=== PATIENT | female | born 1965 | race Caucasian/White ===

== ENCOUNTER 2022-10-14 18:57 | Emergency (ER) | payer MEDICARE, MEDICAID, SELFPAY ==
[2022-10-14 19:13] VITALS: BP 175/89; PULSE 83; RESP 18; TEMP 36.7; O2SAT 99; BMI 30.3
--- NOTE | 2022-10-14 19:19 | ED.GENADULT ---
HPI - General Adult General Time Seen by Provider: 19:19 Date Seen: 10/14/22 Chief complaint: Fall/Minor Trauma Stated complaint: Fell 5d ago Pain Time Seen by Provider: 10/14/22 19:14 Source: patient Mode of arrival: ambulatory Limitations: no limitations History of Present Illness HPI narrative: 56-year-old female who comes in with headache and right rib pain after a fall 5 days ago. Slipped on the ice and landed on her back. Since then has had difficulty getting out of the house because of a nice driveway, was out about today and decided come the emergency room. Pain in there right lower back, no breathing difficulty, no hematuria, no abdominal pain. She says she the back of her head as well, no loss of consciousness but has had some intermittent nausea and continued headaches since her injury. No neck pain. No numbness or tingling of the arms or legs. She is chronically on Butrans patch, oxycodone, gabapentin, and tizanidine and has been taking these as prescribed. Denies any bowel or bladder incontinence. Related Data Home Medications Medication Instructions Recorded Confirmed atorvastatin 40 mg tablet 40 mg PO DAILY 10/14/22 10/14/22 buprenorphine 15 mcg/hour weekly 1 patch transdermal Q7D 10/14/22 10/14/22 transdermal patch (Butrans) fenofibrate nanocrystallized 145 145 mg PO DAILY 10/14/22 10/14/22 mg tablet gabapentin 600 mg tablet 600 mg PO TID 10/14/22 10/14/22 insulin aspart U-100 100 unit/mL 20 unit subcut TID 10/14/22 10/14/22 (3 mL) subcutaneous pen (Novolog FlexPen U-100 Insulin aspart) insulin detemir U-100 100 unit/mL 45 unit subcut BID 10/14/22 10/14/22 (3 mL) subcutaneous pen (Levemir FlexTouch U-100 Insulin) lisinopril 30 mg tablet 30 mg PO DAILY 10/14/22 10/14/22 metformin 1,000 mg tablet 1,000 mg PO BID 10/14/22 10/14/22 oxycodone 10 mg tablet 10 mg PO Q4-6H PRN 10/14/22 10/14/22 pantoprazole 40 mg tablet,delayed 40 mg PO DAILY 10/14/22 10/14/22 release rosuvastatin 40 mg tablet 40 mg PO HS 10/14/22 10/14/22 semaglutide 0.25 mg or 0.5 mg (2 0.5 mg subcut QWEEK 10/14/22 10/14/22 mg/1.5 mL) subcutaneous pen injector (Ozempic) tizanidine 2 mg tablet 2 mg PO Q8H PRN 10/14/22 10/14/22 venlafaxine 150 mg 150 mg PO DAILY 10/14/22 10/14/22 capsule,extended release 24 hr Allergies Allergy/AdvReac Type Severity Reaction Status Date / Time morphine Allergy Severe Arrythmia Verified 10/14/22 19:20 erythromycin base Allergy Intermediate Rash Verified 10/14/22 19:20 exenatide Allergy Mild Rash Verified 10/14/22 19:20 Review of Systems Status of ROS: Reports: 10 or more systems reviewed and unremarkable except as noted in History and below Exam Narrative: Exam Narrative: General: Well-developed and well-nourished, no acute distress. Laying on her right side initially because from laying to sitting fairly well with only occasional wincing Head: Posterior scalp tenderness Eyes: Pupils are equal reactive, extraocular motions intact, conjunctiva clear ENT: External nose and ears are normal, posterior pharynx without erythema or exudate Neck: No midline cervical tenderness, full spontaneous range of motion the neck, trachea midline, no adenopathy Heart: Regular rate and rhythm no murmurs or thrills Lungs: Clear to auscultation bilaterally without wheezes or crackles. Tenderness of the right posterior lateral lower ribs. Abdomen: Soft, nontender, nondistended with active bowel sounds Musculoskeletal: No tenderness, deformity, or edema Neurologic: Awake, alert, and oriented x3, no gross focal neurologic deficits, cranial nerves intact as tested Psych: Mood and affect are appropriate Skin: No rashes Const: Vital Signs, click to edit/add: Vital Signs - 24 hr 10/14/22 19:13 Temperature 98.0 F Pulse Rate [Right Pulse Oximeter] 83 Respiratory Rate 18 Blood Pressure [Ri ght Upper Arm] 175/89 H Pulse Oximetry 99 Oxygen Delivery Me thod Room Air Course Course Hospital Course: Patient seen examined, prior records reviewed. Patient had a fall 5 days ago on comes in today with head pain and nausea, head CT is ordered although no loss of conscious and risk of intracranial injury is low. Also right posterior lateral chest wall pain, good lung sounds on that side so significant hemothorax or pneumothorax is clinically unlikely, x-ray ordered to evaluate for rib fracture although did discuss with patient the evening she has a broken rib, given time since injury and less is severely displaced she will not need further treatment for this. Reevaluation(s) Reevaluation #1: CT scan of the head negative for acute intracranial pathology. Chest x-ray does not demonstrate any hemothorax, pneumothorax, or rib fracture. Patient is stable for discharge Time: 20:53 Vital Signs Vital signs: Initial Vital Signs Temperature 98.0 F 10/14/22 19:13 Temperature Source Temporal Artery Scan 10/14/22 19:13 Pulse Rate 83 10/14/22 19:13 Respiratory Rate 18 10/14/22 19:13 Blood Pressure 175/89 H 10/14/22 19:13 Blood Pressure Mean 117 10/14/22 19:13 Blood Pressure Position Sitting 10/14/22 19:13 Pulse Oximetry 99 10/14/22 19:13 Oxygen Delivery Method 10/14/22 19:13 Vital Signs Temperature 98.0 F 10/14/22 19:13 Pulse Rate 83 10/14/22 19:13 Respiratory Rate 18 10/14/22 19:13 Blood Pressure 175/89 H 10/14/22 19:13 Pulse Oximetry 99 10/14/22 19:13 Oxygen Delivery Method 10/14/22 19:13 Temperature 98.0 F 10/14/22 19:13 Pulse Rate 83 10/14/22 19:13 Respiratory Rate 18 10/14/22 19:13 Blood Pressure 175/89 H 10/14/22 19:13 Pulse Oximetry 99 10/14/22 19:13 Oxygen Delivery Method 10/14/22 19:13 Medical Decision Making Medical Records Medical records reviewed: Yes I reviewed the patient's medical records Lab Data Lab results reviewed: Yes I reviewed the patient's lab results Discharge Plan Discharge Prescriptions: No Action atorvastatin 40 mg tablet 40 mg PO DAILY Label Comments: TAKE 1 TABLET BY MOUTH DAILY buprenorphine [Butrans] 15 mcg/hour patch weekly 1 patch transdermal Q7D Label Comments: APPLY 1 PATCH BY TRANSDERMAL ROUTE EVERY 7 DAYS FOR CHRONIC PAIN fenofibrate nanocrystallized 145 mg tablet 145 mg PO DAILY Label Comments: TAKE 1 TABLET (145 MG TOTAL) BY MOUTH DAILY. gabapentin 600 mg tablet 600 mg PO TID Label Comments: TAKE 1-2 TABLET BY ORAL ROUTE 3 TIMES EVERY DAY insulin aspart U-100 [Novolog FlexPen U-100 Insulin] 100 unit/mL (3 mL) insulin pen 20 unit SUBCUT TID Label Comments: INJECT 20 UNITS UNDER THE SKIN 3 (THREE) TIMES A DAY WITH MEALS. VARIES DOSE PER SLIDING SCALE Levemir FlexTouch U-100 Insuln 100 unit/mL (3 mL) insulin pen 45 unit SUBCUT BID Label Comments: INJECT 45 UNITS UNDER THE SKIN 2 (TWO) TIMES A DAY. lisinopril 30 mg tablet 30 mg PO DAILY Label Comments: TAKE 1 TABLET (30 MG TOTAL) BY MOUTH DAILY. metformin 1,000 mg tablet 1,000 mg PO BID Label Comments: TAKE ONE TABLET BY MOUTH TWO TIMES A DAY WITH MORNING AND EVENING MEALS oxycodone 10 mg tablet 10 mg PO Q4-6H PRN Label Comments: TAKE 1 TABLET BY ORAL ROUTE EVERY 4 - 6 HOURS NEEDED FOR CHRONIC PAIN, MAX 4/DAY pantoprazole 40 mg tablet,delayed release (DR/EC) 40 mg PO DAILY Label Comments: TAKE 1 TABLET (40 MG TOTAL) BY MOUTH DAILY WITH BREAKFAST. rosuvastatin 40 mg tablet 40 mg PO HS Label Comments: TAKE ONE TABLET BY MOUTH EVERY DAY Ozempic 0.25 mg or 0.5 mg(2 mg/1.5 mL) pen injector 0.5 mg SUBCUT QWEEK Label Comments: INJECT 0.5 MG UNDER THE SKIN EVERY 7 (SEVEN) DAYS. tizanidine 2 mg tablet 2 mg PO Q8H PRN Label Comments: TAKE ONE TABLET BY MOUTH EVERY 8 HOURS NEEDED NOT TO EXCEED 3 DOSES IN 24 HOURS. IN ADDITION TO 4MG TABLETS venlafaxine 150 mg capsule,extended release 24hr 150 mg PO DAILY Label Comments: TAKE 1 CAPSULE (150 MG TOTAL) BY MOUTH DAILY. TAKE WITH FOOD.
--- NOTE | 2022-10-14 19:31 | CRLHL7_ITS ---
For Patients: As a result of the Century Cures Act, medical imaging exams and procedure reports are released immediately into your electronic medical record. You may view this report before your referring provider. If you have questions, please contact your health care provider. INDICATION: Fall TECHNIQUE: Noncontrast axial CT of the head. Coronal and sagittal reformats. Bone and soft tissue algorithms. COMPARISON: No relevant comparison studies available at this institution. FINDINGS: The ventricles and cortical sulci are stable in configuration. No midline shift or mass effect. No acute intracranial hemorrhage or extra-axial fluid collection. Smith-white matter differentiation is grossly maintained. White matter attenuation is unremarkable. Intracranial vessels are unremarkable for technique. Partially empty sella configuration, presumed anatomic variant. Bony calvarium appears grossly intact. Paranasal sinuses and mastoid air cells are clear. Orbits are unremarkable. IMPRESSION: No CT evidence of skull fracture or acute intracranial hemorrhage. Please note that all CT scans at this facility use dose modulation, iterative reconstruction, and/or weight-based dosing when appropriate to reduce radiation dose to as low as reasonably achievable. Dictated by Alana Boogie MD @ 10/14/2022 8:29:15 PM (Electronically Signed)
--- NOTE | 2022-10-14 19:31 | CRLHL7_ITS ---
For Patients: As a result of the Cures Act, medical imaging exams and procedure reports are released immediately into your electronic medical record. You may view this report before your referring provider. If you have questions, please contact your health care provider. INDICATION: Pain. TECHNIQUE: Chest and rib detail. IMPRESSION: Four images of the chest and right ribs. Marker over the right 9th rib. No signs of rib fracture. Lumbar interbody and posterior stabilization with intact hardware at L3 through L5. Heart size normal. Lungs are clear. No pneumothorax. Dictated by Eleazar Miller MD @ 10/14/2022 8:49:13 PM (Electronically Signed)
== END 2022-10-14 21:03 | disposition home or self-care (01) ==
PROVIDERS: Emergency Provider Family Medicine
DX: S20.211A Contusion of right front wall of thorax, initial encounter (principal); W00.9XXA Unspecified fall due to ice and snow, initial encounter
CPT/HCPCS: 70450; 71101; 99284

== ENCOUNTER 2024-04-07 16:25 | Emergency (ER) | payer MEDICARE, SELFPAY ==
[2024-04-07 16:29] VITALS: BP 187/124; PULSE 88; RESP 20; TEMP 36.9; O2SAT 99; BMI 32.3
--- NOTE | 2024-04-07 16:38 | ED_ITS ---
HPI - General Adult General Chief complaint: Fall/Minor Trauma Stated complaint: Fall, hit head--bleeding Time Seen by Provider: 04/07/24 16:26 History of Present Illness HPI narrative: unloading refrigerator and walking down backwards of ramp on truck. pt fell backwards, refrigerator landed on her and corner of lader of tracker hit head causing lac. R leg pain and scrape on L elbow. pt returned rental truck and then drove self here 58-year-old woman presenting to the emergency department after sustaining full and process hitting her head. Apparently was trying to unload a refrigerator with a esdras down a truck ramp. She says the refrigerator was relatively light weight. Somehow lost control of the refrigerator she fell and struck the left side of her head on the hardened steel aspect of a tractor. There was no loss of consciousness. She has not been vomiting. Is having right leg pain where it sounds like the refrigerator landed on her. Has been ambulatory. She actually returned a rental truck and drove herself here. Underlying history of chronic low back pain and is pending a repeat surgery in a few weeks. Does take chronic pain medication. She did recently take some and does not feel she needs any intervention for pain. A sister recently due to a head bleed following trauma I believe. Denies neck or new back pain. Related Data Home Medications ?Medication ?Instructions ?Recorded ?Confirmed atorvastatin 40 mg tablet 40 mg PO DAILY 10/14/22 10/14/22 buprenorphine 15 mcg/hour weekly 1 patch transdermal Q7D 10/14/22 10/14/22 transdermal patch (Butrans) fenofibrate nanocrystallized 145 145 mg PO DAILY 10/14/22 10/14/22 mg tablet gabapentin 600 mg tablet 600 mg PO TID 10/14/22 10/14/22 insulin aspart U-100 100 unit/mL 20 unit subcut TID 10/14/22 10/14/22 (3 mL) subcutaneous pen (Novolog FlexPen U-100 Insulin aspart) insulin detemir U-100 100 unit/mL 45 unit subcut BID 10/14/22 10/14/22 (3 mL) subcutaneous pen (Levemir FlexTouch U-100 Insulin) lisinopril 30 mg tablet 30 mg PO DAILY 10/14/22 10/14/22 metformin 1,000 mg tablet 1,000 mg PO BID 10/14/22 10/14/22 oxycodone 10 mg tablet 10 mg PO Q4-6H PRN 10/14/22 10/14/22 pantoprazole 40 mg tablet,delayed 40 mg PO DAILY 10/14/22 10/14/22 release rosuvastatin 40 mg tablet 40 mg PO HS 10/14/22 10/14/22 semaglutide 0.25 mg or 0.5 mg (2 0.5 mg subcut QWEEK 10/14/22 10/14/22 mg/1.5 mL) subcutaneous pen injector ([employer]) tizanidine 2 mg tablet 2 mg PO Q8H PRN 10/14/22 10/14/22 venlafaxine 150 mg 150 mg PO DAILY 10/14/22 10/14/22 capsule,extended release 24 hr Allergies Allergy/AdvReac Type Severity Reaction Status Date / Time morphine Allergy Severe Arrythmia Verified 10/14/22 19:20 erythromycin base Allergy Intermediate Rash Verified 10/14/22 19:20 exenatide Allergy Mild Rash Verified 10/14/22 19:20 Review of Systems Status of ROS: Reports: 6 or more systems reviewed and unremarkable except as noted in History and below Exam Narrative: Exam Narrative: Pleasant. With good energy. Has dried blood on upper scalp and forehead and left hand. Cranial nerves 2-12 intact. She is breathing easily. There is a similar laceration at the left upper parietal scalp. Has clotted. Not actively bleeding now. Length is knee inch and half total. I do not appreciate a defect in the parietal scalp to palpation. No fluid at external ear canals. No Mora sign. Neck is supple nontender. Back not particularly tender either and with well-healed extensive midline surgical scar low back. She does have some limitations to movement of her shoulders but apparently this is chronic. There is no clavicular area pain. Some mild pain to palpation of the left mid bicep/upper arm it appears to have good function. Knees are without apparent injury. There is a mid right thigh swelling consistent with impact. Probable hematoma. No break in skin here. Const: Vital Signs, click to edit/add: Vital Signs - 24 hr 04/07/24 16:29 04/07/24 18:15 Temperature 98.5 F Pulse Rate [Pulse Oximeter] 88 Respiratory Rate 20 Blood Pressure [Ri ght Upper Arm] 187/124 H 155/98 H Pulse Oximetry 99 Oxygen Delivery Me thod Room Air Documenting provider has reviewed patient's vital signs: yes Course Vital Signs Vital signs: Initial Vital Signs Temperature 98.5 F 04/07/24 16:29 Temperature Source Temporal Artery Scan 04/07/24 16:29 Pulse Rate 88 04/07/24 16:29 Respiratory Rate 20 04/07/24 16:29 Blood Pressure 187/124 H 04/07/24 16:29 Blood Pressure Mean 145 H 04/07/24 16:29 Blood Pressure Position Supine 04/07/24 16:29 Pulse Oximetry 99 04/07/24 16:29 Oxygen Delivery Method Room Air 04/07/24 16:29 Vital Signs Temperature 98.5 F 04/07/24 16:29 Pulse Rate 88 04/07/24 16:29 Respiratory Rate 20 04/07/24 16:29 Blood Pressure 187/124 H 04/07/24 16:29 Pulse Oximetry 99 04/07/24 16:29 Oxygen Delivery Method Room Air 04/07/24 16:29 Temperature 98.5 F 04/07/24 16:29 Pulse Rate 88 04/07/24 16:29 Respiratory Rate 20 04/07/24 16:29 Blood Pressure 155/98 H 04/07/24 18:15 Pulse Oximetry 99 04/07/24 16:29 Oxygen Delivery Method Room Air 04/07/24 16:29 Medical Decision Making MDM Narrative Medical decision making narrative: Sounds like potentially quite an impact. Would actually be more concerned about potential skull fracture than head bleed but will evaluate for both. Does not appear to need neck imaging by nexus criteria. Will image the right thigh though I think this primarily hematoma and not femoral fracture. She does not feel she needs anything more for pain at this time. Head CT reviewed by me is absent any bony abnormality of the calvarium and without acute abnormality within. There is subcutaneous air consistent with scalp injury as noted on exam. Swelling as well in the soft tissue. Right femur with osteoarthritic change but no acute bony abnormality by my read. Return to discuss type of repair for scalp. Mutually settle on santosh. Has been cleansed with Hibiclens and water. Further cleanse with Shur-Clens equivalent solution and light scrubbing. Wound is better visualized. Applied 4 santosh without difficulty with good wound approximation and control of bleeding. Tolerated well. Recheck blood pressure 155/98. Is aware of elevation. Feels extenuating circumstances are contributing. See patient discharge plan for further discussion Medical Records Medical records reviewed: Yes I reviewed the patient's medical records Discharge Plan Discharge Clinical Impression: Closed head injury, Laceration of scalp, Hematoma Patient Disposition: Home w/ Parent or Adult Condition: Improved Additional Instructions: Consider icing the areas that hurt 2-3 times daily over the next few days. Might apply an Kamari wrap your right thigh tonight. Bathe as usual tonight. [place] out in about a week. Okay to get wet but try to avoid soaking well santosh are in. Signs or symptoms of a concussion might be nausea or headache upon exertion which can also be an indication to back off that level of activity and reassess in a week.? Concussion can also be represented by smoldering nausea or smoldering headache, difficulty with concentration, mood lability, general somnolence, sense of persistent fog or dizziness/lightheadedness.? If these symptoms are becoming apparent and continuing beyond 7-10 days, be re-evaluated for further recommendations. Best wishes in your upcoming surgery Prescriptions: No Action atorvastatin 40 mg tablet 40 mg PO DAILY Patient Comments: TAKE 1 TABLET BY MOUTH DAILY buprenorphine [Butrans] 15 mcg/hour patch weekly 1 patch transdermal Q7D Patient Comments: APPLY 1 PATCH BY TRANSDERMAL ROUTE EVERY 7 DAYS FOR CHRONIC PAIN fenofibrate nanocrystallized 145 mg tablet 145 mg PO DAILY Patient Comments: TAKE 1 TABLET (145 MG TOTAL) BY MOUTH DAILY. gabapentin 600 mg tablet 600 mg PO TID Patient Comments: TAKE 1-2 TABLET BY ORAL ROUTE 3 TIMES EVERY DAY insulin aspart U-100 [Novolog FlexPen U-100 Insulin] 100 unit/mL (3 mL) insulin pen 20 unit SUBCUT TID Patient Comments: INJECT 20 UNITS UNDER THE SKIN 3 (THREE) TIMES A DAY WITH MEALS. VARIES DOSE PER SLIDING SCALE Levemir FlexTouch U100 Insulin 100 unit/mL (3 mL) insulin pen 45 unit SUBCUT BID Patient Comments: INJECT 45 UNITS UNDER THE SKIN 2 (TWO) TIMES A DAY. lisinopril 30 mg tablet 30 mg PO DAILY Patient Comments: TAKE 1 TABLET (30 MG TOTAL) BY MOUTH DAILY. metformin 1,000 mg tablet 1,000 mg PO BID Patient Comments: TAKE ONE TABLET BY MOUTH TWO TIMES A DAY WITH MORNING AND EVENING MEALS oxycodone 10 mg tablet 10 mg PO Q4-6H PRN Patient Comments: TAKE 1 TABLET BY ORAL ROUTE EVERY 4 - 6 HOURS NEEDED FOR CHRONIC PAIN, MAX 4/DAY pantoprazole 40 mg tablet,delayed release (DR/EC) 40 mg PO DAILY Patient Comments: TAKE 1 TABLET (40 MG TOTAL) BY MOUTH DAILY WITH BREAKFAST. rosuvastatin 40 mg tablet 40 mg PO HS Patient Comments: TAKE ONE TABLET BY MOUTH EVERY DAY Ozempic 0.25 mg or 0.5 mg(2 mg/1.5 mL) pen injector 0.5 mg SUBCUT QWEEK Patient Comments: INJECT 0.5 MG UNDER THE SKIN EVERY 7 (SEVEN) DAYS. tizanidine 2 mg tablet 2 mg PO Q8H PRN Patient Comments: TAKE ONE TABLET BY MOUTH EVERY 8 HOURS NEEDED NOT TO EXCEED 3 DOSES IN 24 HOURS. IN ADDITION TO 4MG TABLETS venlafaxine 150 mg capsule,extended release 24hr 150 mg PO DAILY Patient Comments: TAKE 1 CAPSULE (150 MG TOTAL) BY MOUTH DAILY. TAKE WITH FOOD. Follow Up/Referrals: Provider,Not a Local [Primary Care Provider] - Stand Alone Forms: [facility] Info Instructions
--- NOTE | 2024-04-07 16:49 | CRLHL7_ITS ---
For Patients: As a result of the Cures Act, medical imaging exams and procedure reports are released immediately into your electronic medical record. You may view this report before your referring provider. If you have questions, please contact your health care provider. Indication: Crush injury to mid thigh Technique: Right femur, two views Comparison: None. Findings and impression: No acute fracture or dislocation. Mild degenerative disease of the hip. Soft tissue swelling of the thigh. Dictated by Lay Estevez MD @ 04/07/2024 5:55:45 PM (Electronically Signed)
--- NOTE | 2024-04-07 16:49 | CRLHL7_ITS ---
For Patients: As a result of the Cures Act, medical imaging exams and procedure reports are released immediately into your electronic medical record. You may view this report before your referring provider. If you have questions, please contact your health care provider. INDICATION: FALL, HIT HEAD, INJURY. TECHNIQUE: Non-contrast CT of the head is submitted. Comparison is made to the CT head dated 10/14/2022. FINDINGS: The ventricles, sulci and gyri are of normal size, shape and contour. Midline structures are centrally located. No convincing evidence of intra- or extra-axial fluid collections. Mild left frontal scalp swelling with associated soft tissue gas, indicating laceration. No radiopaque foreign body. No underlying fracture. IMPRESSION: No radiographic evidence of acute intracranial abnormalities. Left frontal scalp swelling/laceration without underlying fracture. Please note that all CT scans at this facility use dose modulation, iterative reconstruction, and/or weight-based dosing when appropriate to reduce radiation dose to as low as reasonably achievable. Dictated by Leonard Peñaloza MD @ 04/07/2024 5:49:57 PM (Electronically Signed)
[2024-04-07 18:15] VITALS: BP 155/98
== END 2024-04-07 18:20 | disposition home or self-care (01) ==
PROVIDERS: Emergency Provider Family Medicine
DX: S01.01XA Laceration without foreign body of scalp, initial encounter (principal); W20.8XXA Other cause of strike by thrown, projected or falling object, initial encounter
CPT/HCPCS: 12001; 70450; 73552; 99283; 99284

== ENCOUNTER 2024-06-16 21:55 | Emergency (ER) | payer MEDICARE, SELFPAY ==
[2024-06-16 22:06] VITALS: BP 163/91; PULSE 113; RESP 16; TEMP 37.1; O2SAT 99; BMI 27.4
--- NOTE | 2024-06-16 22:36 | ED_ITS ---
HPI - General Adult General Date Seen: 06/16/24 Chief complaint: Animal Bite Stated complaint: dog bite Time Seen by Provider: 06/16/24 22:35 History of Present Illness HPI narrative: 58-year-old female presenting to the ER today for evaluation of a dog bite. Her own dog bit her on her left calf this evening about 8:15 p.m.. The dog is not vaccinated against rabies but has not been displaying any other unusual behavior. She has 3 dogs at home. Two of them are large female dogs, peer in knees. She also has a smaller male dog was a Wiener dog. Her 2 female dogs are currently in heat. They have been acting aggressively toward each other for the past couple of days. Tonight her 2 dogs were in a fight between themselves. She was trying to break up the fight when 1 of the 2 dogs bit her in the left calf. The patient believes that her dog accidentally bit her because it was trying to bite the other dog instead. The dog immediately let go after biting her and seemed to be Haven remorseful manner after biting her. She suffered a pinching bite affecting the muscle of her calf with bites on the anterolateral calf and also in the posterolateral calf. She suffered puncture wounds to the front and back of her calf. No other deep tearing lacerations. Only 1 bite. The patient is up-to-date with her tetanus. She does have diabetes and controls it with medications and insulin. No chemo or or other immunosuppression.. Related Data Home Medications ?Medication ?Instructions ?Recorded ?Confirmed atorvastatin 40 mg tablet 40 mg PO DAILY 10/14/22 10/14/22 buprenorphine 15 mcg/hour weekly 1 patch transdermal Q7D 10/14/22 10/14/22 transdermal patch (Butrans) fenofibrate nanocrystallized 145 145 mg PO DAILY 10/14/22 10/14/22 mg tablet gabapentin 600 mg tablet 600 mg PO TID 10/14/22 10/14/22 insulin aspart U-100 100 unit/mL 20 unit subcut TID 10/14/22 10/14/22 (3 mL) subcutaneous pen (Novolog FlexPen U-100 Insulin aspart) insulin detemir U-100 100 unit/mL 45 unit subcut BID 10/14/22 10/14/22 (3 mL) subcutaneous pen (Levemir FlexTouch U-100 Insulin) lisinopril 30 mg tablet 30 mg PO DAILY 10/14/22 10/14/22 metformin 1,000 mg tablet 1,000 mg PO BID 10/14/22 10/14/22 oxycodone 10 mg tablet 10 mg PO Q4-6H PRN 10/14/22 10/14/22 pantoprazole 40 mg tablet,delayed 40 mg PO DAILY 10/14/22 10/14/22 release rosuvastatin 40 mg tablet 40 mg PO HS 10/14/22 10/14/22 semaglutide 0.25 mg or 0.5 mg (2 0.5 mg subcut QWEEK 10/14/22 10/14/22 mg/1.5 mL) subcutaneous pen injector (Ozempic) tizanidine 2 mg tablet 2 mg PO Q8H PRN 10/14/22 10/14/22 venlafaxine 150 mg 150 mg PO DAILY 10/14/22 10/14/22 capsule,extended release 24 hr Allergies Allergy/AdvReac Type Severity Reaction Status Date / Time morphine Allergy Severe Arrythmia Verified 10/14/22 19:20 erythromycin base Allergy Intermediate Rash Verified 10/14/22 19:20 exenatide Allergy Mild Rash Verified 10/14/22 19:20 [facility] Social History Smoking Status: Former smoker How often do you have a drink containing alcohol: never How often do you have six or more drinks on one occasion: Never AUDIT-C Alcohol total score: 0 Non-prescribed substance use: denies use service: No Exam Narrative: Exam Narrative: Constitutional: Appears well-developed and well-nourished. Active. Non-toxic appearing. HENT: Head: Atraumatic. No signs of injury. Nose: No nasal discharge. Mouth/Throat: Mucous membranes are moist. Pharynx is normal. Tonsils symmetric. Uvula midline. Airway patent. Eyes: Conjunctivae normal and EOM are normal. Pupils are equal, round, and reactive to light. Right eye exhibits no discharge. Left eye exhibits no discharge. No icterus. Neck: Normal range of motion. Neck supple. No adenopathy. No stridor. Cardiovascular: Normal rate and regular rhythm. No murmur heard. No murmurs, rubs, or gallops. Brisk capillary refill Pulmonary/Chest: Effort normal. No stridor. No respiratory distress. No wheezes.No rhonchi. No rales. No retractions. Abdominal: Soft. Bowel sounds are normal. No distension. No mass. There is no tenderness. There is no rebound and no guarding. Musculoskeletal: She does have a dog bite affecting her left calf. There are 5 puncture wounds on anterolateral mid walls and a anterolateral calf. The largest of these is probably 4 x 5 mm in size and does appear to be a puncture wound through the dermis and down into the muscle. The others are fairly superficial only affecting the dermis. On the posterolateral calf there are also 3 associated tooth eason. One of these also appears to be deeper and through the skin into the muscle. Normal range of motion. No edema. No tenderness. No deformity. Normal weight-bearing. Normal ankle plantar and dorsiflexion. Intact distal sensory function. Normal DP pulses. Normal brisk distal cap refill. Neurological: Alert. Normal strength. No cranial nerve deficit or sensory deficit. Coordination normal. GCS eye subscore is 4. GCS verbal subscore is 5. GCS motor subscore is 6. Skin: Skin is warm. No rash noted. Const: Vital Signs, click to edit/add: Vital Signs - 24 hr 06/16/24 22:06 06/16/24 23:21 Temperature 98.7 F 98.7 F Pulse Rate [Pulse Oximeter] 113 H 95 Respiratory Rate 16 16 Blood Pressure [Le ft Upper Arm] 163/91 H 154/81 H Pulse Oximetry 99 99 Oxygen Delivery Me thod Room Air Room Air Course Vital Signs Vital signs: Initial Vital Signs Temperature 98.7 F 06/16/24 22:06 Temperature Source Temporal Artery Scan 06/16/24 22:06 Pulse Rate 113 H 06/16/24 22:06 Respiratory Rate 16 06/16/24 22:06 Blood Pressure 163/91 H 06/16/24 22:06 Blood Pressure Mean 115 H 06/16/24 22:06 Blood Pressure Position Sitting 06/16/24 22:06 Pulse Oximetry 99 06/16/24 22:06 Oxygen Delivery Method Room Air 06/16/24 22:06 Vital Signs Temperature 98.7 F 06/16/24 22:06 Pulse Rate 113 H 06/16/24 22:06 Respiratory Rate 16 06/16/24 22:06 Blood Pressure 163/91 H 06/16/24 22:06 Pulse Oximetry 99 06/16/24 22:06 Oxygen Delivery Method Room Air 06/16/24 22:06 Temperature 98.7 F 06/16/24 23:21 Pulse Rate 95 06/16/24 23:21 Respiratory Rate 16 06/16/24 23:21 Blood Pressure 154/81 H 06/16/24 23:21 Pulse Oximetry 99 06/16/24 23:21 Oxygen Delivery Method Room Air 06/16/24 23:21 Medical Decision Making MDM Narrative Medical decision making narrative: Findings and exam are consistent with an dog bite affecting her left calf. This bite occurred from her own dog. The animal is not up-to-date on its rabies vaccine but has not really been allowed to go outside the house lately and the patient has no concerned that the dog is rapid. She will be able to observe the animal for the next 10 days and will bring it to the vet for rabies testing if it develops any symptoms of illness. The patient herself is up-to-date on her tetanus. 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 She thinks is probably been about 10 years since her rabies shots. In terms of the wound, most of the teeth eason are very superficial but she does have a fairly deep puncture wound anteriorly and a 2nd deep puncture wound posteriorly. Since he has or dog bite puncture wounds will let them heal by secondary intention. Will start the patient on prophylactic Augmentin. For Inst[facility] prescription for Augmentin b.i.d. for 7 days provided. There is no evidence at this time to suggest any associated fracture or foreign body. There is no evidence to suggest tendon or arterial injury and patient is neurologically in tact. Indications to seek urgent reevaluation and signs of infection (including but not limited to increasing pain, redness, swelling, fevers, and drainage) were reviewed. Tetanus is up-to-date. An understanding of the discharge instructions and need for follow up were verbally confirmed. Discharge Plan Discharge Clinical Impression: Dog bite Patient Disposition: Home, Self-Care Condition: Stable Instructions: Animal Bite (ED) Additional Instructions: As we discussed, we are not going to suture your dog bite wounds on your calf tonight because they are deep puncture wounds from the dog's teeth. The best way for them to heal is to leave them open and let them heal by scabbing. However you need to watch carefully for signs of infection. We are going to start you on preventative antibiotics. Take your 1st dose tonight and take it twice a day for the next week. Even on the antibiotics it still might get infected. Watch for redness, swelling, pus draining from the wound, fever, or red streaks moving up or down your leg. If you have any concerns for infection, please see your doctor or come back to the ER right away to be rechecked. Please monitor your dog carefully for the next 10 days. It she develops any symptoms of illness, bring her to the vet to consider rabies testing. If you have any other concerns or any problems, please come back to the ER or see your doctor right away to be rechecked. Prescriptions: No Action atorvastatin 40 mg tablet 40 mg PO DAILY Patient Comments: TAKE 1 TABLET BY MOUTH DAILY buprenorphine [Butrans] 15 mcg/hour patch weekly 1 patch transdermal Q7D Patient Comments: APPLY 1 PATCH BY TRANSDERMAL ROUTE EVERY 7 DAYS FOR CHRONIC PAIN fenofibrate nanocrystallized 145 mg tablet 145 mg PO DAILY Patient Comments: TAKE 1 TABLET (145 MG TOTAL) BY MOUTH DAILY. gabapentin 600 mg tablet 600 mg PO TID Patient Comments: TAKE 1-2 TABLET BY ORAL ROUTE 3 TIMES EVERY DAY insulin aspart U-100 [Novolog FlexPen U-100 Insulin] 100 unit/mL (3 mL) in sulin pen 20 unit SUBCUT TID Patient Comments: INJECT 20 UNITS UNDER THE SKIN 3 (THREE) TIMES A DAY WITH MEALS. VARIES DOSE PER SLIDING SCALE Levemir FlexTouch U100 Insulin 100 unit/mL (3 mL) insulin pen 45 unit SUBCUT BID Patient Comments: INJECT 45 UNITS UNDER THE SKIN 2 (TWO) TIMES A DAY. lisinopril 30 mg tablet 30 mg PO DAILY Patient Comments: TAKE 1 TABLET (30 MG TOTAL) BY MOUTH DAILY. metformin 1,000 mg tablet 1,000 mg PO BID Patient Comments: TAKE ONE TABLET BY MOUTH TWO TIMES A DAY WITH MORNING AND EVENING MEALS oxycodone 10 mg tablet 10 mg PO Q4-6H PRN Patient Comments: TAKE 1 TABLET BY ORAL ROUTE EVERY 4 - 6 HOURS NEEDED FOR CHRONIC PAIN, MAX 4/DAY pantoprazole 40 mg tablet,delayed release (DR/EC) 40 mg PO DAILY Patient Comments: TAKE 1 TABLET (40 MG TOTAL) BY MOUTH DAILY WITH BREAKFAST. rosuvastatin 40 mg tablet 40 mg PO HS Patient Comments: TAKE ONE TABLET BY MOUTH EVERY DAY Ozempic 0.25 mg or 0.5 mg(2 mg/1.5 mL) pen injector 0.5 mg SUBCUT QWEEK Patient Comments: INJECT 0.5 MG UNDER THE SKIN EVERY 7 (SEVEN) DAYS. tizanidine 2 mg tablet 2 mg PO Q8H PRN Patient Comments: TAKE ONE TABLET BY MOUTH EVERY 8 HOURS NEEDED NOT TO EXCEED 3 DOSES IN 24 HOURS. IN ADDITION TO 4MG TABLETS venlafaxine 150 mg capsule,extended release 24hr 150 mg PO DAILY Patient Comments: TAKE 1 CAPSULE (150 MG TOTAL) BY MOUTH DAILY. TAKE WITH FOOD. Follow Up/Referrals: Provider,Not a Local [Primary Care Provider] - Stand Alone [facility]: [facility] Info Inst[facility]
--- OUTSIDE RECORDS SUMMARY | 2024-06-16 23:15 | XMS_ITS | Continuity of Care Document ---
Author Organization [facility] Address [address] [place] [address] Care Team Providers Care [facility] End Department Supervisor Name Role Phone Shailesh Mcdonald CRNA Unavailable Unavailable Procedures Procedure Date Percutaneous Image guided destruction pr ocedures B ANESTH PERC IMG TX SP PROC ANESTH PERC IMG TX SP PROC ANESTH PERC IMG TX SP PROC ANESTH PERC IMG TX SP PROC Advance Directives Directive Yes / No Effective Date File Name No Information Encounters Encounter Description Practice Location Reason(s) For Visit Diagnoses Date Provider Providers Copied on Encounter [facility], [address] [place], [place], [id number], [facility] No Information Harry Cash. [address] [place], [place], [id number], . tel:[phone] Referring Provider: Leticia Bowen, [address] [facility], [address] . tel:[phone] [facility], [address], [place], [id number], [facility] No Information Michael Castano. [address], [place], [place], [id number], . tel:[phone] Referring Provider: Leticia Bowen, [address] [place], [address] . tel:[phone] [facility], [address] [place], [id number], [facility] No Information Joi Marcial. [address], [place], [place], [id number], . tel:[phone] Referring Provider: Leticia Bowen, [address] [place], [address] . tel:[phone] [facility], [address] [place], [place], [id number], [facility] No Information Michael Eyad. [address], [facility], [place], [place], [id number], . tel:[phone] Referring Provider: Leticia Bowen, [address] [place], [address] . tel:[phone] [facility], [address], [id number], [facility] No Information Michael Castano. [address], [facility], [place], [place], [id number], . tel:[phone] Referring Provider: Leticia Bowen, [address] [place], [address] . tel:[phone] Family History Family Member Type Diagnosis Age At Onset No Information Payers Payer name Insurance type Covered constitution party ID Ferdinand melendrez(s) Medicare MB [id number] Social History Type Description Quantity Date Captured Comments Sex Female Smoking Status No Information Chief Complaint And Reason For Visit No Information Reason For Referral Reason For Referral No Information History Of Present Illness Encounter Date Complaint History Of Prese nt Illness No Information Functional Status Date Functional Assessmen t No Information Instructions Date Instruction Additional Infor mation No Information Assessments Type Assessment Date No Information Patient Care Teams Name Effective Dates (start - stop) Status Members No Information
--- OUTSIDE RECORDS SUMMARY | 2024-06-16 23:15 | XMS_ITS | Clinical Summary ---
Author Organization [facility] Address [place], [place] [address] Care Team Providers Care Associate Product Integrity Engineer Name Role Phone Gosia aDy Antonia SHOEMAKER Unavailable Unavaila Randi Morales MD Unavailable Unav ailable Pcp, No Primary Care Provider Unavailabl e Allergies Active Allergy Reactions Criticality Noted Date Comments Exenatide Microspheres Other - Describe In Comment Field 02/03/2018 Swelling at injection sites Erythromycin Rash 12/07/2008 Morphine Arrhythmia 12/07/2008 Medications Medication Sig Dispensed Refills Start Date End Date Status FISH OIL 500 MG CAPIndications:Diabetes mellitus type II 2 by mouth twice daily 0 9 Active ASPIRIN 81 MG TAB, DELAYED RELEASEIndications:Diabe kristen mellitus type II take 1 tablet (81 mg) by oral route once daily 0 9 Active phototherapy light box Use as instructed. Medically necessary for SAD 1 unit 0 3 Active medication order composer Large CPAP mask, #1, Diagnosis OBSTRUCTIVE SLEEP APNEA. 1 Each 0 3 Active cholecalciferol (VITAMIN D3) 1,000 unit tablet Take 5 tablets by mouth 2 times daily. 180 tablet 3 6 Active pen needle, diabetic 31 gauge x 01/08Indications:Type 2 diabetes mellitus with hyperglycemia, with long-term current use of insulin (HC) For administering insulin at home. 100 Each 1 7 Active blood-glucose meterIndications:Uncontr olled type 2 diabetes mellitus with complication, with long-term current use of insulin Test fasting and postprandial 4x's a day. Reason: uncontrolled DM, newly started insulin 1 Device 7 Active lancetsIndications:Uncon trolled type 2 diabetes mellitus with complication, with long-term current use of insulin Test 4 times daily 400 Each 2 7 Active WalkerIndications:S/P lumbar spinal fusion Rolling Walker for home use. 1 Device 7 Active gabapentin (NEURONTIN) 300 mg capsuleIndications:S/P lumbar spinal fusion,Lumbar disc herniation,Lumbar facet arthropathy,Leg pain, bilateral Take 2 capsules by mouth 3 times daily. 270 capsule 1 8 Active pantoprazole (PROTONIX) 40 mg delayed-release tabletIndications:Gastro esophageal reflux disease without esophagitis TAKE 1 TABLET BY MOUTH ONCE A DAY 90 tablet 2 8 Active lisinopril (PRINIVIL; ZESTRIL) 20 mg tabletIndications:HTN (hypertension) TAKE ONE TABLET BY MOUTH ONCE DAILY 90 tablet 2 8 Active tiZANidine (ZANAFLEX) 4 mg tabletIndications:Other chronic pain TAKE 1 TABLET BY MOUTH EVERY 8 HOURS IF NEEDED FOR MUSCLE SPASM 90 tablet 1 8 Active blood-glucose meterIndications:Type 2 diabetes mellitus without complication, with long-term current use of insulin (HC) Dispense meter, test strips, lancets covered by pt ins. E11.65 NIDDM type II, uncontrolled - Test 4 times/day. Reason: High A1C on insulin 1 Device 8 Active flash glucose sensor (FREESTYLE ENA SENSOR) kitIndications:Poorly controlled diabetes mellitus (HC) As directed. 3 Each 11 8 Active flash glucose scanning reader (FREESTYLE ENA READER) miscIndications:Poorly controlled diabetes mellitus (HC) As directed. Freestyle Ena CGM or may substitute with GCM covered by insurance. 1 reader 1 Device 1 8 Active glipiZIDE (GLUCOTROL) 10 mg tabletIndications:Type 2 diabetes mellitus with stage 1 chronic kidney disease, without long-term current use of insulin (HC),Poorly controlled diabetes mellitus (HC) Take 1 tablet by mouth 2 times daily before meals. To lower blood sugar 60 tablet 4 8 Active insulin degludec (TRESIBA FLEXTOUCH U-100) 100 unit/mL (3 mL) inpn subcutaneous penIndications:Type 2 diabetes mellitus with stage 1 chronic kidney disease, without long-term current use of insulin (HC) Inject 10 Units subcutaneous. 5 pen 3 8 Active tiZANidine (ZANAFLEX) 2 mg tablet TAKE ONE TABLET BY MOUTH EVERY 8 HOURS NEEDED, IN ADDITION TO 4MG DOSE NOT TO EXCEED 3 DOSES IN 24 HOURS 0 8 Active metFORMIN (GLUCOPHAGE) 1,000 mg tabletIndications:Type 2 diabetes mellitus with hyperglycemia, without long-term current use of insulin (HC) TAKE ONE TABLET BY MOUTH EVERY MORNING WITH BREAKFAST, 1/2 TAB WITH LUNCH, AND 1 TABLET WITH DINNER 75 tablet 8 Active oxyCODONE (ROXICODONE) 5 mg immediate release tablet Take 5 mg by mouth 2 times daily 0 8 Active blood sugar diagnostic (ACCU-CHEK TATE) stripIndications:Uncontr olled type 2 diabetes mellitus with complication, with long-term current use of insulin To match monitor. Test fasting and postprandial 4x's a day. Reason: uncontrolled DM, newly started insulin 1 box 3 8 Active blood sugar diagnostic (FREESTYLE TEST) stripIndications:Type 2 diabetes mellitus with stage 1 chronic kidney disease, without long-term current use of insulin (HC) Top match Freestyle Ena monitor. E11.65 IDDM type II, uncontrolled - Test 4 times/day. Reason: High A1C 200 Each 2 8 Active atorvastatin (LIPITOR) 40 mg tabletIndications:Pure hypercholesterolemia Take 1 tablet by mouth once daily. 90 tablet 1 8 Active Diaper,Brief, Adult,DisposableIndicati ons:Mixed stress and urge urinary incontinence For home use. 1 box 8 Active venlafaxine (EFFEXOR XR) 150 mg Extended-Release capsuleIndications:Depre ssion, recurrent (HC) Combine with 75mg capsule to = 225mg daily 90 capsule 8 Active venlafaxine (EFFEXOR XR) 75 mg cp24 Extended-Release capsuleIndications:Depre ssion, recurrent (HC) Combine with 150mg capsule to = 225mg daily 90 capsule 8 Active diazePAM (VALIUM) 5 mg tabletIndications:Mid back pain Take 1 Tablet (5 mg) by mouth 2 times daily. 10 Tablet 1 Active Active Problems Problem Noted Date Diagnosed Date History of abnormal cervical Pap smear 8 Overview (12/12/2017): [id number] cryotherapy. ASCCP recommends: History of CIN2 - CIN3: Cotesting every 3 years for 20 years. Plan: pap/hpv due 10/2020 Controlled substance agreement signed 05/20/2017 Overview (10/17/2017): Broken agreement due to taking dogs toradol and present on drug screen 07/2017. No further narcotics from Dr Goetz as of 09/2017 Diverticulosis 03/25/2017 BMI 37.0-37.9, adult 03/25/2017 Lumbar stenosis 03/25/2017 Lumbar facet arthropathy at L3-4 08/25/2014 S/P lumbar spinal fusion L4-Sacrum 07/15/2014 Lumbar disc injury at L3-4 07/15/2014 Myalgia 02/18/2014 Overview (02/18/2014): Previously saw a rheumatology in 2012 whom did not think inflammatory component. January 2014: We'll do trial off pravastatin. If no change, consider SSRI. Vitamin D deficiency 10/20/2012 [place] (nonalcoholic steatohepatitis) 09/15/2012 Seasonal affective disorder 09/04/2012 Major depression, recurrent; currently mild 03/2013 Pure hypercholesterolemia 04/30/2012 Diabetes mellitus type II 2008 Overview (10/13/2013): a system change updated this record. This will not affect patient care or billing. This comment can be deleted. Acute postoperative pain Chronic, continuous use of opioids Postoperative back pain Chronic pain LLQ abdominal pain Resolved Problems Problem Noted Date Diagnosed Date Resolved Date Depression 09/02/2012 Overview (04/02/2012): Started after daughter Immunizations Name Administration Dates Next Due Influenza, IIV3 (Age >=3 years) 05/18/2009 Influenza, IIV4 08/13/2018, 7,06/14/2016,2014 Pneumococcal Poly,23-Valent (Pneumovax) 08/13/2018 Tdap 08/10/2015 Family History Medical History Relation Name Comments Heart Disease Father stents Other Father back sx degener ative Genetic Maternal Grandmother amy ruvalcaba tooth Other Mother back sx degenra tive Other Other 1 Mom, Da (both p arents had surgery) bro, Pat GF + spine prob Other Other 2 Damián pierce (Mat GM & her twin sister) Diabetes Paternal Aunt Arthritis Sister 2 Cancer-breast No Family History Relation Name Status Comments Brother Alive Daughter trisomy 18 Father Alive Maternal Grandfather Maternal Grandmother Mother Alive Other 1 Other 2 Paternal Aunt Paternal Grandfather Paternal Grandmother Sister 1 Alive x2 Sister 2 Alive Social History Tobacco Use Types Packs/Day Years Used Date Smoking Tobacco: Former Cigarettes Q uit: 10/25/2011 Smokeless Tobacco: Never Tobacco Cessation:Counseling Given: Yes Alcohol Use Standard Drinks/Week Comments Yes 0 (1 standard drink = 0.6 oz pur e alcohol) once a year Sex and Gender Information Value Date Recorded Sex Assigned at Not on file Gender Identity Not on file Sexual Orientation Not on file Obstetrics History Para Term AB IAB SAB Ectopic Multiple Livin g Live Births 1 1 1 0 0 0 0 0 0 0 Date Outcome GA Total Labor Labor/2nd/3rd Weight Sex Type Anes PTL Sparkle A1 A5 Name Clin Term Last Filed Vital Signs Vital Sign Reading Time Taken Comments Blood Pressure 114/61 07/17/2023 6:00 PM PILOT Pulse 77 07/17/2023 6:00 PM PILOT Temperature 36.7 ??C (98 ??F) 07/17/2023 5:02 PM PILOT Respiratory Rate 22 07/17/2023 5:02 PM PILOT Oxygen Saturation 95% 07/17/2023 6:00 PM PILOT Inhaled Oxygen Concentration - - Weight 90.2 kg (198 lb 12.8 oz) 07/17/2023 5:02 PM PILOT Height 167.6 cm (5' 6) 07/17/2023 5:02 PM PILOT Body Mass Index 32.09 07/17/2023 5:02 PM PILOT Plan of Treatment Health Maintenance Due Date Last Done Comments HIV for age 15-65 12/10/1979 Mammogram for age 45-75 02/10/2014 02/11/20 13, 07/24/2011, 06/26/2010 Zoster (shingles) series for age 50+ (1 of 2) 2014 Fecal testing non-DNA (FIT,FOBT,iFOBT) for age 45-75 05/02/2016 05/02/2015 Depression screening for age 12+ 01/22/2018 01/22/2017, 02/22/2016 BMI (ht and wt on same day) for age 18+ 07/12/2019 07/12/2018, 02/03/2018, 10/05/2017, Additional history exists Pap test for age 21-65 10/15/2020 8, 10/15/2017, 03/21/2011 Lipids for age 45-75 11/07/2022 11/07/2017, 01/22/2017, 09/20/2016, Additional history exists COVID-19 vaccine series (2023- season) 2024 03/14/2021 Influenza for age 50-64 04/26/2024 08/13/20 18, 05/20/2017, 06/14/2016, Additional history exists Tetanus booster 08/10/2025 08/10/2015, 05/11/2009 Hepatitis C screening for age 18-79 Completed 05/12/2013 Tdap Completed 08/10/2015 Pneumococcal series for age 6-64 Aged Out 08/13/2018 No longer eligible based on patient's age to complete this topic Medical Devices Implanted Type Area Primer And Powder Canning Leader Device Identifier Shelf Expiration Date Model / Serial / Lot [id number] 1-4mm 30cc Medtronic Chips Canclls Freeze Dried Implanted:Qty: 1 on 03/26/2017 by José Miguel Souza MD at [facility] Explanted:at [facility] (Quantity not on file) N/A: Spine Medtronic Spine/Ortho 11/29/2021 [id number] / [id number] / Screw Lmbr Post 5x50mm Matrix Degen Hi Titnm - [id number] Implanted:Qty: 1 on 03/26/2017 by José Miguel Souza MD at [facility] N/A: Spine Best Bid [id number] # / / Screw Lmbr Post 7x50mm Matrix Degen Hi Titnm - [id number] Implanted:Qty: 3 on 03/26/2017 by José Miguel Souza MD at [facility] N/A: Spine Depuy [place] 632.750 # / / Lee Lmbr 45mmx5.5 Matrix Degen Cvd - [id number] Implanted:Qty: 1 on 03/26/2017 by José Miguel Souza MD at [facility] N/A: Spine Depuy [place] .636.045 # / / Lee Lmbr 70mmx5.5 Matrix Degen Cvd - [id number] Implanted:Qty: 1 on 03/26/2017 by José Miguel Souza MD at [facility] N/A: Spine Depuy [place] 636.070 # / / Set Screw Lmbr Matrix Degen W/O Saddle - [id number] Implanted:Qty: 4 on 03/26/2017 by José Miguel Souza MD at [facility] N/A: Spine J And J Depuy Spine .632.099 # / / Spacer Lmbr [id number] Opalrevolve Tlif - [id number] Implanted:Qty: 1 on 03/26/2017 by José Miguel Souza MD at [facility] N/A: Spine Depuy [place] [id number] # / / Procedures Procedure Name Priority Date/Time Associated Diagnosis Comments LDL CHOLESTEROL,DIRE CT Add On 11/07/2017 3:50 PM CDT Type 2 diabetes mellitus with hyperglycemia, with long-term current use of insulin (HC) Pure hypercholesterolemia SLIP MAKER THIN PREP PAP SCREEN IMAGED Routine 10/15/2017 8:21 AM PILOT Cervical cancer screening OCCULT BLOOD IFOBT STOOL Routine 05/02/2015 3:16 PM CDT Screening for colorectal cancer ANTI HCV Routine 05/12/2013 9:58 AM CDT Myalgia XR MAMMO BILAT SCREEN FFDM (IA) Routine 02/10/2013 9:59 AM CDT Other screening mammogram from Last 3 Months or Most Recently Relevant to Health Maintenance Results * LDL CHOLESTEROL,DIRECT (11/07/2017 3:50 PM CDT) Pathologist [facility] LDL CHOLESTEROL,DI RECT 89 mg/dL 11/08/2017 2:01 PM CDT [facility] PROVIDER ORDERED STATUS RANDOM 11/08/2017 2:01 PM CDT [facility] Blood BLOOD SPECIMEN / Unknown Venipuncture / Unknown 11/07/2017 3:50 PM CDT 11/07/2017 3:50 PM CDT Narrative [facility] - 11/08/2017 2:01 PM CDT ?RISK CATEGORY LDL GOAL ?(mg/dL) ? Vascular disease and/or diabetes (<100) Multiple (2+) risk factors ? (<130) 0-1 risk factor ?(<160) Lizabeth Goetz DO CHEMISTRY [facility] [address] [place] [address], [facility] [address] [place] [address], * SLIP MAKER THIN PREP PAP SCREEN IMAGED (10/15/2017 8:21 AM PILOT) [facility] Case Report Gynecologic Cytology Report ? Case: [id number] ? Authorizing Provider: ??Lizabeth Goetz DO ?Collected: ? 10/15/2017 0821 ? Ordering Location: ? [facility] ?? Received: ?10/15/2017 0827 ? Clinic ? First Screen: ?Alana Davis ? Specimen: ?SLIP MAKER ThinPrep Vial Screening, Cervical ? 10/21/2017 12:02 [facility] INTERPRETATION/ RESULT NEGATIVE FOR INTRAEPITHELIAL LESION OR MALIGNANCY (NIL) (none) 10/21/2017 12:02 PM [facility] [employer] [facility] ENTRAL LABORATORY NISM(S) Shift in lo suggestive of bacterial vaginosis 10/21/2017 12:02 PM [facility] SPECIMEN ADEQUACY Satisfactory for evaluation No endocervical component seen 10/21/2017 12:02 PM [facility] ENTRAL LABORATORY HPV REQUEST HPV if ASCUS 10/21/2017 12:02 PM [facility] Date of LMP Unsure 10/21/2017 12:02 PM [facility] [employer] [facility] ENTRAL LABORATORY Last Pap Date 03/21/11 10/21/2017 12:02 PM [facility] EN[facility]AL LABORATORY Last Pap Result NIL 8 12:02 PM [facility] Abnormal Pap or [place] Bx in last 5 years No 10/21/2017 12:[address] [facility] Menstrual Status Postmenopausal 10/21/2017 12:[address] [facility] [place] Bx Done Today No 10/21/2017 12:[address] [facility] Additional Information None given 10/21/2017 12:[address] [facility] Automated Review Successful 10/21/2017 12:[address] [facility] Comment:Specimen processed s uccessfully by automated irrigator gravity flow device, ThinPrep Imaging System, [employer] Note The pap test is a screening technique, not a diagnostic procedure. ??It is used primarily to screen for squamous cancers and precursor lesions. ??Published studies have shown that it is subject to both false negative and false positive results. ??The pap test should not be used as the sole means to diagnose or exclude pre-malignant and malignant lesions. Interpreted at [facility] ([facility], [facility], [facility], [facility], [facility], [facility]) 10/21/2017 12:02 PM [facility] Other (Cervical) Non-Blood / Unknown 10/15/2017 8:21 AM PILOT 10/15/2017 8:27 AM PILOT Lizabeth Goetz DO PATHOLOGY/CYTOLOGY [facility] [address] [place] [address], [place] * OCCULT BLOOD IFOBT STOOL (05/02/2015 3:16 PM CDT) STOOL BLOOD ,IFOBT Negative Negative, Invalid 05/10/2015 4:19 PM CDT [facility] Stool specimen (specimen) STOOL SPECIMEN / Unknown Non-Blood / Unknown 05/02/2015 3:16 PM CDT 05/10/2015 3:16 PM CDT Lizabeth Goetz DO LABORATORY [facility] [address] [place] [address], [place] [phone] * ANTI HCV (05/12/2013 9:58 AM CDT) ANTI HCV Non-reacti ve [facility] Blood specimen (specimen) BLOOD SPECIMEN / Unknown 05/12/2013 9:58 AM CDT 05/12/2013 9:51 AM CDT Randi Sanches MD SEND OUTS [facility] LABORATORY INTERNAL ZIP [id number] [place] [address] * XR MAMMO BILAT SCREEN FFDM (02/10/2013 9:59 AM CDT) Anatomical Region Laterality Modality BREASTS, Breast Left, Breast Right Bilateral Mammography Impressions 02/10/2013 12:30 PM CDT ??There is no radiographic evidence for malignancy. ??Recommend annual mammograms. A lay language report of this examination will be provided to the patient. MAMMOGRAM ASSESSMENT: ??ACR 2 Benign Narrative 02/10/2013 12:30 PM CDT XR MAMMO BILAT SCREEN FFDM [G0202.0] CLINICAL HISTORY: ??This is an asymptomatic 47 y.o. patient. INDICATION FOR EXAM: Mammogram Screening. TECHNIQUE: CC & MLO views were obtained. ??This digital study was evaluated with the assistance of Computer-Aided Detection. ?? COMPARISON FILMS: Yes 07/24/11 [facility] FINDINGS: ??Mammographically, the breast tissue is heterogeneously dense, which could obscure detection of small masses (approximately 51% - 75% glandular). ??No suspicious masses or microcalcifications. ??Benign appearing calcifications within both breasts and Benign appearing asymmetry within both breasts. Procedure Note Mauro Comer DO - 02/10/2013 XR MAMMO BILAT SCREEN FFDM [G0202.0] CLINICAL HISTORY: This is an asymptomatic 47 y.o. patient. INDICATION FOR EXAM: Mammogram Screening. TECHNIQUE: CC & MLO views were obtained. This digital study was evaluatedwith the assistance of Computer-Aided Detection. COMPARISON FILMS: Yes 07/24/11 [facility] FINDINGS: Mammographically, the breast tissue is heterogeneously dense,which could obscure detection of small masses (approximately 51% - 75%glandular). No suspicious masses or microcalcifications. Benignappearing calcifications within both breasts and Benign appearingasymmetry within both breasts. IMPRESSION: There is no radiographic evidence for malignancy. Recommendannual mammograms. A lay language report of this examination will be provided to the patient. MAMMOGRAM ASSESSMENT: ACR 2 Benign Sarika Aguero MD MAMMO from Last 3 Months or Most Recently Relevant to Health Maintenance Advance Directives * Full Code (Latest Code Status on File) Date Activated Date Inactivated Comments 03/26/2017 6:32 PM 03/30/2017 7:51 PM * Full Code Date Activated Date Inactivated Comments 03/26/2017 6:08 AM 03/26/2017 6:02 PM Care Teams Associate Product Integrity Engineer Relationship Specialty Start Date End Date Pcp, No . PCP - General 09/28/18 Gosia Day CNS Clinical Nurse Specialist 07/30/12 Randi Sanches MD Rheumatology Rheumatology 02/10/13
--- OUTSIDE RECORDS SUMMARY | 2024-06-16 23:15 | XMS_ITS | Continuity of Care Document ---
Author Organization [facility] Address [address] [place] [address] Phone Care Team Providers Care Centrifugal Chiller Technician Name Role Phone Rachelle Wilcox MD Unavailable Unavailable Allergies, Adverse Reactions, Alerts Substance Reaction Status Criticality morphine Rash Active No Information erythromycin base Rash Active No Informa tion Medications Medication Instructions Dosage Effective Dates (start - stop) Status Comments VITAMIN D3 (unknown strength) Not Available - Active OXYCODONE HCL (unknown strength) Not Available - Active CYCLOBENZAPRINE HCL (unknown strength) Not Available - Active DICLOFENAC SODIUM ER (unknown strength) Not Available - Active PRAVASTATIN SODIUM (unknown strength) Not Available - Active GLIPIZIDE (unknown strength) Not Available - Active ASPIRIN (unknown strength) Not Available - Active FISH OIL (unknown strength) Not Available - Active METFORMIN HCL (unknown strength) Not Available - Active NEURONTIN (unknown strength) Not Available - Active Procedures Procedure Date Office/Outpatient Visit,[facility] 2014 X-Ray Exam Of Lower Spine, Bending Advance Directives Directive Yes / No Effective Date File Name No Information Encounters Encounter Description Practice Location Reason(s) For Visit Diagnoses Date Provider Providers Copied on Encounter [facility], [address], [place], [id number] , [place] tel: [phone] No Information 5 Jeri Moralez [facility], [address] [place] [address] [address], [place], [id number] , [place]. tel: [phone] Office/Outpa tient Visit,[facility], [address], [place], [place], [id number] , [place] tel: [phone] [facility] OVERWEIGHTHypertensio n, UnspecifiedLumbagoDis placement of lumbar intervertebral disc without myelopathyDegeneratio n of lumbar or lumbosacral intervertebral disc 3201 5 Jeri Moralez [facility], [address], [facility] [place], [id number] , [place]. tel: [phone] Family History Family Member Type Diagnosis Age At Onset Problem (finding) Payers Payer name Insurance type Covered republican ID Authorbarba titami(s) [facility] [id number] [facility] [id number] Social History Type Description Quantity Date Captured Comments Sex Female Smoking Status No Information Chief Complaint And Reason For Visit No Information Reason For Referral Reason For Referral No Information Plan Of Treatment Date Type Action Status Future Order: Radiology Order F/ E Lumbar (F/ELumb), Ordered on: Ordered History Of Present Illness Encounter Date Complaint History Of Prese nt Illness No Information Functional Status Date Functional Assessmen t No Information Instructions Date Instruction Additional Infor mayank Exercise education Related to Un specified Essential Hypertension Weight Management Related to Ove rweight Assessments Type Assessment Date No Information Patient Care Teams Name Effective Dates (start - stop) Status Members No Information
--- OUTSIDE RECORDS SUMMARY | 2024-06-16 23:15 | XMS_ITS | Continuity of Care Document ---
Author Organization [facility] Address [address] [place] [address] Care Team Providers Care Oil Field Operator Name Role Phone [facility] Unavailable Unav ailable Procedures Procedure Date RF Cerv/Thor Single Level BILATERAL RF Cerv/Thor 2nd Level RIGHT RF Cerv/Thor 3rd Level LEFT RF Cerv/Thor Single Level LEFT 24 RF Cerv/Thor Single Level RIGHT 024 RF Cerv/Thor 2nd Level LEFT RF Cerv/Thor 2nd Level RIGHT RF Cerv/Thor 3rd Level LEFT RF Cerv/Thor Single Level BILATERAL RF Cerv/Thor 2nd Level RIGHT RF Cerv/Thor 2nd Level LEFT RF Cerv/Thor 3rd Level LEFT FLUOROGUIDE FOR SPINE INJECT Facet Jt Inj Cervical/Thoracic RIGHT Apr Facet Jt Inj Cervical/Thoracic LEFT Facet Jt Inj Cerv/Thor 2nd Level RIGHT S Facet Jt Inj Cerv/Thor 2nd Level LEFT Se p Facet Jt Inj Cerv/Thor 3rd Level LEFT Se Facet Jt Inj Cerv/Thor 3rd Level RIGHT S Pt doc no events on discharg Pt w/o preop order iv ab pro Facet Jt Inj Cervical/Thoracic LEFT Facet Jt Inj Cerv/Thor 2nd Level LEFT Se Facet Jt Inj Cerv/Thor 3rd Level LEFT Se Pt doc no events on discharg Pt w/o preop order iv ab pro Facet Jt Inj Cervical/Thoracic RIGHT Mar Facet Jt Inj Cerv/Thor 2nd Level RIGHT A Facet Jt Inj Cerv/Thor 3rd Level RIGHT A Pt doc no events on discharg Pt w/o preop order iv ab pro Advance Directives Directive Yes / No Effective Date File Name No Information Encounters Encounter Description Practice Location Reason(s) For Visit Diagnoses Date Provider Providers Copied on Encounter [facility], [address] [place] [address], [id number], [facility] No Information [facility]. [address] [place] [address], [id number], [place]. tel:[phone] Referring Provider: Leticia Bowen, [address] [place] [address], [id number]. tel:[phone] [place] [address], [address] [place] [address], [id number], [facility] No Information [facility]. [address] [place] [address], [id number], [place]. tel:[phone] Referring Provider: Leticia Bowen, [address] [place] [address], [id number]. tel:[phone] [place] [address], [address] [place] [address], [id number], [facility] No Information [facility]. [address] [place] [address], [id number], [place]. tel:[phone] Referring Provider: Leticia Bowen, [address] [place] [address], [id number]. tel:[phone] [place] [address], [address] [place] [address], [id number], [facility] No Information [facility]. [address] [place], [place], [id number], . tel:[phone] Referring Provider: Leticia Bowen, [address] [place], [place], [address]. tel:[phone] [facility], [address] [place], [place], [id number], [place] [facility] [place] No Information [facility]. [address] [place], [place], [id number], [place]. tel:[phone] Referring Provider: Leticia Bowen, [address] [place], [address]. tel:[phone] Family History Family Member Type Diagnosis Age At Onset No Information Payers Payer name Insurance type Covered constitution party ID Ferdinand melendrez(s) Medicare MB [id number] Social History Type Description Quantity Date Captured [...]
--- OUTSIDE RECORDS SUMMARY | 2024-06-16 23:15 | XMS_ITS | Continuity of Care Document ---
Author Organization [facility] Address [address] [place] [address] Phone Care Team Providers Care Md Urologist Name Role Phone Oliva TREVINO, MARICRUZ, Jh WATTS Unavailable Corinne vailable Allergies, Adverse Reactions, Alerts Substance Reaction Status Criticality morphine heart reaction 28 years ago Active No Information WARNIN allergy(ies) could not be collected because the type is not supported. Please contact the source practice for further details. Medications Medication Instructions Dosage Effective Dates (start - stop) Status Comments Aspir-81 81 mg tablet,delayed release take 1 tablet by oral route every day - Active atorvastatin 80 mg tablet take 1 tablet by oral route every evening 80 MG - Active Basaglar KwikPen 100 unit/mL (3 mL) subcutaneous inject by subcutaneous route as per insulin protocol 0.00 - Active cyclobenzaprine 10 mg tablet take 1 tablet by oral route 3 times every day 10 MG - Active gabapentin 300 mg capsule take 1 capsule by oral route 3 times every day 300 MG - Active lisinopril 20 mg tablet take 1 tablet by oral route every day 20 MG - Active metformin 1,000 mg tablet take 1 tablet by oral route 2 times every day with morning and evening meals 1000 MG - Active oxycodone ER 10 mg tablet,crush resistant,extended release 12 hr take 1 tablet by oral route every 12 hours 10 MG - Active pantoprazole 40 mg tablet,delayed release take 1 tablet by oral route every day 40 MG - Active venlafaxine ER 150 mg tablet,extended release 24 hr take 1 tablet by oral route every day in the morning at the same time each day with food 150 MG - Active Vitamin D3 1,000 unit capsule - Active oxycodone 5 mg tablet take 1 tablet by oral route every 8 hours as needed 5 MG - Active tizanidine 4 mg tablet take 1 tablet by oral route every 8 hours as needed not to exceed 3 doses in 24 hours - No Longer Active Procedures Procedure Date New Pt Eval 45 Min Advance Directives Directive Yes / No Effective Date File Name No Information Encounters Encounter Description Practice Location Reason(s) For Visit Diagnoses Date Provider Providers Copied on Encounter [facility], [address], [place], [place], [id number], [place] tel:[phone] [facility] No Information 8 Oliva Peñaloza. [address], [address], [place], [place], [id number], [place]. tel:[phone] Referring Provider: Lizabeth MCMILLAN, [address] [place], [address]. tel:[phone] New Pt Eval 45 Min [facility], [address], [place], [place], [id number], [place] tel:[phone] [facility] back pain (chief complaint) ObesityLong term (current) use of opiate analgesicOther specified dorsopathies, lumbar regionIntervertebr al disc disorders w radiculopathy, lumbar regionPostlaminect melba syndrome 7 Rashi Bassett. [address], [place], [place], [id number], [place]. tel:[phone] Referring Provider: Lizabeth MCMILLAN, [address] [place], [address]. tel:[phone] Family History Family Member Type Diagnosis Age At Onset Brother Problem (finding) drug dependency Father Problem (finding) Cancer Father Problem (finding) neuropathy Mother Problem (finding) Cancer Sister Problem (finding) drug dependency Father Problem (finding) coronary arterioscleros is Payers Payer name Insurance type Covered alliance party ID Authoriza tion(s) No Information Social History Type Description Quantity Date Captured Comments Sex Female Smoking Status No Information Chief Complaint And Reason For Visit No Information Reason For Referral Reason For Referral No Information History Of Present Illness Encounter Date Complaint History Of Kolby broussard Illness back pain Onset: sudden wi thout injury. Severity level is moderate-severe. The problem is fluctuating. It occurs persistently. Location of pain is lower back. Pain is radiated to the back, left calf, left foot, right foot, left thigh and right thigh.The patient describes the pain as an ache, burning, deep, numbness, sharp and shooting. Symptoms are aggravated by ascending stairs, bending, changing positions, coughing, daily activities, descending stairs, extension, flexion, jumping, lifting, lying/rest, pushing and rolling over in bed. Symptoms are relieved by ice, lying down and pain meds/drugs. Functional Status Date Functional Assessmen t No Information Instructions Date Instruction Additional Infor mation No Information Assessments Type Assessment Date No Information Patient Care Teams Name Effective Dates (start - stop) Status Members No Information
--- OUTSIDE RECORDS SUMMARY | 2024-06-16 23:17 | XMS_ITS | Encounter Summary ---
Author Organization [facility] Address [address] [place] [address] Care Team Providers Care Banbury Mixer Operator Name Role Phone Nidia Knutson APRN, C.N.P., D.N.P. Primary Car e Provider Reason for Referral * Outpatient (Routine) - Authorized Specialty Diagnoses / Procedures Referred By Contching t Referred To Contact Nidia Knutson APRN, C.N.P., D.N.P. [address] [place] [address] Phone: tel: fax: [facility] Region Referral ID Status Reason Start Date Expiration Date V isits Requested Visits Authorized [id number] Authorized 04/28/2024 10/28/2025 1 1 Scheduling Instructions Nurse AWV Do not schedule prior to due date to ensure insurance coverage Visit: Medicare Annual Wellness Never done. Encounter Details Date Type Department Care Team (Late st Contact Info) Description 04/28/2024 Orders Only [facility] PCP [facility] MNT Nidia Knutson APRN, C.N.P., D.N.P. [address] [id number] Social History Tobacco Use Types Packs/Day Years Used Date Smoking Tobacco: Former Cigarettes Q uit: 02/28/1987 Smokeless Tobacco: Never Alcohol Use Standard Drinks/Week Comments Not Currently 0 (1 standard drink = 0.6 oz pur e alcohol) Humiliation, Afraid, Rape, and Kick questionnair e Answer Date Recorded Within the last year, have y ou been afraid of your partner or ex-partner? No 03/24/2021 Within the last year, have y ou been humiliated or emotionally abused in other ways by your partner or ex-partner? No Within the last year, have y ou been kicked, hit, slapped, or otherwise physically hurt by your partner or ex-partner? No 03/24/2021 Within the last year, have y ou been raped or forced to have any kind of sexual activity by your partner or ex-partner? No 03/24/2021 Social Connection and Isolat ion Panel [NHANES] Answer Date Recorded In a typical week, how many times do you talk on the phone with family, friends, or neighbors? More than three times a week 03/24/2021 How often do you get togethe r with friends or relatives? Once a week 03/24/2021 How often do you attend chur or druze services? Never 03/24/2021 Do you belong to any clubs o r organizations such as denominational groups, unions, fraternal or athletic groups, or school groups? Yes 03/24/2021 How often do you attend meet ings of the clubs or organizations you belong to? 1 to 4 times per year 03/24/2021 Are you , , di vorced, , never , or living with a partner? 03/24/2021 AUDIT-C Answer Date Recorded Q1: How often do you have a drink containing alc ohol? Monthly or less 03/24/2021 Q2: How many drinks containi ng alcohol do you have on a typical day when you are drinking? 1 or 2 03/24/2021 Q3: How often do you have si x or more drinks on one occasion? Never 03/24/2021 Overall Financial Resource Strain (CARDIA) Answe r Date Recorded How hard is it for you to pa y for the very basics like food, housing, medical care, and heating? Somewhat hard 07/26/2023 PHQ-2 Answer Date Recorded PHQ-2 Score 4 12/13/2023 [facility] Occupat ional [facility] - Occupational Stress Questionnaire Answer Date Recorded Do you feel stress - tense, restless, nervous, or anxious, or unable to sleep at night because your mind is troubled all the time - these days? Only a little 03/24/2021 Exercise Vital Sign Answer Date Recorde d On average, how many days pe r week do you engage in moderate to strenuous exercise (like a brisk walk)? 1 day 07/26/2023 On average, how many minutes do you engage in exercise at this level? 20 min 07/26/2023 Hunger Vital Sign Answer Date Recorded Within the past 12 months, y ou worried that your food would run out before you got the money to buy more. Sometimes true Within the past 12 months, t he food you bought just didn't last and you didn't have money to get more. Sometimes true 08/2022 PRAPARE - Transportation Answer Date Re corded In the past 12 months, has l ack of transportation kept you from medical appointments or from getting medications? Yes 08/2022 In the past 12 months, has l ack of transportation kept you from meetings, work, or from getting things needed for daily living? Yes 07/26/2023 Depression Answer Date Recor ded PHQ-9 Total Score (max 27) 16 12/12 Nutrition Answer Date Recorded On average, how many serving s of fruits and vegetables do you eat per day (serving size is equal to 1 cup or approximately the size of a tennis ball)? 0-2 07/26/2023 Dental Answer Date Recorded Dental: Regular Dentist No 08/23/20 22 Employment Answer Date Recorded Employment status Permanently disabled Housing Stability Answer Date Recorded What is your living situation today? I have a [facility] to live 07/26/2023 Education Answer Date Recorded What is the highest level of school you have completed or the highest degree you have received? Associate degree: occupational, technical, or vocational program 06/15/2019 Comments No Sex and Gender Information Value Date Recorded Sex Assigned at Female 09/28/2021 12:51 PM [employer]ITAL [employer] SERVICE ENGINEER Legal Sex Female 5:00 AM DIGITAL X [employer]AY SERVICE ENGINEER Gender Identity Female 09/28/2021 12:51 PM DIGITAL X [employer]AY SERVICE ENGINEER Sexual Orientation Straight 09/28/2021 12 :51 PM DIGITAL X RAY SERVICE ENGINEER documented as of this encounter Plan of Treatment Scheduled Referrals Name Type Priority Associated Diagnoses Orde r Schedule Primary Care nurse visit (clinic) - [facility] Region; Medicare Annual Wellness Outpatient Referral Routine Expected: 05/26/2024, Expires: 10/25/2024 documented as of this encounter Visit Diagnoses Not on filedocumented in this encounter Additional Health Concerns Assessment Noted Time PHQ-9 Depression Total Score: 16 024 11:49 AM CDT documented as of this encounter Care Teams Banbury Mixer Operator Relationship Specialty Start Date End Date Nidia Knutson APRN, C.N.P., D.N.P. [address] [place] [address] PCP - General 08/08/23 documented as of this encounter
--- OUTSIDE RECORDS SUMMARY | 2024-06-16 23:17 | XMS_ITS | Clinical Summary ---
Author Organization [facility] Address [address] [place] [address] Care Team Providers Care Weaver Hand Name Role Phone EamonNidia Berto LINDSEY, C.N.P., D.N.P. Primary Car e Provider Source Comments Patient records contain information from all sites at [facility]. For routine questions regarding patient records, call [phone] during business hours, M-F 8:00 AM - 5:00 PM Central Time. Record requests for emergency care only can be directed to [phone] at any time.[facility] Allergies Active Allergy Reactions Criticality Noted Date Comments Erythromycin Rash High 12/07/2008 Other reaction(s): RASH Exenatide Microspheres Other (see comments) 06/2018 Swelling at injection sites Morphine Other (see comments) High 12/07/2008 Other reaction(s): ARRYTHMIA Medications * This document contains information received from the source organization and may not represent a complete record from that organization. aspirin [address] tablet Take by mouth. 009 Active blood sugar diagnostic strips Top match [employer] Premiumstyle Ena monitor. E11.65 IDDM type II, uncontrolled - Test 4 times/day. Reason: High A1C 018 Active gabapentin (NEURONTIN) 600 mg tablet Take 1,200 mg by mouth 3 (three) times a day. 1 019 Active omega-3 fatty acids 500 mg capsule Take by mouth. 009 Active walker misc Rolling Walker for home use. 08/05/2 017 Active tiZANidine (ZANAFLEX) 2 mg tablet TAKE ONE TABLET BY MOUTH EVERY 8 HOURS NEEDED NOT TO EXCEED 3 DOSES IN 24 HOURS. IN ADDITION TO 4MG TABLETS 1 Active UNABLE TO FIND Large CPAP mask, #1, Diagnosis OBSTRUCTIVE SLEEP APNEA. Active diaper,brief,adult ,disposable misc For urinary and fecal incontinence. 96 each 11 Active alcohol swabs pads, medicated Use as needed for diabetes control 1500 each 3 Active blood glucose ctl high,nml,low solution Glucose control solution provides an easy way to ensure accurate blood glucose testing. 1 each Active blood sugar diagnostic strips 4 test daily. 360 test 3 2024 Active blood-glucose meter misc Test as directed for diabetes control. 1 each Active Butrans 15 mcg/hour APPLY 1 PATCH BY TRANSDERMAL ROUTE EVERY 7 DAYS Active oxyCODONE (ROXICODONE) 10 mg IR tablet TAKE 1 TABLET BY MOUTH EVERY 4-6 HOURS NEEDED FOR CHRONIC PAIN MAX- OF 4 TABLET EVERY DAY Active venlafaxine XR (EFFEXOR-XR) 150 mg 24 hr capsule Take 1 capsule (150 mg total) by mouth daily. Take with food. 90 capsule 3 Active venlafaxine XR (EFFEXOR-XR) 75 mg 24 hr capsule Take 1 capsule (75 mg total) by mouth daily. Take with food. take in addition to current 150 mg tab 90 capsule 3 Active blood-glucose meter miscIndications:Di abetes Mellitus Type 2 Hyperglycemia (HCC),Intermediate Use Of Insulin Active (HCC) Use to test blood sugar 4 daily due to insulin use. Dx: type 2 diabetes. A1c on 07/30/23 11.2 -. Need lifetime 1 each Active blood sugar diagnostic strips (Blood Glucose Test Strips)Indications :Diabetes Mellitus Type 2 Hyperglycemia (HCC),Intermediate Use Of Insulin Active (HCC) 4 test daily. patient uses insulin 4 times a day. most recent a1c 11.2 on 07/30/23 100 strip 11 Active lisinopriL (PRINIVIL,ZESTRIL) 30 mg tabletIndications: Hypertension Essential Primary TAKE 1 TABLET (30 MG TOTAL) BY MOUTH DAILY. 90 tablet 3 023 Active fenofibrate nanocrystallized (TRICOR) 145 mg tablet Take 1 tablet (145 mg total) by mouth daily. 90 tablet 3 023 Active pantoprazole (PROTONIX) 40 mg EC tablet Take 1 tablet (40 mg total) by mouth daily with breakfast. 90 tablet 3 023 Active semaglutide (OZEMPIC) 1 mg/dose (4 mg/3 mL) injectionIndicatio ns:Diabetes Mellitus Type 2 Hyperglycemia (HCC) Inject 1 mg under the skin every 7 (seven) days. 9 mL 3 023 Active rosuvastatin (CRESTOR) 40 mg tablet take one tablet by mouth every day 90 tablet 3 024 Active NovoLOG Flexpen U-100 Insulin 100 unit/mL (3 mL) injectionIndicatio ns:Diabetes Mellitus Type 2 Hyperglycemia (HCC) Inject 20 Units under the skin 3 (three) times a day with meals. Varies dose per sliding scale 54 mL 3 024 Active Levemir FlexPen 100 unit/mL (3 mL) injectionIndicatio ns:Diabetes Mellitus Type 2 Hyperglycemia (HCC) INJECT 45 UNITS UNDER THE SKIN TWO TIMES A DAY 90 mL 3 024 Active diazePAM (VALIUM) 5 mg tablet Take 1 tablet by mouth 2 (two) times a day. 021 Active lamoTRIgine (LaMICtaL) 25 mg tablet TAKE 2 TABLETS BY MOUTH EVERY DAY. MUST SCHEDULE FUTURE APPOINTMENT FOR FURTHER REFILL CONSIDERATION Active naproxen (NAPROSYN) 250 mg tablet Take by mouth every 12 (twelve) hours. Active tiZANidine (Zanaflex) 4 mg tablet TAKE 1 TABLET BY MOUTH THREE TIMES A DAY. 90 tablet 5 024 Active metFORMIN (Glucophage) 1,000 mg tablet TAKE 1 TABLET (1,000 MG TOTAL) BY MOUTH 2 (TWO) TIMES A DAY WITH MEALS. 180 tablet 3 024 Active amLODIPine (Norvasc) 10 mg tabletIndications: Hypertension Essential Primary Take 1 tablet (10 mg total) by mouth daily. 90 tablet 3 024 Active amLODIPine (NORVASC) 10 mg tabletIndications: Hypertension Essential Primary Take 1 tablet (10 mg total) by mouth daily. 30 tablet 5 024 2023 Discontinued Active Problems Problem Noted Date Diagnosed Date Gastroesophageal Reflux Disease 03/24/2021 Obesity Body Mass Index 30-39.9 Adult 03/24/2021 Obstructive Sleep Apnea Adult 03/16/2021 Overview (03/16/2021): Uses CPAP Hyperlipidemia 06/15/2019 Hypertension Essential Primary 06/15/2019 Chronic Pain Syndrome 05/04/2019 Diabetes Mellitus Type 2 Hyperglycemia 9 Pain Low Back Chronic 05/04/2019 Depression Major Recurrent S evere Without Psychotic Features 05/04/2019 Encounters Date Type Department Care Team Description 06/02/2024 Refill Department of Internal Medicine in [place], [place] [address] [place] [phone] Nidia Knutson APRN, C.N.P., D.N.P. Med Refill 05/27/2024 Clinical Communication Department of Internal Medicine in [place], [place] [address] [place] [phone] Nidia Knutson APRN, C.N.P., D.N.P. PandaDoc Form ([facility] - hold aspirin request) 04/28/2024 Orders Only [facility] Nidia Knutson APRN, C.N.P., D.N.P. 04/14/2024 Refill Department of Internal Medicine in [place], [place] [address] [place] [phone] Ninfa Jimenez APRN, C.N.P., D.N.P., M.S.N. Med Refill from Last 3 Months Immunizations Name Administration Dates Next Due Influenza, Unspecified 05/18/2009 PPSV23 08/13/2018 Td (Adult), adsorbed 12/12/2020 Tdap 08/10/2015 influenza vaccine quad (FLUZONE/FLUARIX) (6 months and older)(PF) 06/15/2019,08/13/2018,05/20/2017,2015,08/10/2015 Family History Medical History Relation Name Comments Transient ischemic attack Father Devin Swift Depression Mother Jessica Swift Lymphoma Mother Jessica Swift Relation Name Status Comments Father Devin Swift Mother Jessica Swift Social History Tobacco Use Types Packs/Day Years Used Date Smoking Tobacco: Former Cigarettes Q uit: 02/28/1987 Smokeless Tobacco: Never Tobacco Cessation:Counseling Given: Not Answered Alcohol Use Standard Drinks/Week Comments Not Currently [...] 03/24/2021 How often do you attend chur ch or mosque services? Never 03/24/2021 Do you belong to any clubs o r organizations such as episcopal groups, unions, fraternal or athletic groups, or [...] Answer Date Recorded PHQ-2 Score 4 12/13/2023 [facility]at [facility] - Occupational Stress Questionnaire Answer Date Recorded [...] your living situation today? I have a [facility] place to live 07/26/2023 Education Answer Date Recorded What is the highest level of school you have completed or the highest degree you have received? Associate degree: occupational, technical, or vocational program 06/15/2019 Comments No Sex and Gender Information Value Date Recorded Sex Assigned at Female 09/28/2021 12:51 PM MANUAL PLATE FILLER Legal Sex Female 5:00 AM MANUAL PLATE FILLER Gender Identity Female 09/28/2021 12:51 PM MANUAL PLATE FILLER Sexual Orientation Straight 09/28/2021 12 :51 PM MANUAL PLATE FILLER Last Filed Vital Signs Vital Sign Reading Time Taken Comments Blood Pressure 121/74 12/13/2023 3:38 PM CDT Pulse 67 12/13/2023 3:38 PM CDT Temperature 36.1 ??C (97 ??F) 2023 1:55 PM CDT Respiratory Rate 20 07/26/2023 11:3 0 AM MANUAL PLATE FILLER Oxygen Saturation 98% 09/27/2022 9:08 AM MANUAL PLATE FILLER Inhaled Oxygen Concentration - - Weight 90.6 kg (199 lb 11.8 oz) 2023 1:55 PM CDT Height 167 cm (5' 5.75) 2023 1:55 PM CDT Body Mass Index 32.49 2023 1:55 PM CDT Plan of Treatment Health Maintenance Due Date Last Done Comments CT Colonography 1964 Cologuard 1965 Dilated Eye Exam 1964 Visit: Medicare Annual Wellness 1965 Hepatitis B Vaccines (1 of 3 - 19+ 3-dose series) 12/10/1983 Zoster Vaccines (1 of 2) 2014 Colonoscopy 08/31/2015 08/31/2010 Colorectal Cancer Surveillance 08/31/2015 Pneumococcal vaccine (0-64 y ears) (2 of 2 - PCV) 08/13/2019 08/13/2018 Controlled Substance Agreement 02/15/2020 Controlled Substance Monitoring 02/15/2020 PEG assessment for Opioid therapy 02/15/2020 Opioid Risk Tool (ORT) 05/15/2022 05/15/2021 Cervical Cancer Screening 09/26/2022 Diabetic Office Visit with F oot Exam 01/16/2023 01/16/2022 Mammogram 01/16/2023 01/16/2022, 01/24, 07/24/2011 Urine Albumin 09/27/2023 09/27/2022, 05/04/2019 Hemoglobin A1C 03/09/2024 2023, 12/2022, 09/27/2022, Additional history exists Depression Monitoring (PHQ-9) 04/13/2024 12/13/2023 COVID-19 Vaccine (2 - 2 5 season) 2024 03/14/2021 Influenza Vaccine (#1) 2024 9, 08/13/2018, 05/20/2017, Additional history exists Creatinine Level (Kidney Fun ction Test) 12/08/2024 2023, 07/17/2023, 09/27/2022, Additional history exists Potassium Level 12/08/2024 2023, 06/27, 09/27/2022, Additional history exists Sodium Level 12/08/2024 2023, 06/27, 09/27/2022, Additional history exists Visit: Chronic Disease, age 18+ 12/08/2024 , 2023 Controlled Substance Monitor ing (PHQ-9) 12/12/2024 12/13/2023 Generalized Anxiety (AHSAN-7) 12/12/2024 12/13/2023 Office Visit for Blood Press ure Check / Re-check 12/12/2024 12/13/2023 Opioid Use Disorder (OUD) Screening 12/12/2024 12/13/2023 Lipid (Cholesterol) Screening 09/27/2027, 01/16/2022, 02/16/2020, Additional history exists DTaP,Tdap,and Td Vaccines (3 - Td or Tdap) 12/12/2030 12/12/2020, 08/10/2015 Hepatitis C Screening Completed 01/16/2022 Medical Devices Implanted Type Area Seam Press Operator Device Identifier Shelf Expiration Date Model / Serial / Lot Hardware E.G. Pins/Screws/Ro ds Hardware e.g. pins/screws/r ods Back Procedures Procedure Name Priority Date/Time Associated Diagnosis Comments HEMOGLOBIN A1C, B Routine 2023 2:3 5 PM CDT Diabetes Mellitus Type 2 Hyperglycemia (HCC) BASIC METABOLIC PANEL, S/P Routine 2023 2:35 PM CDT Diabetes Mellitus Type 2 Hyperglycemia (HCC) Hypertension Essential Primary LIPID PANEL, S Routine 09/27/2022 10:26 AM MANUAL PLATE FILLER Hyperlipidemia ALBUMIN, RANDOM, U Routine 09/27/2022 10:14 AM MANUAL PLATE FILLER Diabetes Mellitus Type 2 Hyperglycemia (HCC) HCV AB SCRN W/REFLEX TO HCV PCR, S Routine 01/16/2022 9:36 AM CDT Screening Examination For Viral Disease BI BREAST SCREENING BILATERAL WITH TOMOSYNTHESIS RAD - Routine (most inpatients and all outpatients) 01/16/2022 8:07 AM CDT Screening Mammogram Breast Cancer from Last 3 Months or Most Recently Relevant to Health Maintenance Results * (ABNORMAL) Hemoglobin A1c (2023 2:35 PM CDT) Hemoglobin A1c, B 8.5(H) 4.2 - 5.6 % 2023 3:44 PM CDT OW Comment: Hemoglobin A1c values greater than or equal to 6.5 percent are diagnostic for diabetes mellitus. ??Diagnosis should be confirmed by repeat testing. ??In diabetic patients, HbA1c goals should be discussed with healthcare provider. Blood (Blood, Venous) 2023 2:35 PM CDT 2023 3:08 PM CDT us Nidia Knutson APRN, C.N.P., D.N.P. LAB BLOOD AD D-ON Final Result [facility] [address] [place] [address], [place] OWAT in [place] [address] [place] [address] * (ABNORMAL) Basic Metabolic Panel (2023 2:35 PM CDT) Potassium, P 4.6 3.6 - 5.2 mmol/L 2023 3:36 PM CDT OWAT Sodium, P 137 135 - 145 mmol/L 2023 3:36 PM CDT OWAT Chloride, P 103 98 - 107 mmol/L 2023 3:36 PM CDT OWAT Bicarbonate, P 26 22 - 29 mmol/L 2023 3:36 PM CDT OWAT Anion Gap, P 8 7 - 15 2023 3:36 PM CDT OWAT BUN (Blood Urea Nitrogen), P 15 6 - 21 mg/dL 2023 3:36 PM CDT OWAT Creatinine 0.83 0.59 - 1.04 mg/dL 2023 3:36 PM CDT OWAT Estimated GFR (eGFR) 82 >=60 mL/min/BSA 2023 3:36 PM CDT OWAT Comment: Estimated GFR calculated using the 2020 CKD_EPI creatinine equation. Calcium, Total, P 9.6 8.6 - 10.0 mg/dL 2023 3:36 PM CDT OWAT Glucose, P 276(H) 70 - 140 mg/dL 2023 3:36 PM CDT OWAT Blood (Blood, Venous) 2023 2:35 PM CDT 2023 3:08 PM CDT us Nidia Knutson APRN, C.N.P., D.N.P. LAB BLOOD AD D-ON Final Result [facility] [address] [place] [address], [place] OW[facility] in [place] [address] [place] [address] * (ABNORMAL) Lipid Panel (09/27/2022 10:26 AM MANUAL PLATE FILLER) Triglycerides 518(H) mg/dL 09/27/2022 10:56 AM MANUAL PLATE FILLER OWAT Comment: ----REFERENCE VALUE---- Normal: <150 mg/dL Borderline High: 150-199 mg/dL High: 200-499 mg/dL Very High: > or =500 mg/dL Cholesterol, Total 285(H) mg/dL 2022 10:56 AM MANUAL PLATE FILLER OWAT Comment: ----REFERENCE VALUE---- Desirable: < 200 mg/dL Borderline High: 200 - 239 mg/dL High: > or = 240 mg/dL Cholesterol, LDL, Calculated 145(H) mg/dL 09/27/2022 10:56 AM MANUAL PLATE FILLER OWAT Comment: ----REFERENCE VALUE---- Desirable: <100 mg/dL Above Desirable: 100-129 mg/dL Borderline High: 130-159 mg/dL High: 160-189 mg/dL Very High: >=190 mg/dL ----ADDITIONAL INFORMATION---- LDL cholesterol calculated using the Clark/NIH equation. Cholesterol, HDL 42(L) >=50 mg/dL 09/27/19 10:56 AM MANUAL PLATE FILLER OWAT Cholesterol, Non-HDL, Calculated 243(H) mg/dL 09/27/2022 10:56 AM MANUAL PLATE FILLER OWAT Comment: ----REFERENCE VALUE---- Desirable: <130 mg/dL Above Desirable: 130-159 mg/dL Borderline High: 160-189 mg/dL High: 190-219 mg/dL Very High: > or =220 mg/dL Fasting (8 HR or more) No 09/27/2022 10:32 AM MANUAL PLATE FILLER OWAT Blood (Blood, Peripheral Draw) 09/27/2022 10:26 AM MANUAL PLATE FILLER 09/27/2022 10:32 AM MANUAL PLATE FILLER us Ninfa Jimenez APRN, C.N.P., D.N.P., M.S.N. LAB B LOOD ADD-ON Final Result [facility] [address] [place] [address], [facility] OW[facility] in [place] [address] [place] [address] * (ABNORMAL) Albumin, Random, Urine (09/27/2022 10:14 AM MANUAL PLATE FILLER) Microalbumin <12.0 mg/L 09/27/2022 11:10 AM MANUAL PLATE FILLER OWAT Comment:If clinically indica jonathon, contact the lab for additional testing. Creatinine 43 mg/dL 09/27/2022 11:10 AM MANUAL PLATE FILLER OWAT Albumin/Creatinine Ratio <28(H) <25 mg/g 09/27/2022 11:10 AM MANUAL PLATE FILLER OWAT Comment: This ratio may not correspond with the reference range because one or both of the values used to calculate the ratio was above or below the quantification limits. Urine (Urine, Midstream) 09/27/2022 10:14 AM MANUAL PLATE FILLER 09/27/2022 10:38 AM MANUAL PLATE FILLER Ninfa Jimenez APRN, Joseph.N.P., D.N.P., M.S.N. LAB U RINE ORDERABLES Final Result [facility] [address] [place] [address], [facility] in [place] [address] [place] [address] * HCV Ab Scrn w/Reflex to HCV PCR, Serum (01/16/2022 9:36 AM CDT) HCV Ab Screen, S Negative Negative 01/17/2022 8:59 AM CDT [facility] Comment:[id number]-[id number] rat io is <1.00. Blood (Blood, Venous) 01/16/2022 9:36 AM CDT 01/17/2022 6:47 AM CDT Ninfa Jimenez APRN, C.N.P., D.N.P., M.S.N. LAB MICROBIOLOGY - BLOOD ORDERABLES Final Result [facility] [address] [place] [address] [facility] Dept. of Laboratory Medicine and Pathology [address] [place] [address] * BI Breast Screening Bilateral with Tomosynthesis (01/16/2022 8:07 AM CDT) Anatomical Region Laterality Modality Breast, Breast Imaging RST L OS, Breast Imaging ARZ LOS, Breast Imaging FLA LOS Bilateral Mammography 01/16/2022 10:3 7 AM CDT Impressions 01/16/2022 10:40 AM CDT Negative. RECOMMENDATION: ??Annual Screening Mammogram ASSESSMENT: ??BI-RADS: 1: Negative. Narrative 01/16/2022 10:40 AM CDT EXAM: ??BI BREAST SCREENING BILATERAL WITH TOMOSYNTHESIS Current study was evaluated with a Computer Aided Detection (CAD) system. INDICATION: ??Screening mammogram. COMPARISON: ??Prior exam(s) were available and reviewed for comparison. DENSITY: ??c. The breast(s) are heterogeneously dense, which may obscure small masses. FINDINGS: ??No mammographic findings of malignancy. Procedure Note Sonny Echeverria M.D. - 01/16/2022 EXAM: BI BREAST SCREENING BILATERAL WITH TOMOSYNTHESIS Current study was evaluated with a Computer Aided Detection (CAD) system. INDICATION: Screening mammogram. COMPARISON: Prior exam(s) were available and reviewed for comparison. DENSITY: c. The breast(s) are heterogeneously dense, which may obscuresmall masses. FINDINGS: No mammographic findings of malignancy. IMPRESSION: Negative. RECOMMENDATION: Annual Screening Mammogram ASSESSMENT: BI-RADS: 1: Negative. Ninfa Jimenez APRN, C.N.P., D.N.P., M.S.N. IMG B I PROCEDURES Final Result from Last 3 Months or Most Recently Relevant to Health Maintenance Insurance MEDICARE Care Teams Weaver Hand Relationship Specialty Start Date End Date Nidia Knutson APRN, C.N.P., D.N.P. [address] [place] [phone] PCP - General 08/08/23
--- OUTSIDE RECORDS SUMMARY | 2024-06-16 23:17 | XMS_ITS | Encounter Summary ---
Author Organization [facility] Address [address] [place] [address] Care Team Providers Care Big Data Hadoop Developer Name Role Phone Nidia Knutson Berto LINDSEY, C.N.P., D.N.P. Primary Car e Provider Reason for Visit * Reason Comments Med Refill Encounter Details Date Type Department Care Team (Late st Contact Info) Description 04/14/2024 Refill Department of Internal Medicine in [place], [place] [address] [phone] Ninfa Jimenez APRN, C.N.P., D.N.P., M.S.N. [address] [phone] Med Refill Social History Tobacco Use Types Packs/Day Years [...] 03/24/2021 How often do you attend [employer] or methodist services? Never 03/24/2021 Do you belong to any clubs o r organizations such as uatsdin groups, unions, fraternal or athletic groups, or [...] Answer Date Recorded PHQ-2 Score 4 12/13/2023 [facility] of Occupat ional Health - Occupational Stress [...] Answer Date Recorded Employment status Permanently disabled 3 Housing Stability Answer Date Recorded What is your living situation today? I have a [facility] place to live 07/26/2023 Education Answer Date Recorded What is the highest level of school you have completed or the highest degree you have received? Associate degree: occupational, technical, or vocational program 06/15/2019 Comments No Sex and Gender Information Value Date Recorded Sex Assigned at Female 09/28/2021 12:51 PM AESTHETICS INSTRUCTOR Legal Sex Female 5:00 AM AESTHETICS INSTRUCTOR Gender Identity Female 09/28/2021 12:51 PM AESTHETICS INSTRUCTOR Sexual Orientation Straight 09/28/2021 12 :51 PM AESTHETICS INSTRUCTOR documented as of this encounter Plan of Treatment Not on file documented as of this encounter Visit Diagnoses Not on filedocumented in this encounter Additional Health Concerns Assessment Noted Time PHQ-9 Depression Total Score: 16 024 11:49 AM CDT documented as of this encounter Care Teams Big Data Hadoop Developer Relationship Specialty Start Date End Date Nidia Knutson APRN, C.N.P., D.N.P. [address], [place] [phone] PCP - General 08/08/23 documented as of this encounter
--- OUTSIDE RECORDS SUMMARY | 2024-06-16 23:17 | XMS_ITS | Continuity of Care Document ---
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 Role Phone Chante Tang CNP Unavailable Unavail able Allergies, Adverse Reactions, Alerts Substance Reaction Status Criticality morphine Active No Information erythromycin base rash, itching Active No Inform ation Medications Medication Instructions Dosage Effective Dates (start - stop) Status Comments oxycodone 10 mg tablet take 1 tablet by oral route every 4 - 6 hours prn chronic pain, max 4/day, 28 day script - Active may fill today, to start 06/18, 28 day script Butrans 15 mcg/hour transdermal patch apply 1 patch by transdermal route every 7 days for chronic pain, 28 day script - Active please use brand name, generic does not adhere for full week, may fill today, to start 06/18 tizanidine 2 mg tablet TAKE ONE TABLET BY MOUTH EVERY 8 HOURS NEEDED NOT TO EXCEED 3 DOSES IN 24 HOURS. IN ADDITION TO 4MG TABLETS - Active tizanidine 4 mg tablet TAKE 1 TABLET BY MOUTH THREE TIMES A DAY. - Active gabapentin 600 mg tablet TAKE 1-2 TABLET BY ORAL ROUTE 3 TIMES EVERY DAY - Active fluticasone propionate 50 mcg/actuation nasal spray,suspension ADMINISTER 2 SPRAYS INTO EACH NOSTRIL DAILY. - Active Levemir FlexTouch U-100 Insulin 100 unit/mL (3 mL) subcutaneous pen INJECT 45 UNITS UNDER THE SKIN 2 (TWO) TIMES A DAY. - Active venlafaxine ER 150 mg capsule,extended release 24 hr TAKE 1 CAPSULE (150 MG TOTAL) BY MOUTH DAILY. TAKE WITH FOOD. - Active IV Prep Wipes medicated Use as needed for diabetes control - Active naproxen 250 mg tablet take 1 tablet by oral route 2 times every day with food 250 MG - Active lamotrigine 25 mg tablet take 2 tablet by oral route 2 times every day 50 MG - Active fenofibrate 150 mg capsule take 1 capsule by oral route every day with food 150 MG - Active Ozempic 0.25 mg or 0.5 mg (2 mg/1.5 mL) subcutaneous pen injector inject (0.25MG) by subcutaneous route every week for 4 weeks , then inject 0.5 mg subcutaneously once weekly for 2 weeks - Active NOVOLOG FLEXPEN (unknown strength) inject by subcutaneous route per prescriber's instructions. Insulin dosing requires individualization. Not Available - Active LEVEMIR (unknown strength) inject by subcutaneous route per prescriber's instructions. Insulin dosing requires individualization. Not Available - Active aspirin 81 mg chewable tablet chew 1 tablet by oral route every day as needed - Active glipizide 10 mg tablet take 1 tablet by oral route every day before a meal 10 MG - Active FISH OIL BUCCAL take 1 tab everyday - Acti ve atorvastatin 80 mg tablet take 1 tablet by oral route every day 80 MG - Active Vitamin D3 1,000 unit capsule take 5 by oral route 2 times every day 5 - Active metformin 1,000 mg tablet take 1 tablet by mouth every morning, 0.5 tab with lunch, and 1 tab with dinner - Active pantoprazole 40 mg tablet,delayed release take 1 tablet by oral route every day 40 MG - Active lisinopril 20 mg tablet take 1 tablet by oral route every day 20 MG - Active Butrans 15 mcg/hour transdermal patch apply 1 patch by transdermal route every 7 days for chronic pain, 28 day script - No Longer Active please use brand name, generic does not adhere for full week, may fill today, to start 05/21/24 oxycodone 10 mg tablet take 1 tablet by oral route every 4 - 6 hours prn chronic pain, max 4/day, 28 day script - No Longer Active may fill today, to start 05/21/24, 28 day script Procedures Procedure Date OFFICE VISIT, EST TELEMEDICINE PT EVAL MOD COMPLEX 30 MIN Psych Dx Eval OFFICE/OUTPATIENT VISIT, EST Drug Urine Toxology With Chromatography Drug test def 8-14 classes OFFICE VISIT, EST TELEMEDICINE OFFICE VISIT, EST TELEMEDICINE OFFICE/OUTPATIENT VISIT, EST Drug Urine Toxology With Chromatography Drug test def 8-14 classes OFFICE VISIT, EST TELEMEDICINE OFFICE VISIT, EST TELEMEDICINE RF Cerv/Thor Single Level BILATERAL RF Cerv/Thor 2nd Level RIGHT RF Cerv/Thor 3rd Level RIGHT RF Cerv/Thor 3rd Level RIGHT RF Cerv/Thor 3rd Level LEFT OFFICE/OUTPATIENT VISIT, EST Drug Urine Toxology With Chromatography Drug test def 8-14 classes OFFICE VISIT, EST TELEMEDICINE OFFICE VISIT, EST TELEMEDICINE OFFICE/OUTPATIENT VISIT, EST Drug Urine Toxology With Chromatography Drug test def 8-14 classes OFFICE VISIT, EST TELEMEDICINE OFFICE VISIT, EST TELEMEDICINE OFFICE/OUTPATIENT VISIT, EST Drug Urine Toxology With Chromatography Drug test def 8-14 classes OFFICE VISIT, EST TELEMEDICINE OFFICE VISIT, EST TELEMEDICINE Drug Urine Toxology With Chromatography Drug test def 8-14 classes OFFICE/OUTPATIENT VISIT, EST OFFICE VISIT, EST TELEMEDICINE Foll-up eval q3mo opiod tx OFFICE VISIT, EST TELEMEDICINE OFFICE/OUTPATIENT VISIT, EST Drug Urine Toxology With Chromatography Drug test def 8-14 classes Drug Urine Toxology With Chromatography Drug test def 8-14 classes Foll-up eval q3mo opiod tx OFFICE VISIT, EST TELEMEDICINE Foll-up eval q3mo opiod tx OFFICE VISIT, EST TELEMEDICINE Foll-up eval q3mo opiod tx ROUTINE BLOOD DRAW PT-FOCUSED HLTH RISK ASSMT OFFICE/OUTPATIENT VISIT, EST Drug Urine Toxology With Chromatography Drug test def 8-14 classes Foll-up eval q3mo opiod tx OFFICE VISIT, EST TELEMEDICINE Foll-up eval q3mo opiod tx OFFICE VISIT, EST TELEMEDICINE Foll-up eval q3mo opiod tx OFFICE VISIT, EST TELEMEDICINE Foll-up eval q3mo opiod tx OFFICE/OUTPATIENT VISIT, EST Foll-up eval q3mo opiod tx OFFICE VISIT, EST TELEMEDICINE Drug Urine Toxology With Chromatography Drug test def 8-14 classes Foll-up eval q3mo opiod tx OFFICE VISIT, EST TELEMEDICINE Foll-up eval q3mo opiod tx OFFICE/OUTPATIENT VISIT, EST Telehealth Foll-up eval q3mo opiod tx OFFICE VISIT, EST TELEMEDICINE Foll-up eval q3mo opiod tx OFFICE VISIT, EST TELEMEDICINE Foll-up eval q3mo opiod tx OFFICE VISIT, EST TELEMEDICINE Foll-up eval q3mo opiod tx OFFICE VISIT, EST TELEMEDICINE ROUTINE BLOOD DRAW Drug test def 8-14 classes Drug Urine Toxology With Chromatography Foll-up eval q3mo opiod tx PT-FOCUSED HLTH RISK ASSMT OFFICE/OUTPATIENT VISIT, EST Foll-up eval q3mo opiod tx OFFICE VISIT, EST TELEMEDICINE RF Cerv/Thor Single Level BILATERAL RF Cerv/Thor 2nd Level RIGHT RF Cerv/Thor 2nd Level LEFT RF Cerv/Thor 3rd Level LEFT RF Cerv/Thor 3rd Level RIGHT FLUOROGUIDE FOR SPINE INJECTION Foll-up eval q3mo opiod tx OFFICE VISIT, EST TELEMEDICINE Facet Jt Inj Or MBB Cervical/Thoracic BI LATERAL Facet Jt Inj Or MBB Cerv/Thor 2nd Level BILATERAL Facet Jt Inj Or MBB Cerv/Thor 3rd Level BILATERAL Foll-up eval q3mo opiod tx OFFICE VISIT, EST TELEMEDICINE Facet Jt Inj Or MBB Cervical/Thoracic LE FT Facet Jt Inj Or MBB Cerv/Thor 2nd Level LEFT Facet Jt Inj Or MBB Cerv/Thor 3rd Level LEFT Facet Jt Inj Or MBB Cervical/Thoracic RI GHT Facet Jt Inj Or MBB Cerv/Thor 2nd Level RIGHT Facet Jt Inj Or MBB Cerv/Thor 3rd Level RIGHT Foll-up eval q3mo opiod tx OFFICE/OUTPATIENT VISIT, EST Foll-up eval q3mo opiod tx OFFICE/OUTPATIENT VISIT, NEW Foll-up eval q3mo opiod tx OFFICE/OUTPATIENT VISIT, EST Foll-up eval q3mo opiod tx OFFICE VISIT, EST TELEMEDICINE Foll-up eval q3mo opiod tx OFFICE/OUTPATIENT VISIT, EST Foll-up eval q3mo opiod tx OFFICE VISIT, EST TELEMEDICINE Foll-up eval q3mo opiod tx OFFICE VISIT, EST TELEMEDICINE Foll-up eval q3mo opiod tx OFFICE VISIT, EST TELEMEDICINE Foll-up eval q3mo opiod tx OFFICE VISIT, EST TELEMEDICINE Foll-up eval q3mo opiod tx OFFICE VISIT, EST TELEMEDICINE Foll-up eval q3mo opiod tx OFFICE/OUTPATIENT VISIT, EST ROUTINE BLOOD DRAW Foll-up eval q3mo opiod tx OFFICE VISIT, EST TELEMEDICINE Foll-up eval q3mo opiod tx OFFICE VISIT, EST TELEMEDICINE Foll-up eval q3mo opiod tx OFFICE VISIT, EST TELEMEDICINE Foll-up eval q3mo opiod tx OFFICE VISIT, EST TELEMEDICINE OFFICE VISIT, EST TELEMEDICINE Foll-up eval q3mo opiod tx Foll-up eval q3mo opiod tx OFFICE VISIT, EST TELEMEDICINE Foll-up eval q3mo opiod tx OFFICE VISIT, EST TELEMEDICINE Foll-up eval q3mo opiod tx OFFICE/OUTPATIENT VISIT, EST Foll-up eval q3mo opiod tx OFFICE/OUTPATIENT VISIT, EST Foll-up eval q3mo opiod tx OFFICE/OUTPATIENT VISIT, EST Foll-up eval q3mo opiod tx OFFICE/OUTPATIENT VISIT, EST Drug test def 22+ classes Drug Urine Toxology With Chromatography OFFICE/OUTPATIENT VISIT, EST OFFICE/OUTPATIENT VISIT, EST [facility] OFFICE/OUTPATIENT VISIT, EST OFFICE/OUTPATIENT VISIT, EST OFFICE/OUTPATIENT VISIT, EST Drug test def 22+ classes Drug Urine Toxology With Chromatography OFFICE/OUTPATIENT VISIT, EST OFFICE/OUTPATIENT VISIT, EST OFFICE/OUTPATIENT VISIT, EST Drug test def 22+ classes Drug Urine Toxology With Chromatography OFFICE/OUTPATIENT VISIT, EST OFFICE/OUTPATIENT VISIT, EST OFFICE/OUTPATIENT VISIT, EST OFFICE/OUTPATIENT VISIT, EST [facility] [employer] OFFICE/OUTPATIENT VISIT, EST OFFICE/OUTPATIENT VISIT, EST OFFICE/OUTPATIENT VISIT, EST OFFICE/OUTPATIENT VISIT, EST Drug test def 22+ classes Drug Urine Toxology With Chromatography OFFICE CONSULTATION Advance Directives Directive Yes / No Effective Date File Name No Information Encounters Encounter Description Practice Location Reason(s) For Visit Diagnoses Date Provider Providers Copied on Encounter OFFICE VISIT, EST TELEMEDICINE [facility], [address], [place], [id number] , [place] tel:[phone] [facility] [place] Widespread pain (chief complaint) Chronic pain syndromePostl aminectomy syndrome, not elsewhere classifiedOth er spondylosis, thoracic regionOther spondylosis, lumbar regionPain in left kneeDepressio nOther muscle spasmLong term (current) use of opiate analgesicBody mass index [BMI] 32.0-32.9, adult May 4 Harjeet Sharif. [address] [place] [address], [id number], [place]. tel:[phone] QRC: Cheyenne Chowdhury [facility] [address], [place], [address]. tel:[phone] [facility], [address] [place] [address], [id number] , [place] tel:[phone] [facility] [place] lumbago (chief complaint) Postlaminecto my syndrome, not elsewhere classifiedRad iculopathy, lumbar region 4 Oscar Estrada. [address] [place] [address], [id number], [place]. tel:[phone] Psych Dx Eval [facility], [address] [place] [address], [id number] , [place] tel:[phone] Telehealth Pain disorder with related psychological factorsMajor depressive disorder, recurrent, moderate 4 Goldie Joaquin. [address] [place] [address], [id number], [place]. tel:[phone] OFFICE/OUTPAT IENT VISIT, EST [facility], [address] [place] [address], [id number] , [place] tel:[phone] [facility] [place] Back Pain (chief complaint) Chronic pain syndromePostl aminectomy syndrome, not elsewhere classifiedOth er spondylosis, thoracic regionOther spondylosis, lumbar regionPain in left kneeDepressio nOther muscle spasmLong term (current) use of opiate analgesicEnco unter for therapeutic drug level monitoringBod y mass index [BMI] 32.0-32.9, adult Sep-2 4 Harjeet Sharif. [address] [place] [address], [id number], [place]. tel:[phone] QRC: Cheyenne Chowdhury [facility] [address], [place], [address]. tel:[phone] ng Provider: Alexis Pulliam, [address] [place] [address], [id number]. tel:[phone] OFFICE VISIT, [facility] TELEMEDICINE [facility], [address] [place] [address], [id number] , [place] tel:[phone] [facility] Back Pain (chief complaint) Chronic pain syndromePostl aminectomy syndrome, not elsewhere classifiedOth er spondylosis, thoracic regionOther spondylosis, lumbar regionPain in left kneeDepressio nOther muscle spasmLong term (current) use of opiate analgesic Mar- 4 Van Overbeke Chante. [address] [place], [place], [id number], [place]. tel:[phone] QRC: Cheyenne Chowdhury [employer] [address], [place], [address]. tel:[phone] OFFICE VISIT, [facility], [address] [place] [address], [id number] , [place] tel:[phone] [facility] Back Pain (chief complaint) Chronic pain syndromePostl aminectomy syndrome, not elsewhere classifiedOth er spondylosis, thoracic regionOther spondylosis, lumbar regionDepress ionPain in left kneeLong term (current) use of opiate analgesicOthe r muscle spasm Feb- 4 Van Overbeke Chante. [address] [place], [place], [id number], [place]. tel:[phone] QRC: Cheyenne Chowdhury [employer] [address], [place], [address]. tel:[phone] ng Provider: Alexis Pulliam, [address] [place] [address], [id number]. tel:[phone] OFFICE/OUTPAT IENT VISIT, [facility], [address] [place] [address], [id number] , [place] tel:[phone] [facility] Back Pain (chief complaint) Chronic pain syndromePostl aminectomy syndrome, not elsewhere classifiedOth er spondylosis, thoracic regionOther spondylosis, lumbar regionDepress ionPain in left kneeLong term (current) use of opiate analgesicEnco unter for therapeutic drug level monitoring Feb-0 4 Harjeet Sharif. [address] [place] [address], [id number], [place]. tel:[phone] QRC: Cheyenne Chowdhury on [employer], [employer] [address], [place], [address]. tel:[phone] ng Provider: Alexis Pulliam, [address] [place] [address], [id number]. tel:[phone] OFFICE VISIT, EST TELEMEDICINE [facility], [address] [place] [address], [id number] , [place] tel:[phone] [facility] Back Pain (chief complaint) Chronic pain syndromePostl aminectomy syndrome, not elsewhere classifiedOth er spondylosis, thoracic regionOther spondylosis, lumbar regionPain in left kneeDepressio nLong term (current) use of opiate analgesic Martin-0 4 Harjeet Sahrif. [address] [place], [place], [id number], [place]. tel:[phone] QRC: Cheyenne Chowdhury on [employer], [employer] [address] [facility], [place], [address]. tel:[phone] OFFICE VISIT, EST TELEMEDICINE [facility], [address] [place] [address], [id number] , [place] tel:[phone] [facility] Back Pain (chief complaint) DepressionChr onic pain syndromePain in left kneeOther spondylosis, thoracic regionOther spondylosis, lumbar regionPostlam inectomy syndrome, not elsewhere classifiedLon g term (current) use of opiate analgesic December-0 4 Harjeet Haskinsbemoo Sharif. [address] [place] [address], [id number], [place]. tel:[phone] QRC: Cheyenne Chowdhury on [employer], [employer] [address], [place], [address]. tel:[phone] ng Provider: Alexis Pulliam, [address] [place] [address], [id number]. tel:[phone] [facility], [address] [place] [address], [id number] , [place] tel:[phone] [facility] Other spondylosis, thoracic region Nov- 4 Jessi Kelly. [address] [place] [address], [id number], [place]. tel:[phone] Referring Provider: Alexis Pulliam, [address] [place] [address], [id number]. tel:[phone] [facility], [address] [place] [address], [id number] , [place] tel:[phone] [facility] No Information 4 Jamil Pacheco. [address], [place], [place], [id number], [place]. tel:[phone] OFFICE/OUTPAT IENT VISIT, EST [facility], [address] [place] [address], [id number] , [place] tel:[phone] [facility] [place] Back pain (chief complaint) DepressionChr onic pain syndromeOther spondylosis, thoracic regionOther spondylosis, lumbar regionPostlam inectomy syndrome, not elsewhere classifiedLon g term (current) use of opiate analgesicPain in left kneeEncounter for therapeutic drug level monitoring 4 Harjeet Sharif. [address] [place] [address], [id number], [place]. tel:[phone] QRC: Cheyenne Chowdhury [facility], [facility] [address] [facility] [address], [place], [address]. tel:[phone] Provider: Alexis Pulliam, [address] [place] [address], [id number]. tel:[phone] OFFICE VISIT, EST TELEMEDICINE [facility], [address] [place] [address], [id number] , [place] tel:[phone] [facility] Back Pain (chief complaint) Chronic pain syndromeDepre ssionOther spondylosis, thoracic regionOther spondylosis, lumbar regionPostlam inectomy syndrome, not elsewhere classifiedLon g term (current) use of opiate analgesic 4 Harjeet Sharif. [address] [place] [address], [id number], [place]. tel:[phone] QRC: Cheyenne Chowdhury [facility] [employer], [facility] [address], [place], [address]. tel:[phone] Provider: Alexis Pulliam, [address] [place] [address], [id number]. tel:[phone] OFFICE VISIT, EST TELEMEDICINE [facility], [address] [place] [address], [id number] , [place] [phone] [facility] Back Pain (chief complaint) Chronic pain syndromeOther spondylosis, thoracic regionOther spondylosis, lumbar regionPostlam inectomy syndrome, not elsewhere classifiedDep ressionLong term (current) use of opiate analgesic 4 Harjeet Sharif. [address] [place] [address], [id number], [place]. tel:[phone] QRC: Cheyenne Chowdhury [facility] [employer], [employer] [address], [place], [address]. tel:[phone] OFFICE/OUTPAT IENT VISIT, EST [facility], [address] [place] [address], [id number] , [place] [phone] [facility] [place] Back Pain (chief complaint) DepressionChr onic pain syndromeOther spondylosis, thoracic regionOther spondylosis, lumbar regionPostlam inectomy syndrome, not elsewhere classifiedLon g term (current) use of opiate analgesicEnco unter for therapeutic drug level monitoring 4 Harjeet Sharif. [address] [place] [address], [id number], [place]. tel:[phone] QRC: Cheyenne Chowdhury [employer], [facility] [address], [place], [address]. tel:[phone] ng Provider: Alexis Pulliam, [address] [place] [address], [id number]. tel:[phone] OFFICE VISIT, [facility], [address] [place] [address], [id number] , [place] tel:[phone] [facility] Back Pain (chief complaint) Chronic pain syndromeOther spondylosis, thoracic regionOther spondylosis, lumbar regionPostlam inectomy syndrome, not elsewhere classifiedDep ressionLong term (current) use of opiate analgesic Dec-0 3 Van Overbeke Chante. [address] [place] [address], [id number], [place]. tel:[phone] QRC: Cheyenne Chowdhury [facility] [employer], [facility] [address] [place] [address], [address]. tel:[phone] ng Provider: Alexis Pulliam, [address] [place] [address], [id number]. tel:[phone] OFFICE VISIT, [facility], [address] [place] [address], [id number] , [place] tel:[phone] [facility] Back Pain (chief complaint) Chronic pain syndromeOther spondylosis, thoracic regionOther spondylosis, lumbar regionPostlam inectomy syndrome, not elsewhere classifiedDep ressionLong term (current) use of opiate analgesic Nov-0 3 Harjeet Overbeke Cahnte. [address] [place], [place], [id number], [place]. tel:[phone] QRC: Cheyenne Chowdhury [facility] [employer], [facility] [address], [place], [address]. tel:[phone] ng Provider: Alexis Pulliam, [address] [place] [address], [id number]. tel:[phone] OFFICE/OUTPAT IENT VISIT, [facility], [address] [place] [address], [id number] , [place] tel:[phone] [facility] Back Pain (chief complaint) Chronic pain syndromeOther spondylosis, thoracic regionOther spondylosis, lumbar regionPostlam inectomy syndrome, not elsewhere classifiedDep ressionLong term (current) use of opiate analgesicEnco unter for therapeutic drug level monitoring 3 Harjeet Sharif. [address] [place] [address], [id number], [place]. tel:[phone] QRC: Cheyenne Chowdhury [employer] [address], [place], [address]. tel:[phone] Provider: Alexis Pulliam, [address] [place] [address], [id number]. tel:[phone] [place] [address] [facility], [address] [place] [address], [id number] , [place] tel:[phone] [facility] No Information 3 Harjeet Sharif. [address] [place] [address], [id number], [place]. tel:[phone] Referring Provider: Alexis Pulliam, [address] [place] [address], [id number]. tel:[phone] OFFICE VISIT, EST TELEMEDICINE [facility], [address] [place] [address], [id number] , [place] tel:[phone] [facility] Back pain (chief complaint) DepressionChr onic pain syndromeOther spondylosis, thoracic regionOther spondylosis, lumbar regionPostlam inectomy syndrome, not elsewhere classifiedLon g term (current) use of opiate analgesic 3 Ines Duke. [address] [place] [address], [id number], [place]. tel:[phone] QRC: Cheyenne Chowdhury [employer] [address], [place], [address]. tel:[phone] ng Provider: Alexis Pulliam, [address] [place] [address], [id number]. tel:[phone] OFFICE VISIT, EST TELEMEDICINE [facility], [address] [place] [address], [id number] , [place] tel:[phone] [facility] Back Pain (chief complaint) Chronic pain syndromeOther spondylosis, thoracic regionOther spondylosis, lumbar regionPostlam inectomy syndrome, not elsewhere classifiedDep ressionLong term (current) use of opiate analgesic 3 Harjeet Sharif. [address] [place] [address], [id number], [place]. tel:[phone] C: Cheyenne Chowdhury [facility] [employer], [facility] [address] [place] [address] [address], [place], [address]. tel:[phone] Provider: Alexis Pulliam, [address] [place] [address], [id number]. tel:[phone] [facility], [address] [place] [address], [id number] , [place] tel:[phone] [facility] [place] No Information 3 Bebo Bassett. [address] [place] [address], [id number], [place]. tel:[phone] Referring Provider: Alexis Pulliam, [address] [place] [address], [id number]. tel:[phone] OFFICE/OUTPAT IENT VISIT, EST [facility], [address] [place] [address], [id number] , [place] tel:[phone] [id number] [facility] Back pain (chief complaint) Other spondylosis, thoracic regionOther spondylosis, lumbar regionPostlam inectomy syndrome, not elsewhere classifiedLon g term (current) use of opiate analgesicEnco unter for therapeutic drug level monitoringDep ressionChroni c pain syndrome 3 Bebo Bassett. [address] [place] [address], [id number], [place]. tel:[phone] [facility]: Cheyenne Chowdhury [employer] [employer], [employer] [address], [place], [address]. tel:[phone] ng Provider: Alexis Pulliam, [address] [place] [address], [id number]. tel:[phone] OFFICE VISIT, [facility] TELEMEDICINE [facility], [address] [place] [address], [id number] , [place] tel:[phone] [facility] Kerri back pain (chief complaint) Other spondylosis, thoracic regionOther spondylosis, lumbar regionPostlam inectomy syndrome, not elsewhere classifiedLon g term (current) use of opiate analgesic 3 Van Overbeke Chante. [address] [place] [address], [id number], [place]. tel:[phone] [facility]: Cheyenne Chowdhury Rehabilitaesther [facility] [employer], [facility] [address] [facility], [place], [address]. tel:[phone] kiran Provider: Alexis Pulliam, [address] [place] [address], [id number]. tel:[phone] OFFICE VISIT, [facility], [address] [place] [address], [id number] , [place] tel:[phone] [facility] Kerri Back pain (chief complaint) Other spondylosis, thoracic regionOther spondylosis, lumbar regionPostlam inectomy syndrome, not elsewhere classifiedLon g term (current) use of opiate analgesic 3 Van Overbeke Chante. [address] [place] [address], [id number], [place]. tel:[phone] [facility]: Cheyenne Chowdhury Rehabilvanita [employer], [employer] [address] [place] [address], [id number]. tel:[phone] OFFICE/OUTPAT IENT VISIT, [facility], [address] [place] [address], [id number] , [place] [phone] [facility] [place] back pain (chief complaint) Other spondylosis, thoracic regionOther spondylosis, lumbar regionPostlam inectomy syndrome, not elsewhere classifiedLon g term (current) use of opiate analgesicEnco unter for therapeutic drug level monitoring 3 Harjeet Sharif. [address] [place] [address], [id number], [place]. tel:[phone] [facility]: Cheyenne Chowdhury [employer], [employer] [address], [place], [address]. tel:[phone] [facility], [address] [place] [address], [id number] , [place] tel:[phone] [facility] No Information 3 Harjeet Sharif. [address] [place] [address], [id number], [place]. tel:[phone] Referring Provider: Alexis Pulliam, [address] [place] [address], [id number]. tel:[phone] OFFICE VISIT, EST TELEMEDICINE [facility], [address] [place] [address], [id number] , [place] tel:[phone] [facility] Back Pain (chief complaint) Other spondylosis, thoracic regionOther spondylosis, lumbar regionPostlam inectomy syndrome, not elsewhere classifiedLon g term (current) use of opiate analgesic Sep- 3 Harjeet Sharif. [address] [place] [address], [id number], [place]. tel:[phone] [facility]: Cheyenne Chowdhury [employer]ita [employer] [address], [place], [address]. tel:[phone] OFFICE VISIT, EST TELEMEDICINE [facility], [address] [place] [address], [id number] , [place] tel:[phone] [facility] Back Pain (chief complaint) Other spondylosis, thoracic regionOther spondylosis, lumbar regionSpinal stenosis, cervical regionPostlam inectomy syndrome, not elsewhere classifiedLon g term (current) use of opiate analgesic 3 Harjeet Sharif. [address] [place] [address], [id number], [place]. tel:[phone] [facility]: Cheyenne Chowdhury [employer] [address], [place], [address]. tel:[phone] OFFICE/OUTPAT IENT VISIT, [facility], [address] [place] [address], [id number] , tel:[phone] [facility] Back Pain (chief complaint) Other spondylosis, thoracic regionOther spondylosis, lumbar regionSpinal stenosis, cervical regionPostlam inectomy syndrome, not elsewhere classifiedLon g term (current) use of opiate analgesicEnco unter for therapeutic drug level monitoringEnc ounter for screening for other disorder 2 Paul Quinonez. [address] [place] [address], [id number], [place]. tel:[phone] [facility]: Cheyenne Chowdhury [employer] [address] [place] [address], [address]. tel:[phone] ng Provider: Alexis Pulliam, [address] [place] [address], [id number]. tel:[phone] OFFICE VISIT, [facility], [address] [place] [address], [id number] , tel:[phone] [facility] Back pain (chief complaint) Other spondylosis, thoracic regionOther spondylosis, lumbar regionSpinal stenosis, cervical regionPostlam inectomy syndrome, not elsewhere classifiedLon g term (current) use of opiate analgesic 2 Harjeet Sharif. [address] [place] [address], [id number], [place]. tel:[phone] [facility]: Cheyenne Chowdhury [employer], [employer] [address], [place], [address]. tel:[phone] ng Provider: Alexis Pulliam, [address] [place] [address], [id number]. tel:[phone] OFFICE VISIT, [facility] TELEMEDICINE [facility], [address] [place] [address], [id number] , tel:[phone] [facility] Back pain (chief complaint) Postlaminecto my syndrome, not elsewhere classifiedOth er spondylosis, lumbar regionSpinal stenosis, cervical regionLong term (current) use of opiate analgesicOthe r spondylosis, thoracic region May- 2 Harjeet Dave Chante. [address] [place] [address], [id number], [place]. tel:[phone] [facility]: Cheyenne Chowdhury [employer]ita[employer] [address], [place], [place], [facility]. tel:[phone] OFFICE VISIT, [facility], [address] [place] [address], [id number] , tel:[phone] [facility] Back pain (chief complaint) Other spondylosis, lumbar regionSpinal stenosis, cervical regionPostlam inectomy syndrome, not elsewhere classifiedLon g term (current) use of opiate analgesic Apr- 2 Harjeet Sharif. [address] [place] [address], [id number], . tel:[phone] [facility]: Cheyenne Chowdhury [employer] [address], [place], [place], [facility]. tel:[phone] ng Provider: Alexis Pulliam, [address] [place] [address], [id number]. tel:[phone] OFFICE/OUTPAT IENT VISIT, [facility], [address] [place] [address], [id number] , tel:[phone] [facility] Back pain (chief complaint) Spinal stenosis, cervical regionPostlam inectomy syndrome, not elsewhere classifiedLon g term (current) use of opiate analgesicOthe r spondylosis, lumbar region Mar- 2 Van Overbeke Chante. [address] [place] [address], [id number], [place]. tel:[phone] [facility]: Cheyenne Chowdhury [employer] [employer], [employer] [address], [place], [address]. tel:[phone] ng Provider: Alexis Pulliam, [address] [place] [address], [id number]. tel:[phone] [facility], [address] [place] [address], [id number] , [place] tel:[phone] [facility] [place] No Information 2 Jared Espinoza. [address] [place] [address], [id number], [place]. tel:[phone] OFFICE VISIT, EST TELEMEDICINE [facility], [address] [place] [address], [id number] , [place] tel:[phone] [facility] [place] back pain (chief complaint) Spinal stenosis, cervical regionRadicul opathy, lumbar regionPostlam inectomy syndrome, not elsewhere classifiedLon g term (current) use of opiate analgesic 2 Harjeet Sharif. [address] [place] [address], [id number], [place]. tel:[phone] QRC: Cheyenne Chowdhury Rehabilencompass healthesther [employer], [employer] [address], [place], [address]. tel:[phone] [facility], [address] [place] [address], [id number] , [place] tel:[phone] [facility] [place] No Information 2 Harjeet Sharif. [address] [place] [address], [id number], [place]. tel:[phone] Referring Provider: Alexis Pulliam, [address] [place] [address], [id number]. tel:[phone] OFFICE VISIT, EST TELEMEDICINE [facility], [address] [place] [address], [id number] , [place] tel:[phone] [facility] [place] back pain (chief complaint) Spondylosis without myelopathy or radiculopathy , lumbar regionDrug induced constipationS nicolasa stenosis, cervical regionRadicul opathy, lumbar regionPostlam inectomy syndrome, not elsewhere classifiedLon g term (current) use of opiate analgesic 2 Harjeet Sharif. [address] [place] [address], [id number], [place]. tel:[phone] [facility]: Cheyenne Chowdhury [employer]ati [employer] [address], [place], [address]. tel:[phone] OFFICE/OUTPAT IENT VISIT, [facility] Telehealth [facility], [address] [place] [address], [id number] , [place] [phone] [facility] ([facility]) Drug induced constipationS nicolasa stenosis, cervical regionRadicul opathy, lumbar regionPostlam inectomy syndrome, not elsewhere classifiedLon g term (current) use of opiate analgesicSpon dylosis without myelopathy or radiculopathy , lumbar region 2 Rom Bryan. [address] [place] [address], [id number], [place]. tel:[phone] QRC: Cheyenne Chowdhury [employer]FF[employer] T[employer]ATS HOLDINGSitaesther [employer] [address], [place], [address]. tel:[phone] Provider: Alexis Pulliam, [address] [place] [address], [id number]. tel:[phone] OFFICE VISIT, EST TELEMEDICINE [facility], [address] [place] [address], [id number] , [place] [phone] [facility] [place] Back Pain (chief complaint) Drug induced constipationO ther spondylosis with myelopathy, thoracic regionOther spondylosis with myelopathy, lumbar regionOther spondylosis, thoracolumbar regionSpinal stenosis, cervical regionRadicul opathy, lumbar regionPostlam inectomy syndrome, not elsewhere classifiedLon g term (current) use of opiate analgesic 2 Harjeet Sharif. [address] [place] [address], [id number], [place]. tel:[phone] QRC: Cheyenne Chowdhury [employer]ita[employer] [address], [place], [address]. tel:[phone] ng Provider: Alexis Pulliam, [address] [place] [address], [id number]. tel:[phone] OFFICE VISIT, EST TELEMEDICINE [facility], [address] [place] [address], [id number] , [place] tel:[phone] [facility] [place] Back Pain (chief complaint) Postlaminecto my syndrome, not elsewhere classifiedDru g induced constipationO ther spondylosis with myelopathy, thoracic regionOther spondylosis with myelopathy, lumbar regionOther spondylosis, thoracolumbar regionSpinal stenosis, cervical regionRadicul opathy, lumbar regionLow back pain, unspecifiedPa in in thoracic spineLong term (current) use of opiate analgesic 2 Win Destinee. [address] [place] [address], [id number], [place]. tel:[phone] QRC: Cheyenne Chowdhury [employer]ita[employer] [address], [place], [address]. tel:[phone] OFFICE VISIT, EST TELEMEDICINE [facility], [address] [place] [address], [id number] , [place] tel:[phone] [facility] [place] Back Pain (chief complaint) Other spondylosis, thoracolumbar regionSpinal stenosis, cervical regionOther spondylosis with myelopathy, lumbar regionPostlam inectomy syndrome, not elsewhere classifiedRad iculopathy, lumbar regionLow back pain, unspecifiedLo ng term (current) use of opiate analgesicPain in thoracic spineDrug induced constipationO ther spondylosis with myelopathy, thoracic region Feb- 2 Harjeet Sharif. [address] [place], [place], [id number], [place]. tel:[phone] [facility]RC: Cheyenne Chowdhury [employer] [address], [place], [address]. tel:[phone] ng Provider: Alexis Pulliam, [address] [place] [address], [id number]. tel:[phone] OFFICE VISIT, EST TELEMEDICINE [facility], [address] [place] [address], [id number] , [place] tel:[phone] [facility] [place] Back Pain (chief complaint) Other spondylosis, thoracolumbar regionSpinal stenosis, cervical regionOther spondylosis with myelopathy, thoracic regionOther spondylosis with myelopathy, lumbar regionPostlam inectomy syndrome, not elsewhere classifiedRad iculopathy, lumbar regionLow back pain, unspecifiedLo ng term (current) use of opiate analgesicPain in thoracic spineDrug induced constipation 1 Harjeet Sharif. [address] [place] [address], [id number], [place]. tel:[phone] [facility]: Cheyenne Chowdhury [facility] [employer], [employer] [address], [place], [address]. tel:[phone] [facility], [address] [place] [address], [id number] , [place] tel:[phone] [facility] longterm (current) use of opiate analgesicEnco unter for therapeutic drug level monitoring 1 Harjeet Sharif. [address] [place] [address], [id number], [place]. tel:[phone] Referring Provider: Alexis Pulliam, [address] [place] [address], [id number]. tel:[phone] OFFICE/OUTPAT IENT VISIT, EST [facility], [address] [place] [address], [id number] , [place] tel:[phone] [facility] Back Pain (chief complaint) Other spondylosis, thoracolumbar regionSpinal stenosis, cervical regionOther spondylosis with myelopathy, thoracic regionOther spondylosis with myelopathy, lumbar regionPostlam inectomy syndrome, not elsewhere classifiedRad iculopathy, lumbar regionLow back pain, unspecifiedLo ng term (current) use of opiate analgesicPain in thoracic spineDrug induced constipationE ncounter for therapeutic drug level monitoringEnc ounter for screening for other disorder 1 Harjeet Sharif. [address] [place] [address], [id number], [place]. tel:[phone] [facility]: Cheyenne Chowdhury [employer], [employer] [address], [place], [address]. tel:[phone] ng Provider: Alexis Pulliam, [address] [place] [address], [id number]. tel:[phone] OFFICE VISIT, EST TELEMEDICINE [facility], [address] [place] [address], [id number] , tel:[phone] [facility] Back Pain (chief complaint) Spinal stenosis, cervical regionOther spondylosis with myelopathy, thoracic regionOther spondylosis with myelopathy, lumbar regionPostlam inectomy syndrome, not elsewhere classifiedRad iculopathy, lumbar regionLow back pain, unspecifiedLo ng term (current) use of opiate analgesicPain in thoracic spineOther spondylosis, thoracolumbar region 1 Harjeet Sharif. [address] [place] [address], [id number], [place]. tel:[phone] [facility]: Cheyenne Chowdhury [facility] [employer], [employer] [address], [place], [address]. tel:[phone] ng Provider: Alexis Pulliam, [address] [place] [address], [address]. tel:[phone] [facility], [address] [place] [address], [id number] , [place] tel:[phone] [facility] [place] Other spondylosis, thoracolumbar region 1 Jessi Kelly. [address] [place] [address], [id number], [place]. tel:[phone] Referring Provider: Alexis Pulliam, [address] [place] [address], [id number]. tel:[phone] OFFICE VISIT, EST TELEMEDICINE [facility], [address] [place] [address], [id number] , [place] tel:[phone] [facility] Back Pain (chief complaint) Other spondylosis, thoracolumbar region Sep-2 1 Harjeet Sharif. [address] [place] [address], [id number], [place]. tel:[phone] C: Bree Leon, [facility] on [employer], [facility] [address], [place], [address]. tel:[phone] [facility], [address] [place] [address], [id number] , [place] tel:[phone] [facility] Other spondylosis, thoracolumbar regionOther cervical disc displacement, cervicothorac ic region Sep-2 1 Harjeet Sharif. [address] [place] [address], [id number], [place]. tel:[phone] [facility], [address] [place] [address], [id number] , [place] tel:[phone] [facility] Other spondylosis, thoracolumbar region Sep-2 1 Jessi Kelly. [address] [place] [address], [id number], [place]. tel:[phone] Referring Provider: Alexis Pulliam, [address] [place] [address], [id number]. tel:[phone] OFFICE VISIT, EST TELEMEDICINE [facility], [address] [place] [address], [id number] , [place] tel:[phone] [facility] [place] Back Pain (chief complaint) Spinal stenosis, cervical regionOther spondylosis with myelopathy, thoracic regionOther spondylosis with myelopathy, lumbar regionPostlam inectomy syndrome, not elsewhere classifiedRad iculopathy, lumbar regionLow back painLong term (current) use of opiate analgesicPain in thoracic spineOther spondylosis, thoracolumbar region Sep-0 1 Harjeet Sharif. [address] [place] [address], [id number], [place]. tel:[phone] [facility]: Cheyenne Chowdhruy [facility] on [facility], [address], [place], [address]. tel:[phone] ng Provider: Alexis Pulliam, [address] [place] [address], [id number]. tel:[phone] [facility], [address] [place] [address], [id number] , [place] tel:[phone] [facility] [place] Other spondylosis with myelopathy, thoracic region Apr- 1 Bowen Leticia. [address] [place] [address], [id number], [place]. tel:[phone] Referring Provider: Alexis Pulliam, [address] [place] [address], [id number]. tel:[phone] [facility], [address] [place] [address], [id number] , [place] tel:[phone] [facility] [place] Other spondylosis, thoracolumbar region Mar- 1 Jared Espinoza. [address] [place] [address], [id number], [place]. tel:[phone] [facility], [address] [place] [address], [id number] , [place] [phone] [facility] Other spondylosis, thoracolumbar region Mar- 1 Bowen Leticia. [address] [place] [address], [id number], [place]. tel:[phone] Referring Provider: Alexis Pulliam, [address] [place] [address], [id number]. tel:[phone] [facility], [address] [place] [address], [id number] , [place] tel:[phone] [facility] Other spondylosis, thoracolumbar region Mar- 1 Harjeet Sharif. [address] [place] [address], [id number], [place]. tel:[phone] OFFICE/OUTPAT IENT VISIT, [facility], [address] [place] [address], [id number] , [place] tel:[phone] [facility] Back Pain (chief complaint) Spinal stenosis, cervical regionOther spondylosis with myelopathy, thoracic regionOther spondylosis with myelopathy, lumbar regionPostlam inectomy syndrome, not elsewhere classifiedRad iculopathy, lumbar regionLow back painLong term (current) use of opiate analgesicPain in thoracic spineOther spondylosis, thoracolumbar region Mar- 1 Harjeet Sharif. [address] [place] [address], [id number], [place]. tel:[phone] [facility]: Cheyenne Chowdhury [employer] [address], [place], [address]. tel:[phone] Provider: Alexis Pulliam, [address] [place] [address], [id number]. tel:[phone] [facility], [address] [place] [address], [id number] , [place] tel:[phone] [facility] Back Pain (chief complaint) Other spondylosis with myelopathy, lumbar regionSpinal stenosis, cervical regionOther spondylosis with myelopathy, thoracic regionPostlam inectomy syndrome, not elsewhere classifiedRad iculopathy, lumbar regionLow back painLong term (current) use of opiate analgesicPain in thoracic spine Feb- 1 Harjeet Sharif. [address] [place] [address], [id number], [place]. tel:[phone] [facility]: Cheyenne Chowdhury [employer] [address], [place], [address]. tel:[phone] OFFICE/OUTPAT IENT VISIT, [facility], [address] [place] [address], [id number] , [place] tel:[phone] [facility] Back Pain (chief complaint) Other spondylosis with myelopathy, thoracic regionSpinal stenosis, cervical regionOther spondylosis with myelopathy, lumbar region 1 Ben Cash. [facility], [address], [place], [address], [place]. tel:[phone] [facility]: Cheyenne Chowdhury [employer], [employer] [address], [place], [address]. tel:[phone] ng Provider: Alexis Pulliam, [address] [place] [address], [id number]. tel:[phone] OFFICE/OUTPAT IENT VISIT, [facility], [address] [place] [address], [id number] , [place] tel:[phone] [facility] [place] Back Pain (chief complaint) termite technician (current) use of opiate analgesicPost laminectomy syndrome, not elsewhere classifiedRad iculopathy, lumbar regionLow back painPain in thoracic spine 1 Harjeet Sharif. [address] [place] [address], [id number], [place]. tel:[phone] [facility]: Cheyenne Chowdhury [employer], [employer] [address], [place] [place], [address]. tel:[phone] kiran Provider: Alexis Pulliam, [address] [place] [address], [address]. tel:[phone] OFFICE VISIT, EST TELEMEDICINE [facility], [address] [place] [address], [id number] , [place] tel:[phone] [facility] Back Pain (chief complaint) termite technician (current) use of opiate analgesicPost laminectomy syndrome, not elsewhere classifiedRad iculopathy, lumbar regionLow back painItchEncou nter for therapeutic drug level monitoringPun cture wound w/ FB of left foot, sequela 1 Harjeet Sharif. [address] [place] [address], [id number], [place]. tel:[phone] QRC: Bree Leon, [facility], [facility] [employer] [address], [place], [address]. tel:[phone] ng Provider: Alexis Pulliam, [address] [place] [address], [address]. tel:[phone] OFFICE/OUTPAT IENT VISIT, [facility], [address] [place] [address], [id number] , [place] [phone] [facility] Back Pain (chief complaint) termite technician (current) use of opiate analgesicPost laminectomy syndrome, not elsewhere classifiedRad iculopathy, lumbar regionLow back painItchEncou nter for therapeutic drug level monitoringPun cture wound w/ FB of left foot, sequela Apr-3 0 1 Billsfarzad Liveis. [facility], [address], [place], [address], [place]. tel:[phone] Referring Provider: Alexis Pulliam, [address] [place] [address], [id number]. tel:[phone] OFFICE VISIT, EST TELEMEDICINE [facility], [address] [place] [address], [id number] , [place] [phone] [facility] Back Pain (chief complaint) longterm (current) use of opiate analgesicPost laminectomy syndrome, not elsewhere classifiedRad iculopathy, lumbar regionLow back pain Oct-2 1 Harjeet Sharif. [address] [place] [address], [id number], [place]. tel:[phone] QRC: Bree Leon [facility], [facility], [facility] [address], [place], [address]. tel:[phone] ng Provider: Alexis Pulliam, [address] [place] [address], [address]. tel:[phone] OFFICE VISIT, EST TELEMEDICINE [facility], [address] [place] [address], [id number] , [place] [phone] [facility] [place] Back Pain (chief complaint) termite technician (current) use of opiate analgesicPost laminectomy syndrome, not elsewhere classifiedRad iculopathy, lumbar regionLow back pain 1 Harjeet Sharif. [address] [place] [address], [id number], [place]. tel:[phone] QRC: Bree Leon MS [facility], [facility] [employer], [employer] [address], [place], [address]. tel:[phone] OFFICE VISIT, EST TELEMEDICINE [facility], [address] [place] [address], [id number] , [place] [phone] [facility] [place] Back Pain (chief complaint) longterm (current) use of opiate analgesicPost laminectomy syndrome, not elsewhere classifiedRad iculopathy, lumbar regionLow back pain 1 Harjeet Sharif. [address] [place] [address], [id number], [place]. tel:[phone] QRC: Bree Leon MS [facility], [facility] [employer], [employer] [address], [place], [address]. tel:[phone] kiran Provider: Alexis Pulliam, [address] [place] [address], [address]. tel:[phone] OFFICE VISIT, EST TELEMEDICINE [facility], [address] [place] [address], [id number] , [place] [phone] [facility] [place] Back Pain (chief complaint) longterm (current) use of opiate analgesicPost laminectomy syndrome, not elsewhere classifiedRad iculopathy, lumbar regionLow back pain 1 Harjeet Sharif. [address] [place] [address], [id number], [place]. tel:[phone] QRC: Bree Leon MS [facility], [facility], [employer] [address], [place], [address]. tel:[phone] ng Provider: Alexis Pulliam, [address] [place] [address], [id number]. tel:[phone] OFFICE VISIT, [facility] TELEMEDICINE [facility], [address] [place] [address], [id number] , tel:[phone] [facility] Back Pain (chief complaint) longterm (current) use of opiate analgesicPost laminectomy syndrome, not elsewhere classifiedRad iculopathy, lumbar regionLow back pain 0 Harjeet Sharif. [address] [place] [address], [id number], [place]. tel:[phone] Referring Provider: Alexis Pulliam, [address] [place] [address], [id number]. tel:[phone] OFFICE/OUTPAT IENT VISIT, [facility], [address] [place] [address], [id number] , [place] tel:[phone] [facility] Ker[facility] Back Pain (chief complaint) longterm (current) use of opiate analgesicPost laminectomy syndrome, not elsewhere classifiedRad iculopathy, lumbar regionLow back painEncounter for therapeutic drug level monitoring 0 Harjeet Sharif. [address] [place] [address], [id number], [place]. tel:[phone] QRC: Bree Leon [place] [facility], [facility], [address], [place], [address]. tel:[phone] Provider: Alexis Pulliam, [address] [place] [address], [address]. tel:[phone] OFFICE VISIT, EST TELEMEDICINE [facility], [address] [place] [address], [id number] , [place] tel:[phone] [facility] [place] Back Pain (chief complaint) termite technician (current) use of opiate analgesicPost laminectomy syndrome, not elsewhere classifiedRad iculopathy, lumbar regionLow back pain May-0 0 Harjeet Overbeke Chante. [address] [place] [address], [id number], . tel:[phone] Referring Provider: Alexis Pulliam, [address] [place] [address], [address]. tel:[phone] OFFICE VISIT, [facility] TELEMEDICINE [facility], [address] [place] [address], [id number] , [place] tel:[phone] [facility] Back Pain (chief complaint) termite technician (current) use of opiate analgesicPost laminectomy syndrome, not elsewhere classifiedRad iculopathy, lumbar regionLow back pain Sep-0 - 0 Van Overbeke Chante. [address] [place] [address], [id number], [place]. tel:[phone] Referring Provider: Alexis Pulliam, [address] [place] [address], [id number]. 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 [address] [place] [address], [id number], [place]. tel:[phone] QRC: [facility]ree Leon [facility], [facility] on [facility], [address], [place], [address]. tel:[phone] Provider: Alexis Pulliam, [address] [place] [address], [address]. tel:[phone] OFFICE VISIT, [facility], [address] [place] [address], [id number] , [place] tel:[phone] [facility] (chief complaint) longterm (current) use of opiate analgesicPost laminectomy syndrome, not elsewhere classifiedRad iculopathy, lumbar regionLow back pain Feb- 0 Van Overbeke Chante. [address] [place] [address], [id number], [place]. tel:[phone] QRC: Bree Leon MS [facility], [employer] [facility], [employer] [address], [place], [address]. tel:[phone] ng Provider: Alexis Pulliam, [address] [place] [address], [id number]. tel:[phone] OFFICE VISIT, [facility], [address] [place] [address], [id number] , [place] tel:[phone] [facility] Back Pain (chief complaint) longterm (current) use of opiate analgesicPost laminectomy syndrome, not elsewhere classifiedRad iculopathy, lumbar regionLow back pain 0 Van Overbeke Chante. [address] [place] [address], [id number], [place]. tel:[phone] QRC: Bree Leon MS [facility], [employer] [facility], [facility] [address], [place], [address]. tel:[phone] Provider: Alexis Pulliam, [address] [place] [address], [address]. tel:[phone] OFFICE VISIT, [facility], [address] [place] [address], [id number] , [place] tel:[phone] [facility] Back Pain (chief complaint) longterm (current) use of opiate analgesicPost laminectomy syndrome, not elsewhere classifiedRad iculopathy, lumbar region 0 Van Overbeke Chante. [address] [place] [address], [id number], [place]. tel:[phone] QRC: Bree Leon MS [facility], [facility] [employer], [facility] [address], [place], [address]. tel:[phone] ng Provider: Alexis Pulliam, [address] [place] [address], [id number]. tel:[phone] OFFICE VISIT, [facility], [address] [place] [address], [id number] , [place] tel:[phone] [facility] Back Pain (chief complaint) termite technician (current) use of opiate analgesicPost laminectomy syndrome, not elsewhere classifiedRad iculopathy, lumbar region Apr-0 8-202 0 Harjeet Sharif. [address] [place] [address], [id number], [place]. tel:[phone] QRC: Bree Leon MS [facility], [facility] [employer], [facility] [address], [place], [address]. tel:[phone] kiran Provider: Alexis Pulliam, [address] [place] [address], [address]. tel:[phone] OFFICE/OUTPAT IENT VISIT, [facility], [address] [place] [address], [id number] , [place] tel:[phone] [facility] Back Pain (chief complaint) longterm (current) use of opiate analgesicPost laminectomy syndrome, not elsewhere classifiedRad iculopathy, lumbar region 0 Harjeet Sharif. [address] [place] [address], [id number], [place]. tel:[phone] QRC: Bree Leon MS [facility], [employer], [facility] [address], [place], [address]. tel:[phone] kiran Provider: Alexis Pulliam, [address] [place] [address], [id number]. tel:[phone] OFFICE/OUTPAT IENT VISIT, [facility], [address] [place] [address], [id number] , [place] tel:[phone] [facility] [place] Back Pain (chief complaint) Radiculopathy , lumbar regionPostlam inectomy syndrome, not elsewhere classifiedLon g term (current) use of opiate analgesic 2-202 0 Billsfarzad Walters. [facility], [address] [facility] [address] [facility] [address], [place], [address], [place]. tel:[phone] QRC: Bree Leon MS [facility], [employer] [facility], [employer] [address], [place], [address]. tel:[phone] ng Provider: Alexis Pulliam, [address] [place] [address], [address]. tel:[phone] OFFICE/OUTPAT IENT VISIT, [facility], [address] [place] [address], [id number] , [place] tel:[phone] [facility] [place] Back Pain (chief complaint) Postlaminecto my syndrome, not elsewhere classifiedRad iculopathy, lumbar regionLow back painLong term (current) use of opiate analgesic Harjeet Overbemoo Sharif. [address] [place] [address], [id number], [place]. tel:[phone] QRC: Bree Leon MS [facility], [employer] [facility], [facility] [address], [place], [address]. tel:[phone] ng Provider: Alexis Pulliam, [address] [place] [address], [address]. tel:[phone] OFFICE/OUTPAT IENT VISIT, [facility], [address] [place] [address], [id number] , [place] tel:[phone] [facility] Back Pain (chief complaint) longterm (current) use of opiate analgesicEnco unter for therapeutic drug level monitoringLow back painRadiculop athy, lumbar regionPostlam inectomy syndrome, not elsewhere classified 9 Harjeet Haskinsbemoo Sharif. [address] [place] [address], [id number], [place]. tel:[phone] QRC: Bree Leon MS [facility], [employer] [facility], [facility] [address], [place], [address]. tel:[phone] ng Provider: Alexis Pulliam, [address] [place] [address], [address]. tel:[phone] OFFICE/OUTPAT IENT VISIT, [facility], [address] [place] [address], [id number] , [place] [phone] [facility] Back Pain (chief complaint) termite technician (current) use of opiate analgesicLow back painRadiculop athy, lumbar regionPostlam inectomy syndrome, not elsewhere classified May- 2201 9 Van Overbeke Chante. [address] [place] [address], [id number], [place]. tel:[phone] QRC: Bree VALDEZ, [employer] [address], [place], [address]. tel:[phone] ng Provider: Alexis Pulliam, [address] [place] [address], [address]. tel:[phone] OFFICE/OUTPAT IENT VISIT, [facility], [address] [place] [address], [id number] , [place] [phone] [facility] Back Pain (chief complaint) Postlaminecto my syndrome, not elsewhere classifiedRad iculopathy, lumbar regionLow back painLong term (current) use of opiate analgesic Mar- 9 Van Overbeke Chante. [address] [place] [address], [id number], [place]. tel:[phone] QRC: Bree Leon MS [facility], [employer] [address], [place], [address]. tel:[phone] ng Provider: Alexis Pulliam, [address] [place] [address], [id number]. tel:[phone] OFFICE/OUTPAT IENT VISIT, [facility], [address] [place] [address], [id number] , [place] [phone] [facility] Back Pain (chief complaint) Postlaminecto my syndrome, not elsewhere classifiedRad iculopathy, lumbar regionLow back painLong term (current) use of opiate analgesic Van Overbeke Chante. [address] [place] [address], [id number], [place]. tel:[phone] QRC: Bree ArroyoLeon MS Q[facility], [facility], [address], [place], [address]. tel:[phone] ng Provider: Alexis Pulliam, [address] [place] [address], [address]. tel:[phone] OFFICE/OUTPAT IENT VISIT, [facility], [address] [place] [address], [id number] , [place] [phone] [facility] [place] Back Pain (chief complaint) Postlaminecto my syndrome, not elsewhere classifiedRad iculopathy, lumbar regionLow back painLong term (current) use of opiate analgesic Harjeet Overbeke Chante. [address] [place] [address], [id number], [place]. tel:[phone] Referring Provider: Alexis Pulliam, [address] [place] [address], [id number]. tel:[phone] OFFICE/OUTPAT IENT VISIT, [facility], [address] [place] [address], [id number] , [place] tel:[phone] [facility] Back Pain (chief complaint) Postlaminecto my syndrome, not elsewhere classifiedRad iculopathy, lumbar regionLow back painLong term (current) use of opiate analgesicEnco unter for therapeutic drug level monitoring Harjeet Overbeke Chante. [address] [place] [address], [id number], [place]. tel:[phone] Referring Provider: Alexis Pulliam, [address] [place] [address], [address]. tel:[phone] OFFICE/OUTPAT IENT VISIT, [facility], [address] [place] [address], [id number] , [place] tel:[phone] [facility] [place] Back Pain (chief complaint) Postlaminecto my syndrome, not elsewhere classifiedRad iculopathy, lumbar regionLow back painLong term (current) use of opiate analgesic 9 Harjeet Sharif. [address] [place] [address], [id number], [place]. tel:[phone] Referring Provider: Alexis Pulliam, [address] [place] [address], [address]. tel:[phone] OFFICE/OUTPAT IENT VISIT, [facility], [address] [place] [address], [id number] , [place] [phone] [facility] [place] Back Pain (chief complaint) Postlaminecto my syndrome, not elsewhere classifiedRad iculopathy, lumbar regionLow back painLong term (current) use of opiate analgesic 8 Negar Walters. [facility], [address] [place] [address], [place], [address], [place]. tel:[phone] Referring Provider: Alexis Pulliam, [address] [place] [address], [address]. tel:[phone] OFFICE/OUTPAT IENT VISIT, [facility], [address] [place] [address], [id number] , [place] tel:[phone] [facility] [place] Back Pain (chief complaint) Postlaminecto my syndrome, not elsewhere classifiedLon g term (current) use of opiate analgesicLow back painRadiculop athy, lumbar region 8 Harjeet Sharif. [address] [place] [address], [id number], [place]. tel:[phone] Referring Provider: Alexis Pulliam, [address] [place] [address], [address]. tel:[phone] OFFICE/OUTPAT IENT VISIT, [facility], [address] [place] [address], [id number] , [place] tel:[phone] [facility] [place] Back Pain (chief complaint) Postlaminecto my syndrome, not elsewhere classifiedPar esthesia of skinPain in right handPain in left handLong term (current) use of opiate analgesic Oct- 0 8 Harjeet Sharif. [address] [place] [address], [id number], [place]. tel:[phone] Referring Provider: Alexis Pulliam, [address] [place] [address], [address]. tel:[phone] OFFICE/OUTPAT IENT VISIT, [facility], [address] [place] [address], [id number] , [place] [phone] [facility] Back Pain (chief complaint) Postlaminecto my syndrome, not elsewhere classifiedPar esthesia of skinPain in right handPain in left hand Sep- 0 8 Harjeet Sharif. [address] [place] [address], [id number], [place]. tel:[phone] Referring Provider: Alexis Pulliam, [address] [place] [address], [address]. tel:[phone] OFFICE/OUTPAT IENT VISIT, [facility], [address] [place] [address], [id number] , [place] tel:[phone] [facility] [place] Back Pain (chief complaint) Postlaminecto my syndrome, not elsewhere classifiedPar esthesia of skinPain in right handPain in left hand 8 Harjeet Sharif. [address] [place] [address], [id number], [place]. tel:[phone] Referring Provider: Alexis Pulliam, [address] [place] [address], [address]. tel:[phone] OFFICE/OUTPAT IENT VISIT, [facility], [address] [place] [address], [id number] , [place] tel:[phone] [facility] [place] Back Pain (chief complaint) Postlaminecto my syndrome, not elsewhere classifiedLon g term (current) use of opiate analgesicPare sthesia of skinPain in right handPain in left hand 8 Harjeet Overbemoo Chante. [address] [place] [address], [id number], [place]. tel:[phone] Referring Provider: Alexis Pulliam, [address] [place] [address], [address]. tel:[phone] OFFICE/OUTPAT IENT VISIT, EST [facility], [address] [place] [address], [id number] , [place] [phone] [facility] [place] Postlaminecto my syndrome, not elsewhere classified 8 Harjeet Sharif. [address] [place] [address], [id number], [place]. tel:[phone] Referring Provider: Alexis Pulliam, [address] [place] [address], [address]. tel:[phone] OFFICE/OUTPAT IENT VISIT, EST [facility], [address] [place] [address], [id number] , [place] tel:[phone] [facility] [place] Back Pain (chief complaint) Postlaminecto my syndrome, not elsewhere classified 8 Harjeet Sharif. [address] [place] [address], [id number], [place]. tel:[phone] Referring Provider: Alexis Pulliam, [address] [place] [address], [address]. tel:[phone] OFFICE/OUTPAT IENT VISIT, EST [facility], [address] [place] [address], [id number] , [place] tel:[phone] [facility] Back Pain (chief complaint) Postlaminecto my syndrome, not elsewhere classifiedLon g term (current) use of opiate analgesic Nov-0 8 Harjeet Overbeke Chante. [address] [place] [address], [id number], [place]. tel:[phone] Referring Provider: Alexis Pulliam, [address] [place] [address], [address]. tel:[phone] OFFICE/OUTPAT IENT VISIT, EST [facility], [address] [place] [address], [id number] , tel:[phone] [facility] Back Pain (chief complaint) Postlaminecto my syndrome, not elsewhere classified Oct- Harjeet Sharif. [address] [place] [address], [id number], [place]. tel:[phone] Referring Provider: Alexis Pulliam, [address] [place] [address], [address]. tel:[phone] OFFICE CONSULTATION [facility], [address] [place] [address], [id number] , tel:[phone] [facility] [place] Back Pain (chief complaint) Postlaminecto my syndrome, not elsewhere classifiedLon g term (current) use of opiate analgesic Harjeet Sharif. [address] [place] [address], [id number], [place]. tel:[phone] Referring Provider: Alexis Pulliam, [address] [place] [address], [address]. tel:[phone] [facility], [address] [place] [address], [id number] , tel:[phone] [facility] [place] No Information Jared Espinoza. [address] [place] [address], [id number], [place]. tel:[phone] Family History Family Member Type Diagnosis Age At Onset Father Problem (finding) back surgery Mother Problem (finding) back surgery Payers Payer name Insurance type Covered republican ID Ferdinand melendrez(s) Medicare MB [id number] Social History Type Description Quantity Date Captured Comments Alcohol Use Details Unknown Caffeine Use Details Unknown Tobacco Use Status No Information Smoking Status No Information Sex Female Chief Complaint And Reason For Visit From encounter dated 06/15/2024 13:54'. Widespread pain (chief complaint). Description: Severity level is 9. Location of the pain is lower back, mid back, legs, arms and and hands. The problem is worsening. Reason For Referral Reason For Referral No Information Plan Of Treatment Date Type Action Status Goal FORGE OPERATOR Paperwork. Due on due Goal Update Social Hi story. Due on due Goal PHQ-9. Due on du e Goal FIT-DNA. Due on due Goal Medication Recon ciliation. Due on due Goal Hepatitis C scre ening. Due on due Goal UDT. Due on due Goal Tobacco Use. Due on due Goal Weight. Due on d ue Goal FIT. Due on due Goal Height. Due on d ue Goal HPV. Due on due Goal OARS. Due on due Goal Review Allergy List. Due on due Goal Order Annual PT. Due on due Goal GRAPE CUTTER Scanned. Due on due Goal Zoster vaccine ( 1st). Due on due Goal ALT (SGPT). Due on due Goal Creatinine. Due on due Goal AST (SGOT). Due on due Goal Lipid panel. Due on due Goal Unhealthy drug u se screening. Due on due Goal CT-Colonography. Due on due Goal Creatinine. Due on due Goal Hepatitis C scre ening. Due on due Goal Tobacco Use. Due on due Goal CT-Colonography. Due on due Goal Review Allergy List. Due on due Goal GRAPE CUTTER Scanned. Due on due Goal UDT. Due on due Goal HPV. Due on due Goal Order Annual PT. Due on due Goal Medication Recon ciliation. Due on due Goal FIT. Due on due Goal ALT (SGPT). Due on due Goal OARS. Due on due Goal Weight. Due on d ue Goal Lipid panel. Due on due Goal Unhealthy drug u se screening. Due on due Goal FIT-DNA. Due on due Goal AST (SGOT). Due on due Goal Zoster vaccine ( 1st). Due on due Goal PHQ-9. Due on du e Goal Update Social Hi story. Due on due Goal FORGE OPERATOR Paperwork. Due on due Goal Height. Due on d ue Goal UDT. Due on due Goal Order Annual PT. Due on due Goal FORGE OPERATOR Paperwork. Due on due Goal OARS. Due on due Goal GRAPE CUTTER Scanned. Due on due Goal AST (SGOT). Due on due Goal Creatinine. Due on due Goal ALT (SGPT). Due on due Goal Update Social Hi story. Due on due Goal Tobacco Use. Due on due Goal Medication Recon ciliation. Due on due Goal Zoster vaccine ( 1st). Due on due Goal Height. Due on d ue Goal FIT. Due on due Goal Review Allergy List. Due on due Goal Weight. Due on d ue Goal PHQ-9. Due on du e Goal Unhealthy drug u se screening. Due on due Goal FIT-DNA. Due on due Goal HPV. Due on due Goal CT-Colonography. Due on due Goal Lipid panel. Due on due Goal Hepatitis C scre ening. Due on due Goal Review Allergy List. Due on due Goal FIT-DNA. Due on due Goal GRAPE CUTTER Scanned. Due on due Goal OARS. Due on due Goal Order Annual PT. Due on due Goal ALT (SGPT). Due on due Goal FORGE OPERATOR Paperwork. Due on due Goal AST (SGOT). Due on due Goal Creatinine. Due on due Goal UDT. Due on due Goal HPV. Due on due Goal FIT. Due on due Goal Zoster vaccine ( 1st). Due on due Goal Weight. Due on d ue Goal Medication Recon ciliation. Due on due Goal Unhealthy drug u se screening. Due on due Goal Update Social Hi story. Due on due Goal Height. Due on d ue Goal PHQ-9. Due on du e Goal Hepatitis C scre ening. Due on due Goal Lipid panel. Due on due Goal CT-Colonography. Due on due Goal Tobacco Use. Due on due Goal Lifestyle education regardin g diet completed Goal Medication Recon ciliation. Due on due Goal FIT. Due on due Goal CT-Colonography. Due on due Goal Unhealthy drug u se screening. Due on due Goal AST (SGOT). Due on due Goal OARS. Due on due Goal Height. Due on d ue Goal Weight. Due on d ue Goal Review Allergy List. Due on due Goal GRAPE CUTTER Scanned. Due on due Goal Hepatitis C scre ening. Due on due Goal PHQ-9. Due on du e Goal FORGE OPERATOR Paperwork. Due on due Goal Creatinine. Due on due Goal Update Social Hi story. Due on due Goal ALT (SGPT). Due on due Goal FIT-DNA. Due on due Goal UDT. Due on due Goal Order Annual PT. Due on due Goal Tobacco Use. Due on due Goal Lipid panel. Due on due Goal Zoster vaccine ( 1st). Due on due Goal HPV. Due on due Goal AST (SGOT). Due on due Goal Creatinine. Due on due Goal Hepatitis C scre ening. Due on due Goal UDT. Due on due Goal PHQ-9. Due on du e Goal Lipid panel. Due on due Goal Weight. Due on d ue Goal Unhealthy drug u se screening. Due on due Goal CT-Colonography. Due on due Goal FIT-DNA. Due on due Goal OARS. Due on due Goal FORGE OPERATOR Paperwork. Due on due Goal Update Social Hi story. Due on due Goal Review Allergy List. Due on due Goal HPV. Due on due Goal Height. Due on d ue Goal Order Annual PT. Due on due Goal FIT. Due on due Goal Tobacco Use. Due on due Goal ALT (SGPT). Due on due Goal GRAPE CUTTER Scanned. Due on due Goal Zoster vaccine ( 1st). Due on due Goal Medication Recon ciliation. Due on due Goal FORGE OPERATOR Paperwork. Due on due Goal FIT. Due on due Goal Unhealthy drug u se screening. Due on due Goal ALT (SGPT). Due on due Goal Medication Recon ciliation. Due on due Goal Order Annual PT. Due on due Goal FIT-DNA. Due on due Goal GRAPE CUTTER Scanned. Due on due Goal Creatinine. Due on due Goal Update Social Hi story. Due on due Goal Review Allergy List. Due on due Goal AST (SGOT). Due on due Goal CT-Colonography. Due on due Goal Tobacco Use. Due on due Goal Lipid panel. Due on due Goal Height. Due on d ue Goal Zoster vaccine ( 1st). Due on due Goal HPV. Due on due Goal UDT. Due on due Goal PHQ-9. Due on du e Goal OARS. Due on due Goal Hepatitis C scre ening. Due on due Goal Weight. Due on d ue Goal Unhealthy drug u se screening. Due on due Goal FIT. Due on due Goal FIT-DNA. Due on due Goal HPV. Due on due Goal Tobacco Use. Due on due Goal OARS. Due on due Goal Lipid panel. Due on due Goal Hepatitis C scre ening. Due on due Goal PHQ-9. Due on du e Goal Medication Recon ciliation. Due on due Goal Review Allergy List. Due on due Goal ALT (SGPT). Due on due Goal CT-Colonography. Due on due Goal Creatinine. Due on due Goal FORGE OPERATOR Paperwork. Due on due Goal UDT. Due on due Goal GRAPE CUTTER Scanned. Due on due Goal AST (SGOT). Due on due Goal Order Annual PT. Due on due Goal Weight. Due on d ue Goal Update Social Hi story. Due on due Goal Zoster vaccine ( 1st). Due on due Goal Height. Due on d ue Goal OARS. Due on due Goal Update Social Hi story. Due on due Goal FORGE OPERATOR Paperwork. Due on due Goal Medication Recon ciliation. Due on due Goal FIT. Due on due Goal AST (SGOT). Due on due Goal UDT. Due on due Goal PHQ-9. Due on du e Goal HPV. Due on due Goal Hepatitis C scre ening. Due on due Goal Weight. Due on d ue Goal CT-Colonography. Due on due Goal Height. Due on d ue Goal Review Allergy List. Due on due Goal Order Annual PT. Due on due Goal Lipid panel. Due on due Goal GRAPE CUTTER Scanned. Due on due Goal ALT (SGPT). Due on due Goal Zoster vaccine ( ). Due on due Goal Creatinine. Due on due Goal Unhealthy drug u se screening. Due on due Goal FIT-DNA. Due on due Goal Tobacco Use. Due on due Goal Height. Due on d ue Goal Update Social Hi story. Due on due Goal Unhealthy drug u se screening. Due on due Goal Lipid panel. Due on due Goal HPV. Due on due Goal PHQ-9. Due on du e Goal Zoster vaccine ( 1st). Due on due Goal Tobacco Use. Due on due Goal Medication Recon ciliation. Due on due Goal CT-Colonography. Due on due Goal Review Allergy List. Due on due Goal OARS. Due on due Goal Hepatitis C scre ening. Due on due Goal Order Annual PT. Due on due Goal FIT-DNA. Due on due Goal UDT. Due on due Goal Weight. Due on d ue Goal FIT. Due on due Goal GRAPE CUTTER Scanned. Due on due Goal FORGE OPERATOR Paperwork. Due on due Goal Creatinine. Due on due Goal AST (SGOT). Due on due Goal ALT (SGPT). Due on due Goal UDT. Due on due Goal OARS. Due on due Goal GRAPE CUTTER Scanned. Due on due Goal Creatinine. Due on due Goal ALT (SGPT). Due on due Goal AST (SGOT). Due on due Goal Unhealthy drug u se screening. Due on due Goal Review Allergy List. Due on due Goal Weight. Due on d ue Goal FIT. Due on due Goal CT-Colonography. Due on due Goal HPV. Due on due Goal Order Annual PT. Due on due Goal Hepatitis C scre ening. Due on due Goal Update Social Hi story. Due on due Goal Zoster vaccine ( 1st). Due on due Goal PHQ-9. Due on du e Goal Height. Due on d ue Goal Tobacco Use. Due on due Goal Medication Recon ciliation. Due on due Goal FIT-DNA. Due on due Goal FORGE OPERATOR Paperwork. Due on due Goal Lipid panel. Due on due Goal Review Allergy List. Due on due Goal Zoster vaccine ( 1st). Due on due Goal AST (SGOT). Due on due Goal Tobacco Use. Due on due Goal OARS. Due on due Goal Update Social Hi story. Due on due Goal FIT-DNA. Due on due Goal ALT (SGPT). Due on due Goal Height. Due on d ue Goal FORGE OPERATOR Paperwork. Due on due Goal Order Annual PT. Due on due Goal PHQ-9. Due on du e Goal FIT. Due on due Goal Hepatitis C scre ening. Due on due Goal Creatinine. Due on due Goal UDT. Due on due Goal GRAPE CUTTER Scanned. Due on due Goal HPV. Due on due Goal Weight. Due on d ue Goal Lipid panel. Due on due Goal Unhealthy drug u se screening. Due on due Goal CT-Colonography. Due on due Goal Medication Recon ciliation. Due on due Goal Creatinine. Due on due Goal Unhealthy drug u se screening. Due on due Goal HPV. Due on due Goal Medication Recon ciliation. Due on due Goal CT-Colonography. Due on due Goal GRAPE CUTTER Scanned. Due on due Goal AST (SGOT). Due on due Goal Zoster vaccine ( 1st). Due on due Goal Order Annual PT. Due on due Goal OARS. Due on due Goal PHQ-9. Due on du e Goal Hepatitis C scre ening. Due on due Goal Height. Due on d ue Goal Update Social Hi story. Due on due Goal FORGE OPERATOR Paperwork. Due on due Goal FIT. Due on due Goal UDT. Due on due Goal FIT-DNA. Due on due Goal Review Allergy List. Due on due Goal Tobacco Use. Due on due Goal Lipid panel. Due on due Goal ALT (SGPT). Due on due Goal Weight. Due on d ue Goal CT-Colonography. Due on due Goal HPV. Due on due Goal GRAPE CUTTER Scanned. Due on due Goal Lipid panel. Due on due Goal FIT. Due on due Goal ALT (SGPT). Due on due Goal Creatinine. Due on due Goal Height. Due on d ue Goal UDT. Due on due Goal AST (SGOT). Due on due Goal PHQ-9. Due on du e Goal Order Annual PT. Due on due Goal OARS. Due on due Goal FORGE OPERATOR Paperwork. Due on due Goal Tobacco Use. Due on due Goal Unhealthy drug u se screening. Due on due Goal Hepatitis C scre ening. Due on due Goal Review Allergy List. Due on due Goal Update Social Hi story. Due on due Goal Medication Recon ciliation. Due on due Goal Zoster vaccine ( 1st). Due on due Goal FIT-DNA. Due on due Goal Weight. Due on d ue Goal UDT. Due on due Goal Zoster vaccine ( 1st). Due on due Goal Lipid panel. Due on due Goal GRAPE CUTTER Scanned. Due on due Goal Weight. Due on d ue Goal PHQ-9. Due on du e Goal Update Social Hi story. Due on due Goal OARS. Due on due Goal Medication Recon ciliation. Due on due Goal AST (SGOT). Due on due Goal CT-Colonography. Due on due Goal Hepatitis C scre ening. Due on due Goal FORGE OPERATOR Paperwork. Due on due Goal Tobacco Use. Due on due Goal FIT. Due on due Goal Review Allergy List. Due on due Goal FIT-DNA. Due on due Goal Unhealthy drug u se screening. Due on due Goal HPV. Due on due Goal ALT (SGPT). Due on due Goal Creatinine. Due on due Goal Height. Due on d ue Goal Order Annual PT. Due on due Goal Creatinine. Due on due Goal Unhealthy drug u se screening. Due on due Goal PHQ-9. Due on du e Goal FIT. Due on due Goal Update Social Hi story. Due on due Goal UDT. Due on due Goal Lipid panel. Due on due Goal Weight. Due on d ue Goal ALT (SGPT). Due on due Goal Review Allergy List. Due on due Goal Zoster vaccine ( 1st). Due on due Goal Order Annual PT. Due on due Goal FORGE OPERATOR Paperwork. Due on due Goal OARS. Due on due Goal GRAPE CUTTER Scanned. Due on due Goal AST (SGOT). Due on due Goal Tobacco Use. Due on due Goal FIT-DNA. Due on due Goal HPV. Due on due Goal Height. Due on d ue Goal CT-Colonography. Due on due Goal Medication Recon ciliation. Due on due Goal Hepatitis C scre ening. Due on due Goal HPV. Due on due Goal Unhealthy drug u se screening. Due on due Goal Hepatitis C scre ening. Due on due Goal Height. Due on d ue Goal Review Allergy List. Due on due Goal PHQ-9. Due on du e Goal Tobacco Use. Due on due Goal Medication Recon ciliation. Due on due Goal FIT-DNA. Due on due Goal Weight. Due on d ue Goal CT-Colonography. Due on due Goal Lipid panel. Due on due Goal Update Social Hi story. Due on due Goal Zoster vaccine ( ). Due on due Goal Creatinine. Due on due Goal UDT. Due on due Goal GRAPE CUTTER Scanned. Due on due Goal Order Annual PT. Due on due Goal FORGE OPERATOR Paperwork. Due on due Goal AST (SGOT). Due on due Goal FIT. Due on due Goal OARS. Due on due Goal ALT (SGPT). Due on due Goal PHQ-9. Due on du e Goal Tobacco Use. Due on due Goal ALT (SGPT). Due on due Goal FORGE OPERATOR Paperwork. Due on due Goal UDT. Due on due Goal AST (SGOT). Due on due Goal Creatinine. Due on due Goal Review Allergy List. Due on due Goal OARS. Due on due Goal Zoster vaccine ( 1st). Due on due Goal Update Social Hi story. Due on due Goal FIT. Due on due Goal Lipid panel. Due on due Goal Unhealthy drug u se screening. Due on due Goal Order Annual PT. Due on due Goal Weight. Due on d ue Goal GRAPE CUTTER Scanned. Due on due Goal FIT-DNA. Due on due Goal Medication Recon ciliation. Due on due Goal CT-Colonography. Due on due Goal HPV. Due on due Goal Height. Due on d ue Goal Hepatitis C scre ening. Due on due Goal Creatinine. Due on due Goal GRAPE CUTTER Scanned. Due on due Goal ALT (SGPT). Due on due Goal FORGE OPERATOR Paperwork. Due on due Goal Update Social Hi story. Due on due Goal Lipid panel. Due on due Goal OARS. Due on due Goal Review Allergy List. Due on due Goal AST (SGOT). Due on due Goal UDT. Due on due Goal PHQ-9. Due on du e Goal Order Annual PT. Due on due Goal Tobacco Use. Due on due Goal Unhealthy drug u se screening. Due on due Goal Weight. Due on d ue Goal Hepatitis C scre ening. Due on due Goal Medication Recon ciliation. Due on due Goal FIT-DNA. Due on due Goal Height. Due on d ue Goal HPV. Due on due Goal Zoster vaccine ( 1st). Due on due Goal FIT. Due on due Goal CT-Colonography. Due on due Goal ALT (SGPT). Due on due Goal GRAPE CUTTER Scanned. Due on due Goal Hepatitis C scre ening. Due on due Goal PHQ-9. Due on du e Goal Creatinine. Due on due Goal Lipid panel. Due on due Goal Review Allergy List. Due on due Goal AST (SGOT). Due on due Goal UDT. Due on due Goal OARS. Due on due Goal Weight. Due on d ue Goal Zoster vaccine ( ). Due on due Goal Order Annual PT. Due on due Goal HPV. Due on due Goal CT-Colonography. Due on due Goal FORGE OPERATOR Paperwork. Due on due Goal FIT. Due on due Goal Height. Due on d ue Goal Tobacco Use. Due on due Goal Update Social Hi story. Due on due Goal Unhealthy drug u se screening. Due on due Goal FIT-DNA. Due on due Goal Medication Recon ciliation. Due on due Goal Review Allergy List. Due on due Goal Lipid panel. Due on due Goal Unhealthy drug u se screening. Due on due Goal Zoster vaccine ( 1st). Due on due Goal PHQ-9. Due on du e Goal Update Social Hi story. Due on due Goal Medication Recon ciliation. Due on due Goal AST (SGOT). Due on due Goal Order Annual PT. Due on due Goal OARS. Due on due Goal Creatinine. Due on due Goal GRAPE CUTTER Scanned. Due on 023 due Goal UDT. Due on due Goal ALT (SGPT). Due on due Goal FORGE OPERATOR Paperwork. Due on due Goal FIT. Due on due Goal Hepatitis C scre ening. Due on due Goal FIT-DNA. Due on due Goal Height. Due on d ue Goal Weight. Due on d ue Goal Tobacco Use. Due on 023 due Goal HPV. Due on due Goal CT-Colonography. Due on due Goal Order Annual PT. Due on due Goal ALT (SGPT). Due on due Goal AST (SGOT). Due on due Goal Medication Recon ciliation. Due on due Goal UDT. Due on due Goal GRAPE CUTTER Scanned. Due on 023 due Goal Creatinine. Due on due Goal FORGE OPERATOR Paperwork. Due on due Goal OARS. Due on due Goal Zoster vaccine ( 1st). Due on due Goal Weight. Due on d ue Goal Hepatitis C scre ening. Due on due Goal Update Social Hi story. Due on due Goal Review Allergy List. Due on due Goal Height. Due on d ue Goal Unhealthy drug u se screening. Due on due Goal CT-Colonography. Due on due Goal FIT. Due on due Goal Lipid panel. Due on 023 due Goal Tobacco Use. Due on 023 due Goal HPV. Due on due Goal FIT-DNA. Due on due Goal PHQ-9. Due on du e Goal Review Allergy List. Due on due Goal Height. Due on d ue Goal Unhealthy drug u se screening. Due on due Goal Order Annual PT. Due on due Goal Creatinine. Due on due Goal Hepatitis C scre ening. Due on due Goal AST (SGOT). Due on due Goal Update Social Hi story. Due on due Goal FIT. Due on due Goal UDT. Due on due Goal Weight. Due on d ue Goal Zoster vaccine ( 1st). Due on due Goal Medication Recon ciliation. Due on due Goal FORGE OPERATOR Paperwork. Due on due Goal GRAPE CUTTER Scanned. Due on due Goal OARS. Due on due Goal FIT-DNA. Due on due Goal PHQ-9. Due on du e Goal Lipid panel. Due on due Goal Tobacco Use. Due on due Goal HPV. Due on due Goal CT-Colonography. Due on due Goal ALT (SGPT). Due on due Goal Tobacco Use. Due on due Goal FORGE OPERATOR Paperwork. Due on due Goal ALT (SGPT). Due on due Goal HPV. Due on due Goal Medication Recon ciliation. Due on due Goal AST (SGOT). Due on due Goal Unhealthy drug u se screening. Due on due Goal Lipid panel. Due on due Goal Order Annual PT. Due on due Goal UDT. Due on due Goal OARS. Due on due Goal GRAPE CUTTER Scanned. Due on due Goal Creatinine. Due on due Goal FIT. Due on due Goal CT-Colonography. Due on due Goal PHQ-9. Due on du e Goal Hepatitis C scre ening. Due on due Goal Weight. Due on d ue Goal Height. Due on d ue Goal FIT-DNA. Due on due Goal Review Allergy List. Due on due Goal Zoster vaccine ( ). Due on due Goal Update Social Hi story. Due on due Goal Medication Recon ciliation. Due on due Goal Creatinine. Due on due Goal FORGE OPERATOR Paperwork. Due on due Goal OARS. Due on due Goal Update Social Hi story. Due on due Goal Hepatitis C scre ening. Due on due Goal Zoster vaccine ( ). Due on due Goal AST (SGOT). Due on due Goal GRAPE CUTTER Scanned. Due on due Goal HPV. Due on due Goal Order Annual PT. Due on due Goal UDT. Due on due Goal ALT (SGPT). Due on due Goal PHQ-9. Due on du e Goal Weight. Due on d ue Goal Tobacco Use. Due on due Goal Unhealthy drug u se screening. Due on due Goal CT-Colonography. Due on due Goal FIT-DNA. Due on due Goal Height. Due on d ue Goal FIT. Due on due Goal Review Allergy List. Due on due Goal Lipid panel. Due on due Goal OARS. Due on due Goal Order Annual PT. Due on due Goal Tobacco Use. Due on due Goal FORGE OPERATOR Paperwork. Due on due Goal GRAPE CUTTER Scanned. Due on due Goal AST (SGOT). Due on due Goal UDT. Due on due Goal Creatinine. Due on due Goal ALT (SGPT). Due on due Goal HPV. Due on due Goal Update Social Hi story. Due on due Goal FIT-DNA. Due on due Goal Medication Recon ciliation. Due on due Goal Zoster vaccine ( 1st). Due on due Goal Review Allergy List. Due on due Goal CT-Colonography. Due on due Goal FIT. Due on due Goal Unhealthy drug u se screening. Due on due Goal Height. Due on d ue Goal PHQ-9. Due on du e Goal Weight. Due on d ue Goal Hepatitis C scre ening. Due on due Goal Lipid panel. Due on due Goal AST (SGOT). Due on due Goal FORGE OPERATOR Paperwork. Due on due Goal HPV. Due on due Goal Weight. Due on d ue Goal Creatinine. Due on due Goal GRAPE CUTTER Scanned. Due on due Goal Tobacco Use. Due on due Goal ALT (SGPT). Due on due Goal FIT-DNA. Due on due Goal Zoster vaccine ( 1st). Due on due Goal Order Annual PT. Due on due Goal CT-Colonography. Due on due Goal Review Allergy List. Due on due Goal Unhealthy drug u se screening. Due on due Goal Medication Recon ciliation. Due on due Goal PHQ-9. Due on du e Goal UDT. Due on due Goal FIT. Due on due Goal Height. Due on d ue Goal Lipid panel. Due on due Goal Update Social Hi story. Due on due Goal OARS. Due on due Goal Hepatitis C scre ening. Due on due Goal FORGE OPERATOR Paperwork. Due on due Goal UDT. Due on due Goal AST (SGOT). Due on due Goal OARS. Due on due Goal Order Annual PT. Due on due Goal Creatinine. Due on due Goal GRAPE CUTTER Scanned. Due on due Goal ALT (SGPT). Due on due Goal FIT. Due on due Goal Lipid panel. Due on due Goal Hepatitis C scre ening. Due on due Goal Update Social Hi story. Due on due Goal CT-Colonography. Due on due Goal FIT-DNA. Due on due Goal Unhealthy drug u se screening. Due on due Goal Review Allergy List. Due on due Goal Tobacco Use. Due on due Goal HPV. Due on due Goal Weight. Due on d ue Goal Height. Due on d ue Goal Zoster vaccine ( ). Due on due Goal Medication Recon ciliation. Due on due Goal PHQ-9. Due on du e Goal ALT (SGPT). Due on due Goal FIT. Due on due Goal Unhealthy drug u se screening. Due on due Goal Weight. Due on d ue Goal Hepatitis C scre ening. Due on due Goal Zoster vaccine ( ). Due on due Goal CT-Colonography. Due on due Goal Tobacco Use. Due on due Goal Update Social Hi story. Due on due Goal PHQ-9. Due on du e Goal Review Allergy List. Due on due Goal Lipid panel. Due on due Goal Height. Due on d ue Goal HPV. Due on due Goal AST (SGOT). Due on due Goal FORGE OPERATOR Paperwork. Due on due Goal FIT-DNA. Due on due Goal OARS. Due on due Goal GRAPE CUTTER Scanned. Due on due Goal UDT. Due on due Goal Creatinine. Due on due Goal Order Annual PT. Due on due Goal Medication Recon ciliation. Due on due Goal AST (SGOT). Due on due Goal FORGE OPERATOR Paperwork. Due on due Goal ALT (SGPT). Due on due Goal Creatinine. Due on due Goal UDT. Due on due Goal Update Social Hi story. Due on due Goal Hepatitis C scre ening. Due on due Goal FIT-DNA. Due on due Goal Review Allergy List. Due on due Goal Medication Recon ciliation. Due on due Goal Height. Due on d ue Goal Unhealthy drug u se screening. Due on due Goal OARS. Due on due Goal CT-Colonography. Due on due Goal Order Annual PT. Due on due Goal HPV. Due on due Goal FIT. Due on due Goal Tobacco Use. Due on due Goal PHQ-9. Due on du e Goal Zoster vaccine ( 1st). Due on due Goal Lipid panel. Due on due Goal GRAPE CUTTER Scanned. Due on due Goal Weight. Due on d ue Goal FIT-DNA. Due on due Goal Tobacco Use. Due on due Goal GRAPE CUTTER Scanned. Due on due Goal Weight. Due on d ue Goal Zoster vaccine ( 1st). Due on due Goal Review Allergy List. Due on due Goal Creatinine. Due on due Goal ALT (SGPT). Due on due Goal CT-Colonography. Due on due Goal Unhealthy drug u se screening. Due on due Goal Hepatitis C scre ening. Due on due Goal Update Social Hi story. Due on due Goal OARS. Due on due Goal HPV. Due on due Goal Lipid panel. Due on due Goal FORGE OPERATOR Paperwork. Due on due Goal Medication Recon ciliation. Due on due Goal UDT. Due on due Goal PHQ-9. Due on du e Goal FIT. Due on due Goal AST (SGOT). Due on due Goal Order Annual PT. Due on due Goal Height. Due on d ue Goal FIT-DNA. Due on due Goal CT-Colonography. Due on due Goal FIT. Due on due Goal Zoster vaccine ( 1st). Due on due Goal Lipid panel. Due on due Goal HPV. Due on due Goal Update Social Hi story. Due on due Goal UDT. Due on due Goal GRAPE CUTTER Scanned. Due on due Goal ALT (SGPT). Due on due Goal Unhealthy drug u se screening. Due on due Goal Tobacco Use. Due on due Goal Medication Recon ciliation. Due on due Goal Height. Due on d ue Goal Review Allergy List. Due on due Goal PHQ-9. Due on du e Goal Weight. Due on d ue Goal Order Annual PT. Due on due Goal AST (SGOT). Due on due Goal FORGE OPERATOR Paperwork. Due on due Goal Creatinine. Due on due Goal OARS. Due on due Goal Hepatitis C scre ening. Due on due Goal Review Allergy List. Due on due Goal Weight. Due on d ue Goal FIT-DNA. Due on due Goal Lipid panel. Due on due Goal AST (SGOT). Due on due Goal Creatinine. Due on due Goal FIT. Due on due Goal ALT (SGPT). Due on due Goal Hepatitis C scre ening. Due on due Goal Update Social Hi story. Due on due Goal Order Annual PT. Due on due Goal Unhealthy drug u se screening. Due on due Goal Height. Due on d ue Goal Tobacco Use. Due on due Goal PHQ-9. Due on du e Goal FORGE OPERATOR Paperwork. Due on due Goal HPV. Due on due Goal Medication Recon ciliation. Due on due Goal CT-Colonography. Due on due Goal GRAPE CUTTER Scanned. Due on due Goal OARS. Due on due Goal UDT. Due on due Goal Zoster vaccine ( 1st). Due on due Goal Height. Due on d ue Goal Lipid panel. Due on due Goal FIT-DNA. Due on due Goal PHQ-9. Due on du e Goal Review Allergy List. Due on due Goal FIT. Due on due Goal Medication Recon ciliation. Due on due Goal HPV. Due on due Goal Update Social Hi story. Due on due Goal Hepatitis C scre ening. Due on due Goal Zoster vaccine ( ). Due on due Goal Unhealthy drug u se screening. Due on due Goal Weight. Due on d ue Goal CT-Colonography. Due on due Goal Tobacco Use. Due on due Goal Order Annual PT. Due on due Goal GRAPE CUTTER Scanned. Due on due Goal AST (SGOT). Due on due Goal OARS. Due on due Goal FORGE OPERATOR Paperwork. Due on due Goal UDT. Due on due Goal Creatinine. Due on due Goal ALT (SGPT). Due on due Goal FORGE OPERATOR Paperwork. Due on due Goal OARS. Due on due Goal AST (SGOT). Due on due Goal GRAPE CUTTER Scanned. Due on due Goal Creatinine. Due on due Goal Order Annual PT. Due on due Goal ALT (SGPT). Due on due Goal UDT. Due on due Goal Zoster vaccine ( 1st). Due on due Goal Review Allergy List. Due on due Goal Height. Due on d ue Goal Hepatitis C scre ening. Due on due Goal CT-Colonography. Due on due Goal Medication Recon ciliation. Due on due Goal Update Social Hi story. Due on due Goal Weight. Due on d ue Goal Unhealthy drug u se screening. Due on due Goal PHQ-9. Due on du e Goal HPV. Due on due Goal Lipid panel. Due on due Goal FIT. Due on due Goal FIT-DNA. Due on due Goal Tobacco Use. Due on due Goal Update Social Hi story. Due on due Goal Height. Due on d ue Goal Weight. Due on d ue Goal Review Allergy List. Due on due Goal OARS. Due on due Goal Creatinine. Due on due Goal Order Annual PT. Due on due Goal HPV. Due on due Goal CT-Colonography. Due on due Goal Zoster vaccine ( 1st). Due on due Goal ALT (SGPT). Due on due Goal AST (SGOT). Due on due Goal Hepatitis C scre ening. Due on due Goal FORGE OPERATOR Paperwork. Due on due Goal Tobacco Use. Due on due Goal FIT. Due on due Goal GRAPE CUTTER Scanned. Due on due Goal UDT. Due on due Goal FIT-DNA. Due on due Goal Lipid panel. Due on due Goal PHQ-9. Due on du e Goal Medication Recon ciliation. Due on due Goal Unhealthy drug u se screening. Due on due Goal ALT (SGPT). Due on due Goal GRAPE CUTTER Scanned. Due on due Goal FORGE OPERATOR Paperwork. Due on due Goal AST (SGOT). Due on due Goal Creatinine. Due on due Goal Order Annual PT. Due on due Goal UDT. Due on due Goal OARS. Due on due Goal Review Allergy List. Due on due Goal Tobacco Use. Due on due Goal Medication Recon ciliation. Due on due Goal Update Social Hi story. Due on due Goal PHQ-9. Due on du e Goal Height. Due on d ue Goal Weight. Due on d ue Goal Weight. Due on d ue Goal OARS. Due on due Goal FORGE OPERATOR Paperwork. Due on due Goal Review Allergy List. Due on due Goal GRAPE CUTTER Scanned. Due on due Goal ALT (SGPT). Due on due Goal UDT. Due on due Goal Creatinine. Due on due Goal Update Social Hi story. Due on due Goal AST (SGOT). Due on due Goal Height. Due on d ue Goal Medication Recon ciliation. Due on due Goal PHQ-9. Due on du e Goal Order Annual PT. Due on due Goal Tobacco Use. Due on due Goal Creatinine. Due on due Goal FORGE OPERATOR Paperwork. Due on due Goal Order Annual PT. Due on due Goal Tobacco Use. Due on due Goal Medication Recon ciliation. Due on due Goal AST (SGOT). Due on due Goal Weight. Due on d ue Goal PHQ-9. Due on du e Goal OARS. Due on due Goal UDT. Due on due Goal ALT (SGPT). Due on due Goal Review Allergy List. Due on due Goal Height. Due on d ue Goal GRAPE CUTTER Scanned. Due on due Goal Update Social Hi story. Due on due Goal Review Allergy List. Due on due Goal FORGE OPERATOR Paperwork. Due on due Goal Creatinine. Due on due Goal Tobacco Use. Due on due Goal AST (SGOT). Due on due Goal Height. Due on d ue Goal GRAPE CUTTER Scanned. Due on due Goal UDT. Due on due Goal OARS. Due on due Goal Update Social Hi story. Due on due Goal Order Annual PT. Due on due Goal Weight. Due on d ue Goal ALT (SGPT). Due on due Goal PHQ-9. Due on du e Goal Medication Recon ciliation. Due on due Goal GRAPE CUTTER Scanned. Due on due Goal FORGE OPERATOR Paperwork. Due on due Goal ALT (SGPT). Due on due Goal Creatinine. Due on due Goal Review Allergy List. Due on due Goal UDT. Due on due Goal Tobacco Use. Due on due Goal Medication Recon ciliation. Due on due Goal OARS. Due on due Goal Order Annual PT. Due on due Goal AST (SGOT). Due on due Goal Update Social Hi story. Due on due Goal Height. Due on d ue Goal Weight. Due on d ue Goal PHQ-9. Due on du e Goal ALT (SGPT). Due on due Goal GRAPE CUTTER Scanned. Due on due Goal Update Social Hi story. Due on due Goal Review Allergy List. Due on due Goal AST (SGOT). Due on due Goal Order Annual PT. Due on due Goal PHQ-9. Due on du e Goal OARS. Due on due Goal Creatinine. Due on due Goal UDT. Due on due Goal FORGE OPERATOR Paperwork. Due on due Goal Tobacco Use. Due on due Goal Medication Recon ciliation. Due on due Goal Weight. Due on d ue Goal Height. Due on d ue Goal Tobacco Use. Due on due Goal Order Annual PT. Due on due Goal ALT (SGPT). Due on due Goal UDT. Due on due Goal Update Social Hi story. Due on due Goal Review Allergy List. Due on due Goal OARS. Due on due Goal GRAPE CUTTER Scanned. Due on due Goal PHQ-9. Due on du e Goal AST (SGOT). Due on due Goal FORGE OPERATOR Paperwork. Due on due Goal Medication Recon ciliation. Due on due Goal Creatinine. Due on due Goal Height. Due on d ue Goal Weight. Due on d ue Goal ALT (SGPT). Due on due Goal FORGE OPERATOR Paperwork. Due on due Goal Order Annual PT. Due on due Goal AST (SGOT). Due on due Goal Creatinine. Due on due Goal Height. Due on d ue Goal OARS. Due on due Goal Weight. Due on d ue Goal GRAPE CUTTER Scanned. Due on due Goal UDT. Due on due Goal Tobacco Use. Due on due Goal PHQ-9. Due on du e Goal Review Allergy List. Due on due Goal Update Social Hi story. Due on due Goal Medication Recon ciliation. Due on due Goal UDT. Due on due Goal FORGE OPERATOR Paperwork. Due on due Goal Weight. Due on d ue Goal Update Social Hi story. Due on due Goal PHQ-9. Due on du e Goal Order Annual PT. Due on due Goal Tobacco Use. Due on due Goal Creatinine. Due on due Goal GRAPE CUTTER Scanned. Due on due Goal Review Allergy List. Due on due Goal Height. Due on d ue Goal OARS. Due on due Goal AST (SGOT). Due on due Goal Medication Recon ciliation. Due on due Goal ALT (SGPT). Due on due Goal Review Allergy List. Due on due Goal AST (SGOT). Due on due Goal Medication Recon ciliation. Due on due Goal Creatinine. Due on due Goal Tobacco Use. Due on due Goal OARS. Due on due Goal Order Annual PT. Due on due Goal PHQ-9. Due on du e Goal Height. Due on d ue Goal FORGE OPERATOR Paperwork. Due on due Goal UDT. Due on due Goal Update Social Hi story. Due on due Goal GRAPE CUTTER Scanned. Due on due Goal Weight. Due on d ue Goal ALT (SGPT). Due on due Goal OARS. Due on due Goal FORGE OPERATOR Paperwork. Due on due Goal AST (SGOT). Due on due Goal Update Social Hi story. Due on due Goal GRAPE CUTTER Scanned. Due on due Goal Tobacco Use. Due on due Goal Creatinine. Due on due Goal UDT. Due on due Goal ALT (SGPT). Due on due Goal Height. Due on d ue Goal Review Allergy List. Due on due Goal PHQ-9. Due on du e Goal Medication Recon ciliation. Due on due Goal Order Annual PT. Due on due Goal Weight. Due on d ue Goal Review Allergy List. Due on due Goal Medication Recon ciliation. Due on due Goal Tobacco Use. Due on due Goal Update Social Hi story. Due on due Goal Creatinine. Due on due Goal OARS. Due on due Goal UDT. Due on due Goal Order Annual PT. Due on due Goal GRAPE CUTTER Scanned. Due on due Goal ALT (SGPT). Due on due Goal AST (SGOT). Due on due Goal FORGE OPERATOR Paperwork. Due on due Goal Weight. Due on d ue Goal Height. Due on d ue Goal PHQ-9. Due on du e Goal OARS. Due on due Goal Height. Due on d ue Goal AST (SGOT). Due on due Goal FORGE OPERATOR Paperwork. Due on due Goal Review Allergy List. Due on due Goal ALT (SGPT). Due on due Goal Tobacco Use. Due on due Goal Medication Recon ciliation. Due on due Goal UDT. Due on due Goal GRAPE CUTTER Scanned. Due on due Goal Weight. Due on d ue Goal Order Annual PT. Due on due Goal Creatinine. Due on due Goal PHQ-9. Due on du e Goal Update Social Hi story. Due on due Goal Order Annual PT. Due on due Goal GRAPE CUTTER Scanned. Due on due Goal ALT (SGPT). Due on due Goal Update Social Hi story. Due on due Goal Height. Due on d ue Goal OARS. Due on due Goal AST (SGOT). Due on due Goal PHQ-9. Due on du e Goal Tobacco Use. Due on due Goal Medication Recon ciliation. Due on due Goal Creatinine. Due on due Goal Review Allergy List. Due on due Goal FORGE OPERATOR Paperwork. Due on due Goal Weight. Due on d ue Goal UDT. Due on due Goal ALT (SGPT). Due on due Goal Creatinine. Due on due Goal AST (SGOT). Due on due Goal GRAPE CUTTER Scanned. Due on due Goal OARS. Due on due Goal FORGE OPERATOR Paperwork. Due on due Goal UDT. Due on due Goal Update Social Hi story. Due on due Goal Weight. Due on d ue Goal Tobacco Use. Due on due Goal PHQ-9. Due on du e Goal Order Annual PT. Due on due Goal Review Allergy List. Due on due Goal Medication Recon ciliation. Due on due Goal Height. Due on d ue Goal Creatinine. Due on due Goal Height. Due on d ue Goal FORGE OPERATOR Paperwork. Due on due Goal OARS. Due on due Goal Weight. Due on d ue Goal AST (SGOT). Due on due Goal GRAPE CUTTER Scanned. Due on due Goal Review Allergy List. Due on due Goal Update Social Hi story. Due on due Goal Medication Recon ciliation. Due on due Goal PHQ-9. Due on du e Goal Tobacco Use. Due on due Goal ALT (SGPT). Due on due Goal UDT. Due on due Goal Order Annual PT. Due on due Goal AST (SGOT). Due on due Goal UDT. Due on due Goal Creatinine. Due on due Goal GRAPE CUTTER Scanned. Due on due Goal ALT (SGPT). Due on due Goal FORGE OPERATOR Paperwork. Due on due Goal OARS. Due on due Goal Weight. Due on d ue Goal Tobacco Use. Due on due Goal Medication Recon ciliation. Due on due Goal Update Social Hi story. Due on due Goal PHQ-9. Due on du e Goal Height. Due on d ue Goal Review Allergy List. Due on due Goal Order Annual PT. Due on due Goal Weight. Due on d ue Goal UDT. Due on due Goal Review Allergy List. Due on due Goal Creatinine. Due on due Goal GRAPE CUTTER Scanned. Due on due Goal PHQ-9. Due on du e Goal Tobacco Use. Due on due Goal ALT (SGPT). Due on due Goal AST (SGOT). Due on due Goal OARS. Due on due Goal Height. Due on d ue Goal Update Social Apse story. Due on due Goal FORGE OPERATOR Paperwork. Due on due Goal Medication Recon ciliation. Due on due Goal Order Annual PT. Due on due Goal AST (SGOT). Due on due Goal Medication Recon ciliation. Due on due Goal Update Social Apse story. Due on due Goal Tobacco Use. Due on due Goal UDT. Due on due Goal Weight. Due on d ue Goal ALT (SGPT). Due on due Goal OARS. Due on due Goal Creatinine. Due on due Goal Height. Due on d ue Goal GRAPE CUTTER Scanned. Due on 021 due Goal PHQ-9. Due on du e Goal Review Allergy List. Due on due Goal FORGE OPERATOR Paperwork. Due on due Goal Order Annual PT. Due on due Referral Ordered: Bjorn [facility] : Internal Medicine (related to Postlaminectomy syndrome, not elsewhere classified) ordered Referral Ordered: Bjorn [facility] : Internal Medicine (related to Postlaminectomy syndrome, not elsewhere classified) ordered Referral Ordered: Bjorn [facility] : Internal Medicine (related to Radiculopathy, lumbar region) ordered Referral Ordered: Bjorn Zhao [facility] : Internal Medicine (related to Postlaminectomy syndrome, not elsewhere classified) ordered Referral Referred To: Bjorn Zhao [address], [id number] [id number] Ordered: Referrals: [facility] : Internal Medicine. Bjorn Zhao ordered Referral Ordered: [facility] -Orthopedic Surgery (related to Radiculopathy, lumbar region) ordered Referral Referred To: Ann [facility] [address] [place] [address]
[address] [place], [address] [phone] Ordered: Referrals: Orthopedic Surgery. Z [facility]. Location: [facility] ordered Referral Ordered: MRI LUMBAR SPINE W/O DYE ordered Referral Ordered: MRI THORACIC SPINE W/O DYE ordered Appointment Cindy Pelayo BOOKED Future Order: Lab Order ALT (SGP T) ([id number]), Collected on: , Sent on: Sent Future Order: Lab Order AST (SGO T) ([id number]), Collected on: , Sent on: Sent Future Order: Lab Order Creatini ne, Serum ([id number]), Collected on: , Sent on: Sent Future Order: Lab Order URINE DR JOHN CONFIRMATION ([id number]), Sent on: Sent Future Order: Lab Order COMPLIAN CE DRUG ANALYSIS, URINE, WITH MED REPORT ([id number]), Ordered on: Ordered Future Order: Lab Order Drug Eileen t Def 22+ Classes ([id number]), Ordered on: Ordered Future Order: Lab Order COMPLIAN CE DRUG ANALYSIS, URINE, WITH MED REPORT ([id number]), Ordered on: Ordered Future Order: Lab Order Drug Eileen t Def 22+ Classes ([id number]), Ordered on: Ordered Future Order: Lab Order COMPLIAN CE DRUG ANALYSIS, URINE, WITH MED REPORT ([id number]), Ordered on: Ordered Future Order: Lab Order COMPLIAN CE DRUG ANALYSIS, URINE, WITH MED REPORT ([id number]), Ordered on: Ordered History Of Present Illness Encounter Date Complaint History Of Prese nt Illness Comments: Cindy presents via [facility] for a follow up and medication refill regarding chronic back pain most bothersome in mid back, low back, and legs. Her pain has continued to be worse since EFRAÍN.- Reports that she has remained active.- She has done PT evaluations, as well as the Psych evaluation.- She still has to schedule L3 - 4 surgery. Would like to finish both surgeries before hardeep.She presents on track with medications. Current medication regimen provides 15% pain relief and allows for increased functionality. Denies any SEs with current regimen. No other concerns today. Widespread pain Severity level i s 9. Location of the pain is lower back, mid back, legs, arms and and hands. The problem is worsening. lumbago Patient is a 58 year old female presenting with complaints of chronic low back pain that has been on going for many years. She notes in 1991 she underwent a 3-level fusion surgery. She was able to return back to normal life but had increased pain when she was sweeping at home. She experienced severe insane pain. Her pain has not improved over the years. She notes a revision surgery that did not help with her pain. She has met with a surgeon who is suggesting additional surgery. Her symptoms include severe, localized pain in her low back along with radicular symptoms into her legs, bilaterally. Patient notes associated weakness. Her symptoms are constant and severe at this time. She notes significant disability and isn't able to leave her home due to pain. Symptoms are somewhat relieved with medication, lying on her right side, sitting in a seat of a car. She has tried multiple different interventions, including physical therapy but has not experienced relief of her pain. She notes that her current level of discomfort limits everything she is able to do each day and is currently limiting her overall quality of life. She would like to decrease her overall discomfort to allow her to perform her daily, functional activities with less limitation and an improved quality of life. Back Pain Severity level i s 10. Duration: chronic. The problem is worsening. It occurs intermittently. Location of pain is upper back, lower back, right arm, BL buttocks and BL thighs. The client describes the pain as an ache, burning, sharp and tingling. Symptoms are aggravated by ascending stairs, bending, descending stairs, lifting, sitting, standing, twisting, walking, prolonged positioning, housework, movement, rising from sitting and standing on one leg. Symptoms are relieved by ice, lying down, pain meds/drugs and bending backward. Comments: Cindy presents in clinic for a follow up and medication refill regarding chronic back pain most bothersome in mid back, low back, and legs. Her pain has continued to be worse since EFRAÍN.Reports she met with Dr. Peñaloza from [facility] this month. It was recommended that she complete a surgery. She is waiting for insurance to approve this before she can schedule the surgery. The operation would take place around L3-4.Mentions she has been experiencing a new pain in her right knee. States this might have been from her accident with the fridge. Planning on consulting with someone about this pain.She presents on track with Butrans patches and with a surplus of Oxycodone today. Current medication regimen provides 10% pain relief and allows for increased functionality. Denies any SEs with current regimen. No other concerns today. Back Pain Severity level i s 10. Duration: chronic. The problem is worsening. Location of pain is middle back, lower back and legs. Comments: Cindy presents via [employer] for a virtual follow up and medication refill regarding chronic back pain most bothersome in mid back, low back, and legs. Her pain has remained worse since EFRAÍN.Reports she had a recent injury which has significantly aggravated her pain. Notes in recent increase in her existing pain had started late yesterday which prohibited her from sleeping. Pain is located in the right side of her low back. Endorses pain radiation down BL legs with swelling. She is scheduled with [facility] on 04/29/24.Current medication regimen provides 80% pain relief and allows for increased functionality. Denies any SEs with current regimen. No other concerns today. Comments: Cindy presents via [employer] for a virtual follow up and medication refill regarding chronic back pain most bothersome in mid back, low back, and legs. Her pain continues to be worse since EFRAÍN.She is currently dealing with the recent passing of her sister.Mentions her recent weight loss and her current posture allows for pain free ROM with turning her head. Expresses an interest in a referral to [facility] today.She presents short on her prescribed medications today. States that taking an extra tab of Oxycodone has been helpful in getting her out of the house and walking. Current medication regimen provides 20% pain relief and allows for increased functionality. Denies any SEs with current regimen. No other concerns today. Back Pain Severity level i s 9. Duration: chronic. The problem is worsening. Location of pain is middle back, lower back and legs. Comments: Cindy presents in clinic for a follow up and medication refill regarding chronic back pain most bothersome in mid back, low back, and legs. Her pain has been worse since EFRAÍN.Reports she has been doing more yardwork this month which she belives is contributing to her significant increase in pain recently. Requests a referral to a surgeon at this time.She presents on track with her prescribed medications today. Current medication regimen provides 15% pain relief and allows for increased functionality. Denies any SEs with current regimen. No other concerns today. Back Pain Severity level i s 9. Duration: chronic. The problem is worsening. It occurs persistently. Location of pain is upper back, middle back, lower back, legs, neck, left shoulder and BL elbows. The client describes the pain as burning, numbness, sharp and tingling. Symptoms are aggravated by ascending stairs, bending, descending stairs, lifting, sitting, standing, twisting, walking, prolonged positioning, housework, movement, rising from sitting and standing on one leg. Symptoms are relieved by ice, pain meds/drugs and bending backward. Back Pain Severity level i s 9. Duration: chronic. The problem is worsening. Location of pain is middle back, lower back and legs. Comments: Cindy presents via [employer] for a virtual follow up and medication refill regarding chronic back pain most bothersome in mid back, low back, and legs. Her pain continues to be stable since EFRAÍN.S/p BL thoracic RFA on 12/17/23 with around 70% pain relief so far. States she has started to see some improvement in her pain in the higher levels of her back. Notes a pain under her shoulder recently but it has not been constant.Mentions increased pain in her low back d/t recent yard work she has been doing.She presents with a surplus of her prescribed medication today. Current medication regimen continues to provide 10% pain relief and allows for increased functionality. Denies any SEs with current regimen. No other concerns today. Comments: Cindy presents virtually for a follow up and medication refill regarding chronic back pain most bothersome in mid back, low back, and legs. Her pain has been worse since EFRAÍN. Pain averages a 9/10. S/p BL T6-T9 RFA on 12/17/[address] Bowen without any benefit so far. Notes it is taking longer for the relief to set in than it has in the past but she is trying to remain positive and do something active ~3x/day. She continues to see her counselor for mental health.Current medication regimen continues to provide 10% pain relief and allows for increased functionality. OIC has been controlled with the addition of her mood stabilizer medication. Denies any other SEs with current regimen. No other concerns today. Back Pain Severity level i s 9/10. Duration: chronic. The problem is worsening. It occurs persistently. Location of pain is middle back, lower back and left knee. Back pain Severity level i s 7. Duration: chronic. The problem is worsening. It occurs persistently. Location of pain is upper back, middle back, lower back and legs. Symptoms are aggravated by ascending stairs, bending, descending stairs, flexion, lifting, sitting, standing, twisting, walking, rising from sitting, standing on one leg and prolonged positioning. Symptoms are relieved by bending forward and lying on left side. Comments: Cindy presents in clinic for a follow up and medication refill regarding chronic back pain most bothersome in mid back, low back, and legs. Her pain has been worse since EFRAÍN. Pain averages a 7/10. Reports shooting pain from her left low back down her LLE when she leans a certain way. She has also been experiencing increased left knee pain. Hx of left cruciate tear and repair without hardware.Her blood sugar remains elevated but believes it may be affected by her stress. States that if she fasts and uses her medications, her blood sugar is in a normal range. Continues to follow with PCP to manage this. She is interested in repeating her thoracic RFA once her blood sugar is controlled, as her last one provided at least 75% relief for over 9 months. 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 She continues to see her counselor for mental health.Current medication regimen continues to provide 10% pain relief and allows for increased functionality. OIC has been controlled with the addition of her mood stabilizer medication. Denies any other SEs with current regimen. No other concerns today. Back Pain Severity level i s 9. Duration: chronic. The problem is worsening. Location of pain is middle back, lower back and legs. Comments: Cindy presents for a virtual follow up and medication refill regarding chronic back pain most bothersome in mid back, low back, and legs. Her pain has been worse since EFRAÍN. Pain averages a 9/10.States she has been talking a mood stabilizer and her sleep schedule has been abnormal. She has been completing talk therapy. She feels that this along with her medications has been helpful in managing her depression. She is hoping to be able to pursue injections and procedures soon. Of note: Her brother last Saturday (10/30/23). Current medication regimen continues to provide 15% pain relief and allows for increased functionality. States she was having about 1 bowel movement a week. Since starting on her mood stabilizer, she had had more bowel movements and decreased constipation. Denies any other SEs with current regimen. No other concerns today. Back Pain Severity level i s 9. Duration: chronic. The problem is worsening. Location of pain is middle back, lower back and legs. Comments: Cindy presents via [employer] for a virtual follow up and medication refill regarding chronic back pain most bothersome in mid back, low back, and legs. Her pain has remained worse since EFRAÍN.Reports she is having a rough day with her pain today. Notes that she took her medication about an hour ago but doesn't seem to be finding any benefit. Could attribute this increase in pain to recent stressors in her life.Mentions that the pain she had been experiencing in the right chest and shoulder area has diminished and hasn't been having problems with it this month.She presents with a surplus of her prescribed medication today. Current medication regimen continues to provide 20% pain relief and allows for increased functionality. Denies any SEs with current regimen. No other concerns today. Back Pain Duration: chroni c. The problem is worsening. It occurs persistently. The client describes the pain as an ache, burning, sharp and tingling. Symptoms are aggravated by ascending stairs, bending, descending stairs, lifting, sitting, standing, twisting, walking, movement, prolonged positions, rising from sitting, standing on one leg and housework. Symptoms are relieved by rest and bending backwards. Comments: Cindy presents for an in office follow up and medication refill regarding chronic back pain. C/o of pain in mid back, low back, and legs. Her pain continues to be worse since EFRAÍN.States she has troubles with her running water and heat at home. She is unsure when she'll get her heat working again. She is still having issues with her car having no breaks. 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 She has an appointment with a therapist in 2 weeks. She denies any thoughts about hurting herself. She presents with a surplus of her prescribed medications today. Current medication regimen continues to provide 20% pain relief. Denies any SEs with current regimen. No other concerns today. Back Pain Severity level i s 9. The problem is worsening. It occurs persistently. Location of pain is middle back, lower back and legs. Comments: Cindy presents via [employer] for a virtual follow up and medication refill regarding chronic back pain. C/o of pain in mid back, low back, and legs. Her pain continues to be worse since EFRAÍN.Mentions the day before Thanksgiving she went to the ER d/t loss of hearing in one ear, balance issus and pain on one side of her body. She had thought it was an ear infection but the doctors believe it is just chest wall/intercostal pain. States she has to see an ENT as she still doesn't not have hearing in that ear.She presents with a surplus of her prescribed medications today. Current medication regimen continues to provide 20% pain relief. Denies any SEs with current regimen. No other concerns today. Comments: Cindy presents via [employer] for a virtual follow up and medication refill regarding chronic back pain. Virtual visit was switched to a phone visit d/t technical difficulties. Her pain has remained worse since EFRAÍN.Reports her back pain has been worse recently. States it was aggravated with bending while doing yard work. Also attributes flare up to colder weather. Notes numbness on the side of her foot. Also mentions an increased pain in the groin area, starting from the inside of the left thigh.She presents with a surplus of her prescribed medications today. Current medication regimen continues to provide 15% pain relief. Denies any SEs with current regimen. No other concerns today. Back Pain Severity level i s 9. Duration: chronic. The problem is worsening. It occurs persistently. Location of pain is middle back, lower back and legs. Comments: Cindy presents in clinic for a follow up and medication refill for ongoing back pain. Her pain continues to be worse since EFRAÍN.Mentions she has severe depression at the moment. Has been utilizing an online support group with benefit.She presents with a surplus of her prescribed medication today. Current medication regimen provides 15% pain relief. Denies any SEs with current regimen. No other concerns today. Back Pain Severity level i s 10. Duration: chronic. The problem is worsening. It occurs persistently. Location of pain is upper back, middle back, lower back, legs, left hand and BL buttocks. The client describes the pain as an ache, burning, sharp and tingling. Symptoms are aggravated by ascending stairs, bending, descending stairs, lifting, sitting, standing, twisting, walking, prolonged positioning, housework, movement, rising from sitting and standing on one leg. Symptoms are relieved by lying down and pain meds/drugs. Back pain Severity level i s 8. Duration: chronic. The problem is worsening. Comments: Cindy presents in clinic for a follow up and medication refill for ongoing back pain. Her pain has been worse since EFRAÍN. She reports she cut on the bottom of her foot from stepping on a gardening hoe. The cut has healed, although she states she has gotten an XR of her foot and there may be something inside of the foot. She has a f/u with a specialist to get it removed.She is planning to f/u with psych at [facility] due to her ongoing depression. She has a financial hold that she is working on getting resolved first.Unable to complete procedural interventions due to her A1c/BG level. She has a f/u with her PCP and will get updated labs.She presents with a small surplus of her prescribed medication today. Reports current medication regimen provides 20% pain relief. Denies any side effects with current medication. Medications continue to provide pain relief and allows the patient to do everyday tasks. No other concerns today. Comments: Cindy presents in clinic for a follow up and medication refill for ongoing back pain. Her pain has been worse since EFRAÍN. She reports she cut on the bottom of her foot from stepping on a gardening hoe has been healing appropriately. She notes she was able to walk on her foot today with the help of a shoe that took the pressure off the bottom of her foot.She presents with a small surplus of her prescribed medication today. Reports current medication regimen provides 20% pain relief. Denies any side effects with current medication. Medications continue to provide pain relief and allows the patient to do everyday tasks. She reports that an increase in her activity level coupled with her medication regimen has helped her back pain. No other concerns today. Back Pain Severity level i s 9. Duration: chronic. The problem is worsening. It occurs persistently. Location of pain is middle back, lower back and legs. Comments: Cindy is present here today for follow up and medication refill for ongoing back pain. States pain has been worse since last OV. Tailbone pain grows severe with sitting. Pt notes she only gets relief with lying down. Patient reports she sliced the bottom of her foot when she stepped on a gardening hoe about 1.5 weeks ago, but has not gotten it looked at or taken care of it. She agrees to f/u with PCP or got to urgent care.Patient reports her depression is getting worse, but is unable to use better help for therapy because insurance did not cover it. States that her father recently which has caused fighting within her family. Denies ideations of hurting herself. States she has no support system but has pets to help her. Notes one of them had Parvo last month.Reports current medication regimen provides moderate pain relief. Denies any side effects with current medication. Medications continue to provide pain relief and allows the patient to do everyday tasks. No other concerns today. Back pain Severity level i s 10. Duration: chronic. The problem is worsening. It occurs persistently. The client describes the pain as an ache, burning, sharp and tingling. Symptoms are aggravated by ascending stairs, bending, descending stairs, lifting, running, sitting, standing, twisting, walking, Housework, movement and prolonged positioning. Symptoms are relieved by lying down and pain meds/drugs. Comments: Cindy presents for a virtual follow up and medication refill. Pt c/o low back, middle back, neck, and BL leg pain. Pain has moderately improved since last visit. Some increased low back pain continues to persist from her 10/09/22 fall. Tailbone pain grows severe with sitting, described as burning. Pt notes she used to be able to sit for 1-2 hours. She expresses interest in lumbar injections, but will f/u with PCP to check blood glucose levels.Continues to struggle with depression but believes it is improving.Reports current medication regimen provides 10% pain relief and allows for increased functionality, including caring for her puppies. Pt presents with a surplus of medication. Denies side effects from medications. No other concerns today. back pain Severity level i s 9. Duration: chronic. The problem is worsening. Comments: Cindy presents for a virtual follow up and medication refill. Pt c/o low back, middle back, neck, and BL leg pain. Pain has been worse since last visit. Some increased pain continues to persist from her 10/09/22 fall. Tailbone pain grows severe with sitting, described as burning. Pt notes she used to be able to sit for 1-2 hours. She recently attended her father's . Reports she is working on getting out more and walking. Continues to struggle with depression but believes it is improving.Reports current medication regimen provides 10% pain relief. Reports the generic butrans patch is not sticking to her skin well. Denies side effects from medications. No other concerns today. Back pain Severity level i s 9. Duration: chronic. The problem is worsening. Location of pain is middle back, lower back, arms, legs and neck. back pain Severity level i s 9. Duration: chronic. The problem is worsening. It occurs persistently. The client describes the pain as an ache, burning, sharp and tingling. Symptoms are aggravated by ascending stairs, bending, descending stairs, lifting, running, sitting, standing, twisting, walking, housework and movement. Symptoms are relieved by ice and lying down. Comments: Cindy presents for a virtual follow up and medications refill. Pt c/o low back, middle back, neck, and BL leg pain. Pain has been worse since last visit. Previously tested positive for COVID which caused increase of pain. Continues to recover from Covid, including feeling disoriented, shakiness, headaches. Reports her father passed recently. Reports falling on ice on 10/09/22 whilst working, resulting in bruising and back pain. Reports she has been mostly lying down since, to reduce her pain. Reports lower left sided pain, into the left buttocks, and radiating down LLE is greatest. Reports mid back pain persists. Bilateral T12-L1, L1-L2 RF diagnostic work-up ordered on 04/10/2022. Bilateral T7-T8, T8-T9, T9-T10 RF confirmatory work-up ordered on 06/14/2022. Previously stated PCP did not approve her pre op due to her A1c levels. Reports today A1c has been down from 11 to 8. She will f/u with PCP to discuss proceeding BARBARA and RFA. Reports current medication regimen provides 10% pain relief. Patient was able to pickle maker last oxycodone rx and will get the butrans patches today. Denies side effects from medications. No other concerns today. Back Pain Severity level i s 9. Duration: chronic. The problem is worsening. It occurs persistently. Location of pain is middle back, lower back and legs. Comments: Cindy presents for a virtual follow up and medications refill. Pt c/o low back, middle back, neck, and BL leg pain. Pain has been worse since last visit. Recently tested positive for COVID which has caused an increase of pain. Continues to have a fever and full body aching. Of note, patient fell on 10/09 on the ice. Notes an increase of rib and low back pain. States she went to the ER and updates Imaging which showed nothing significant except a few contusions. Continues to have pain in her low back, stating that it feels like a knife. Considering f/u with her PCP.Bilateral T12-L1, L1-L2 RF diagnostic work-up ordered on 04/10/2022. Bilateral T7-T8, T8-T9, T9-T10 RF confirmatory work-up ordered on 06/14/2022. States PCP did not approve due her pre op due to her A1c levels. Reports current medication regimen provides 10% pain relief. Denies side effects from medications. No other concerns today. Comments: Cindy presents for a virtual follow up and medications refill. Pt c/o low back, middle back, neck, and BL leg pain. Pain has been worse since last visit. Most bothersome above her bra line down to her ribs with radiation around to her right side. Notes she has been utilizing gabapentin more, but can only find any pain relief with lying down.Bilateral T12-L1, L1-L2 RF diagnostic work-up ordered on 04/10/2022. Bilateral T7-T8, T8-T9, T9-T10 RF confirmatory work-up ordered on 06/14/2022. States she now has transportation available now, but still needs to schedule her preop. Reports current medication regimen provides 10% pain relief. Denies side effects from medications. No other concerns today. Back Pain Severity level i s 9. Duration: chronic. The problem is worsening. Back Pain Severity level i s 9. Duration: chronic. The problem is worsening. It occurs persistently. Location of pain is middle back, lower back and neck. The client describes the pain as an ache, burning, sharp and tingling. Symptoms are aggravated by ascending stairs, bending, descending stairs, lifting, running, sitting, standing, twisting, walking, housework, movement and prolonged positioning. Symptoms are relieved by lying down and pain meds/drugs. Comments: Cindy presents for a follow up and medication refill. Patient c/o chronic neck, mid-back, and low back pain. Pain has been worse since last visit. Bilateral T12-L1, L1-L2 RF diagnostic work-up ordered on 04/10/2022. Bilateral T7-T8, T8-T9, T9-T10 RF confirmatory work-up ordered on 06/14/2022. She plans to schedule once she has transportation available. She plans to schedule a f/u for a surgical consultation. Medication provides 15% relief and allows for increased functionality per patient intake. Denies side effects from current medication regimen. No other concerns today. Comments: Cindy presents for a virtual follow up and medications refill. Pt c/o low back, middle back, neck, and BL leg pain. Pain has been worse since last visit.Reports current medication regimen provides 15% pain relief. Denies side effects from medications. No other concerns today. Back pain Severity level i s 9. Duration: chronic. The problem is worsening. Location of pain is upper back, middle back, lower back, arms, legs and neck. Comments: Cindy presents for a virtual follow up and medications refill. Pt c/o low back, middle back, neck, and BL leg pain. Pain has been worse since last and aggravated by the weather changes. She still wants to do diagnostic lumbar RFW but would need to find transportation.Reports current medication regimen provides 15% pain relief. Denies side effects from medications. No other concerns today. Back pain Severity level i s 9. Duration: chronic. The problem is worsening. Location of pain is upper back, middle back, lower back, arms, legs and neck. Back pain Severity level i s 9. Duration: chronic. The problem is worsening. Location of pain is middle back, lower back and neck. Comments: Cindy presents for a virtual follow up and medications refill. Pt c/o low back, middle back, neck, and BL leg pain. Pain has been worse since last visit and radiations down to BL elbows. Says she is trying to hold off on scheduling RFW for another month to see if pain continues to worsen.Reports current medication regimen provides 10% pain relief. Denies side effects from medications. No other concerns today. Comments: Cindy presents for a follow up and medications refill. Pt c/o low back, middle back, neck, and BL leg pain. Pain has been worse since last visit. Two localized spots of pain in low back. Thoracic RFA had provided 90% relief in the area. Intermittent intense pain returning in back. Inquired about what can be done for low back.Reports current medication regimen provides 15% pain relief. Denies side effects from medications. No other concerns today. Back pain Severity level i s 7. Duration: chronic. The problem is worsening. It occurs persistently. Location of pain is upper back, middle back, lower back, legs and arms. The client describes the pain as an ache, burning, sharp and tingling. Symptoms are aggravated by ascending stairs, bending, descending stairs, lifting, running, sitting, standing, twisting, walking, prolonged positioning, housework and movement. Symptoms are relieved by ice, lying down and tiger balm. back pain Severity level i s 9. Duration: chronic. The problem is worsening. It occurs persistently. Location of pain is middle back, lower back, legs and neck. The client describes the pain as an ache, burning, numbness, sharp and tingling. Symptoms are aggravated by ascending stairs, bending, descending stairs, lifting, running, sitting, standing, twisting, walking, housework, prolonged positioning and movement. Symptoms are relieved by ice, lying down and pain meds/drugs. Comments: Cindy presents for a virtual follow up and medications refill. Pt c/o low back, middle back, neck, and BL leg pain. Pain has been worse since last visit. Reports pain from pulling muscle around ribs, improving. She also notes being mentally exhausted d/t personal stressors lately.Reports current medication regimen provides 10% pain relief. Denies side effects from medications. No other concerns today. Comments: Cinyd presents for a virtual follow up and medications refill. C/o ongoing pain in her low back, as well as widespread pain of multiple joints. Pain has been worse since last visit. Of note, recent blood work was abnormal. Will f/u with PCP.Prescribed medication offers 15% pain relief. Notes OIC and has tried diet changes and OTC medications without relief. Denies other side effects from current medications. No further questions or concerns. back pain Severity level i s 8. Duration: chronic. The problem is worsening. It occurs persistently. Location of pain is middle back, lower back, arms, legs, left knee, left foot and hands. The client describes the pain as an ache, burning, numbness, sharp and tingling. Symptoms are aggravated by ascending stairs, bending, descending stairs, lifting, running, sitting, standing, twisting, walking, prolonged positioning, housework and movement. Symptoms are relieved by ice and pain meds/drugs. Back Pain Severity level i s 9. Duration: chronic. The problem is stable. It occurs persistently. Location of pain is lower back. The client describes the pain as an ache, burning, sharp and tingling. Symptoms are aggravated by bending, lifting, running, sitting, standing, twisting and walking. Symptoms are relieved by lying down, massage and rest. Comments: Cindy presents for a virtual follow up and medications refill. C/o ongoing pain in her low back, as well as widespread pain of multiple joints. Noting more neck pain with associated numbness of her arm and hand. Has a referral for [facility] for an EMG, but has not yet scheduled. Also plans to pursue SCS for her low back.Of note, is still struggling with sinusitis and diverticulitis. Reports recent blood work was abnormal. Will be having CT abdomen.Prescribed medication offers 80% pain relief. Was having some constipation with the increase in Butrans. Started taking more probiotics, which she thinks flared her diverticulitis. Wearing her last Butrans patch and has #3 oxycodone left, which is a surplus. No further questions or concerns. Back Pain Severity level i s 9. Duration: chronic. The problem is worsening. It occurs persistently. Location of pain is middle back, lower back and neck. The client describes the pain as an ache, burning, numbness, sharp and tingling. Symptoms are aggravated by ascending stairs, bending, descending stairs, lifting, standing, twisting, walking and housework. Symptoms are relieved by lying down and pain meds/drugs. Comments: Cindy presents for a virtual follow up and medications refill regarding back pain. She is currently recovering from a sprained ankle. Back pain has remained unchanged and stable overall. She has not been able to consult with neurology or the neck specialist yet. Prescribed medication offers 15% pain relief. Denies SE. No further questions or concerns. Back Pain Severity level i s 9. Duration: chronic. The problem is worsening. It occurs persistently. The patient describes the pain as an ache, burning, numbness, sharp and tingling. Symptoms are aggravated by ascending stairs, descending stairs, lifting, running, sitting, standing, twisting, walking, housework, movement and prolonged positioning. Symptoms are relieved by ice and lying down. Back Pain (comments) Cindy garcia ents for a virtual follow up and medications refill regarding back pain. Prescribed medication offers 15% pain relief. Denies SE.Reports ongoing s/p COVID-19 syx including cough and achiness. Back pain has remained unchanged and stable overall. Neck pain is most bothersome. Planning to follow with ortho in the near future regarding this. Typical flares depending on activity level. Participates in HEP as able. No further questions or concerns. Back Pain Severity level i s 9. Duration: chronic. The problem is worsening. It occurs persistently. Location of pain is middle back, lower back, legs and neck.The patient describes the pain as an ache, burning, numbness, sharp and tingling. Symptoms are aggravated by bending, lifting, running, sitting, standing, twisting, walking, housework, movement, stairs and prolonged positioning. Symptoms are relieved by lying down and pain meds/drugs. Back Pain (comments) Cindy garcia ents for a follow up and medications refill. Pain has been stable this month. Continues to feel relief after her T6-T9 RFA procedure.Reports current medication regimen provides 15% pain relief and allows for increased functionality. Denies side effects from current medication regimen.Dx w/ COVID a few weeks ago, felt better, then developed sinusitis and is on abx. Also has tooth abccess. No other concerns today. Back Pain Severity level i s 8. Duration: chronic. The problem is worsening. It occurs persistently. The patient describes the pain as an ache, burning, numbness, sharp and tingling. Symptoms are aggravated by ascending stairs, bending, daily activities, descending stairs, lifting, lying/rest, running, sitting, standing, twisting, walking, movement and prolonged positioning. Symptoms are relieved by lying down. Back Pain (comments) Cindy smith for a follow up and medications refill. Pain has been stable this month. Continues to feel relief after her T6-T9 RFA procedure. The numbness and tingling down her arm has been intermittent Pushing on the fingertips has become more painful. She will be following up with her neurologist for the abnormal sensations in her bilateral hands.Reports current medication regimen provides 15% pain relief and allows for increased functionality. Pt feels constipated and has been taking stool softener and probiotics. Denies side effects from current medication regimen.No other concerns today. Back Pain Severity level i s 9. Duration: chronic. The problem is worsening. It occurs persistently. Location of pain is middle back, lower back, L leg and R thigh.The patient describes the pain as an ache, burning, numbness, sharp and tingling. Symptoms are aggravated by ascending stairs, bending, descending stairs, lifting, running, sitting, standing, twisting, walking, housework, movement and prolonged positioning. Symptoms are relieved by lying down and pain meds/drugs. Back Pain (comments) Cindy pres smith for a follow up and medications refill. Reports soreness in her R lower back. Reports 75% relief after her T6-T9 RFA procedure. Pt continues to have UTI issues and thinks that it may be diverticulitis. She also reports numbness and tingling down her arm. Reports current medication regimen provides 10% pain relief and allows for increased functionality. Pt feels constipated and has been taking stool softener and probiotics. Denies side effects from current medication regimen.No other concerns today. Back Pain (comments) Cindy smith for a virtual follow up and medications refill. Completed thoracic RFA on 05/29/21. Procedure went well though her back has been feeling extremely sore. She plans to follow up with PCP as she feels things have been off. Pain may be flared from potential UTI as she notes that previous steroid use has caused a UTI.Reports current medication regimen provides 15+% pain relief and allows for increased functionality. Denies side effects from current medication regimen.No other concerns today. Back Pain Severity level i s 9. Duration: chronic. The problem is worsening. It occurs persistently. Location of pain is middle back, lower back and legs.The patient describes the pain as an ache, burning, numbness, sharp and tingling. Symptoms are aggravated by ascending stairs, bending, descending stairs, lifting, running, sitting, standing, twisting, walking, prolonged positioning, housework and movement. Symptoms are relieved by ice and lying down. Back Pain Severity level i s 9. Duration: chronic. The problem is worsening. It occurs persistently. Location of pain is middle back, lower back and legs.The patient describes the pain as an ache, burning, numbness, sharp and tingling. Symptoms are aggravated by ascending stairs, bending, descending stairs, lifting, running, sitting, standing, twisting, walking and prolonged positioning. Symptoms are relieved by ice and lying down. Back Pain (comments) Cindy smith for a virtual follow up and pre-RFA education. Mid back pain continues to be worse this month. BL thoracic RFA is scheduled for 05/29. Patient has completed pre-op physical with PCP.No other concerns today. Back Pain Severity level i s 9. Duration: chronic. The problem is worsening. It occurs persistently. Location of pain is middle back, lower back and legs.The patient describes the pain as an ache, burning, numbness, sharp and tingling. Symptoms are aggravated by ascending stairs, bending, descending stairs, lifting, running, sitting, standing, twisting, housework, movement and prolonged positioning. Symptoms are relieved by lying down and pain meds/drugs. Back Pain (comments) Cindy smith for a virtual follow up and medications refill. Completed R thoracic diagnostic RFW on 04/12 and L side on 05/02 which provided 85% pain relief for right side and upon returning home and further thought she received 80% pain relief on the left side. Would like to complete confirmatory RFW for both sides at the same time.Reports current medication regimen provides 15+% pain relief and allows for increased functionality. Denies side effects from current medication regimen. Increased of Oxycodone to 10mg has been helpful, doesn't want to increase any further.No other concerns today. Back Pain Severity level i s 10. Duration: chronic. The problem is worsening. It occurs persistently. Location of pain is middle back, lower back and legs.The patient describes the pain as an ache, burning, sharp and tingling. Symptoms are aggravated by ascending stairs, bending, descending stairs, lifting, running, sitting, standing, twisting, walking, housework, movement and prolonged positioning. Symptoms are relieved by ice and lying down. Back Pain (comments) Cindy is h ere for follow up and medications refill. She is continuing to experience increased thoracic pain. States that pain will wrap around to her rib area, making it hard to breath at times. Met with Dr. Contreras on 03/02 who then recommended a thoracic MBB w/ steroid. She was unable to receive procedure because her A1C levels were elevated. She was under the idea that the procedure didn't include steroids therefore is confused why she hasn't been able to schedule.Continuing to experience increased BL hand pain. Inquires whether issue is related to cervical spine. Followed up with [facility] and will be completing EMG on 04/22.Reports current medication regimen provides 10+% pain relief and allows for increased functionality. Denies side effects from current medication regimen.No other concerns today. Back Pain Severity level i s 10. Duration: chronic. The problem is worsening. It occurs persistently. Location of pain is middle back, lower back and legs.The patient describes the pain as an ache, burning, numbness, sharp and tingling. Symptoms are aggravated by ascending stairs, bending, descending stairs, lifting, lying/rest, running, sitting, standing, twisting, walking, prolonged positioning, housework and movement. Symptoms are relieved by heat, ice, lying down, pain meds/drugs and rest. Back Pain (comments) Cnidy's mi d and low back pain has been worse. She is s/p multi-level fusion in 1991 followed by a revision surgery by Dr. Aden Souza in 2016 with no relief. After this revision surgery she had increased pain radiating to groin. Pain is aggravated by prolonged standing and walking, improves when laying down. Reports new onset mid back pain that radiates around chest wall to ribs, greater on right side. Pain is constant and sharp, no specific aggravating factors. Met with Dr. Contreras 2 weeks ago who recommended thoracic facet MBB w/ steroid. Scheduled for 03/23. Back Pain Severity level i s 10. Duration: chronic. The problem is worsening. It occurs persistently. Location of pain is middle back and lower back. Pain is radiated to the buttocks.The patient describes the pain as an ache, burning and sharp. Symptoms are aggravated by standing, walking and movement. Symptoms are relieved by lying down and rest. Back Pain (comments) Cindy pres ents for surgical consult regarding chronic low back pain that has been worsening since 2014. She is s/p multi-level fusion in 1991 followed by a revision surgery by Dr. Aden Souza in 2016 with no relief. After this revision surgery she had increased pain radiating to groin. Pain is aggravated by prolonged standing and walking, improves when laying down. Reports new onset mid back pain that radiates around chest wall to ribs, greater on right side. Pain is constant and sharp, no specific aggravating factors.Additionally c/o worsening pain in bilateral arms. Denies neck pain. Back Pain (comments) Patient is here for follow up and medications refill. Reports current medication regimen provides 5% pain relief and allows for increased functionality. Denies side effects from current medication regimen. Patient's pain is persistent and chronic.States that she is experiencing increased pain within thoracic region wrapping around to stomach area. Attended ER on 02/06, received valium and told she has a new bulging disc. Pain has not been relieved by anything, interested in receiving a surgical evaluation.Notes that she woke up with increased right calf pain this morning, plans to attend urgent care after today's visit.Experiencing more pain within right hand that radiates up into elbow.No other concerns today. Back Pain Severity level i s 9. Duration: chronic. The problem is worsening. It occurs persistently. Location of pain is middle back and lower back.The patient describes the pain as an ache, burning, sharp and tingling. Symptoms are aggravated by ascending stairs, bending, descending stairs, lifting, running, sitting, standing, twisting, walking, housework, movement and prolonged positioning. Symptoms are relieved by lying down. Back Pain Severity level i s 9. Duration: chronic. The problem is worsening. It occurs persistently. Location of pain is middle back and lower back.There is no radiation of pain. The patient describes the pain as an ache, burning, numbness, sharp and tingling. Symptoms are aggravated by ascending stairs, bending, descending stairs, lifting, running, sitting, standing, twisting, walking, movement, housework and prolonged positioning. Symptoms are relieved by lying down and pain meds/drugs. Back Pain (comments) Ms. Pelayo is a pleasant 55 y/o female who presents to clinic for follow-up and medication refill regarding chronic low back and ROSANNE leg pain. Reports current medication regimen provides 10% pain relief and allows increased functionality. Denies side effects from current medication regimen. No other concerns today.The acute widespread itching has been more manageable recnelty. She recently started on long and short acting insulin in order to be approved for the surgery.No other concerns today. Back Pain (comments) Ms. Pelayo is a pleasant 55 y/o female who presents to clinic for follow-up and medication refill regarding chronic low back and ROSANNE leg pain. She is Chante BOUCHER's patient. She has had 2 spinal surgeries and wants to consult with another surgeon to discuss further surgery. She is here today to discuss acute widespread itching that began 2 days ago. She called this morning because her Butrans patch fell off 2 days ago and denies withdrawal symptoms. She has been managed on Butrans for around a year. She itches her feet, arms, and hands throughout the visit. She is taking #2 Benadryl tablets every 4 hours. 10 days ago, she was hospitalized for 3 nights after stepping on a nail (left foot) and was monitored for infection. There, she was managed on IV antibiotics. She was prescribed levofloxacin and doxycycline which she stopped taking 2 days ago. She went to the clinic for a f/u and they wanted to extend the antibiotic. She recently started on long and short acting insulin and inquires if this could cause the itching. Reports current medication regimen provides 10% pain relief and allows increased functionality. Denies side effects from current medication regimen. No other concerns today.Of note, she mentioned that she missed scheduling her f/u with Chante because her mother just and she was in the hospital. Back Pain Severity level i s 9. Duration: chronic. The problem is worsening. It occurs persistently. Location of pain is lower back, gluteal area and thighs. Pain is radiated to the left calf.The patient describes the pain as an ache, burning, sharp and tingling. Symptoms are aggravated by ascending stairs, bending, descending stairs, lifting, running, sitting, standing, twisting, walking, prolonged positioning, movement and housework. Symptoms are relieved by ice and lying down. Back Pain (comments) Patient is here for follow up and medications refill. Reports current medication regimen provides 10% pain relief and allows for increased functionality. Denies side effects from current medication regimen. Patient's pain is persistent and chronic.Lower back and BL leg pain continues to be more bothersome upon today's visit. Will be following up with new specialist soon to discuss overall worsening joint pain. Medications continue to provide some pain relief for about an hour at a time, okay with increasing medications temporarily.No other concerns today. Back Pain Severity level i s 9. Duration: chronic. The problem is worsening. It occurs persistently. Location of pain is lower back and legs.The patient describes the pain as an ache, burning, numbness, sharp and tingling. Symptoms are aggravated by ascending stairs, bending, daily activities, descending stairs, lifting, running, sitting, standing, twisting, walking and prolonged positioning. Symptoms are relieved by ice and lying down. Back Pain (comments) Patient is here for follow up and medications refill. Reports current medication regimen provides 15% pain relief and allows for increased functionality. Denies side effects from current medication regimen. Patient's pain is persistent and chronic. Satisfied with current regimen and does not request any changes to medication today.Mid to low back pain radiating into BL thighs continues to be more bothersome this month. Had to get boil removed from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 Symptoms are aggravated by ascending stairs, bending, descending stairs, lifting, running, sitting, standing, twisting, walking, housework, movement and prolonged positioning. Symptoms are relieved by ice and lying down. Back Pain (comments) Cindy is h ere for a followup and medication refill. She presents with #8 Oxycodone and #7 Oxycontin- surplus. Medications provide 10% relief from pain. States she does not understand why her OV have not been going under WC, has been working with a bench scientist to figure the issue out. She is having issues with her balance lately, fell recently and hit her head. Wondering if her balance issues could be r/t the Prednisone rx'ed at last OV. Her low back pain is radiating into the groin now. Medications are not as helpful lately d/t increased pain. She has not been able to schedule MRI d/t finances. Back Pain Severity level i s 9. Duration: chronic. The problem is worsening. It occurs persistently. Location of pain is lower back. Pain is radiated to the BLE.The patient describes the pain as an ache, burning, sharp and tingling. Symptoms are aggravated by ascending stairs, bending, descending stairs, lifting, running, sitting, standing, twisting, walking, housework, movement and prolonged positioning. Symptoms are relieved by ice, lying down, physical therapy and rest. Back Pain Severity level i s 9. Duration: chronic. The problem is worsening. It occurs persistently. Location of pain is lower back. Pain is radiated to the BLE.The patient describes the pain as an ache, burning, sharp and tingling. Symptoms are aggravated by ascending stairs, bending, descending stairs, lifting, running, sitting, standing, twisting, walking, housework, movement and prolonged positioning. Symptoms are relieved by lying down. Back Pain (comments) Cindy is h ere for a followup and medication refill. She presents with #14 Oxycodone and #8 Oxycontin- surplus. Medications provide 10% relief from pain. She takes her medications all at once and has noticed increased drowsiness, unsure what is the cause of the drowsiness. She has been taking Tizanidine more often to help with pain. C/o increased low back pain d/t weather changes. She has been having bowel incontience issues for the past two months and is becoming more frequent. Denies new numbness or weakness in her legs. Believes her issues may be r/t having to do chores and housework by herself. Also has been having increased stress d/t financial reasons, is having difficulty making ends meet. She has not been able to see Dr. Souza recently d/t financial constraint. Back Pain (comments) Cindy is h ere for a followup and medication refill. She presents with #4 Oxycontin-on track and #10 Oxycodone-small surplus. She broke her toe last Saturday and is currently using crutches which aggravates her back. The doctor gave her Hydroxyzine for her broken toe. She is having muscle spasms in her knees and back. Adding in the Oxycodone was helpful. She needs to see a vp analytics. She takes 2mg- at night with the 3 gabapentin. All of her medications cause her brain to be cloudy. Of note, her parents are moving into assisted living so she will soon have more time to focus on herself. Back Pain Severity level i s 8. Duration: chronic. The problem is worsening. It occurs persistently. Location of pain is lower back and legs.The patient describes the pain as an ache, burning, sharp and tingling. Symptoms are aggravated by ascending stairs, bending, descending stairs, lifting, running, sitting, standing, twisting, walking, prolonged positioning, housework and movement. Symptoms are relieved by lying down and PT. Back Pain Severity level i s 8. Duration: chronic. Location of pain is lower back, BL foot and R hand. Pain is radiated to the left thigh and right thigh.The patient describes the pain as an ache, burning, sharp and tingling. Symptoms are aggravated by ascending stairs, bending, descending stairs, lifting, running, sitting, standing, twisting, walking, housework, movement and prolonged positioning. Symptoms are relieved by lying down and physical therapy. Back Pain (comments) Cindy is h ere for a followup and medication refill. She presents with #10 Oxycontin- on track. Medications provide 20% relief from pain. States she has had a cold for 3 weeks and met with PCP who rx'ed some medication. Reports increase of Tizanidine at last OV caused SE of severe drowsiness and is unable to take 6mg/day. Tizanidine 4mg continues to be helpful. Currently taking Gabapentin 2 caps AM, 2 caps afternoon, 2 caps PM, and sometimes 2 caps in the middle of the night. Requesting addition of small amount of Oxycodone for the afternoon to help with yardwork. States her has left the house and she has more chores to take care of now. 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 Also has been caring for her parents. Hoping her stress levels will decrease in the next couple of months. Her goal is to have the SCS implanted and go on a trip to [place] to vaccinate animals. Back Pain (comments) Cindy is h ere for follow up and medications refill. Presents with #7 Oxycontin - on track. Reports current medication regimen provides 10% pain relief. Denies side effects from current medication regimen. Prescribed medications continue to be helpful for pain relief. Blood sugar level has been too high and was unable to complete SCS trial, which has been stressful and increasing pain. Going forward with SCS once blood sugar is in control. She has switched to a continuous monitoring system for insulin levels, has been having difficulty with it staying on. 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 Knee has been painful after meniscus tear two years ago, so she is getting an MRI for her knee. Also has been having wrist/arm pain recently. Has been working on getting work comp approved for her case. Major stressors with WC and recent request for divorce. Asked for increase in Tizanidine. Back Pain Severity level i s 8. Duration: chronic. The problem is worsening. It occurs persistently. Location of pain is lower back, gluteal area, left flank, right flank, arms and legs.The patient describes the pain as an ache, burning, sharp, stabbing and tingling. Symptoms are aggravated by ascending stairs, bending, descending stairs, lifting, lying/rest, sitting, standing, twisting, walking, housework, movement, prolonged positioning and standing. Symptoms are relieved by lying down, medicaitons and tiger balm. Back Pain Severity level i s 7. Duration: chronic. The patient describes the pain as an ache, burning, sharp and tingling. Symptoms are aggravated by ascending stairs, bending, descending stairs, running, standing, twisting and walking. Symptoms are relieved by lying down. Back Pain (comments) Cindy is h ere for f/u. Has 19# OxyContin. Pain medications have relieved some pain. She had an infected tooth and got that resolved. Head aches have subsidded since the tooth was removed. Last visit she had an MRI; results havent been released to the clinic yet. Back Pain Severity level i s 9. Duration: chronic. The problem is worsening. It occurs persistently. Location of pain is middle back and lower back. Pain is radiated to the left foot, right foot, left thigh and right thigh.The patient describes the pain as an ache, burning, sharp and tingling. Symptoms are aggravated by ascending stairs, bending, descending stairs, lifting, running, sitting, standing, twisting, walking, movement, housework and prolonged positioning. Symptoms are relieved by lying down, pain meds/drugs and physical therapy. Back Pain (comments) Cindy is h ere for a followup and medication refill. She presents with #19 Oxycontin- surplus. Medications brings pain down from 10 to 9 out of 10. Oxycontin provides about 3-4 hours of relief, relieving less than 50% relief. Weather changes causes increased pain. C/o new headache pains, unsure if r/t to Gabapentin increase or addition of Oxycontin. Has been having difficulty with urinary incontinence. She will be starting PT to help with urinary incontinence. Hoping when she has SCS implanted, she will be able to wean off opioids. Psych eval scheduled for next Saturday. Completed MRI at [facility]. Back Pain Severity level i s 8. Duration: chronic. The problem is fluctuating. It occurs persistently. Location of pain is lower back and gluteal area. Pain is radiated to the left foot, left thigh and right thigh.The patient describes the pain as an ache, burning and sharp. Symptoms are aggravated by bending, daily activities, lifting, standing, twisting, walking and stairs. Symptoms are relieved by ice, lying down, pain meds/drugs, pool and traction. Back Pain (comments) Cindy is h ere for follow up. She was not able to fill Voltaren gel due to insurance. Not currently prescribed any narcotics here but would like [facility] to take over her medications. Following surgery she was taking oxycodone and OxyContin but has been off of the pain medications for 3 weeks. States that gabapentin provides relief but causes some drowsiness. She is interested in the wave rider SCS and would like to go forward with that; has not scheduled psychology evaluation yet. Back Pain (comments) Cindy is h ere for initial consult for back and knee pain. She reports the pain began three years ago when she was cleaning and felt a shooting pain across lower back and down her leg. Reports the pain brought her to her knees and has been severe since. Had a lumbar surgery in 1988, which provided good pain relief and states that for the most part she was pain-free until 3 years ago. Continues meeting with an orthopedist (Dr. Souza) after a surgery to extend fusion last year; he is not currently recommending anything additional. She is looking to start counseling to help deal with the pain. States that she went to [facility] for several visits but is not comfortable continuing care there; completed injection which provided minimal relief. Reports that she took some of her dog's tramadol for pain control, which showed up in a UDT with PCP, who no longer feels comfortable prescribing. Prednisone provided good pain relief. Continues doing pool therapy. Back Pain Onset: 3 years a go. Severity level is 10. Duration: chronic. Location of pain is lower back. Pain is radiated to the left foot, right foot, left thigh, right thigh and BL knees.The patient describes the pain as an ache, numbness and stabbing. Symptoms are aggravated by bending, lifting, running, sitting, standing, twisting, walking, movement and housework. Symptoms are relieved by lying down, pain meds/drugs, rest, pool and traction. Functional Status Date Functional Assessmen t No Information Instructions Date Instruction Additional Infor mayank Lifestyle education regarding di et Related to Body mass index [BMI] 32.0-32.9, adult Assessments Type Assessment Date assessment Chronic pain syndrome impression Cindy is a 58 year old female that presents for follow up regarding chronic back and mid back pain assessment Postlaminectomy syndrome, not el sewhere classified impression H/o lumbar surgery. Low back and leg pain has been worse. Recommend SCS trial. assessment Other spondylosis, thoracic dionisio on impression Chronic mid back home n, worse since EFRAÍN. Forwarded History:S/p BL T6-T9 RFA on 12/17/23 with 70% pain reliefT7-T8, T8-T9, T9-T10 RFA completed 05/29/21, reported 75% pain relief.02/20/21 Thoracic MRI report reviewed. Multilevel thoracic spondylosis without significant neurologic compression assessment Other spondylosis, lumbar region impression Chronic low back home n, worse since EFRAÍN. Recommend updating MRI. Patinent aware of SCS trial and RFW, but would like surgical opinion first. Forwarded History: PSH decompression and fusion.- Previously ordered diagnostic T12, L1, L2 RFW with MAC sedation on 04/10/2022. Patient PCP did not approve her H&P due to elevated A1C levels.Lumbar MRI from 03/30/24 reviewed and shows:1. Stable MR of the lumbar spine with no evidence for postoperative complication or recurrent stenosis at L3-S1.2. 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 No significant canal or foraminal stenosis assessment Pain in left knee impression Worsening left knee pain. Hx of left cruciate tear and repair without hardware assessment Depression impression Patient reports janes re depression as a major barrier to procedures and f/u with other providers. Currently following with a counselor.Forwarded History: Patient reports her depression is getting worse, but is unable to go to better help because insurance did not cover it. Denies suicidal ideations or ideations of hurting herself. States she has no support system but has pets to help her assessment Other muscle spasm assessment longterm (current) use of opiat e analgesic impression The medication relie ves at least 10% of the pain and increases the patient's daily activity level. She presents on track with Butrans patches and with a surplus of Oxycodone today.MME is 60 mg/day + Butrans. Patient has been managing medications with no signs of abuse or oversedation, and is appropriate to continue with opioid use. UDT completed 05/19/24 previously reviewed and appropriate. assessment Body mass index [BMI] 32.0-32.9, adult Mental Status Date Cognitive Assessment Orientation - [place] ed to time, place, person, situation.Normal Orientation Patient Care Teams Name Effective Dates (start - stop) Status Members No Information
--- OUTSIDE RECORDS SUMMARY | 2024-06-16 23:17 | XMS_ITS | Continuity of Care Document ---
Author Organization [facility] Address [address] [place] [address] Phone Care Team Providers Care Leak Gang Supervisor Name Role Phone Alma Rosa Cochran MD Unavailable Unavailable Allergies, Adverse Reactions, Alerts Substance Reaction Status Criticality morphine Active No Information erythromycin base Active No Informa tion Medications Medication Instructions Dosage Effective Dates (start - stop) Status Comments lisinopril 20 mg tablet take 1 tablet by oral route 2 times every day 20 MG - Active Fish Oil 1,000 mg (120 mg-180 mg) capsule - Active atorvastatin 80 mg tablet take 1 tablet by oral route every day 80 MG - Active Vitamin D3 25 mcg (1,000 unit) capsule take 1 tablet by oral route every day 1 tablet - Active metformin 1,000 mg tablet take 1 tablet by oral route 2 times every day with morning and evening meals 1000 MG - Active pantoprazole 40 mg tablet,delayed release take 1 tablet by oral route every day 40 MG - Active venlafaxine ER 150 mg capsule,extended release 24 hr take 2 capsule by oral route every day 300 MG - Active aspirin 81 mg chewable tablet chew 1 tablet by oral route every day 81 MG - Active Novolog Flexpen U-100 Insulin aspart 100 unit/mL (3 mL) subcutaneous inject by subcutaneous route per prescriber's instructions. Insulin dosing requires individualization. 0.00 - Active Levemir U-100 Insulin 100 unit/mL subcutaneous solution inject by subcutaneous route per prescriber's instructions. Insulin dosing requires individualization. 0.00 - Active hydroxyzine HCl 50 mg tablet take 1 tablet by oral route 4 times every day 50 MG - Active tizanidine 2 mg capsule take 1 capsule by oral route every 6 - 8 hours as needed not to exceed 3 doses in 24 hours 2 MG - Active gabapentin 300 mg capsule take 1 - 2 Capsule by Oral route once 1-2 Capsule - Active Butrans 15 mcg/hour transdermal patch apply 1 patch by transdermal route every 7 days 15 MCG/H - Active oxycodone 5 mg tablet take 1 tablet by oral route every 4 - 6 hours as needed 5 MG - Active glipizide 10 mg tablet take 1 tablet by oral route every day before a meal 10 MG - No Longer Active Procedures Procedure Date Office/Outpatient Visit, New Advance Directives Directive Yes / No Effective Date File Name No Information Encounters Encounter Description Practice Location Reason(s) For Visit Diagnoses Date Provider Providers Copied on Encounter Office/Outpa tient Visit, New [facility], [address], [place], [address], [place] tel:[phone] [facility], Joint Pain (chief complaint) Numbness and tingling of the handsPruritus Polyarthralgi a [address], [address], [place], [address], [place]. tel:[phone] Referring Provider: Alma Rosa Cochran, [address], [place], [address]. tel:[phone] [facility], [address], [place], [address], [place] tel:[phone] [facility], No Information [address], [address], [place], [address], [place]. tel:[phone] Family History Family Member Type Diagnosis Age At Onset No Information Immunizations Vaccine Date Status Comments COVID-19 Pfizer administered Source: Othe r Provider Payers Payer name Insurance type Covered green party ID Authoriza tion(s) Medicare [id number] Medical Assistance [id number] Social History Type Description Quantity Date Captured Comments Alcohol Use Details Unknown Caffeine Use Details Unknown Tobacco Use Status Current non-smoker Smoking Status Never smoker Non-Smoking Tobacco Use Details : No Details Available : No Details Available Sex Female Vital Signs Date / Time: Height Weight BMI Pulse Rate Blood Pressure Temperature Respiratory Rate Body Surface Area Head Circumference Head Circ. Percentile Wt./[place]. Percentile BMI percentile Pulse Ox Inhaled Ox 3:01 PM 65.59 in 93.440 kg (206.00 lbs) 33.6 7 kg/m eter (2) 130/77 mm[Hg] 98.40 F Chief Complaint And Reason For Visit From encounter dated '03/17/2021 15:00'. Joint Pain (chief complaint) Reason For Referral Reason For Referral No Information History Of Present Illness Encounter Date Complaint History Of Prese nt Illness Joint Pain Functional Status Date Functional Assessmen t No Information Instructions Date Instruction Additional Infor mation No Information Assessments Type Assessment Date assessment Numbness and tingling of the hughes ds assessment Pruritus assessment Polyarthralgia Patient Care Teams Name Effective Dates (start - stop) Status Members No Information
--- OUTSIDE RECORDS SUMMARY | 2024-06-16 23:17 | XMS_ITS | Encounter Summary ---
Author Organization [facility] Address [address] [place] [address] Care Team Providers Care Studio Receptionist Name Role Phone Nidia Knutson APRN, C.N.P., D.N.P. Primary Car e Provider Reason for Visit * Reason Comments Med Refill Encounter Details Date Type Department Care Team (Late st Contact Info) Description 03/12/2024 Refill Department of Internal Medicine in [place], [place] [address] [phone] Nidia Knutson APRN, C.N.P., D.N.P. [address] [phone] Med Refill Social History Tobacco [...] How often do you attend chur or yazdanism services? Never 03/24/2021 Do you belong to any clubs o r organizations such as taoism groups, unions, fraternal or athletic groups, or [...] Answer Date Recorded PHQ-2 Score 4 12/13/2023 [facility] of Occupat ional Health - Occupational Stress [...] your living situation today? I have a [facility] place to live 07/26/2023 Education Answer Date Recorded What is the highest level of school you have completed or the highest degree you have received? Associate degree: occupational, technical, or vocational program 06/15/2019 Comments No Sex and Gender Information Value Date Recorded Sex Assigned at Female 09/28/2021 12:51 PM FIRE REGULATOR Legal Sex Female 5:00 AM FIRE REGULATOR Gender Identity Female 09/28/2021 12:51 PM FIRE REGULATOR Sexual Orientation Straight 09/28/2021 12 :51 PM FIRE REGULATOR documented as of this encounter Plan of Treatment Not on file documented as of this encounter Visit Diagnoses Not on filedocumented in this encounter Additional Health Concerns Assessment Noted Time PHQ-9 Depression Total Score: 16 024 11:49 AM CDT documented as of this encounter Care Teams Studio Receptionist Relationship Specialty Start Date End Date Nidia Knutson APRN, C.N.P., D.N.P. [address] [place] [phone] PCP - General 08/08/23 documented as of this encounter
--- OUTSIDE RECORDS SUMMARY | 2024-06-16 23:17 | XMS_ITS | Encounter Summary ---
Author Organization [facility] Address [address] [place] [address] Care Team Providers Care Radio Television Announcer Name Role Phone Nidia Knutson APRN, C.N.P., D.N.P. Primary Car e Provider Reason for Visit * Reason Onset Date Comments PandaDoc Form 05/27/2024 [facility] - hold aspirin request Encounter Details Date Type Department Care Team (Latest Contact Info) Description 05/27/2024 Clinical Communication Department of Internal Medicine in [place], [place] [address] [place] [phone] Nidia Knutson APRN, C.N.P., D.N.P. [address] [place] [phone] PandaDoc Form ([facility] - hold aspirin request) Social History Tobacco Use Types Packs/Day Years [...] How often do you attend chur or gnosticist services? Never 03/24/2021 Do you belong to any clubs o r organizations such as shinto groups, unions, fraternal or athletic groups, or [...] Answer Date Recorded PHQ-2 Score 4 12/13/2023 [facility] of Occupat ional Health - Occupational Stress [...] your living situation today? I have a [employer] place to live 07/26/2023 Education Answer Date Recorded What is the highest level of school you have completed or the highest degree you have received? Associate degree: occupational, technical, or vocational program 06/15/2019 Comments No Sex and Gender Information Value Date Recorded Sex Assigned at Female 09/28/2021 12:51 PM LOAN REVIEW ANALYST Legal Sex Female 5:00 AM LOAN REVIEW ANALYST Gender Identity Female 09/28/2021 12:51 PM LOAN REVIEW ANALYST Sexual Orientation Straight 09/28/2021 12 :51 PM LOAN REVIEW ANALYST documented as of this encounter Miscellaneous Notes * Telephone Encounter - Sofia Burnette - 05/28/2024 7:56 AM CDT Received back completed form. Form faxed back to the listed facility. Scanned into [facility] * Telephone Encounter - Sofia Burnette - 05/27/2024 1:13 PM CDT Form was routed to Berto Knutson APRN CNP for electronic review/signature. FLAMER SEALER: [facility] PHONE NUMBER: [phone] INFO REQUESTED: hold aspirin request INSTRUCTIONS: Fax information to [phone] documented in this encounter Plan of Treatment Not on file documented as of this encounter Visit Diagnoses Not on filedocumented in this encounter Additional Health Concerns Assessment Noted Time PHQ-9 Depression Total Score: 16 024 11:49 AM CDT documented as of this encounter Care Teams Radio Television Announcer Relationship Specialty Start Date End Date Nidia Knutson APRN, C.N.P., D.N.P. [address] [place] [phone] PCP - General 08/08/23 documented as of this encounter
--- OUTSIDE RECORDS SUMMARY | 2024-06-16 23:17 | XMS_ITS ---
Author Organization [facility] Address [address] [place] [address] Care Team Providers Care Extractions Technician Name Role Phone Unavailable Unavailable Unavailable Surgery Details Not on file Complications Check Surgery Details section. Procedure Estimated Blood Loss Check Surgery Details section. Procedure Findings Check Surgery Details section. Procedure Specimens Taken Check Surgery Details section.
--- OUTSIDE RECORDS SUMMARY | 2024-06-16 23:17 | XMS_ITS | Referral Summary ---
Author Organization [facility] Address [address] [place] [address] Care Team Providers Care Rn Medical Inpatient Services Name Role Phone Nidia Knutson APRN, C.N.P., D.N.P. Primary Car e Provider Source Comments Patient records contain information from all sites at [facility]. For routine questions regarding patient records, call [phone] during business hours, M-F 8:00 AM - 5:00 PM Central Time. Record requests for emergency care only can be directed to [phone] at any time.[facility] Encounters Date Type Department Care Team Description 06/02/2024 Refill Department of Internal Medicine in [place], [place] [address] [phone] Nidia Knutson APRN, C.N.P., D.N.P. Med Refill 05/27/2024 Clinical Communication Department of Internal Medicine in [place], [place] [address] [phone] Nidia Knutson APRN, C.N.P., D.N.P. PandaDoc Form ([facility] - hold aspirin request) 04/28/2024 Orders Only [facility] PCP [facility] Nidia Knutson APRN, C.N.P., D.N.P. 04/14/2024 Refill Department of Internal Medicine in [place], [place] [address] [phone] Ninfa Jimenez APRN, C.N.P., D.N.P., M.S.N. Med Refill from Last 3 Months Allergies Active Allergy Reactions Criticality Noted Date Comments Erythromycin Rash High 12/07/2008 Other reaction(s): RASH Exenatide Microspheres Other (see comments) 06/2018 Swelling at injection sites Morphine Other (see comments) High 12/07/2008 Other reaction(s): ARRYTHMIA Medications * This document contains information received from the source organization and may not represent a complete record from that organization. aspirin [address] tablet Take by mouth. Active blood sugar diagnostic strips Top match [facility] [employer] Ena monitor. E11.65 IDDM type II, uncontrolled - Test 4 times/day. Reason: High A1C Active gabapentin (NEURONTIN) 600 mg tablet Take 1,200 mg by mouth 3 (three) times a day. 1 Active omega-3 fatty acids 500 mg capsule Take by mouth. Active walker misc Rolling Walker for home use. Active tiZANidine (ZANAFLEX) 2 mg tablet TAKE [...] PAIN MAX- OF 4 TABLET EVERY DAY 021 Active venlafaxine XR (EFFEXOR-XR) 150 mg 24 hr capsule Take 1 capsule (150 mg total) by mouth daily. Take with food. 90 capsule 3 023 Active venlafaxine XR (EFFEXOR-XR) 75 mg 24 hr capsule Take 1 capsule (75 mg total) by mouth daily. Take with food. 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 Dx: type 2 diabetes. A1c on 07/30/23 11.2 -. 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 patient uses insulin 4 times a day. most recent a1c 11.2 on 07/30/23 100 strip 11 023 Active lisinopriL (PRINIVIL,ZESTRIL) 30 mg tabletIndications: Hypertension [...] Recurrent S evere Without Psychotic Features 05/04/2019 Immunizations Name Administration Dates Next Due Influenza, Unspecified 05/18/2009 PPSV23 08/13/2018 Td (Adult), adsorbed 12/12/2020 Tdap 08/10/2015 influenza vaccine quad (FLUZONE/FLUARIX) (6 months and older)(PF) 06/15/2019,08/13/2018,05/20/2017,2015,08/10/2015 Social History Tobacco Use Types Packs/Day Years [...] How often do you attend chur or muslim services? Never 03/24/2021 Do you belong to any clubs o r organizations such as latter day groups, unions, fraternal or athletic groups, or [...] Answer Date Recorded PHQ-2 Score 4 12/13/2023 [facility] of Occupat ional Health - [...] your living situation today? I have a [facility] place to live 07/26/2023 Education Answer Date Recorded What is the highest level of school you have completed or the highest degree you have received? Associate degree: occupational, technical, or vocational program 06/15/2019 Comments No Sex and Gender Information Value Date Recorded Sex Assigned at Female 09/28/2021 12:51 PM UPHOLSTERER LIMOUSINE AND HEARSE Legal Sex Female 5:00 AM UPHOLSTERER LIMOUSINE AND HEARSE Gender Identity Female 09/28/2021 12:51 PM UPHOLSTERER LIMOUSINE AND HEARSE Sexual Orientation Straight 09/28/2021 12 :51 PM UPHOLSTERER LIMOUSINE AND HEARSE Last Filed Vital Signs Vital Sign Reading Time Taken Comments Blood Pressure 121/74 12/13/2023 3:38 PM CDT Pulse 67 12/13/2023 3:38 PM CDT Temperature 36.1 ??C (97 ??F) 2023 1:55 PM CDT Respiratory Rate 20 07/26/2023 11:3 0 AM UPHOLSTERER LIMOUSINE AND HEARSE Oxygen Saturation 98% 09/27/2022 9:08 AM UPHOLSTERER LIMOUSINE AND HEARSE Inhaled Oxygen Concentration - - Weight 90.6 kg (199 lb 11.8 oz) 2023 1:55 PM CDT Height 167 cm (5' 5.75) 2023 1:55 PM CDT Body Mass Index 32.49 2023 1:55 PM CDT Plan of Treatment Not on file Medical Devices Implanted Type Area Manager Battery Device Identifier Shelf Expiration Date Model / [...] LIPID PANEL, S Routine 09/27/2022 10:26 AM UPHOLSTERER LIMOUSINE AND HEARSE Hyperlipidemia ALBUMIN, RANDOM, U Routine 09/27/2022 10:14 AM UPHOLSTERER LIMOUSINE AND HEARSE Diabetes Mellitus Type 2 Hyperglycemia (HCC) HCV [...] - 5.6 % 2023 3:44 PM CDT OWAT Comment: Hemoglobin A1c values greater than or equal to 6.5 percent are diagnostic for diabetes mellitus. ??Diagnosis should be confirmed by repeat testing. ??In diabetic patients, HbA1c goals should be discussed with healthcare provider. Blood (Blood, Venous) 2023 2:35 PM CDT 2023 3:08 PM CDT us Nidia Knutson APRN, C.N.P., D.N.P. LAB BLOOD AD D-ON Final Result [facility] [address] [place] [id number], [facility] OWAT [facility] [place] [address] [place] [phone] * (ABNORMAL) Basic Metabolic Panel (2023 2:35 [...] D.N.P. LAB BLOOD AD D-ON Final Result [facility] [address] [place] [address], [facility] OWAT [facility] [place] [address] [place] [address] * (ABNORMAL) Lipid Panel (09/27/2022 10:26 AM UPHOLSTERER LIMOUSINE AND HEARSE) Triglycerides 518(H) mg/dL 09/27/2022 10:56 AM UPHOLSTERER LIMOUSINE AND HEARSE OWAT Comment: ----REFERENCE VALUE---- Normal: <150 mg/dL Borderline High: 150-199 mg/dL High: 200-499 mg/dL Very High: > or =500 mg/dL Cholesterol, Total 285(H) mg/dL 2022 10:56 AM UPHOLSTERER LIMOUSINE AND HEARSE [facility] Comment: ----REFERENCE VALUE---- Desirable: < 200 mg/dL Borderline High: 200 - 239 mg/dL High: > or = 240 mg/dL Cholesterol, LDL, Calculated 145(H) mg/dL 09/27/2022 10:56 AM UPHOLSTERER LIMOUSINE AND HEARSE [facility] Comment: ----REFERENCE VALUE---- Desirable: <100 mg/dL Above Desirable: 100-129 mg/dL Borderline High: 130-159 mg/dL High: 160-189 mg/dL Very High: >=190 mg/dL ----ADDITIONAL INFORMATION---- LDL cholesterol calculated using the Clark/NIH equation. Cholesterol, HDL 42(L) >=50 mg/dL 09/27/19 10:56 AM UPHOLSTERER LIMOUSINE AND HEARSE OWAT Cholesterol, Non-HDL, Calculated 243(H) mg/dL 09/27/2022 10:56 AM UPHOLSTERER LIMOUSINE AND HEARSE [facility] Comment: ----REFERENCE VALUE---- Desirable: <130 mg/dL Above Desirable: 130-159 mg/dL Borderline High: 160-189 mg/dL High: 190-219 mg/dL Very High: > or =220 mg/dL Fasting (8 HR or more) No 09/27/2022 10:32 AM UPHOLSTERER LIMOUSINE AND HEARSE OWAT Blood (Blood, Peripheral Draw) 09/27/2022 10:26 AM UPHOLSTERER LIMOUSINE AND HEARSE 09/27/2022 10:32 AM UPHOLSTERER LIMOUSINE AND HEARSE us Ninfa Jimenez APRN, C.N.P., D.N.P., M.S.N. LAB B LOOD ADD-ON Final Result [facility] [address] [place] [id number], [facility] OWAT [facility] [place] [address] [place] [phone] * (ABNORMAL) Albumin, Random, Urine (09/27/2022 10:14 AM UPHOLSTERER LIMOUSINE AND HEARSE) Microalbumin <12.0 mg/L 09/27/2022 11:10 AM UPHOLSTERER LIMOUSINE AND HEARSE [facility] Comment:If clinically indica jonathon, contact the lab for additional testing. Creatinine 43 mg/dL 09/27/2022 11:10 AM UPHOLSTERER LIMOUSINE AND HEARSE OW[facility] Albumin/Creatinine Ratio <28(H) <25 mg/g 09/27/2022 11:10 AM UPHOLSTERER LIMOUSINE AND HEARSE [facility] Comment: This ratio may not correspond with the reference range because one or both of the values used to calculate the ratio was above or below the quantification limits. Urine (Urine, Midstream) 09/27/2022 10:14 AM UPHOLSTERER LIMOUSINE AND HEARSE 09/27/2022 10:38 AM UPHOLSTERER LIMOUSINE AND HEARSE Ninfa Jimenez APRN, Joseph.N.P., Annabelle.N.P., M.S.N. LAB U RINE ORDERABLES Final Result [facility] [address] [place] [address], [place] [facility] [place] [address] [place] [address] * HCV Ab Scrn w/Reflex to HCV PCR, Serum (01/16/2022 9:36 AM CDT) HCV Ab Screen, S Negative Negative 01/17/2022 8:59 AM CDT [facility] Comment:Klywrr-rw-kmyhob rat io is <1.00. Blood (Blood, Venous) 01/16/2022 9:36 AM CDT 01/17/2022 6:47 AM CDT Ninfa Jimenez APRN, Joseph.N.P., Annabelle.N.P., M.S.N. LAB MICROBIOLOGY - BLOOD ORDERABLES Final Result Performing Organization Address City/[facility]/ZIP Co de Phone Number [facility] [address] [place] [address] [facility] Dept. of Laboratory Medicine and Pathology [address] [place] [address] * BI Breast Screening Bilateral with Tomosynthesis [...] ASSESSMENT: BI-RADS: 1: Negative. Ninfa Jimenez APRN, Joseph.N.P., D.N.P., M.S.N. IMG B I PROCEDURES Final Result from Last 3 Months or Most Recently Relevant to Health Maintenance Insurance MEDICARE Care Teams Rn Medical Inpatient Services Relationship Specialty Start Date End Date Nidia Knutson APRN, C.N.P., D.N.P. [address] [phone] PCP - General 08/08/23
--- OUTSIDE RECORDS SUMMARY | 2024-06-16 23:17 | XMS_ITS | Encounter Summary ---
Author Organization [facility] Address [address] [place] [address] Care Team Providers Care Industrial Automation Engineer Name Role Phone Nidia Knutson APRN, C.N.P., D.N.P. Primary Car e Provider Reason for Visit * Reason Comments Med Refill Encounter Details Date Type Department Care Team (Late st Contact Info) Description 06/02/2024 Refill Department of Internal Medicine in [place], [place] [address] [phone] Nidia Knutson APRN, C.N.P., D.N.P. [address] [phone] Med Refill Social History Tobacco [...] How often do you attend chur or mandaen services? Never 03/24/2021 Do you belong to any clubs o r organizations such as confucianist groups, unions, fraternal or athletic groups, or [...] Answer Date Recorded PHQ-2 Score 4 12/13/2023 [facility] of Occupat ional Health - Occupational Stress [...] living situation today? I have a [facility] place to live 07/26/2023 Education Answer Date Recorded What is the highest level of school you have completed or the highest degree you have received? Associate degree: occupational, technical, or vocational program 06/15/2019 Comments No Sex and Gender Information Value Date Recorded Sex Assigned at Female 09/28/2021 12:51 PM CENTER DIRECTOR LEAD TEACHER Legal Sex Female 5:00 AM CENTER DIRECTOR LEAD TEACHER Gender Identity Female 09/28/2021 12:51 PM CENTER DIRECTOR LEAD TEACHER Sexual Orientation Straight 09/28/2021 12 :51 PM CENTER DIRECTOR LEAD TEACHER documented as of this encounter Plan of Treatment Not on file documented as of this encounter Visit Diagnoses Diagnosis Hypertension Essential Primary documented in this encounter Additional Health Concerns Assessment Noted Time PHQ-9 Depression Total Score: 16 024 11:49 AM CDT documented as of this encounter Care Teams Industrial Automation Engineer Relationship Specialty Start Date End Date Nidia Knutson APRN, C.N.P., D.N.P. [address] [place] [phone] PCP - General 08/08/23 documented as of this encounter
--- OUTSIDE RECORDS SUMMARY | 2024-06-16 23:18 | XMS_ITS | Continuity of Care Document ---
Author Organization [facility] Address [address] [facility] [place] [address] Care Team Providers Care Casino Games Dealer Name Role Phone Shailesh Mcdonald CRNA Unavailable [...] Diagnoses Date Provider Providers Copied on Encounter [facility], [address] [place], [place], [id number], [facility] No Information Harry Cash. [address] [place], [place], [id number], . tel:[phone] Referring Provider: Leticia Bowen, [address] [facility] [place], [address] . tel:[phone] [facility], [address] [place], [place], [id number], [facility] [place] No Information Michael Castano. [address] [facility], [place], [place], [id number], . tel:[phone] Referring Provider: Leticia Bowen, [address] [facility] [place] [place], [address] . tel:[phone] [facility], [address] [place] [place], [id number], [facility] [place] No Information Joi Marcial. [address], [place], [place], [id number], . tel:[phone] Referring Provider: Leticia Bowen, [address] [facility] [place], [address] . tel:[phone] [facility], [address] [place], [place], [id number], [facility] [place] No Information Michael Eyad. [address], [facility] [place], [place], [place], [id number], . tel:[phone] Referring Provider: Leticia Bowen, [address] [facility] [place], [address] . tel:[phone] [facility], [address] [place], [id number], [facility] [place] No Information Michael Castano. [address], [facility], [place], [place], [id number], . tel:[phone] Referring Provider: Leticia Bowen, [address] [facility] [place], [address] . tel:[phone] Family History Family Member Type Diagnosis Age At Onset No Information Payers Payer name Insurance type Covered constitution party ID Ferdinand melendrez(s) Medicare MB [id number] Social History Type Description Quantity Date Captured [...]
--- OUTSIDE RECORDS SUMMARY | 2024-06-16 23:18 | XMS_ITS | Continuity of Care Document ---
Author Organization [facility] Address [address] [place] [address] Phone Care Team Providers Care Building Manager Name Role Phone Rachelle Wilcox MD Unavailable Unavailable Allergies, Adverse Reactions, Alerts Substance Reaction Status Criticality morphine Rash Active No Information erythromycin base Rash Active No Informa tion Medications Medication Instructions Dosage Effective Dates (start - stop) Status Comments NEURONTIN (unknown strength) Not Available - Active METFORMIN HCL (unknown strength) Not Available - Active FISH OIL (unknown strength) Not Available - Active ASPIRIN (unknown strength) Not Available - Active GLIPIZIDE (unknown strength) Not Available - Active PRAVASTATIN SODIUM (unknown strength) Not Available - Active DICLOFENAC SODIUM ER (unknown strength) Not Available - Active CYCLOBENZAPRINE HCL (unknown strength) Not Available - Active OXYCODONE HCL (unknown strength) Not Available - Active VITAMIN D3 (unknown strength) Not Available - Active Procedures Procedure Date Office/Outpatient Visit,[facility] 2014 X-Ray Exam Of Lower Spine, Bending Advance Directives Directive Yes / No Effective Date File Name No Information Encounters Encounter Description Practice Location Reason(s) For Visit Diagnoses Date Provider Providers Copied on Encounter [facility], [address], [place], [id number] , [place] tel: [phone] No Information 5 Jeri Moralez [facility], [address] [place] [address] [address], [place], [id number] , [place]. tel: [phone] Office/Outpa tient Visit,[facility], [address], [place], [id number] , [place] tel: [phone] [facility] n, UnspecifiedLumbagoDis placement of lumbar intervertebral disc without myelopathyDegeneratio n of lumbar or lumbosacral intervertebral disc 3201 5 Jeri Moralez [facility], [address], [facility] [place], [id number] , [place]. tel: [phone] Family History Family Member Type Diagnosis Age At Onset Problem (finding) Payers Payer name Insurance type Covered constitution party ID Authorbarba titami(s) [facility] [id number] [facility] [id number] Social History Type Description Quantity Date Captured [...]
--- OUTSIDE RECORDS SUMMARY | 2024-06-16 23:18 | XMS_ITS | Continuity of Care Document ---
Author Organization [facility] Address [address] [place] [address] Phone Care Team Providers Care Instrument Repair Specialist Name Role Phone Oliva TREVINO, MARICRUZ, Jh [...] Providers Copied on Encounter [facility], [address], [place], [place], [address], [place] tel:[phone] [facility] No Information 8 Oliva Peñaloza. [address], [address], [place], [place], [address], [place]. tel:[phone] Referring Provider: Lizabeth MCMILLAN, [address] [place], [address]. tel:[phone] New Pt Eval 45 Min Mohamud [facility], [address], [place], [place], [address], [place] tel:[phone] [facility] back pain (chief complaint) Postlaminectomy syndromeInterverte bral disc disorders w radiculopathy, lumbar regionOther specified dorsopathies, lumbar regionLong term (current) use of opiate analgesicObesity 7 Rashi Bassett. [address], [place], [place], [address], [place]. tel:[phone] Referring Provider: Lizabeth MCMILLAN, [address] [place], [address]. tel:[phone] Family History Family Member Type Diagnosis Age At Onset Brother Problem (finding) drug dependency Father Problem (finding) Cancer Father Problem (finding) neuropathy Mother Problem (finding) Cancer Sister Problem (finding) drug dependency Father Problem (finding) coronary arterioscleros is Payers Payer name Insurance type Covered republican ID Authoriza tion(s) No Information Social History [...]
--- OUTSIDE RECORDS SUMMARY | 2024-06-16 23:18 | XMS_ITS | Continuity of Care Document ---
Author Organization [facility] Address [address] [place] [address] Phone Care Team Providers Care Oracle Etl Developer Name Role Phone Alma Rosa Cochran MD [...] [facility], [address], [place], [address], [place] tel:[phone] [facility], Joint Pain (chief complaint) Numbness and tingling of the handsPruritus Polyarthralgi a [address], [address], [place], [address], [place]. tel:[phone] Referring Provider: Alma Rosa Cochran, [address], [place], [address]. tel:[phone] [facility], [address], [place], [address], [place] tel:[phone] [facility], No Information [address], [place], [address], [place]. tel:[phone] Family History Family Member Type Diagnosis Age At Onset No Information Immunizations Vaccine Date Status Comments COVID-19 Pfizer administered Source: [place] Provider Payers Payer name Insurance type Covered constitution party ID Authoriza tion(s) Medicare [id number] Medical Assistance [id number] Social History Type Description Quantity Date Captured [...]
--- OUTSIDE RECORDS SUMMARY | 2024-06-16 23:18 | XMS_ITS | Continuity of Care Document ---
Author Organization [facility] Address [address] [facility] [place] [address] Care Team Providers Care Video Effects Editor Name Role Phone [facility] Unavailable Unav ailable Procedures Procedure Date RF [...] Diagnoses Date Provider Providers Copied on Encounter [facility], [address] [place] [address], [id number], [facility] No Information [facility]. [address] [place] [address], [id number], [place]. tel:[phone] Referring Provider: Leticia Bowen, [address] [place] [address], [address]. tel:[phone] [place] [address], [address] [place] [address], [id number], [facility] No Information [facility]. [address] [place] [address], [id number], [place]. tel:[phone] Referring Provider: Leticia Bowen, [address] [place] [address], [address]. tel:[phone] [place] [address], [address] [place] [address], [id number], [facility] No Information [facility]. [address] [place] [address], [id number], [place]. tel:[phone] Referring Provider: Leticia Bowen, [address] [place] [address], [address]. tel:[phone] [place] [address], [address] [place] [address], [id number], [facility] No Information [facility]. [address] [facility] [place], [place], [id number], . tel:[phone] Referring Provider: Leticia Bowen, [address] [place], [address]. tel:[phone] [facility], [address] [place], [place], [id number], [place] [facility] [place] No Information [facility]. [address] [facility] [place], [place], [address], [place]. tel:[phone] Referring Provider: Leticia Bowen, [address] [place], [address]. tel:[phone] Family History Family Member Type Diagnosis Age At Onset No Information Payers Payer name Insurance type Covered democrat ID Ferdinand melendrez(s) Medicare MB [id number] Social History Type Description Quantity Date Captured [...]
--- OUTSIDE RECORDS SUMMARY | 2024-06-16 23:19 | XMS_ITS | Continuity of Care Document ---
Author Organization [facility] Address [address] [address] Phone Care Team Providers Care Hr Assistant Name Role Phone Chante Tang CNP Unavailable [...] VISIT, EST TELEMEDICINE ROUTINE BLOOD DRAW Drug Urine Toxology With Chromatography Drug test def 8-14 classes Foll-up eval q3mo opiod tx PT-FOCUSED HLTH [...] Chromatography OFFICE/OUTPATIENT VISIT, EST OFFICE/OUTPATIENT VISIT, EST [facility] OFFICE/OUTPATIENT VISIT, EST OFFICE/OUTPATIENT VISIT, EST OFFICE/OUTPATIENT [...] Copied on Encounter OFFICE VISIT, EST TELEMEDICINE [facility], [address], [place], [id number] , [place] tel:[phone] [facility] [place] Widespread pain (chief complaint) Chronic pain syndromePostl aminectomy syndrome, not elsewhere classifiedOth er spondylosis, thoracic regionOther spondylosis, lumbar regionPain in left kneeDepressio nOther muscle spasmLong term (current) use of opiate analgesicBody mass index [BMI] 32.0-32.9, adult May 4 Harjeet Sharif. [address] [place] [address], [id number], [place]. tel:[phone] QRC: Cheyenne Chowdhury [employer] on [employer] [address], [place], [address]. tel:[phone] [facility], [address] [place] [address], [id number] , [place] tel:[phone] [facility] [place] lumbago (chief complaint) Postlaminecto my syndrome, not elsewhere classifiedRad iculopathy, lumbar region 4 Oscar Estrada. [address] [place] [address], [id number], [place]. tel:[phone] Psych Dx Eval [facility], [address] [place] [address], [id number] , [place] tel:[phone] Telehealth Pain disorder with related psychological factorsMajor depressive disorder, recurrent, moderate 4 Goldie Joaquin. [address] [place] [address], [id number], [place]. tel:[phone] OFFICE/OUTPAT IENT VISIT, EST [facility], [address] [place] [address], [id number] , [place] tel:[phone] [facility] [place] Back Pain (chief complaint) Chronic pain syndromePostl aminectomy syndrome, not elsewhere classifiedOth er spondylosis, thoracic regionOther spondylosis, lumbar regionPain in left kneeDepressio nOther muscle spasmLong term (current) use of opiate analgesicEnco unter for therapeutic drug level monitoringBod y mass index [BMI] 32.0-32.9, adult Sep-2 4 Harjeet Sharif. [address] [place] [address], [id number], [place]. tel:[phone] QRC: Cheyenne Chowdhury Rehabilvanita on [employer] [address], [place], [address]. tel:[phone] ng Provider: Alexis Pulliam, [address] [place] [address], [id number]. tel:[phone] OFFICE VISIT, [facility] TELEMEDICINE [facility], [address] [place] [address], [id number] , [place] tel:[phone] [facility] Back Pain (chief complaint) Chronic pain syndromePostl aminectomy syndrome, not elsewhere classifiedOth er spondylosis, thoracic regionOther spondylosis, lumbar regionPain in left kneeDepressio nOther muscle spasmLong term (current) use of opiate analgesic Mar- 4 Van Overbeke Chante. [address] [place], [place], [id number], [place]. tel:[phone] QRC: Cheyenne Chowdhury [employer] [address], [place], [address]. tel:[phone] OFFICE VISIT, [facility], [address] [place] [address], [id number] , [place] tel:[phone] [facility] Back Pain (chief complaint) Chronic pain syndromePostl aminectomy syndrome, not elsewhere classifiedOth er spondylosis, thoracic regionOther spondylosis, lumbar regionDepress ionPain in left kneeLong term (current) use of opiate analgesicOthe r muscle spasm Feb- 4 Van Overbeke Chante. [address] [place], [place], [id number], [place]. tel:[phone] QRC: Cheyenne Chowdhury [employer] [address], [place], [address]. tel:[phone] ng Provider: Alexis Pulliam, [address] [place] [address], [id number]. tel:[phone] OFFICE/OUTPAT IENT VISIT, [facility], [address] [place] [address], [id number] , [place] tel:[phone] [facility] Back Pain (chief complaint) Chronic pain syndromePostl aminectomy syndrome, not elsewhere classifiedOth er spondylosis, thoracic regionOther spondylosis, lumbar regionDepress ionPain in left kneeLong term (current) use of opiate analgesicEnco unter for therapeutic drug level monitoring Feb-0 4 Harjeet Sharif. [address] [place] [address], [id number], [place]. tel:[phone] QRC: Cheyenne Chowdhury on [employer], [employer] [address], [place], [address]. tel:[phone] ng Provider: Alexis Pulliam, [address] [place] [address], [id number]. tel:[phone] OFFICE VISIT, EST TELEMEDICINE [facility], [address] [place] [address], [id number] , [place] tel:[phone] [facility] Back Pain (chief complaint) Chronic pain syndromePostl aminectomy syndrome, not elsewhere classifiedOth er spondylosis, thoracic regionOther spondylosis, lumbar regionPain in left kneeDepressio nLong term (current) use of opiate analgesic Martin-0 4 Harjeet Sharif. [address] [place], [place], [id number], [place]. tel:[phone] QRC: Cheyenne Chowdhury on [employer], [employer] [address], [place], [address]. tel:[phone] OFFICE VISIT, EST TELEMEDICINE [facility], [address] [place] [address], [id number] , [place] tel:[phone] [facility] Back Pain (chief complaint) DepressionChr onic pain syndromePain in left kneeOther spondylosis, thoracic regionOther spondylosis, lumbar regionPostlam inectomy syndrome, not elsewhere classifiedLon g term (current) use of opiate analgesic December-0 4 Harjeet Haskinsbemoo Sharif. [address] [place] [address], [id number], [place]. tel:[phone] QRC: Cheyenne Chowdhury on [employer], [employer] [address], [place], [address]. tel:[phone] ng Provider: Alexis Pulliam, [address] [place] [address], [address]. tel:[phone] [facility], [address] [place] [address], [id number] , [place] tel:[phone] [facility] Other spondylosis, thoracic region Nov- 4 Jessi Kelly. [address] [place] [address], [id number], [place]. tel:[phone] Referring Provider: Alexis Pulliam, [address] [place] [address], [id number]. tel:[phone] [facility], [address] [place] [address], [id number] , [place] tel:[phone] [facility] No Information 4 Jamil Pacheco. [address], [place], [place], [id number], [place]. tel:[phone] OFFICE/OUTPAT IENT VISIT, EST [facility], [address] [place] [address], [id number] , [place] tel:[phone] [facility] [place] Back pain (chief complaint) DepressionChr onic pain syndromeOther spondylosis, thoracic regionOther spondylosis, lumbar regionPostlam inectomy syndrome, not elsewhere classifiedLon g term (current) use of opiate analgesicPain in left kneeEncounter for therapeutic drug level monitoring 4 Harjeet Sharif. [address] [place] [address], [id number], [place]. tel:[phone] QRC: Cheyenne Chowdhury [facility], [facility] [address], [place], [address]. tel:[phone] Provider: Alexis Pulliam, [address] [place] [address], [id number]. tel:[phone] OFFICE VISIT, EST TELEMEDICINE [facility], [address] [place] [address], [id number] , [place] tel:[phone] [facility] Back Pain (chief complaint) Chronic pain syndromeDepre ssionOther spondylosis, thoracic regionOther spondylosis, lumbar regionPostlam inectomy syndrome, not elsewhere classifiedLon g term (current) use of opiate analgesic 4 Harjeet Sharif. [address] [place] [address], [id number], [place]. tel:[phone] QRC: Cheyenne Chowdhury on [employer], [facility] [address], [place], [address]. tel:[phone] Provider: Alexis Pulliam, [address] [place] [address], [id number]. tel:[phone] OFFICE VISIT, EST TELEMEDICINE [facility], [address] [place] [address], [id number] , [place] [phone] [facility] Back Pain (chief complaint) Chronic pain syndromeOther spondylosis, thoracic regionOther spondylosis, lumbar regionPostlam inectomy syndrome, not elsewhere classifiedDep ressionLong term (current) use of opiate analgesic 4 Harjeet Sharif. [address] [place] [address], [id number], [place]. tel:[phone] QRC: Cheyenne Chowdhury on [employer], [employer] [address], [place], [address]. tel:[phone] OFFICE/OUTPAT IENT VISIT, EST [facility], [address] [place] [address], [id number] , [place] [phone] [facility] [place] Back Pain (chief complaint) DepressionChr onic pain syndromeOther spondylosis, thoracic regionOther spondylosis, lumbar regionPostlam inectomy syndrome, not elsewhere classifiedLon g term (current) use of opiate analgesicEnco unter for therapeutic drug level monitoring 4 Harjeet Sharif. [address] [place] [address], [id number], [place]. tel:[phone] QRC: Cheyenne Chowdhury [employer], [facility] [address], [place], [address]. tel:[phone] ng Provider: Alexis Pulliam, [address] [place] [address], [id number]. tel:[phone] OFFICE VISIT, [facility], [address] [place] [address], [id number] , [place] tel:[phone] [facility] Back Pain (chief complaint) Chronic pain syndromeOther spondylosis, thoracic regionOther spondylosis, lumbar regionPostlam inectomy syndrome, not elsewhere classifiedDep ressionLong term (current) use of opiate analgesic Dec-0 3 Van Overbeke Chante. [address] [place] [address], [id number], [place]. tel:[phone] QRC: Cheyenne Chowdhury Rehabilnicolti on [employer], [facility] [address] [place] [address], [address]. tel:[phone] ng Provider: Alexis Pulliam, [address] [place] [address], [address]. tel:[phone] OFFICE VISIT, [facility], [address] [place] [address], [id number] , [place] tel:[phone] [facility] Back Pain (chief complaint) Chronic pain syndromeOther spondylosis, thoracic regionOther spondylosis, lumbar regionPostlam inectomy syndrome, not elsewhere classifiedDep ressionLong term (current) use of opiate analgesic Nov-0 3 Harjeet Overbeke Chante. [address], [place], [id number], [place]. tel:[phone] QRC: Cheyenne Chowdhury Rehabilvanita [employer], [facility] [address], [place], [address]. tel:[phone] ng Provider: Alexis Pulliam, [address] [place] [address], [address]. tel:[phone] OFFICE/OUTPAT IENT VISIT, [facility], [address] [place] [address], [id number] , [place] tel:[phone] [facility] Back Pain (chief complaint) Chronic pain syndromeOther spondylosis, thoracic regionOther spondylosis, lumbar regionPostlam inectomy syndrome, not elsewhere classifiedDep ressionLong term (current) use of opiate analgesicEnco unter for therapeutic drug level monitoring 3 Harjeet Sharif. [address] [place] [address], [id number], [place]. tel:[phone] QRC: Cheyenne Chowdhury [employer] [address], [place], [address]. tel:[phone] Provider: Alexis Pulliam, [address] [place] [address], [address]. tel:[phone] [place] [address] [facility], [address] [place] [address], [id number] , [place] tel:[phone] [facility] No Information 3 Harjeet Sharif. [address] [place] [address], [id number], [place]. tel:[phone] Referring Provider: Alexis Pulliam, [address] [place] [address], [address]. tel:[phone] OFFICE VISIT, EST TELEMEDICINE [facility], [address] [place] [address], [id number] , [place] tel:[phone] [facility] Back pain (chief complaint) DepressionChr onic pain syndromeOther spondylosis, thoracic regionOther spondylosis, lumbar regionPostlam inectomy syndrome, not elsewhere classifiedLon g term (current) use of opiate analgesic 3 Ines Duke. [address] [place] [address], [id number], [place]. tel:[phone] QRC: Cheyenne Chowdhury [employer] [address], [place], [address]. tel:[phone] ng Provider: Alexis Pulliam, [address] [place] [address], [address]. tel:[phone] OFFICE VISIT, EST TELEMEDICINE [facility], [address] [place] [address], [id number] , [place] tel:[phone] [facility] Back Pain (chief complaint) Chronic pain syndromeOther spondylosis, thoracic regionOther spondylosis, lumbar regionPostlam inectomy syndrome, not elsewhere classifiedDep ressionLong term (current) use of opiate analgesic 3 Harjeet Sharif. [address] [place] [address], [id number], [place]. tel:[phone] C: Cheyenne Chowdhury [facility] on [employer], [facility] [address] [place] [address] [address], [place], [address]. tel:[phone] Provider: Alexis Pulliam, [address] [place] [address], [address]. tel:[phone] [facility], [address] [place] [address], [id number] , [place] tel:[phone] [facility] [place] No Information 3 Bebo Bassett. [address] [place] [address], [id number], [place]. tel:[phone] Referring Provider: Alexis Pulliam, [address] [place] [address], [address]. tel:[phone] OFFICE/OUTPAT IENT VISIT, EST [facility], [address] [place] [address], [id number] , [place] tel:[phone] [facility] Back pain (chief complaint) Other spondylosis, thoracic regionOther spondylosis, lumbar regionPostlam inectomy syndrome, not elsewhere classifiedLon g term (current) use of opiate analgesicEnco unter for therapeutic drug level monitoringDep ressionChroni c pain syndrome 3 Bebo Bassett. [address] [place] [address], [id number], [place]. tel:[phone] QRC: Cheyenne Chowdhury [employer] on [employer], [employer] [address], [place], [address]. tel:[phone] ng Provider: Alexis Pulliam, [address] [place] [address], [address]. tel:[phone] OFFICE VISIT, [facility] TELEMEDICINE [facility], [address] [place] [address], [id number] , [place] tel:[phone] [facility] back pain (chief complaint) Other spondylosis, thoracic regionOther spondylosis, lumbar regionPostlam inectomy syndrome, not elsewhere classifiedLon g term (current) use of opiate analgesic 3 Van Overbeke Chante. [address] [place] [address], [id number], [place]. tel:[phone] QRC: Cheyenne Chowdhury Rehabilitaesther on [employer], [facility] [address], [place], [address]. tel:[phone] kiran Provider: Alexis Pulliam, [address] [place] [address], [address]. tel:[phone] OFFICE VISIT, [facility], [address] [place] [address], [id number] , [place] tel:[phone] [facility] Back pain (chief complaint) Other spondylosis, thoracic regionOther spondylosis, lumbar regionPostlam inectomy syndrome, not elsewhere classifiedLon g term (current) use of opiate analgesic 3 Van Overbeke Chante. [address] [place] [address], [id number], [place]. tel:[phone] QRC: Cheyenne Chowdhury Rehabil[employer]ita [employer], [employer] [address] [place] [address], [address]. tel:[phone] OFFICE/OUTPAT IENT VISIT, [facility], [address] [place] [address], [id number] , [place] [phone] [facility] [place] back pain (chief complaint) Other spondylosis, thoracic regionOther spondylosis, lumbar regionPostlam inectomy syndrome, not elsewhere classifiedLon g term (current) use of opiate analgesicEnco unter for therapeutic drug level monitoring 3 Harjeet Sharif. [address] [place] [address], [id number], [place]. tel:[phone] QRC: Cheyenne Chowdhury [employer], [employer] [address], [place], [address]. tel:[phone] [facility], [address] [place] [address], [id number] , [place] tel:[phone] [facility] No Information 3 Harjeet Sharif. [address] [place] [address], [id number], [place]. tel:[phone] Referring Provider: Alexis Pulliam, [address] [place] [address], [address]. tel:[phone] OFFICE VISIT, EST TELEMEDICINE [facility], [address] [place] [address], [id number] , [place] tel:[phone] [facility] Back Pain (chief complaint) Other spondylosis, thoracic regionOther spondylosis, lumbar regionPostlam inectomy syndrome, not elsewhere classifiedLon g term (current) use of opiate analgesic Sep- 3 Harjeet Sharif. [address] [place] [address], [id number], [place]. tel:[phone] QRC: Cheyenne Chowdhury [employer] [address] [employer], [place], [address]. tel:[phone] OFFICE VISIT, EST TELEMEDICINE [facility], [address] [place] [address], [id number] , [place] tel:[phone] [facility] Back Pain (chief complaint) Other spondylosis, thoracic regionOther spondylosis, lumbar regionSpinal stenosis, cervical regionPostlam inectomy syndrome, not elsewhere classifiedLon g term (current) use of opiate analgesic 3 Harjeet Sharif. [address] [place] [address], [id number], [place]. tel:[phone] QRC: Cheyenne Chowdhury [employer] [address], [place], [address]. tel:[phone] OFFICE/OUTPAT IENT VISIT, [facility], [address] [place] [address], [id number] , tel:[phone] [facility] Back Pain (chief complaint) Other spondylosis, thoracic regionOther spondylosis, lumbar regionSpinal stenosis, cervical regionPostlam inectomy syndrome, not elsewhere classifiedLon g term (current) use of opiate analgesicEnco unter for therapeutic drug level monitoringEnc ounter for screening for other disorder 2 Paul Quinonez. [address] [place] [address], [id number], [place]. tel:[phone] QRC: Cheyenne Chowdhury [employer] [address] [place] [address], [address]. tel:[phone] ng Provider: Alexis Pulliam, [address] [place] [address], [address]. tel:[phone] OFFICE VISIT, [facility], [address] [place] [address], [id number] , tel:[phone] [facility] Back pain (chief complaint) Other spondylosis, thoracic regionOther spondylosis, lumbar regionSpinal stenosis, cervical regionPostlam inectomy syndrome, not elsewhere classifiedLon g term (current) use of opiate analgesic 2 Harjeet Sharif. [address] [place] [address], [id number], [place]. tel:[phone] QRC: Cheyenne Chowdhury [employer], [employer] [address], [place], [address]. tel:[phone] ng Provider: Alexis Pulliam, [address] [place] [address], [address]. tel:[phone] OFFICE VISIT, [facility] TELEMEDICINE [facility], [address] [place] [address], [id number] , tel:[phone] [facility] Back pain (chief complaint) Postlaminecto my syndrome, not elsewhere classifiedOth er spondylosis, lumbar regionSpinal stenosis, cervical regionLong term (current) use of opiate analgesicOthe r spondylosis, thoracic region May- 2 Harjeet Dave Chante. [address] [place] [address], [id number], [place]. tel:[phone] QRC: Cheyenne Chowdhury [employer] [address], [place], [place], [facility]. tel:[phone] OFFICE VISIT, [facility], [address] [place] [address], [id number] , tel:[phone] [facility] Back pain (chief complaint) Other spondylosis, lumbar regionSpinal stenosis, cervical regionPostlam inectomy syndrome, not elsewhere classifiedLon g term (current) use of opiate analgesic Apr- 2 Harjeet Sharif. [address] [place] [address], [id number], . tel:[phone] QRC: Cheyenne Chowdhury [employer] [address], [place], [place], [facility]. tel:[phone] ng Provider: Alexis Pulliam, [address] [place] [address], [address]. tel:[phone] OFFICE/OUTPAT IENT VISIT, [facility], [address] [place] [address], [id number] , tel:[phone] [facility] Back pain (chief complaint) Spinal stenosis, cervical regionPostlam inectomy syndrome, not elsewhere classifiedLon g term (current) use of opiate analgesicOthe r spondylosis, lumbar region Mar- 2 Van Overbeke Chante. [address] [place] [address], [id number], [place]. tel:[phone] QRC: Cheyenne Chowdhury [employer] on [employer], [employer] [address], [place], [address]. tel:[phone] ng Provider: Alexis Pulliam, [address] [place] [address], [address]. tel:[phone] [facility], [address] [place] [address], [id number] , [place] tel:[phone] [facility] [place] No Information 2 Jared Espinoza. [address] [place] [address], [id number], [place]. tel:[phone] OFFICE VISIT, EST TELEMEDICINE [facility], [address] [place] [address], [id number] , [place] tel:[phone] [facility] [place] back pain (chief complaint) Spinal stenosis, cervical regionRadicul opathy, lumbar regionPostlam inectomy syndrome, not elsewhere classifiedLon g term (current) use of opiate analgesic 2 Harjeet Sharif. [address] [place] [address], [id number], [place]. tel:[phone] QRC: Cheyenne Chowdhury [facility] on [employer], [employer] [address], [place], [address]. tel:[phone] [facility], [address] [place] [address], [id number] , [place] tel:[phone] [facility] [place] No Information 2 Harjeet Sharif. [address] [place] [address], [id number], [place]. tel:[phone] Referring Provider: Alexis Pulliam, [address] [place] [address], [id number]. tel:[phone] OFFICE VISIT, EST TELEMEDICINE [facility], [address] [place] [address], [id number] , [place] tel:[phone] [facility] [place] back pain (chief complaint) Spondylosis without myelopathy or radiculopathy , lumbar regionDrug induced constipationS nicolasa stenosis, cervical regionRadicul opathy, lumbar regionPostlam inectomy syndrome, not elsewhere classifiedLon g term (current) use of opiate analgesic 2 Harjeet Sharif. [address] [place] [address], [id number], [place]. tel:[phone] QRC: Cheyenne Chowdhury [employer] [facility] [address], [place], [address]. tel:[phone] OFFICE/OUTPAT IENT VISIT, [facility] Telehealth [facility], [address] [place] [address], [id number] , [place] [phone] [facility] Back Pain (chief complaint) Drug induced constipationS nicolasa stenosis, cervical regionRadicul opathy, lumbar regionPostlam inectomy syndrome, not elsewhere classifiedLon g term (current) use of opiate analgesicSpon dylosis without myelopathy or radiculopathy , lumbar region 2 Rom Bryan. [address] [place] [address], [id number], [place]. tel:[phone] QRC: Cheyenne Chowdhury [employer] [facility] [address], [place], [address]. tel:[phone] Provider: Alexis Pulliam, [address] [place] [address], [id number]. tel:[phone] OFFICE VISIT, EST TELEMEDICINE [facility], [address] [place] [address], [id number] , [place] [phone] [facility] [place] Back Pain (chief complaint) Drug induced constipationO ther spondylosis with myelopathy, thoracic regionOther spondylosis with myelopathy, lumbar regionOther spondylosis, thoracolumbar regionSpinal stenosis, cervical regionRadicul opathy, lumbar regionPostlam inectomy syndrome, not elsewhere classifiedLon g term (current) use of opiate analgesic 2 Harjeet Sharif. [address] [place] [address], [id number], [place]. tel:[phone] QRC: Cheyenne Chowdhury [employer] [address], [place], [address]. tel:[phone] ng Provider: Alexis Pulliam, [address] [place] [address], [id number]. tel:[phone] OFFICE VISIT, EST TELEMEDICINE [facility], [address] [place] [address], [id number] , [place] tel:[phone] [facility] [place] Back Pain (chief complaint) Postlaminecto my syndrome, not elsewhere classifiedDru g induced constipationO ther spondylosis with myelopathy, thoracic regionOther spondylosis with myelopathy, lumbar regionOther spondylosis, thoracolumbar regionSpinal stenosis, cervical regionRadicul opathy, lumbar regionLow back pain, unspecifiedPa in in thoracic spineLong term (current) use of opiate analgesic 2 Win Destinee. [address] [place] [address], [id number], [place]. tel:[phone] QRC: Cheyenne Chowdhury [employer] [address], [place], [address]. tel:[phone] OFFICE VISIT, EST TELEMEDICINE [facility], [address] [place] [address], [id number] , [place] tel:[phone] [facility] [place] Back Pain (chief complaint) Other spondylosis, thoracolumbar regionSpinal stenosis, cervical regionOther spondylosis with myelopathy, lumbar regionPostlam inectomy syndrome, not elsewhere classifiedRad iculopathy, lumbar regionLow back pain, unspecifiedLo ng term (current) use of opiate analgesicPain in thoracic spineDrug induced constipationO ther spondylosis with myelopathy, thoracic region Feb- 2 Harjeet Sharif. [address] [place], [place], [id number], [place]. tel:[phone] QRC: Cheyenne Chowdhury [employer] [facility] [address], [place], [address]. tel:[phone] ng Provider: Alexis Pulliam, [address] [place] [address], [id number]. tel:[phone] OFFICE VISIT, EST TELEMEDICINE [facility], [address] [place] [address], [id number] , [place] tel:[phone] [facility] [place] Back Pain (chief complaint) Other spondylosis, thoracolumbar regionSpinal stenosis, cervical regionOther spondylosis with myelopathy, thoracic regionOther spondylosis with myelopathy, lumbar regionPostlam inectomy syndrome, not elsewhere classifiedRad iculopathy, lumbar regionLow back pain, unspecifiedLo ng term (current) use of opiate analgesicPain in thoracic spineDrug induced constipation 1 Harjeet Sharif. [address] [place] [address], [id number], [place]. tel:[phone] [facility]: Cheyenne Chowdhury [facility] [employer], [employer] [address], [place], [address]. tel:[phone] [facility], [address] [place] [address], [id number] , [place] tel:[phone] [facility] jail (current) use of opiate analgesicEnco unter for therapeutic drug level monitoring 1 Harjeet Sharif. [address] [place] [address], [id number], [place]. tel:[phone] Referring Provider: Alexis Pulliam, [address] [place] [address], [id number]. tel:[phone] OFFICE/OUTPAT IENT VISIT, EST [facility], [address] [place] [address], [id number] , [place] tel:[phone] [facility] Back Pain (chief complaint) Other spondylosis, thoracolumbar regionSpinal stenosis, cervical regionOther spondylosis with myelopathy, thoracic regionOther spondylosis with myelopathy, lumbar regionPostlam inectomy syndrome, not elsewhere classifiedRad iculopathy, lumbar regionLow back pain, unspecifiedLo ng term (current) use of opiate analgesicPain in thoracic spineDrug induced constipationE ncounter for therapeutic drug level monitoringEnc ounter for screening for other disorder 1 Harjeet Sharif. [address] [place] [address], [id number], [place]. tel:[phone] [employer]: Cheyenne Chowdhury [employer] on [employer], [employer] [address], [place], [address]. tel:[phone] ng Provider: Alexis Pulliam, [address] [place] [address], [id number]. tel:[phone] OFFICE VISIT, EST TELEMEDICINE [facility], [address] [place] [address], [id number] , tel:[phone] [facility] Back Pain (chief complaint) Spinal stenosis, cervical regionOther spondylosis with myelopathy, thoracic regionOther spondylosis with myelopathy, lumbar regionPostlam inectomy syndrome, not elsewhere classifiedRad iculopathy, lumbar regionLow back pain, unspecifiedLo ng term (current) use of opiate analgesicPain in thoracic spineOther spondylosis, thoracolumbar region 1 Harjeet Sharif. [address] [place] [address], [id number], [place]. tel:[phone] [facility]: Cheyenne Chowdhury [facility] on [employer], [employer] [address], [place], [address]. tel:[phone] ng Provider: Alexis Pulliam, [address] [place] [address], [address]. tel:[phone] [facility], [address] [place] [address], [id number] , [place] tel:[phone] [facility] [place] Other spondylosis, thoracolumbar region 1 Jessi Kelly. [address] [place] [address], [id number], [place]. tel:[phone] Referring Provider: Alexis Pulliam, [address] [place] [address], [id number]. tel:[phone] OFFICE VISIT, EST TELEMEDICINE [facility], [address] [place] [address], [id number] , [place] tel:[phone] [facility] Back Pain (chief complaint) Other spondylosis, thoracolumbar region Sep-2 1 Harjeet Sharif. [address] [place] [address], [id number], [place]. tel:[phone] C: Bree Leon, [facility] on [employer], [facility] [address], [place], [address]. tel:[phone] [facility], [address] [place] [address], [id number] , [place] tel:[phone] [facility] Other spondylosis, thoracolumbar regionOther cervical disc displacement, cervicothorac ic region Sep-2 1 Harjeet Sharif. [address] [place] [address], [id number], [place]. tel:[phone] [facility], [address] [place] [address], [id number] , [place] tel:[phone] [facility] Other spondylosis, thoracolumbar region Sep-2 1 Jessi Kelly. [address] [place] [address], [id number], [place]. tel:[phone] Referring Provider: Alexis Pulliam, [address] [place] [address], [address]. tel:[phone] OFFICE VISIT, EST TELEMEDICINE [facility], [address] [place] [address], [id number] , [place] tel:[phone] [facility] [place] Back Pain (chief complaint) Spinal stenosis, cervical regionOther spondylosis with myelopathy, thoracic regionOther spondylosis with myelopathy, lumbar regionPostlam inectomy syndrome, not elsewhere classifiedRad iculopathy, lumbar regionLow back painLong term (current) use of opiate analgesicPain in thoracic spineOther spondylosis, thoracolumbar region Sep-0 1 Harjeet Sharif. [address] [place] [address], [id number], [place]. tel:[phone] [facility]: Cheyenne Chowdhury [facility] on [facility], [address], [place], [address]. tel:[phone] ng Provider: Alexis Pulliam, [address] [place] [address], [id number]. tel:[phone] [facility], [address] [place] [address], [id number] , [place] tel:[phone] [facility] [place] Other spondylosis with myelopathy, thoracic region Apr- 1 Bowen Leticia. [address] [place] [address], [id number], [place]. tel:[phone] Referring Provider: Alexis Pulliam, [address] [place] [address], [id number]. tel:[phone] [facility], [address] [place] [address], [id number] , [place] tel:[phone] [facility] [place] Other spondylosis, thoracolumbar region Mar- 1 Jared Espinoza. [address] [place] [address], [id number], [place]. tel:[phone] [facility], [address] [place] [address], [id number] , [place] [phone] [facility] Other spondylosis, thoracolumbar region Mar- 1 Bowen Leticia. [address] [place] [address], [id number], [place]. tel:[phone] Referring Provider: Alexis Pulliam, [address] [place] [address], [id number]. tel:[phone] [facility], [address] [place] [address], [id number] , [place] tel:[phone] [facility] Other spondylosis, thoracolumbar region Mar- 1 Harjeet Sharif. [address] [place] [address], [id number], [place]. tel:[phone] OFFICE/OUTPAT IENT VISIT, [facility], [address] [place] [address], [id number] , [place] tel:[phone] [facility] Back Pain (chief complaint) Spinal stenosis, cervical regionOther spondylosis with myelopathy, thoracic regionOther spondylosis with myelopathy, lumbar regionPostlam inectomy syndrome, not elsewhere classifiedRad iculopathy, lumbar regionLow back painLong term (current) use of opiate analgesicPain in thoracic spineOther spondylosis, thoracolumbar region Mar- 1 Harjeet Sharif. [address] [place] [address], [id number], [place]. tel:[phone] [facility]: Cheyenne Chowdhury [employer] [facility] [address], [place], [address]. tel:[phone] Provider: Alexis Pulliam, [address] [place] [address], [id number]. tel:[phone] [facility], [address] [place] [address], [id number] , [place] tel:[phone] [facility] Back Pain (chief complaint) Other spondylosis with myelopathy, lumbar regionSpinal stenosis, cervical regionOther spondylosis with myelopathy, thoracic regionPostlam inectomy syndrome, not elsewhere classifiedRad iculopathy, lumbar regionLow back painLong term (current) use of opiate analgesicPain in thoracic spine Feb- 1 Harjeet Sharif. [address] [place] [address], [id number], [place]. tel:[phone] [facility]: Cheyenne Chowdhury [employer] [facility] [address], [place], [address]. tel:[phone] OFFICE/OUTPAT IENT VISIT, [facility], [address] [place] [address], [id number] , [place] tel:[phone] [facility] [place] Back Pain (chief complaint) Other spondylosis with myelopathy, thoracic regionSpinal stenosis, cervical regionOther spondylosis with myelopathy, lumbar region 1 Ben Cash. [facility], [address], [place], [address], [place]. tel:[phone] [facility]: Cheyenne Chowdhury [employer], [employer] [address], [place], [address]. tel:[phone] ng Provider: Alexis Pulliam, [address] [place] [address], [address]. tel:[phone] OFFICE/OUTPAT IENT VISIT, [facility], [address] [place] [address], [id number] , [place] tel:[phone] [facility] [place] Back Pain (chief complaint) terminal worker (current) use of opiate analgesicPost laminectomy syndrome, not elsewhere classifiedRad iculopathy, lumbar regionLow back painPain in thoracic spine 1 Harjeet Sharif. [address] [place] [address], [id number], [place]. tel:[phone] [facility]: Cheyenne Chowdhury [employer] on [employer], [employer] [address], [place], [address]. tel:[phone] kiran Provider: Alexis Pulliam, [address] [place] [address], [id number]. tel:[phone] OFFICE VISIT, EST TELEMEDICINE [facility], [address] [place] [address], [id number] , [place] tel:[phone] [facility] [place] Back Pain (chief complaint) terminal worker (current) use of opiate analgesicPost laminectomy syndrome, not elsewhere classifiedRad iculopathy, lumbar regionLow back painItchEncou nter for therapeutic drug level monitoringPun cture wound w/ FB of left foot, sequela 1 Harjeet Sharif. [address] [place] [address], [id number], [place]. tel:[phone] QRC: Bree Leon, [employer], [employer] [address], [place], [address]. tel:[phone] ng Provider: Alexis Pulliam, [address] [place] [address], [id number]. tel:[phone] OFFICE/OUTPAT IENT VISIT, [facility], [address] [place] [address], [id number] , [place] [phone] [facility] Back Pain (chief complaint) terminal worker (current) use of opiate analgesicPost laminectomy syndrome, not elsewhere classifiedRad iculopathy, lumbar regionLow back painItchEncou nter for therapeutic drug level monitoringPun cture wound w/ FB of left foot, sequela Apr-3 0 1 Billsfarzad Liveis. [facility], [address], [place], [address], [place]. tel:[phone] Referring Provider: Alexis Pulliam, [address] [place] [address], [id number]. tel:[phone] OFFICE VISIT, EST TELEMEDICINE [facility], [address] [place] [address], [id number] , [place] [phone] [facility] Back Pain (chief complaint) jail (current) use of opiate analgesicPost laminectomy syndrome, not elsewhere classifiedRad iculopathy, lumbar regionLow back pain Oct-2 1 Harjeet Sharif. [address] [place] [address], [id number], [place]. tel:[phone] QRC: Bree Leon [facility], [employer] on [employer], [facility] [address], [place], [address]. tel:[phone] ng Provider: Alexis Pulliam, [address] [place] [address], [id number]. tel:[phone] OFFICE VISIT, EST TELEMEDICINE [facility], [address] [place] [address], [id number] , [place] [phone] [facility] [place] Back Pain (chief complaint) terminal worker (current) use of opiate analgesicPost laminectomy syndrome, not elsewhere classifiedRad iculopathy, lumbar regionLow back pain 1 Harjete Sharif. [address] [place] [address], [id number], [place]. tel:[phone] Q[facility]: Bree Leon MS [facility], [employer] on [employer], [employer] [address], [place], [address]. tel:[phone] OFFICE VISIT, EST TELEMEDICINE [facility], [address] [place] [address], [id number] , [place] [phone] [facility] [place] Back Pain (chief complaint) jail (current) use of opiate analgesicPost laminectomy syndrome, not elsewhere classifiedRad iculopathy, lumbar regionLow back pain 1 Harjeet Sharif. [address] [place] [address], [id number], [place]. tel:[phone] QRC: Bree Leon MS [facility], [employer], [employer] [address], [place], [address]. tel:[phone] kiran Provider: Alexis Pulliam, [address] [place] [address], [address]. tel:[phone] OFFICE VISIT, EST TELEMEDICINE [facility], [address] [place] [address], [id number] , [place] [phone] [facility] [place] Back Pain (chief complaint) jail (current) use of opiate analgesicPost laminectomy syndrome, not elsewhere classifiedRad iculopathy, lumbar regionLow back pain 1 Harjeet Sharif. [address] [place] [address], [id number], [place]. tel:[phone] Q[facility]: Bree Leon MS [facility], [employer], [employer] [address], [place], [address]. tel:[phone] ng Provider: Alexis Pulliam, [address] [place] [address], [id number]. tel:[phone] OFFICE VISIT, [facility] TELEMEDICINE [facility], [address] [place] [address], [id number] , tel:[phone] [facility] [place] Back Pain (chief complaint) jail (current) use of opiate analgesicPost laminectomy syndrome, not elsewhere classifiedRad iculopathy, lumbar regionLow back pain 0 Harjeet Sharif. [address] [place] [address], [id number], [place]. tel:[phone] Referring Provider: Alexis Pulliam, [address] [place] [address], [address]. tel:[phone] OFFICE/OUTPAT IENT VISIT, [facility], [address] [place] [address], [id number] , [place] tel:[phone] [facility] [place] Back Pain (chief complaint) jail (current) use of opiate analgesicPost laminectomy syndrome, not elsewhere classifiedRad iculopathy, lumbar regionLow back painEncounter for therapeutic drug level monitoring 0 Harjeet Sharif. [address] [place] [address], [id number], [place]. tel:[phone] [facility]: Bree Leon [place] [facility], [facility], [address], [place], [address]. tel:[phone] Provider: Alexis Pulliam, [address] [place] [address], [address]. tel:[phone] OFFICE VISIT, EST TELEMEDICINE [facility], [address] [place] [address], [id number] , [place] tel:[phone] [facility] [place] Back Pain (chief complaint) terminal worker (current) use of opiate analgesicPost laminectomy syndrome, not elsewhere classifiedRad iculopathy, lumbar regionLow back pain May-0 0 Harjeet Overbeke Chante. [address] [place] [address], [id number], . tel:[phone] Referring Provider: Alexis Pulliam, [address] [place] [address], [address]. tel:[phone] OFFICE VISIT, [facility] TELEMEDICINE [facility], [address] [place] [address], [id number] , [place] tel:[phone] [facility] [place] Back Pain (chief complaint) terminal worker (current) use of opiate analgesicPost laminectomy syndrome, not elsewhere classifiedRad iculopathy, lumbar regionLow back pain Sep-0 - 0 Van Overbeke Chante. [address] [place] [address], [id number], [place]. tel:[phone] Referring Provider: Alexis Pulliam, [address] [place] [address], [address]. tel:[phone] OFFICE VISIT, [facility], [address] [place] [address], [id number] , [place] tel:[phone] [facility] [place] Back Pain (chief complaint) terminal worker (current) use of opiate analgesicPost laminectomy syndrome, not elsewhere classifiedRad iculopathy, lumbar regionLow back pain 0 Van Overbeke Chante. [address] [place] [address], [id number], [place]. tel:[phone] [facility]: [facility], [facility] on [facility], [address], [place], [address]. tel:[phone] Provider: Alexis Pulliam, [address] [place] [address], [address]. tel:[phone] OFFICE VISIT, [facility], [address] [place] [address], [id number] , [place] tel:[phone] [facility] Back Pain (chief complaint) jail (current) use of opiate analgesicPost laminectomy syndrome, not elsewhere classifiedRad iculopathy, lumbar regionLow back pain Feb- 0 Van Overbeke Chante. [address] [place] [address], [id number], [place]. tel:[phone] Q[facility]: Bree Leon MS Q[employer], [employer] on [employer], [employer] [address], [place], [address]. tel:[phone] ng Provider: Alexis Pulliam, [address] [place] [address], [address]. tel:[phone] OFFICE VISIT, [facility], [address] [place] [address], [id number] , [place] tel:[phone] [facility] Back Pain (chief complaint) jail (current) use of opiate analgesicPost laminectomy syndrome, not elsewhere classifiedRad iculopathy, lumbar regionLow back pain 0 Van Overbeke Chante. [address] [place] [address], [id number], [place]. tel:[phone] Q[facility]: Bree Leon MS Q[facility], [employer] on [employer], [facility] [address], [place], [address]. tel:[phone] Provider: Alexis Pulliam, [address] [place] [address], [id number]. tel:[phone] OFFICE VISIT, [facility], [address] [place] [address], [id number] , [place] tel:[phone] [facility] Back Pain (chief complaint) jail (current) use of opiate analgesicPost laminectomy syndrome, not elsewhere classifiedRad iculopathy, lumbar region 0 Van Overbeke Chante. [address] [place] [address], [id number], [place]. tel:[phone] QRC: Bree Leon MS QRC, [employer] on [employer], [facility] [address], [place], [address]. tel:[phone] ng Provider: Alexis Pulliam, [address] [place] [address], [id number]. tel:[phone] OFFICE VISIT, [facility], [address] [place] [address], [id number] , [place] tel:[phone] [facility] Back Pain (chief complaint) terminal worker (current) use of opiate analgesicPost laminectomy syndrome, not elsewhere classifiedRad iculopathy, lumbar region Apr-0 8-202 0 Harjeet Sharif. [address] [place] [address], [id number], [place]. tel:[phone] QRC: Bree Leon MS QRC, [employer], [facility] [address], [place], [address]. tel:[phone] kiran Provider: Alexis Pulliam, [address] [place] [address], [address]. tel:[phone] OFFICE/OUTPAT IENT VISIT, [facility], [address] [place] [address], [id number] , [place] tel:[phone] [facility] [place] Back Pain (chief complaint) jail (current) use of opiate analgesicPost laminectomy syndrome, not elsewhere classifiedRad iculopathy, lumbar region 0 Harjeet Sharif. [address] [place] [address], [id number], [place]. tel:[phone] QRC: Bree Leon MS QRC, [employer], [facility] [address], [place], [address]. tel:[phone] kiran Provider: Alexis Pulliam, [address] [place] [address], [address]. tel:[phone] OFFICE/OUTPAT IENT VISIT, [facility], [address] [place] [address], [id number] , [place] tel:[phone] [facility] [place] Back Pain (chief complaint) Radiculopathy , lumbar regionPostlam inectomy syndrome, not elsewhere classifiedLon g term (current) use of opiate analgesic 2-202 0 Billsfarzad Walters. [facility], [address] [facility] [address] [facility] [address], [place], [address], [place]. tel:[phone] QRC: Bree Leon MS QRC, [employer], [employer] [address], [place], [address]. tel:[phone] ng Provider: Alexis Pulliam, [address] [place] [address], [address]. tel:[phone] OFFICE/OUTPAT IENT VISIT, [facility], [address] [place] [address], [id number] , [place] tel:[phone] [facility] [place] Back Pain (chief complaint) Postlaminecto my syndrome, not elsewhere classifiedRad iculopathy, lumbar regionLow back painLong term (current) use of opiate analgesic Harjeet Overbemoo Sharif. [address] [place] [address], [id number], [place]. tel:[phone] QRC: Bree Leon MS QRC, [employer], [facility] [address], [place], [address]. tel:[phone] ng Provider: Alexis Pulliam, [address] [place] [address], [address]. tel:[phone] OFFICE/OUTPAT IENT VISIT, [facility], [address] [place] [address], [id number] , [place] tel:[phone] [facility] [place] Back Pain (chief complaint) jail (current) use of opiate analgesicEnco unter for therapeutic drug level monitoringLow back painRadiculop athy, lumbar regionPostlam inectomy syndrome, not elsewhere classified 9 Harjeet Haskinsbemoo Sharif. [address] [place] [address], [id number], [place]. tel:[phone] QRC: Bree Leon MS QRC, [employer], [facility] [address], [place], [address]. tel:[phone] ng Provider: Alexis Pulliam, [address] [place] [address], [address]. tel:[phone] OFFICE/OUTPAT IENT VISIT, [facility], [address] [place] [address], [id number] , [place] [phone] [facility] [place] Back Pain (chief complaint) terminal worker (current) use of opiate analgesicLow back painRadiculop athy, lumbar regionPostlam inectomy syndrome, not elsewhere classified May- 2201 9 Van Overbeke Chante. [address] [place] [address], [id number], [place]. tel:[phone] QRC: Bree VALDEZ, [employer] [address], [place], [address]. tel:[phone] ng Provider: Alexis Pulliam, [address] [place] [address], [address]. tel:[phone] OFFICE/OUTPAT IENT VISIT, [facility], [address] [place] [address], [id number] , [place] [phone] [facility] [place] Back Pain (chief complaint) Postlaminecto my syndrome, not elsewhere classifiedRad iculopathy, lumbar regionLow back painLong term (current) use of opiate analgesic Mar- 9 Van Overbeke Chante. [address] [place] [address], [id number], [place]. tel:[phone] QRC: Bree Leon MS [facility], [employer] [address], [place], [address]. tel:[phone] ng Provider: Alexis Pulliam, [address] [place] [address], [address]. tel:[phone] OFFICE/OUTPAT IENT VISIT, [facility], [address] [place] [address], [id number] , [place] [phone] [facility] [place] Back Pain (chief complaint) Postlaminecto my syndrome, not elsewhere classifiedRad iculopathy, lumbar regionLow back painLong term (current) use of opiate analgesic Van Overbeke Chante. [address] [place] [address], [id number], [place]. tel:[phone] QRC: Bree ArroyoLeon MS QRC, [facility], [address], [place], [address]. tel:[phone] ng Provider: Alexis Pulliam, [address] [place] [address], [address]. tel:[phone] OFFICE/OUTPAT IENT VISIT, [facility], [address] [place] [address], [id number] , [place] [phone] [facility] [place] Back Pain (chief complaint) Postlaminecto my syndrome, not elsewhere classifiedRad iculopathy, lumbar regionLow back painLong term (current) use of opiate analgesic Harjeet Overbeke Chante. [address] [place] [address], [id number], [place]. tel:[phone] Referring Provider: Alexis Pulliam, [address] [place] [address], [address]. tel:[phone] OFFICE/OUTPAT IENT VISIT, [facility], [address] [place] [address], [id number] , [place] tel:[phone] [facility] [place] Back Pain (chief complaint) Postlaminecto my syndrome, not elsewhere classifiedRad iculopathy, lumbar regionLow back painLong term (current) use of opiate analgesicEnco unter for therapeutic drug level monitoring Harjeet Overbeke Chante. [address] [place] [address], [id number], [place]. tel:[phone] Referring Provider: Alexis Pulliam, [address] [place] [address], [address]. tel:[phone] OFFICE/OUTPAT IENT VISIT, [facility], [address] [place] [address], [id number] , [place] tel:[phone] [facility] [place] Back Pain (chief complaint) Postlaminecto my syndrome, not elsewhere classifiedRad iculopathy, lumbar regionLow back painLong term (current) use of opiate analgesic 9 Harjeet Sharif. [address] [place] [address], [id number], [place]. tel:[phone] Referring Provider: Alexis Pulliam, [address] [place] [address], [address]. tel:[phone] OFFICE/OUTPAT IENT VISIT, [facility], [address] [place] [address], [id number] , [place] [phone] [facility] [place] Back Pain (chief complaint) Postlaminecto my syndrome, not elsewhere classifiedRad iculopathy, lumbar regionLow back painLong term (current) use of opiate analgesic 8 Negar Walters. [facility], [address] [place] [address], [place], [address], [place]. tel:[phone] Referring Provider: Alexis Pulliam, [address] [place] [address], [address]. tel:[phone] OFFICE/OUTPAT IENT VISIT, [facility], [address] [place] [address], [id number] , [place] tel:[phone] [facility] [place] Back Pain (chief complaint) Postlaminecto my syndrome, not elsewhere classifiedLon g term (current) use of opiate analgesicLow back painRadiculop athy, lumbar region 8 Harjeet Sharif. [address] [place] [address], [id number], [place]. tel:[phone] Referring Provider: Alexis Pulliam, [address] [place] [address], [address]. tel:[phone] OFFICE/OUTPAT IENT VISIT, [facility], [address] [place] [address], [id number] , [place] tel:[phone] [facility] [place] Back Pain (chief complaint) Postlaminecto my syndrome, not elsewhere classifiedPar esthesia of skinPain in right handPain in left handLong term (current) use of opiate analgesic Oct- 0 8 Harjeet Sharif. [address] [place] [address], [id number], [place]. tel:[phone] Referring Provider: Alexis Pulliam, [address] [place] [address], [address]. tel:[phone] OFFICE/OUTPAT IENT VISIT, [facility], [address] [place] [address], [id number] , [place] [phone] [facility] [place] Back Pain (chief complaint) Postlaminecto my syndrome, not elsewhere classifiedPar esthesia of skinPain in right handPain in left hand Sep- 0 8 Harjeet Sharif. [address] [place] [address], [id number], [place]. tel:[phone] Referring Provider: Alexis Pulliam, [address] [place] [address], [address]. tel:[phone] OFFICE/OUTPAT IENT VISIT, [facility], [address] [place] [address], [id number] , [place] tel:[phone] [facility] [place] Back Pain (chief complaint) Postlaminecto my syndrome, not elsewhere classifiedPar esthesia of skinPain in right handPain in left hand 8 Harjeet Sharif. [address] [place] [address], [id number], [place]. tel:[phone] Referring Provider: Alexis Pulliam, [address] [place] [address], [address]. tel:[phone] OFFICE/OUTPAT IENT VISIT, [facility], [address] [place] [address], [id number] , [place] tel:[phone] [facility] [place] Back Pain (chief complaint) Postlaminecto my syndrome, not elsewhere classifiedLon g term (current) use of opiate analgesicPare sthesia of skinPain in right handPain in left hand 8 Harjeet Overbemoo Chante. [address] [place] [address], [id number], [place]. tel:[phone] Referring Provider: Alexis Pulliam, [address] [place] [address], [address]. tel:[phone] OFFICE/OUTPAT IENT VISIT, EST [facility], [address] [place] [address], [id number] , [place] [phone] [facility] [place] Postlaminecto my syndrome, not elsewhere classified 8 Harjeet Sharif. [address] [place] [address], [id number], [place]. tel:[phone] Referring Provider: Alexis Pulliam, [address] [place] [address], [address]. tel:[phone] OFFICE/OUTPAT IENT VISIT, EST [facility], [address] [place] [address], [id number] , [place] tel:[phone] [facility] [place] Back Pain (chief complaint) Postlaminecto my syndrome, not elsewhere classified 8 Harjeet Sharif. [address] [place] [address], [id number], [place]. tel:[phone] Referring Provider: Alexis Pulliam, [address] [place] [address], [address]. tel:[phone] OFFICE/OUTPAT IENT VISIT, EST [facility], [address] [place] [address], [id number] , [place] tel:[phone] [facility] [place] Back Pain (chief complaint) Postlaminecto my syndrome, not elsewhere classifiedLon g term (current) use of opiate analgesic Nov-0 8 Harjeet Overbeke Chante. [address] [place] [address], [id number], [place]. tel:[phone] Referring Provider: Alexis Pulliam, [address] [place] [address], [address]. tel:[phone] OFFICE/OUTPAT IENT VISIT, EST [facility], [address] [place] [address], [id number] , tel:[phone] [facility] [place] Back Pain (chief complaint) Postlaminecto my syndrome, not elsewhere classified Oct- Harjeet Sharif. [address] [place] [address], [id number], [place]. tel:[phone] Referring Provider: Alexis Pulliam, [address] [place] [address], [address]. tel:[phone] OFFICE CONSULTATION [facility], [address] [place] [address], [id number] , tel:[phone] [facility] [place] Back Pain (chief complaint) Postlaminecto my syndrome, not elsewhere classifiedLon g term (current) use of opiate analgesic Harjeet Sharif. [address] [place] [address], [id number], [place]. tel:[phone] Referring Provider: Alexis Pulliam, [address] [place] [address], [address]. tel:[phone] [facility], [address] [place] [address], [id number] , tel:[phone] [facility] [place] No Information Jared Espinoza. [address] [place] [address], [id number], [place]. tel:[phone] Family History Family Member Type Diagnosis Age At Onset Father Problem (finding) back surgery Mother Problem (finding) back surgery Payers Payer name Insurance type Covered republican ID Ferdinand melendrez(s) Medicare MB [id number] Social History Type Description Quantity Date Captured [...] Of Treatment Date Type Action Status Goal FIT-DNA. Due on due Goal Medication [...] Order Annual PT. Due on due Goal SPECIAL FORCES MEDICAL SERGEANT Scanned. Due on due Goal Zoster vaccine ( 1st). Due on due Goal ALT (SGPT). Due on due Goal Creatinine. Due on due Goal AST (SGOT). Due on due Goal Lipid panel. Due on due Goal Unhealthy drug u se screening. Due on due Goal CT-Colonography. Due on due Goal COUNTY MANAGER Paperwork. Due on due Goal Update Social Hi story. Due on due Goal PHQ-9. Due on du e Goal SPECIAL FORCES MEDICAL SERGEANT Scanned. Due on due Goal UDT. Due [...] vaccine ( 1st). Due on due Goal Creatinine. Due on due Goal CT-Colonography. Due on due Goal Review Allergy List. Due on due Goal PHQ-9. Due on du e Goal Update Social Hi story. Due on due Goal COUNTY MANAGER Paperwork. Due on due Goal Height. Due on d ue Goal Hepatitis C scre ening. Due on due Goal Tobacco Use. Due on due Goal UDT. Due on due Goal ALT (SGPT). Due on due Goal COUNTY MANAGER Paperwork. Due on due Goal OARS. Due on due Goal SPECIAL FORCES MEDICAL SERGEANT Scanned. Due on due Goal AST (SGOT). Due on due Goal Order Annual PT. Due on due Goal Creatinine. Due on due Goal Zoster vaccine ( [...] Goal Tobacco Use. Due on due Goal Review Allergy List. Due on due Goal FIT-DNA. Due on due Goal SPECIAL FORCES MEDICAL SERGEANT Scanned. Due on due Goal OARS. Due on due Goal Order Annual PT. Due on due Goal ALT (SGPT). Due on due Goal COUNTY MANAGER Paperwork. Due on due Goal AST (SGOT). [...] due Goal FIT. Due on due Goal Lifestyle education regardin g diet completed Goal AST (SGOT). Due on due Goal OARS. Due on due Goal Height. Due on d ue Goal Weight. Due on d ue Goal Review Allergy List. Due on due Goal SPECIAL FORCES MEDICAL SERGEANT Scanned. Due on due Goal Hepatitis C scre ening. Due on due Goal PHQ-9. Due on du e Goal COUNTY MANAGER Paperwork. Due on due Goal Creatinine. Due [...] due Goal CT-Colonography. Due on due Goal AST (SGOT). Due [...] due Goal OARS. Due on due Goal COUNTY MANAGER Paperwork. Due on due Goal Update Social Hi story. Due on due Goal Review Allergy List. Due on due Goal HPV. Due on due Goal Height. Due on d ue Goal Order Annual PT. Due on due Goal FIT. Due on due Goal Tobacco Use. Due on due Goal ALT (SGPT). Due on due Goal SPECIAL FORCES MEDICAL SERGEANT Scanned. Due on due Goal Zoster vaccine ( 1st). Due on due Goal Medication Recon ciliation. Due on due Goal Unhealthy drug u se screening. Due on due Goal ALT (SGPT). Due on due Goal Medication Recon ciliation. Due on due Goal Order Annual PT. Due on due Goal FIT-DNA. Due on due Goal SPECIAL FORCES MEDICAL SERGEANT Scanned. Due on due Goal Creatinine. Due on due Goal Update Social Hi story. Due on due Goal COUNTY MANAGER Paperwork. Due on due Goal FIT. Due [...] Goal Weight. Due on d ue Goal COUNTY MANAGER Paperwork. Due on due Goal UDT. Due on due Goal SPECIAL FORCES MEDICAL SERGEANT Scanned. Due on due Goal Order Annual [...] due Goal Creatinine. Due on due Goal FIT-DNA. Due on due Goal Update Social Hi [...] Social Hi story. Due on due Goal COUNTY MANAGER Paperwork. Due on due Goal Medication Recon [...] Goal Lipid panel. Due on due Goal SPECIAL FORCES MEDICAL SERGEANT Scanned. Due on due Goal ALT (SGPT). Due on due Goal Zoster vaccine ( ). Due on due Goal Creatinine. Due on due Goal Unhealthy drug u se screening. Due on due Goal FIT-DNA. Due on due Goal Tobacco Use. Due on due Goal Tobacco Use. Due [...] ue Goal FIT. Due on due Goal SPECIAL FORCES MEDICAL SERGEANT Scanned. Due on due Goal COUNTY MANAGER Paperwork. Due on due Goal Creatinine. Due on due Goal Order Annual PT. Due on due Goal FIT-DNA. Due on due Goal UDT. Due on due Goal Hepatitis C scre ening. Due on due Goal AST (SGOT). Due on due Goal ALT (SGPT). Due on due Goal OARS. Due on due Goal ALT (SGPT). Due on due Goal AST (SGOT). Due on due Goal UDT. Due on due Goal OARS. Due on due Goal SPECIAL FORCES MEDICAL SERGEANT Scanned. Due on due Goal Creatinine. Due on due Goal PHQ-9. Due on du e Goal Height. Due on d ue Goal Tobacco Use. Due on due Goal Medication Recon ciliation. Due on due Goal Order Annual PT. Due on due Goal FIT-DNA. Due on due Goal COUNTY MANAGER Paperwork. Due on due Goal Hepatitis C scre [...] Goal Height. Due on d ue Goal COUNTY MANAGER Paperwork. Due on due Goal Order Annual PT. Due on due Goal PHQ-9. Due on du e Goal FIT. Due on due Goal Zoster [...] due Goal UDT. Due on due Goal SPECIAL FORCES MEDICAL SERGEANT Scanned. Due on due Goal Lipid panel. Due on due Goal Medication Recon ciliation. Due on due Goal HPV. Due on due Goal Weight. Due on d ue Goal Unhealthy drug u se screening. Due on due Goal CT-Colonography. Due on due Goal Creatinine. Due on due Goal HPV. Due on due Goal Medication Recon ciliation. Due on due Goal CT-Colonography. Due on due Goal SPECIAL FORCES MEDICAL SERGEANT Scanned. Due on due Goal AST (SGOT). Due on due Goal Zoster vaccine ( 1st). Due on due Goal Order Annual PT. Due on due Goal OARS. Due on due Goal PHQ-9. Due on du e Goal Hepatitis C scre ening. Due on due Goal Height. Due on d ue Goal Update Social Hi story. Due on due Goal COUNTY MANAGER Paperwork. Due on due Goal FIT. Due [...] ue Goal Creatinine. Due on due Goal SPECIAL FORCES MEDICAL SERGEANT Scanned. Due on due Goal Lipid panel. Due on due Goal Tobacco Use. Due on due Goal Height. Due on d ue Goal UDT. Due on due Goal AST (SGOT). Due on due Goal PHQ-9. Due on du e Goal Order Annual PT. Due on due Goal OARS. Due on due Goal COUNTY MANAGER Paperwork. Due on due Goal FIT. Due on due Goal ALT (SGPT). Due on due Goal CT-Colonography. Due on due Goal HPV. Due on due Goal Hepatitis [...] ue Goal UDT. Due on due Goal SPECIAL FORCES MEDICAL SERGEANT Scanned. Due on 023 due Goal Weight. Due on d ue Goal PHQ-9. Due on du e Goal Update Social Hi story. Due on due Goal OARS. Due on due Goal Medication Recon ciliation. Due on due Goal AST (SGOT). Due on due Goal CT-Colonography. Due on due Goal Hepatitis C scre ening. Due on due Goal COUNTY MANAGER Paperwork. Due on due Goal Tobacco Use. Due on 023 due Goal FIT. Due on due Goal Review Allergy List. Due on due Goal FIT-DNA. Due on due Goal Unhealthy drug u se screening. Due on due Goal HPV. Due on due Goal ALT (SGPT). Due on due Goal Creatinine. Due on due Goal Height. Due on d ue Goal Order Annual PT. Due on due Goal Zoster vaccine ( ). Due on due Goal Lipid panel. Due on due Goal Order Annual PT. Due on due Goal COUNTY MANAGER Paperwork. Due on due Goal Unhealthy drug u [...] vaccine ( ). Due on due Goal OARS. Due on due Goal SPECIAL FORCES MEDICAL SERGEANT Scanned. Due on due Goal AST (SGOT). Due on due Goal Creatinine. Due on due Goal CT-Colonography. Due on due Goal Medication Recon ciliation. Due on due Goal Hepatitis C scre ening. Due on due Goal Tobacco Use. Due on due Goal HPV. Due on due Goal FIT-DNA. Due on due Goal Height. Due on d ue Goal ALT (SGPT). Due on due Goal OARS. Due on due Goal AST (SGOT). Due on due Goal COUNTY MANAGER Paperwork. Due on due Goal FIT. Due on due Goal Order Annual PT. Due on due Goal SPECIAL FORCES MEDICAL SERGEANT Scanned. Due on due Goal UDT. Due on due Goal Creatinine. Due on due Goal Zoster vaccine ( 1st). Due on due Goal Update Social Hi story. Due on due Goal Lipid panel. Due on due Goal CT-Colonography. Due on due Goal Weight. Due on d ue Goal FIT-DNA. Due on due Goal PHQ-9. [...] Goal PHQ-9. Due on du e Goal COUNTY MANAGER Paperwork. Due on due Goal UDT. Due [...] Goal Weight. Due on d ue Goal SPECIAL FORCES MEDICAL SERGEANT Scanned. Due on due Goal FIT-DNA. Due on due Goal Medication Recon ciliation. Due on due Goal CT-Colonography. Due on due Goal HPV. Due on due Goal Height. Due on d ue Goal Hepatitis C scre ening. Due on due Goal Tobacco Use. Due on due Goal ALT (SGPT). Due on due Goal ALT (SGPT). Due on due Goal Creatinine. Due on due Goal SPECIAL FORCES MEDICAL SERGEANT Scanned. Due on due Goal Tobacco Use. Due on due Goal Unhealthy drug u se screening. Due on due Goal Weight. Due on d ue Goal Hepatitis C scre ening. Due on due Goal Medication Recon ciliation. Due on due Goal COUNTY MANAGER Paperwork. Due on due Goal Update Social [...] due Goal HPV. Due on due Goal Zoster vaccine ( 1st). Due on due Goal Height. Due on d ue Goal Tobacco Use. Due on due Goal Update Social Hi story. Due on due Goal Unhealthy drug u se screening. Due on due Goal FIT-DNA. Due on due Goal Medication Recon ciliation. Due on due Goal ALT (SGPT). Due on due Goal SPECIAL FORCES MEDICAL SERGEANT Scanned. Due on due Goal Hepatitis C [...] due Goal CT-Colonography. Due on due Goal COUNTY MANAGER Paperwork. Due on due Goal FIT. Due on due Goal ALT (SGPT). Due on due Goal COUNTY MANAGER Paperwork. Due on due Goal UDT. Due on due Goal OARS. Due on due Goal Creatinine. Due on due Goal SPECIAL FORCES MEDICAL SERGEANT Scanned. Due on due Goal Height. Due on [...] Goal AST (SGOT). Due on due Goal FIT-DNA. Due on due Goal FIT. Due on due Goal Review Allergy List. Due on due Goal Order Annual PT. Due on due Goal Hepatitis C scre ening. Due on due Goal COUNTY MANAGER Paperwork. Due on due Goal OARS. Due on due Goal UDT. Due on due Goal SPECIAL FORCES MEDICAL SERGEANT Scanned. Due on due Goal Creatinine. Due [...] due Goal FIT-DNA. Due on due Goal Hepatitis C scre [...] Medication Recon ciliation. Due on due Goal COUNTY MANAGER Paperwork. Due on due Goal SPECIAL FORCES MEDICAL SERGEANT Scanned. Due on due Goal OARS. Due [...] due Goal OARS. Due on due Goal SPECIAL FORCES MEDICAL SERGEANT Scanned. Due on due Goal Creatinine. Due on due Goal Tobacco Use. Due on due Goal COUNTY MANAGER Paperwork. Due on due Goal Order Annual PT. Due on due Goal UDT. Due on due Goal Unhealthy drug u [...] C scre ening. Due on due Goal SPECIAL FORCES MEDICAL SERGEANT Scanned. Due on 023 due Goal HPV. Due on due Goal Order Annual PT. Due on due Goal UDT. Due on due Goal ALT (SGPT). Due on due Goal Medication Recon ciliation. Due on due Goal COUNTY MANAGER Paperwork. Due on due Goal OARS. Due on due Goal Update Social Hi story. Due on due Goal Hepatitis C scre ening. Due on due Goal Zoster vaccine ( ). Due on due Goal AST (SGOT). Due on due Goal Creatinine. Due on due Goal CT-Colonography. Due on [...] Goal Tobacco Use. Due on due Goal COUNTY MANAGER Paperwork. Due on due Goal UDT. Due on due Goal Creatinine. Due on due Goal ALT (SGPT). Due on due Goal OARS. Due on due Goal Order Annual PT. Due on due Goal SPECIAL FORCES MEDICAL SERGEANT Scanned. Due on due Goal AST (SGOT). Due on due Goal FIT-DNA. Due on due Goal Medication Recon ciliation. Due on due Goal FIT. Due on due Goal Unhealthy drug u se screening. Due on due Goal Zoster vaccine ( 1st). Due on due Goal Review Allergy List. Due on due Goal CT-Colonography. Due on due Goal Height. Due on d ue Goal PHQ-9. Due on du e Goal Weight. Due on d ue Goal Hepatitis C scre ening. Due on due Goal HPV. Due on due Goal Update Social Hi story. Due on due Goal Lipid panel. Due on due Goal Creatinine. Due on due Goal SPECIAL FORCES MEDICAL SERGEANT Scanned. Due on due Goal UDT. Due on due Goal FIT. Due on due Goal Height. Due on d ue Goal Lipid panel. Due on due Goal Update Social Hi story. Due on due Goal AST (SGOT). Due on due Goal Weight. Due on d ue Goal OARS. Due on due Goal Hepatitis C scre ening. Due on due Goal COUNTY MANAGER Paperwork. Due on due Goal HPV. Due [...] e Goal Creatinine. Due on due Goal SPECIAL FORCES MEDICAL SERGEANT Scanned. Due on due Goal COUNTY MANAGER Paperwork. Due on due Goal ALT (SGPT). Due on due Goal Order Annual PT. [...] due Goal FIT. Due on due Goal HPV. Due on due Goal Lipid panel. Due on due Goal Hepatitis C scre ening. Due on due Goal Weight. Due on d ue Goal Height. Due on d ue Goal Zoster vaccine ( 1st). Due on due Goal Medication Recon ciliation. Due on due Goal PHQ-9. Due on du e Goal SPECIAL FORCES MEDICAL SERGEANT Scanned. Due on due Goal COUNTY MANAGER Paperwork. Due on due Goal FIT-DNA. Due [...] vaccine ( 1st). Due on due Goal CT-Colonography. Due on due Goal Tobacco Use. Due on due Goal AST (SGOT). Due on due Goal COUNTY MANAGER Paperwork. Due on due Goal ALT (SGPT). [...] Goal Lipid panel. Due on due Goal SPECIAL FORCES MEDICAL SERGEANT Scanned. Due on due Goal Weight. Due [...] ue Goal FIT-DNA. Due on due Goal Weight. Due on d ue Goal OARS. Due on due Goal HPV. Due on due Goal Lipid panel. Due on due Goal COUNTY MANAGER Paperwork. Due on due Goal Medication Recon ciliation. Due on due Goal UDT. Due on due Goal PHQ-9. Due on du e Goal FIT. Due on due Goal Tobacco Use. Due on due Goal SPECIAL FORCES MEDICAL SERGEANT Scanned. Due on due Goal ALT (SGPT). Due on due Goal Order Annual PT. Due on due Goal AST (SGOT). Due on due Goal SPECIAL FORCES MEDICAL SERGEANT Scanned. Due on due Goal UDT. Due on due Goal COUNTY MANAGER Paperwork. Due on due Goal Creatinine. Due on due Goal OARS. Due on due Goal Hepatitis C scre ening. Due on due Goal FIT-DNA. Due on due Goal Zoster vaccine ( 1st). Due on due Goal HPV. Due on due Goal Update Social Hi story. Due on due Goal CT-Colonography. Due on due Goal FIT. Due on due Goal Weight. Due on [...] due Goal CT-Colonography. Due on due Goal SPECIAL FORCES MEDICAL SERGEANT Scanned. Due on due Goal OARS. Due on due Goal UDT. Due on due Goal Zoster vaccine ( 1st). Due on due Goal Review Allergy List. Due on due Goal Unhealthy drug u se screening. Due on due Goal Height. Due on d ue Goal Tobacco Use. Due on due Goal PHQ-9. Due on du e Goal COUNTY MANAGER Paperwork. Due on due Goal HPV. Due [...] Order Annual PT. Due on due Goal Order Annual PT. Due on due Goal SPECIAL FORCES MEDICAL SERGEANT Scanned. Due on due Goal AST (SGOT). Due on due Goal OARS. Due on due Goal COUNTY MANAGER Paperwork. Due on due Goal UDT. Due [...] vaccine ( 1st). Due on due Goal Unhealthy drug u [...] Order Annual PT. Due on due Goal SPECIAL FORCES MEDICAL SERGEANT Scanned. Due on due Goal Creatinine. Due on due Goal COUNTY MANAGER Paperwork. Due on due Goal ALT (SGPT). Due on due Goal PHQ-9. Due on du e Goal Weight. Due on d ue Goal FIT. Due on due Goal FIT-DNA. [...] Social Hi story. Due on due Goal Update Social Hi [...] C scre ening. Due on due Goal COUNTY MANAGER Paperwork. Due on due Goal Tobacco Use. Due on due Goal FIT. Due on due Goal SPECIAL FORCES MEDICAL SERGEANT Scanned. Due on due Goal UDT. Due [...] due Goal OARS. Due on due Goal SPECIAL FORCES MEDICAL SERGEANT Scanned. Due on due Goal COUNTY MANAGER Paperwork. Due on due Goal AST (SGOT). Due on due Goal Order Annual PT. Due on due Goal UDT. Due on due Goal Review [...] Goal Weight. Due on d ue Goal COUNTY MANAGER Paperwork. Due on due Goal Review Allergy List. Due on due Goal SPECIAL FORCES MEDICAL SERGEANT Scanned. Due on due Goal ALT (SGPT). Due on due Goal UDT. Due on due Goal Creatinine. Due on due Goal OARS. Due on due Goal ALT (SGPT). Due on due Goal Review Allergy List. Due on due Goal Height. Due on d ue Goal SPECIAL FORCES MEDICAL SERGEANT Scanned. Due on due Goal Update Social Hi story. Due on due Goal Creatinine. Due on due Goal COUNTY MANAGER Paperwork. Due on due Goal Order Annual [...] Review Allergy List. Due on due Goal COUNTY MANAGER Paperwork. Due on due Goal Creatinine. Due on due Goal Tobacco Use. Due on due Goal AST (SGOT). Due on due Goal Height. Due on d ue Goal SPECIAL FORCES MEDICAL SERGEANT Scanned. Due on due Goal UDT. Due on due Goal OARS. Due on due Goal Tobacco Use. Due on due Goal Medication Recon ciliation. Due on due Goal OARS. Due on due Goal Order Annual PT. Due on due Goal AST (SGOT). Due on due Goal SPECIAL FORCES MEDICAL SERGEANT Scanned. Due on due Goal COUNTY MANAGER Paperwork. Due on due Goal ALT (SGPT). Due on due Goal Review Allergy List. Due on due Goal UDT. Due on due Goal Creatinine. Due on 19 due Goal PHQ-9. Due on du e Goal Update Social Hi story. Due on due Goal Height. Due on d ue Goal Weight. Due on d ue Goal Creatinine. Due on 19 due Goal UDT. Due on due Goal COUNTY MANAGER Paperwork. Due on due Goal Tobacco Use. Due on due Goal Medication Recon ciliation. Due on due Goal Weight. Due on d ue Goal ALT (SGPT). Due on due Goal SPECIAL FORCES MEDICAL SERGEANT Scanned. Due on due Goal Update Social [...] Goal AST (SGOT). Due on due Goal COUNTY MANAGER Paperwork. Due on due Goal Medication Recon ciliation. Due on due Goal Creatinine. Due on 19 due Goal SPECIAL FORCES MEDICAL SERGEANT Scanned. Due on due Goal Tobacco Use. Due on due Goal UDT. Due on due Goal Update Social Hi story. Due on due Goal Review Allergy List. Due on due Goal OARS. Due on due Goal Height. Due on d ue Goal Weight. Due on d ue Goal UDT. Due on due Goal Tobacco Use. Due on due Goal PHQ-9. Due on du e Goal Review Allergy List. Due on due Goal Update Social Hi story. Due on due Goal Medication Recon ciliation. Due on due Goal ALT (SGPT). Due on due Goal COUNTY MANAGER Paperwork. Due on due Goal Order Annual PT. Due on due Goal AST (SGOT). Due on due Goal Creatinine. Due on due Goal Height. Due on d ue Goal OARS. Due on due Goal Weight. Due on d ue Goal SPECIAL FORCES MEDICAL SERGEANT Scanned. Due on due Goal UDT. Due on due Goal COUNTY MANAGER Paperwork. Due on due Goal OARS. Due [...] due Goal Creatinine. Due on due Goal SPECIAL FORCES MEDICAL SERGEANT Scanned. Due on due Goal Review Allergy List. Due on due Goal Height. Due on d ue Goal Update Social Hi story. Due on due Goal SPECIAL FORCES MEDICAL SERGEANT Scanned. Due on due Goal Review Allergy List. Due on due Goal AST (SGOT). Due on due Goal Medication Recon ciliation. Due on due Goal Creatinine. Due on due Goal Tobacco Use. Due on due Goal OARS. Due on due Goal Order Annual PT. Due on due Goal PHQ-9. Due on du e Goal Height. Due on d ue Goal COUNTY MANAGER Paperwork. Due on due Goal UDT. Due [...] ue Goal OARS. Due on due Goal COUNTY MANAGER Paperwork. Due on due Goal AST (SGOT). Due on due Goal Update Social Hi story. Due on due Goal SPECIAL FORCES MEDICAL SERGEANT Scanned. Due on due Goal Tobacco Use. Due on due Goal Creatinine. Due on due Goal UDT. Due on due Goal ALT (SGPT). Due on due Goal UDT. Due on due Goal Order Annual PT. Due on due Goal AST (SGOT). Due on due Goal COUNTY MANAGER Paperwork. Due on due Goal Creatinine. Due on due Goal OARS. Due on due Goal SPECIAL FORCES MEDICAL SERGEANT Scanned. Due on due Goal ALT (SGPT). [...] Goal AST (SGOT). Due on due Goal COUNTY MANAGER Paperwork. Due on due Goal Review Allergy List. Due on due Goal ALT (SGPT). Due on due Goal Tobacco Use. Due on due Goal Medication Recon ciliation. Due on due Goal UDT. Due on due Goal SPECIAL FORCES MEDICAL SERGEANT Scanned. Due on due Goal Update Social Hi story. Due on due Goal Medication Recon ciliation. Due on due Goal Creatinine. Due on due Goal Review Allergy List. Due on due Goal COUNTY MANAGER Paperwork. Due on due Goal Weight. Due on d ue Goal UDT. Due on due Goal Order Annual PT. Due on due Goal SPECIAL FORCES MEDICAL SERGEANT Scanned. Due on due Goal ALT (SGPT). [...] Goal AST (SGOT). Due on due Goal SPECIAL FORCES MEDICAL SERGEANT Scanned. Due on due Goal OARS. Due on due Goal COUNTY MANAGER Paperwork. Due on due Goal Review Allergy [...] Goal Height. Due on d ue Goal COUNTY MANAGER Paperwork. Due on due Goal OARS. Due on due Goal Weight. Due on d ue Goal AST (SGOT). Due on due Goal SPECIAL FORCES MEDICAL SERGEANT Scanned. Due on due Goal OARS. Due on due Goal Creatinine. Due on due Goal SPECIAL FORCES MEDICAL SERGEANT Scanned. Due on due Goal ALT (SGPT). Due on due Goal COUNTY MANAGER Paperwork. Due on due Goal AST (SGOT). Due on due Goal UDT. Due on due Goal Height. Due on [...] due Goal Creatinine. Due on due Goal SPECIAL FORCES MEDICAL SERGEANT Scanned. Due on due Goal PHQ-9. Due on du e Goal Tobacco Use. Due on due Goal ALT (SGPT). Due on due Goal AST (SGOT). Due on due Goal OARS. Due on due Goal Height. Due on d ue Goal Update Social Hi story. Due on due Goal COUNTY MANAGER Paperwork. Due on due Goal Medication Recon ciliation. Due on due Goal Order Annual PT. Due on due Goal PHQ-9. Due on du e Goal Review Allergy List. Due on due Goal COUNTY MANAGER Paperwork. Due on due Goal Order Annual PT. Due on due Goal AST (SGOT). Due on due Goal Medication Recon ciliation. Due on due Goal Update Social Hi story. Due on due Goal Tobacco Use. Due on due Goal UDT. Due on due Goal Weight. Due on d ue Goal ALT (SGPT). Due on 21 due Goal OARS. Due on due Goal Creatinine. Due on 19 due Goal Height. Due on d ue Goal SPECIAL FORCES MEDICAL SERGEANT Scanned. Due on 021 due Referral Ordered: Bjorn Zhao -Allopathic & [...] ordered Referral Referred To: Bjorn Zhao [address], [id number] [phone] Ordered: Referrals: Allopathic & Osteopathic Physicians : Internal Medicine. Bjorn Zhao ordered Referral Ordered: [facility] -Orthopedic Surgery (related to Radiculopathy, lumbar region) ordered Referral Referred To: [facility] [address] [place] [address]
[address] [place], [address] [phone] Ordered: Referrals: Orthopedic Surgery. Z [facility]. Location: [facility] ordered Referral Ordered: MRI LUMBAR SPINE W/O DYE ordered Referral Ordered: MRI THORACIC SPINE W/O DYE ordered Appointment Cindy Pelayo BOOKED Future Order: Lab Order ALT (SGP T) ([id number]), Collected on: , Sent on: Sent Future Order: Lab Order AST (SGO T) ([id number]), Collected on: , Sent on: Sent Future Order: Lab Order Creatini ne, Serum ([id number]), Collected on: , Sent on: Sent Future Order: Lab Order URINE DR JOHN CONFIRMATION (3000), Sent on: Sent Future Order: Lab Order COMPLIAN CE DRUG ANALYSIS, URINE, WITH MED REPORT ([id number]), Ordered on: Ordered Future Order: Lab Order Drug Eileen t Def 22+ Classes (G0483), Ordered on: Ordered Future Order: Lab Order COMPLIAN CE DRUG ANALYSIS, URINE, WITH MED REPORT ([id number]), Ordered on: Ordered Future Order: Lab Order Drug Eileen t Def 22+ Classes ([id number]), Ordered on: Ordered Future Order: Lab Order COMPLIAN CE DRUG ANALYSIS, URINE, WITH MED REPORT ([id number]), Ordered on: Ordered Future Order: Lab Order COMPLIAN CE DRUG ANALYSIS, URINE, WITH MED REPORT ([id number]), Ordered on: Ordered History Of Present Illness [...] EFRAÍN.Reports she met with Dr. Peñaloza from [facility] this month. It was recommended that [...] other concerns today. Comments: Cindy presents via [facility] for a virtual follow up and medication [...] back and legs. Comments: Cindy presents via [facility] for a virtual follow up and medication [...] is middle back, lower back and legs. Back Pain Severity level i s 9. [...] by ice, pain meds/drugs and bending backward. Comments: Cindy [...] back and legs. Comments: Cindy presents via [facility] for a virtual follow up and medication refill regarding chronic back pain most bothersome in mid back, low back, and legs. Her pain continues to be stable since [facility].S/p BL thoracic RFA on 12/17/23 with around [...] back and legs. Comments: Cindy presents via [facility] for a virtual follow up and medication [...] back and legs. Comments: Cindy presents via [facility] for a virtual follow up and medication [...] other concerns today. Comments: Cindy presents via [facility] for a virtual follow up and medication [...] is planning to f/u with psych at [facility] due to her ongoing depression. [...] everyday tasks. No other concerns today. Back Pain Severity [...] her back pain. No other concerns today. Comments: Cindy is present here today for [...] 10% pain relief. Patient was able to cloth picker last oxycodone rx and will get the [...] today. back pain Severity level i s 8. [...] are relieved by ice and pain meds/drugs. Comments: Cindy presents for [...] current medications. No further questions or concerns. Back Pain [...] abccess. No other concerns today. Back Pain (comments) Cindy garcia [facility] for a follow up and medications refill. [...] pain meds/drugs and rest. Back Pain (comments) Cindy's mi d and low back pain has [...] relieved by lying down. Back Pain (comments) Ms. Pelayo is a [...] the surgery.No other concerns today. Back Pain Severity level [...] lying down and pain meds/drugs. Back Pain Severity level [...] ice and lying down. Back Pain (comments) Ms. Pelayo is a [...] she was in the hospital. Back Pain (comments) Patient is here for [...] lying down and pain meds/drugs. Back Pain Severity level [...] and fatigue.No other concerns today. Back Pain (comments) Patient [...] continues to be bothersome today. Waiting on leasing director and second opinion before moving forward with [...] up with back surgeon when able.Wearing a multimedia project manager monitor for her diabetes, still struggling with [...] consider SCS further.Received new cervical MRI through [facility].Got tested for COVID upon experiencing cough, nausea, [...] any changes to medication today.Still waiting on entertainment lawyer and second opinion before moving forward with [...] f/u with her surgeon Dr. Bello at [facility] who has suggested disc removal surgery. Received [...] for her. She was not able to cloth picker her oxycodone refill until 11/17 as there [...] pain has been worse since last visit. Cnidy presents for ongoing low back pain. Cindy got a caudal BARBARA done on 09/07/19 at [facility] and states it may have made things [...] Xtampza. No other concerns today. Back Pain Severity [...] pain. She is unable to go to [facility] at this time d/t owing $400 and [...] she may go to the ER or [facility]. Of note, her friend gave her [...] States Dr. Souza is no longer with [facility] and met with Dr. Rose who recommended she pursue injection. If injection is ineffective will discuss surgery. Discussed SCS with [place] who recommended she pursue. Her goal is [...] under WC, has been working with a entertainment lawyer to figure the issue out. She is [...] was helpful. She needs to see a panel machine operator. She takes 2mg- at night with the [...] scheduled for next Saturday. Completed MRI at [facility]. Back Pain Severity level i s [...] prescribed any narcotics here but would like [facility] to take over her medications. Following surgery she was taking oxycodone and OxyContin but has been off of the pain medications for 3 weeks. States that gabapentin provides relief but causes some drowsiness. She is interested in the wave rider SCS and would like to go forward with that; has not scheduled psychology evaluation yet. Back Pain Onset: 3 years a go. [...] down, pain meds/drugs, rest, pool and traction. Back Pain (comments) Cindy [...] the pain. States that she went to [facility] for several visits but is not comfortable continuing care there; completed injection which provided minimal relief. Reports that she took some of her dog's tramadol for pain control, which showed up in a UDT with PCP, who no longer feels comfortable prescribing. Prednisone provided good pain relief. Continues doing pool therapy. Functional Status Date Functional Assessmen t No [...] help her assessment Other muscle spasm assessment jail (current) use of opiat e analgesic impression [...] Mental Status Date Cognitive Assessment Orientation - Dwight ed to time, place, person, situation.Normal Orientation Patient Care Teams Name Effective Dates (start - stop) Status Members No Information
[2024-06-16 23:21] VITALS: BP 154/81; PULSE 95; RESP 16; TEMP 37.1; O2SAT 99
== END 2024-06-16 23:53 | disposition home or self-care (01) ==
PROVIDERS: Emergency Provider Emergency Medicine
DX: S81.852A Open bite, left lower leg, initial encounter (principal); W54.0XXA Bitten by dog, initial encounter
CPT/HCPCS: 99282; 99283

== ENCOUNTER 2025-06-07 17:16 | Emergency (ER) | payer OTHER, SELFPAY ==
[2025-06-07 17:49] VITALS: BP 152/97; PULSE 74; RESP 18; TEMP 36.2; O2SAT 96; BMI 31.8
--- NOTE | 2025-06-07 18:15 | CRLHL7_ITS ---
For Patients: As a result of the Cures Act, medical imaging exams and procedure reports are released immediately into your electronic medical record. You may view this report before your referring provider. If you have questions, please contact your health care provider. INDICATION: Hip Injury 3 weeks ago TECHNIQUE: Pelvis radiograph, Hip radiograph 3 views left COMPARISON: 04/07/2024 FINDINGS: Bone: Poor cortical definition is seen along the lesser trochanter with mild adjacent ill-defined soft tissue calcifications. Posterior spinal fusion of the lumbar spine is partially visualized. Joint: The hip joints are unremarkable. The visualized sacroiliac joints are unremarkable in appearance. The pubic symphysis is normal in appearance. Soft tissue: Unremarkable. No radiopaque foreign bodies are seen. IMPRESSION: 1. Poor cortical definition is seen along the lesser trochanter with mild adjacent ill-defined soft tissue calcifications. Evaluation with outpatient MRI is recommended to exclude an avulsion fracture and any underlying osseous lesions. Dictated by Joce Greene MD @ 06/07/2025 7:30:36 PM Dictated by: Joce Greene MD @ 06/07/2025 19:33:58 (Electronically Signed)
--- NOTE | 2025-06-07 18:16 | ED.GENADULT ---
HPI - General Adult General Chief complaint: Extremity Pain/Injury, Lower Stated complaint: Left hip injury Time Seen by Provider: 06/07/25 17:19 History of Present Illness HPI narrative: This 5-year-old female comes in reporting left hip pain. She states that this began about 3 weeks ago. She has 2 large dogs at home and 1 was attempted to go in the door another 1 outside. She stuck her left leg and to interrupt this event and since then has had significant pain. She states that she was unable to ambulate for a brief time but now can put some weight on it but continues to have pain now over these 3 weeks. She has a history of low back pain and is scheduled to have a surgery. She states that this pain radiates into her groin and down the posterior aspect of her leg into her upper calf. She states that the back pain she has had would radiate down the lateral aspect of her left leg. Related Data Home Medications ?Medication ?Instructions ?Recorded ?Confirmed atorvastatin 40 mg tablet 40 mg PO DAILY 10/14/22 06/07/25 buprenorphine 15 mcg/hour weekly 1 patch transdermal Q7D 10/14/22 06/07/25 transdermal patch (Butrans) fenofibrate nanocrystallized 145 145 mg PO DAILY 10/14/22 06/07/25 mg tablet gabapentin 600 mg tablet 600 mg PO TID 10/14/22 06/07/25 insulin detemir U-100 100 unit/mL 5 unit subcut .am 10/14/22 06/07/25 (3 mL) subcutaneous pen (Levemir FlexTouch U-100 Insulin) lisinopril 30 mg tablet 30 mg PO DAILY 10/14/22 06/07/25 metformin 1,000 mg tablet 1,000 mg PO BID 10/14/22 06/07/25 oxycodone 10 mg tablet 10 mg PO Q4-6H PRN 10/14/22 06/07/25 pantoprazole 40 mg tablet,delayed 40 mg PO DAILY 10/14/22 06/07/25 release semaglutide 0.25 mg or 0.5 mg (2 2 mg subcut QWEEK 10/14/22 06/07/25 mg/1.5 mL) subcutaneous pen injector (Ozempic) tizanidine 2 mg tablet 2 mg PO Q8H PRN 10/14/22 06/07/25 venlafaxine 150 mg 150 mg PO DAILY 10/14/22 06/07/25 capsule,extended release 24 hr tizanidine 4 mg tablet 4 mg PO 3XD 06/07/25 06/07/25 venlafaxine 75 mg capsule,extended 75 mg PO DAILY 06/07/25 06/07/25 release 24 hr Previous Rx's ?Medication ?Instructions ?Recorded ketorolac 10 mg tablet 10 mg PO TID 5 days #15 tabs 06/07/25 Allergies Allergy/AdvReac Type Severity Reaction Status Date / Time morphine Allergy Severe Arrythmia Verified 06/07/25 18:00 erythromycin base Allergy Intermediate Rash Verified 06/07/25 18:00 exenatide Allergy Mild Rash Verified 06/07/25 18:00 Review of Systems Status of ROS: Reports: 10 or more systems reviewed and unremarkable except as noted in History and below Narrative: Constitutional: No fevers, no weight gain or loss. Eyes: No discharge. No vision changes. HENT: No congestion, no sore throat, no ear pain. Cardiovascular: No chest pain, no palpitations. Respiratory: No shortness of breath, no wheezes, no cough. Gastrointestinal: No abdominal pain, no vomiting, no diarrhea. Genitourinary: No dysuria, no hematuria. Musculoskeletal: Left hip and Skin: No rashes, no pruritis. Neurological: No dizziness, weakness, sensory change, speech change. Endo/Heme/Allergies: No bruising or bleeding. No polydipsia. Pysch: no suicidality, no anxiety, no insomnia. All other systems reviewed and are negative. [facility] Social History Smoking Status: Former smoker How often do you have a drink containing alcohol: never How often do you have six or more drinks on one occasion: Never AUDIT-C Alcohol total score: 0 Non-prescribed substance use: denies use service: No Exam Narrative: Exam Narrative: Constitutional: Well-developed, well-nourished, no acute distress. HEENT: Normocephalic, atraumatic. Neck: Normal range of motion. Nontender. Supple. Heart: Regular. No murmurs. Normal rate. Intact distal pulses. Lungs: Clear to auscultation. No chest discomfort. No wheezes, rhonchi, or rales. Abdomen: Normal bowel sounds. Nontender. No rebound tenderness. Genitalia: Deferred. Back: No midline tenderness. Normal range of motion. Extremities: Normal range of motion. No Sign of injury. she is able to raise her left leg from the bed without difficulty. She reports more pain with weight-bearing. Skin: Intact. No rash. Warm. No erythema or pallor. Neurologic: No altered sensation. No weakness. Alert and oriented. Psychiatric: No suicidality. No anxiety or depression. No insomnia. Nursing notes and vitals signs are reviewed. Const: Vital Signs, click to edit/add: Vital Signs - 24 hr 06/07/25 17:49 Temperature 97.2 F L Pulse Rate [Pulse Oximeter] 74 Respiratory Rate 18 Blood Pressure [Ri ght Upper Arm] 152/97 H Pulse Oximetry 96 Oxygen Delivery Me thod Room Air Course Vital Signs Vital signs: Initial Vital Signs Temperature 97.2 F L 06/07/25 17:49 Temperature Source Temporal Artery Scan 06/07/25 17:49 Pulse Rate 74 06/07/25 17:49 Respiratory Rate 18 06/07/25 17:49 Blood Pressure 152/97 H 06/07/25 17:49 Blood Pressure Mean 115 H 06/07/25 17:49 Blood Pressure Position Sitting 06/07/25 17:49 Pulse Oximetry 96 06/07/25 17:49 Oxygen Delivery Method Room Air 06/07/25 17:49 Vital Signs Temperature 97.2 F L 06/07/25 17:49 Pulse Rate 74 06/07/25 17:49 Respiratory Rate 18 06/07/25 17:49 Blood Pressure 152/97 H 06/07/25 17:49 Pulse Oximetry 96 06/07/25 17:49 Oxygen Delivery Method Room Air 06/07/25 17:49 Temperature 97.2 F L 06/07/25 17:49 Pulse Rate 74 06/07/25 17:49 Respiratory Rate 18 06/07/25 17:49 Blood Pressure 152/97 H 06/07/25 17:49 Pulse Oximetry 96 06/07/25 17:49 Oxygen Delivery Method Room Air 06/07/25 17:49 Medical Decision Making MDM Narrative Medical decision making narrative: This 59-year-old female had an injury about 3 weeks ago involving her left hip region. She had eduardo leg out between 2 of her dogs that were passing through door way. At that time she felt a snap or a pop and had significant pain with much difficulty ambulating for the 1st week or so thereafter. She states that she can not ambulate now and she is getting better but comes in wondering why after 3 weeks she is still having significant discomfort. She does have a history of low back pain and has had MRI studies. She says she is scheduled for another surgery of her back. She is currently taking narcotic medicines and has a regular doctor that manages these medicines. She states that she is not seeking any additional pain management but rather would like an x-ray to rule out something structurally wrong. I did obtain an x-ray of her left hip which shows no sign of fracture. There are some calcifications in the area of the lesser trochanter. She may have disrupted and attachment of a muscle grouping in this area. I did state that an MRI could provide further information in this regard but seeing her increase in activity and slow improvement it may not change the treatment plan any way. She can continue on her current medicines. She states that she does take Tylenol and ibuprofen additionally along with her prescribed medicines. I did provide a prescription for Toradol and stated this can be used instead of ibuprofen which may provide some additional relief. She states that she has a walker at home that she can use if needed. Imaging Data XR L Hip: Radiologist's impression: Poor cortical definition is seen along the lesser trochanter with mild adjacent ill-defined soft tissue calcifications. Evaluation with outpatient MRI is recommended to exclude an avulsion fracture and any underlying osseous lesions. Discharge Plan Discharge Clinical Impression: Hip injury Patient Disposition: Home, Self-Care Condition: Stable Additional Instructions: Take Toradol instead of ibuprofen as needed. Continue other medications as prescribed. Increase activity as tolerated. Follow up with MD as scheduled or return if worsening. Prescriptions: New ketorolac 10 mg tablet 10 mg PO TID 5 Days Qty: 15 0RF No Action atorvastatin 40 mg tablet 40 mg PO DAILY Patient Comments: TAKE 1 TABLET BY MOUTH DAILY buprenorphine [Butrans] 15 mcg/hour patch weekly 1 patch transdermal Q7D Patient Comments: APPLY 1 PATCH BY TRANSDERMAL ROUTE EVERY 7 DAYS FOR CHRONIC PAIN fenofibrate nanocrystallized 145 mg tablet 145 mg PO DAILY Patient Comments: TAKE 1 TABLET (145 MG TOTAL) BY MOUTH DAILY. gabapentin 600 mg tablet 600 mg PO TID Patient Comments: TAKE 1-2 TABLET BY ORAL ROUTE 3 TIMES EVERY DAY Levemir FlexTouch U100 Insulin 100 unit/mL (3 mL) insulin pen 5 unit SUBCUT .am Patient Comments: INJECT 45 UNITS UNDER THE SKIN 2 (TWO) TIMES A DAY. lisinopril 30 mg tablet 30 mg PO DAILY Patient Comments: TAKE 1 TABLET (30 MG TOTAL) BY MOUTH DAILY. metformin 1,000 mg tablet 1,000 mg PO BID Patient Comments: TAKE ONE TABLET BY MOUTH TWO TIMES A DAY WITH MORNING AND EVENING MEALS oxycodone 10 mg tablet 10 mg PO Q4-6H PRN Patient Comments: TAKE 1 TABLET BY ORAL ROUTE EVERY 4 - 6 HOURS NEEDED FOR CHRONIC PAIN, MAX 4/DAY pantoprazole 40 mg tablet,delayed release (DR/EC) 40 mg PO DAILY Patient Comments: TAKE 1 TABLET (40 MG TOTAL) BY MOUTH DAILY WITH BREAKFAST. Ozempic 0.25 mg or 0.5 mg(2 mg/1.5 mL) pen injector 2 mg SUBCUT QWEEK Patient Comments: INJECT 0.5 MG UNDER THE SKIN EVERY 7 (SEVEN) DAYS. tizanidine 2 mg tablet 2 mg PO Q8H PRN Patient Comments: TAKE ONE TABLET BY MOUTH EVERY 8 HOURS NEEDED NOT TO EXCEED 3 DOSES IN 24 HOURS. IN ADDITION TO 4MG TABLETS venlafaxine 150 mg capsule,extended release 24hr 150 mg PO DAILY Patient Comments: TAKE 1 CAPSULE (150 MG TOTAL) BY MOUTH DAILY. TAKE WITH FOOD. venlafaxine 75 mg capsule,extended release 24hr 75 mg PO DAILY tizanidine 4 mg tablet 4 mg PO 3XD Follow Up/Referrals: Provider,Not a Local [Primary Care Provider, Family Practice] Stand Alone Forms: [employer] Info Instructions
--- OUTSIDE RECORDS SUMMARY | 2025-06-07 18:29 | XMS_ITS | Encounter Summary ---
Author Organization [facility] Address [address] [place] [address] Care Team Providers Care Pest Controller Assistant Name Role Phone Nidia Knutsno APRN, C.N.P., D.N.P. Primary Car e Provider Reason for Visit * Reason Onset Date Comments Med Refill 05/12/2025 Encounter Details Date Type Department Care Team (Late st Contact Info) Description 05/12/2025 Refill Department of Internal Medicine in [place], [place] [address] [place] [phone] Nidia Knutson APRN, C.N.P., D.N.P. [address] [phone] Med Refill Social History Tobacco Use Types Packs/Day Years Used Date Smoking Tobacco: Former Cigarettes Q uit: 02/28/1987 Smokeless Tobacco: Never Alcohol Use Standard Drinks/Week Comments Not Currently 0 (1 standard drink = 0.6 oz pur e alcohol) [facility] Utilities Answer Date Recorded In the past 12 months has e [employer], gas, oil, or water [employer] threatened to shut off services in your home? Yes 08/21/2024 Humiliation, Afraid, Rape, and Kick questionnair e [...] by your partner or ex-partner? No 03/24/2021 Hunger Vital Sign Answer Date Recorded Within the past 12 months, y ou worried that your food would run out before you got the money to buy more. Sometimes true Within the past 12 months, t he food you bought just didn't last and you didn't have money to get more. Sometimes true PRAPARE - Transportation Answer Date Re corded In the past 12 months, has l ack of transportation kept you from medical appointments or from getting medications? Yes 07/27 In the past 12 months, has l ack of transportation kept you from meetings, work, or from getting things needed for daily living? Yes 08/21/2024 Depression Answer Date Recor ded PHQ-9 Total Score (max 27) 16 10/02 Housing Stability Answer Date Recorded What is your living situation today? I have a [facility] place to live 08/21/2024 Education Answer Date Recorded What is the highest level of school you have completed or the highest degree you have received? Associate degree: occupational, technical, or vocational program 06/15/2019 Comments No Sex and Gender Information Value Date Recorded Sex Assigned at Female 09/28/2021 12:51 PM MARINE FIREMAN Legal Sex Female 5:00 AM MARINE FIREMAN Gender Identity Female 09/28/2021 12:51 PM MARINE FIREMAN Sexual Orientation Straight 09/28/2021 12 :51 PM MARINE FIREMAN documented as of this encounter Miscellaneous Notes * Telephone Encounter - Rubens Bright Khris - 05/12/2025 6:58 AM CDT Needs Review: Med Refill Team is unable to forward request to provider. Discrepancy: Verification Required. Medication Discontinued. Primary Provider: Nidia Knutson APRN, C.N.P., D.N.P. Requested Prescriptions Pending Prescriptions Disp Refills Levemir FlexTouch U100 Insulin 100 unit/mL (3 mL) pen 81 mL 3 Sig: Inject 45 Units under the skin 2 (two) times a day. documented in this encounter Plan of Treatment Not on file documented as of this encounter Visit Diagnoses Diagnosis Diabetes Mellitus Type 2 Hyperglycemia (HCC) documented in this encounter Additional Health Concerns Assessment Noted Time PHQ-9 Depression Total Score: 16 025 1:57 PM MARINE FIREMAN documented as of this encounter Care Teams Pest Controller Assistant Relationship Specialty Start Date End Date Nidia Knutson APRN, C.N.P., D.N.P. [address], [place] [phone] PCP - General 08/08/23 documented as of this encounter
--- OUTSIDE RECORDS SUMMARY | 2025-06-07 18:29 | XMS_ITS | Encounter Summary ---
Author Organization [facility] Address [address] [place] [address] Care Team Providers Care Field Sales Consultant Name Role Phone Nidia Knutson APRN, C.N.P., D.N.P. Primary Car e Provider Reason for Referral * Outpatient (Routine) - Authorized Specialty Diagnoses / Procedures Referred By Aldo cazares Referred To Contact Diagnoses Screening Mammogram Breast Cancer Procedures BI Breast Screening Bilateral with Tomosynthesis Nidia Knutson APRN, C.N.P., D.N.P. [address] [place] [address] Phone: tel: fax: [facility] Region Referral ID Status Reason Start Date Expiration Date V isits Requested Visits Authorized [id number] Authorized 04/28/2025 07/29/2026 1 1 Encounter Details Date Type Department Care Team (Late st Contact Info) Description 04/28/2025 Orders Only [facility] PCP [facility] Nidia Knutson APRN, C.N.P., D.N.P. [address] [place] [phone] Screening Mammogram Breast Cancer; Monitoring For Therapeutic Drug Therapy Social History Tobacco Use Types Packs/Day Years Used Date Smoking Tobacco: Former Cigarettes Q uit: 02/28/1987 Smokeless Tobacco: Never Alcohol Use Standard Drinks/Week Comments Not Currently 0 (1 standard drink = 0.6 oz pur e alcohol) [facility] Utilities Answer Date Recorded In the past 12 months has th e electric, gas, oil, or water company threatened to shut off services in your [...] your living situation today? I have a [facility] place to live 08/21/2024 Education Answer Date Recorded What is the highest level of school you have completed or the highest degree you have received? Associate degree: occupational, technical, or vocational program 06/15/2019 Comments No Sex and Gender Information Value Date Recorded Sex Assigned at Female 09/28/2021 12:51 PM KILN MAINTENANCE Legal Sex Female 5:00 AM KILN MAINTENANCE Gender Identity Female 09/28/2021 12:51 PM KILN MAINTENANCE Sexual Orientation Straight 09/28/2021 12 :51 PM KILN MAINTENANCE documented as of this encounter Plan of Treatment Scheduled Orders Name Type Priority Associated Diagnoses Orde r Schedule BI Breast Screening Bilateral with Tomosynthesis Imaging RAD - Routine (most inpatients and all outpatients) Screening Mammogram Breast Cancer Expected: 05/12/2025, Expires: 10/15/2025 Basic Metabolic Panel Lab Routine Monitoring For Therapeutic Drug Therapy Expected: 05/12/2025, Expires: 10/15/2025 documented as of this encounter Visit Diagnoses Diagnosis Screening Mammogram Breast Cancer Monitoring For Therapeutic Drug Therapy documented in this encounter Additional Health Concerns Assessment Noted Time PHQ-9 Depression Total Score: 16 025 1:57 PM KIL[employer] MAINTENANCE documented as of this encounter Care Teams Field Sales Consultant Relationship Specialty Start Date End Date Nidia Knutson APRN, C.N.P., D.N.P. [address] [phone] PCP - General 08/08/23 documented as of this encounter
--- OUTSIDE RECORDS SUMMARY | 2025-06-07 18:29 | XMS_ITS | Encounter Summary ---
Author Organization [facility] Address [address] [place] [address] Care Team Providers Care Missile Control Pilot Name Role Phone Nidia Knutson APRN, C.N.P., D.N.P. Primary Car e Provider Reason for Visit * Reason Comments Med Refill Encounter Details Date Type Department Care Team (Late st Contact Info) Description 05/07/2025 Refill Department of Internal Medicine in [place], [place] [address] [phone] Nidia Knutson APRN, C.N.P., D.N.P. [address] [phone] Med Refill Social History Tobacco Use Types Packs/Day Years Used Date Smoking Tobacco: Former Cigarettes Q uit: 02/28/1987 Smokeless Tobacco: Never Alcohol Use Standard Drinks/Week Comments Not Currently 0 (1 standard drink = 0.6 oz pur e alcohol) [facility] Utilities Answer Date Recorded In the past 12 months has e [employer], gas, oil, or water [employer] threatened to shut off services in your [...] your living situation today? I have a [facility] place to live 08/21/2024 Education Answer Date Recorded What is the highest level of school you have completed or the highest degree you have received? Associate degree: occupational, technical, or vocational program 06/15/2019 Comments No Sex and Gender Information Value Date Recorded Sex Assigned at Female 09/28/2021 12:51 PM RETAIL EQUIPMENT ASSOCIATE Legal Sex Female 5:00 AM RETAIL EQUIPMENT ASSOCIATE Gender Identity Female 09/28/2021 12:51 PM RETAIL EQUIPMENT ASSOCIATE Sexual Orientation Straight 09/28/2021 12 :51 PM RETAIL EQUIPMENT ASSOCIATE documented as of this encounter Plan of Treatment Not on file documented as of this encounter Visit Diagnoses Not on filedocumented in this encounter Additional Health Concerns Assessment Noted Time PHQ-9 Depression Total Score: 16 025 1:57 PM RETAIL EQUIPMENT ASSOCIATE documented as of this encounter Care Teams Missile Control Pilot Relationship Specialty Start Date End Date Nidia Knutson APRN, C.N.P., D.N.P. [address], [place] [phone] PCP - General 08/08/23 documented as of this encounter
--- OUTSIDE RECORDS SUMMARY | 2025-06-07 18:30 | XMS_ITS | Clinical Summary ---
Author Organization [facility] Address [address] [place] [address] Care Team Providers Care Manager People Name Role Phone Eamon Nidiadee dee Thomson APRN, C.N.P., D.N.P. Primary Car e Provider Source Comments Patient records contain information from all sites at [facility]. For routine questions regarding patient records, call [phone] during business hours, M-F 8:00 AM - 5:00 PM Central Time. Record requests for emergency care only can be directed to [phone] at any time.[facility] Allergies Active Allergy Reactions Criticality Noted Date [...] Active blood sugar diagnostic strips Top match BigFixstyle Ena monitor. E11.65 IDDM type II, uncontrolled [...] and fecal incontinence. 96 each 11 Active Additional Information Patient not taking.Reported on 09/30/2024 alcohol swabs pads, medicated Use as needed [...] BY TRANSDERMAL ROUTE EVERY 7 DAYS Active blood-glucose meter miscIndications:Di abetes Mellitus Type 2 Hyperglycemia (HCC),Intermediate Use Of Insulin Active (HCC) Use to test blood sugar 4 daily due to insulin use. Dx: type 2 diabetes. A1c on 07/30/23 11.2 -. 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 patient uses insulin 4 times a day. most recent a1c 11.2 on 07/30/23 100 strip 11 Active diazePAM (VALIUM) 5 mg tablet Take 1 tablet by mouth 2 (two) times a day. Active lamoTRIgine (LaMICtaL) 25 mg tablet TAKE 2 TABLETS BY MOUTH EVERY DAY. MUST SCHEDULE FUTURE APPOINTMENT FOR FURTHER REFILL CONSIDERATION Active naproxen (NAPROSYN) 250 mg tablet Take by mouth every 12 (twelve) hours. Active tiZANidine (Zanaflex) 4 mg tablet TAKE 1 TABLET BY MOUTH THREE TIMES A DAY. 90 tablet 5 024 Active lisinopriL 30 mg tabletIndications: Hypertension Essential Primary TAKE 1 TABLET BY MOUTH EVERY DAY 90 tablet 3 024 Active amLODIPine (Norvasc) 10 mg tabletIndications: Hypertension Essential Primary TAKE 1 TABLET (10 MG TOTAL) BY MOUTH DAILY. 90 tablet 3 024 Active rosuvastatin (Crestor) 40 mg tablet TAKE 1 TABLET BY MOUTH EVERY DAY 90 tablet 3 Active pantoprazole (Protonix) 40 mg EC tablet TAKE 1 TABLET BY MOUTH EVERY MORNING WITH BREAKFAST 90 tablet 3 Active fenofibrate nanocrystallized (Tricor) 145 mg tablet TAKE 1 TABLET BY MOUTH EVERY DAY 90 tablet 024 Active semaglutide (Ozempic) 2 mg/dose (8 mg/3 mL) injectionIndicatio ns:Diabetes Mellitus Type 2 Hyperglycemia (HCC) Inject 2 mg under the skin every 7 (seven) days. 3 mL Active venlafaxine XR (Effexor-XR) 75 mg 24 hr capsule Take 1 capsule (75 mg total) by mouth daily. Take with food. take in addition to current 150 mg tab 90 capsule 3 Active venlafaxine XR (Effexor-XR) 150 mg 24 hr capsule Take 1 capsule (150 mg total) by mouth daily. Take with food. 90 capsule 3 Active oxyCODONE (Roxicodone) 10 mg IR tablet TAKE ONE TABLET BY MOUTH EVERY 4 TO 6 HOURS NEEDED FOR CHRONIC PAIN Active glipiZIDE (GlucotroL) 10 mg tabletIndications: Diabetes Mellitus Type 2 Hyperglycemia (HCC) Take 1 tablet (10 mg total) by mouth 2 (two) times a day before morning and evening meals. 180 tablet 3 Active blood-glucose meter,continuous (Dexcom G7 Mechanical Intern)Indicatio ns:Diabetes Mellitus Type 2 Hyperglycemia (HCC) 1 each (1 Device total) as directed. 1 each Active blood-glucose sensor (Dexcom G7 Sensor) deviceIndications: Diabetes Mellitus Type 2 Hyperglycemia (HCC) 1 each every 10 (ten) days. 9 each 025 2025 Active pen needle, diabetic 31 gauge x 5/16 needle 3 Injection daily. Use to inject 1-4 times daily as directed. 100 each 11 02/05/2 025 Active insulin glargine (Lantus Solostar U-100 Insulin) 100 unit/mL (3 mL) pen Inject 25 Units under the skin every morning. Pharmacy select brand per patient insurance/prefe rence. 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 180 tablet 3 025 Active metFORMIN (Glucophage) 1,000 mg tablet TAKE 1 TABLET (1,000 MG TOTAL) BY MOUTH 2 (TWO) TIMES A DAY WITH MEALS. 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 Date Type Department Care Team Description 05/12/2025 Refill Department of Internal Medicine in [place], [place] [address] [phone] Nidia Knutson APRN, C.N.P., D.N.P. Med Refill 05/07/2025 Refill Department of Internal Medicine in [place], [place] [address] [phone] Nidia Knutson APRN, C.N.P., D.N.P. Med Refill 04/28/2025 Orders Only [facility] MNT Nidia Knutson APRN, C.N.P., D.N.P. Screening Mammogram Breast Cancer; Monitoring For Therapeutic Drug Therapy 04/22/2025 Refill Department of Internal Medicine in [place], [place] [address] [place] [phone] Nidia Knutson APRN, C.N.P., D.N.P. Med Refill from Last 3 Months Immunizations Immunization Administration Dates Next Due Influenza, Unspecified 05/18/2009 PPSV23 08/13/2018 Td (Adult), adsorbed 12/12/2020 Tdap 08/10/2015 influenza vaccine quad (FLUZONE/FLUARIX) (6 months and older)(PF) 06/15/2019,08/13/2018,05/20/2017,2015,08/10/2015 Family History Medical History Relation Name Comments Transient ischemic attack Father Devin Swift Depression Mother Jessica Swift Lymphoma Mother Jessica Swift Relation Name Status Comments Father Devin Swift Social History Tobacco Use Types Packs/Day Years Used Date Smoking Tobacco: Former Cigarettes Q uit: 02/28/1987 Smokeless Tobacco: Never Tobacco Cessation:Counseling Given: Not Answered Alcohol Use Standard Drinks/Week Comments Not Currently 0 (1 standard drink = 0.6 oz pur e alcohol) [facility] Answer Date Recorded In the past 12 months has [facility] Pretty in my Pocket (PRIMP), gas, oil, or water [employer] threatened to shut off services in your [...] your living situation today? I have a [facility] place to live 08/21/2024 Education Answer Date Recorded What is the highest level of school you have completed or the highest degree you have received? Associate degree: occupational, technical, or vocational program 06/15/2019 Comments No Sex and Gender Information Value Date Recorded Sex Assigned at Female 09/28/2021 12:51 PM COMMERCIAL INTERN Legal Sex Female 5:00 AM COMMERCIAL INTERN Gender Identity Female 09/28/2021 12:51 PM COMMERCIAL INTERN Sexual Orientation Straight 09/28/2021 12 :51 PM COMMERCIAL INTERN Last Filed Vital Signs Vital Sign Reading Time Taken Comments Blood Pressure 131/84 09/30/2024 11:03 AM COMMERCIAL INTERN average Pulse 79 09/30/2024 11:03 AM COMMERCIAL INTERN Temperature 36.3 C (97.3 F) 09/30/2024 11:03 AM COMMERCIAL INTERN Respiratory Rate 16 09/30/2024 11:0 3 AM COMMERCIAL INTERN Oxygen Saturation 98% 09/27/2022 9:08 AM COMMERCIAL INTERN Inhaled Oxygen Concentration - - Weight 90.7 kg (199 lb 15.3 oz) 025 11:03 AM COMMERCIAL INTERN Height 167 cm (5' 5.75) 2023 1:55 PM CDT Body Mass Index 32.52 2023 1:55 PM CDT Plan of Treatment Health Maintenance Due Date Last Done Comments CT Colonography 1965 Cologuard 1965 Visit: Medicare Annual Wellness 1965 RSV vaccine - (32-36 weeks) or 50+ years (1 - Risk 50-74 years 1-dose series) 2014 Zoster Vaccines (1 of 2) 2014 Colonoscopy 08/31/2015 08/31/2010 Colorectal Cancer Surveillance 08/31/2015 Pneumococcal vaccine (50+ years) (2 of 2 - PCV) 08/13/2019 08/13/2018 Controlled Substance Agreement 02/15/2020 Controlled Substance Monitoring (UDS) 02/15/2020 PEG assessment for Opioid therapy 02/15/2020 Cervical/Vaginal Cancer Screening 09/26/2022 Diabetic Office Visit with Foot Exam 01/16/2023 01/16/2022 Mammogram 01/16/2023 01/16/2022, 01/24, 07/24/2011 Depression Monitoring (PHQ-9 for quality tracking) 08/26/2024 Hemoglobin A1C 12/01/2024 09/02/2024, 11/24, 07/30/2023, Additional history exists Creatinine Level (Kidney Function Test) 12/08/2024 2023, 07/17/2023, 09/27/2022, Additional history exists Potassium Level 12/08/2024 2023, 06/27, 09/27/2022, Additional history exists Sodium Level 12/08/2024 2023, 06/27, 09/27/2022, Additional history exists Hepatitis B Vaccines (1 of 3 - Risk 3-dose series) 2024 Depression Monitoring (PHQ-9) 01/30/2025 10/02/2024 COVID-19 Vaccine (2 - 2024- season) 2025 03/14/2021 Influenza Vaccine (#1) 2025 9, 08/13/2018, 05/20/2017, Additional history exists Urine Albumin 09/02/2025 09/02/2024, 02/09/2022, 05/04/2019 Office Visit for Blood Pressure Check / Re-check 09/30/2025 09/30/2024 Controlled Substance Monitoring (PHQ-9) 10/02/2025 10/02/2024 Generalized Anxiety (AHSAN-7) 10/02/2025 10/02/2024 Opioid Use Disorder (OUD) Screening 10/02/2025 10/02/2024 Visit: Chronic Disease, age 18+ 10/02/2025 10/02/2024, 2023 Diabetic Eye Exam 10/19/2025 10/19/2024 Lipid (Cholesterol) Screening 09/02/2029 09/02/2024, 09/27/2022, 01/16/2022, Additional history exists DTaP,Tdap,and Td Vaccines (3 - Td or Tdap) 12/12/2030 12/12/2020, 08/10/2015 Opioid Risk Tool (ORT) Completed 05/15/2021 Hepatitis C Screening Completed 01/16/2022 IPV Vaccines Aged Out No longer eligi ble based on patient's age to complete this topic Medical Devices Implanted Type Area Psychiatric Aide Device Identifier Shelf Expiration Date Model / Serial / Lot Hardware E.G. Pins/Screws/Ro ds Hardware e.g. pins/screws/r ods Back Procedures Procedure Name Priority Date/Time Associated Diagnosis Comments ALBUMIN, RANDOM, U Routine 09/02/2024 2: 19 PM COMMERCIAL INTERN Diabetes Mellitus Type 2 Hyperglycemia (HCC) HEMOGLOBIN A1C, B Routine 09/02/2024 2:1 6 PM COMMERCIAL INTERN Diabetes Mellitus Type 2 Hyperglycemia (HCC) LIPID PANEL, S Routine 09/02/2024 2:15 PM COMMERCIAL INTERN Hyperlipidemia BASIC METABOLIC PANEL, S/P Routine 2023 2:35 PM CDT Diabetes Mellitus Type 2 Hyperglycemia (HCC) Hypertension Essential Primary HCV AB SCRN W/REFLEX TO HCV PCR, S Routine 01/16/2022 9:36 AM CDT Screening Examination For Viral Disease BI BREAST SCREENING BILATERAL WITH TOMOSYNTHESIS RAD - Routine (most inpatients and all outpatients) 01/16/2022 8:07 AM CDT Screening Mammogram Breast Cancer from Last 3 Months or Most Recently Relevant to Health Maintenance Results * Albumin, Random, Urine (09/02/2024 2:19 PM COMMERCIAL INTERN) Microalbumin <12.0 mg/L 09/02/2024 6:27 PM COMMERCIAL INTERN OWAT Comment:If clinically indica jonathon, contact the lab for additional testing. Creatinine 109 mg/dL 09/02/2024 6:27 PM COMMERCIAL INTERN OWAT Albumin/Creatinine Ratio <11 <25 mg/g 09/02/2024 6:27 PM COMMERCIAL INTERN OWAT Comment: This ratio may not correspond with the reference range because one or both of the values used to calculate the ratio was above or below the quantification limits. Urine (Urine, Midstream) 09/02/2024 2:19 PM COMMERCIAL INTERN 09/02/2024 5:48 PM COMMERCIAL INTERN us Nidia Knutson APRN, C.N.P., D.N.P. LAB URINE OR DERABLES Final Result Performing Organization Address [facility] de Phone Number [facility] [address] [address], [facility] OWAT [facility] [address] [place] [address] * (ABNORMAL) Hemoglobin A1c (09/02/2024 2:16 PM COMMERCIAL INTERN) Hemoglobin A1c, B 8.6(H) 4.2 - 5.6 % 09/02/2024 6:22 PM COMMERCIAL INTERN OWAT Comment: Hemoglobin A1c values greater than or equal to 6.5 percent are diagnostic for diabetes mellitus. Diagnosis should be confirmed by repeat testing. In diabetic patients, HbA1c goals should be discussed with healthcare provider. Blood (Blood, Venous) 09/02/2024 2:16 PM COMMERCIAL INTERN 09/02/2024 5:49 PM COMMERCIAL INTERN us Nidia Knutson APRN, C.N.P., D.N.P. LAB BLOOD AD D-ON Final Result Performing Organization Address [facility] Co de Phone Number [facility] [address] [address], [facility] OWAT [facility] in [address] [place] [address] * (ABNORMAL) Lipid Panel (09/02/2024 2:15 PM COMMERCIAL INTERN) Triglycerides 363(H) mg/dL 09/02/2024 6:24 PM COMMERCIAL INTERN OWAT Comment: ----REFERENCE VALUE---- Normal: <150 mg/dL Borderline High: 150-199 mg/dL High: 200-499 mg/dL Very High: > or =500 mg/dL Cholesterol, Total 265(H) mg/dL 2024 6:24 PM COMMERCIAL INTERN OWAT Comment: ----REFERENCE VALUE---- Desirable: < 200 mg/dL Borderline High: 200 - 239 mg/dL High: > or = 240 mg/dL Cholesterol, LDL, Calculated 157(H) mg/dL 09/02/2024 6:24 PM COMMERCIAL INTERN OWAT Comment: ----REFERENCE VALUE---- Desirable: <100 mg/dL Above Desirable: 100-129 mg/dL Borderline High: 130-159 mg/dL High: 160-189 mg/dL Very High: >=190 mg/dL ----ADDITIONAL INFORMATION---- LDL cholesterol calculated using the Clark/NIH equation. Cholesterol, HDL 40(L) >=50 mg/dL 09/02/19 6:24 PM COMMERCIAL INTERN OWAT Cholesterol, Non-HDL, Calculated 225(H) mg/dL 09/02/2024 6:24 PM COMMERCIAL INTERN OWAT Comment: ----REFERENCE VALUE---- Desirable: <130 mg/dL Above Desirable: 130-159 mg/dL Borderline High: 160-189 mg/dL High: 190-219 mg/dL Very High: > or =220 mg/dL Fasting (8 HR or more) No 09/02/2024 2:16 PM COMMERCIAL INTERN OWAT Blood (Blood, Venous) 09/02/2024 2:15 PM COMMERCIAL INTERN 09/02/2024 5:49 PM COMMERCIAL INTERN us Nidia Knutson APRN, C.N.P., D.N.P. LAB BLOOD AD D-ON Final Result [facility] [address] [place] [address], [facility] OWAT [facility] [place] [address] [place] [address] * (ABNORMAL) Basic Metabolic Panel (2023 2:35 [...] 2:35 PM CDT 2023 3:08 PM CDT Nidia Knutson APRN, C.N.P., D.N.P. LAB BLOOD AD D-ON Final Result [facility] [address] [place] [address], [facility] [place] [place] [address] * HCV Ab Scrn w/Reflex to HCV PCR, Serum (01/16/2022 9:36 AM CDT) HCV Ab Screen, S Negative Negative 01/17/2022 8:59 AM CDT [facility] Comment:Oorvqn-mg-lqpmcd rat io is <1.00. Blood (Blood, Venous) 01/16/2022 9:36 AM CDT 01/17/2022 6:47 AM CDT us Ninfa Jimenez APRN, C.N.P., D.N.P., M.S.N. LAB MICROBIOLOGY - BLOOD ORDERABLES Final Result [facility] [address] [place] [address] [facility] Dept. of Laboratory Medicine and Pathology [address] [place] [address] * BI Breast Screening Bilateral with Tomosynthesis (01/16/2022 8:07 AM CDT) Anatomical Region Laterality Modality Breast, Breast Imaging RST L OS, Breast Imaging ARZ LOS, Breast Imaging FLA LOS Bilateral Mammography 01/16/2022 10:3 7 AM CDT Impressions 01/16/2022 10:40 AM CDT Negative. RECOMMENDATION: Annual Screening Mammogram ASSESSMENT: BI-RADS: 1: Negative. Narrative 01/16/2022 10:40 AM CDT EXAM: BI BREAST SCREENING BILATERAL WITH TOMOSYNTHESIS Current study was evaluated with a Computer Aided Detection (CAD) system. INDICATION: Screening mammogram. COMPARISON: Prior exam(s) were available and reviewed for comparison. DENSITY: c. The breast(s) are heterogeneously dense, which may obscure small masses. FINDINGS: No mammographic findings of malignancy. Procedure Note Sonny [...] Most Recently Relevant to Health Maintenance Insurance [employer] Care Teams Manager People Relationship Specialty Start Date End Date Nidia Knutson APRN, C.N.P., D.N.P. [address] [place] [phone] PCP - General 08/08/23
--- OUTSIDE RECORDS SUMMARY | 2025-06-07 18:30 | XMS_ITS | Encounter Summary ---
Author Organization [facility] Address [address] [place] [address] Care Team Providers Care Certified Diabetes Educator Name Role Phone Nidia Knutson APRN, C.N.P., D.N.P. Primary Car e Provider Reason for Visit * Reason Comments Med Refill Encounter Details Date Type Department Care Team (Late st Contact Info) Description 04/22/2025 Refill Department of Internal Medicine in [place], [place] [address] [place] [phone] Nidia Knutson APRN, C.N.P., D.N.P. [address] [phone] Med Refill Social History Tobacco Use Types Packs/Day Years Used Date Smoking Tobacco: Former Cigarettes Q uit: 02/28/1987 Smokeless Tobacco: Never Alcohol Use Standard Drinks/Week Comments Not Currently 0 (1 standard drink = 0.6 oz pur e alcohol) [facility] Utilities Answer Date Recorded In the past 12 months has e [employer], gas, oil, or water [employer] threatened to shut off services in your [...] your living situation today? I have a [facility] place to live 08/21/2024 Education Answer Date Recorded What is the highest level of school you have completed or the highest degree you have received? 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 [address] [place] [phone] PCP - General 08/08/23 documented as of this encounter
--- OUTSIDE RECORDS SUMMARY | 2025-06-07 18:30 | XMS_ITS | Clinical Summary ---
Author Organization [facility] Address [address] [place] [id number] Care Team Providers Care Senior Clinical Research Associate Name Role Phone Gosia Day Antonia SHOEMAKER Unavailable Unavaila Randi Morales MD Unavailable Pcp, No Primary Care Provider Unavailabl e Allergies Active Allergy Reactions Criticality Noted Date Comments Exenatide Microspheres Other - Describe In Comment Field 02/03/2018 Swelling at injection sites Erythromycin Rash 12/07/2008 Morphine Arrhythmia 12/07/2008 Medications FISH OIL 500 MG CAPIndications:Diabetes mellitus type II 2 by mouth twice daily 0 009 Active ASPIRIN 81 MG TAB, DELAYED RELEASEIndications:Diab etes mellitus type II take 1 tablet (81 mg) by oral route once daily 0 009 Active phototherapy light box Use as instructed. Medically necessary for SAD 1 unit 0 013 Active medication order composer Large CPAP mask, #1, Diagnosis OBSTRUCTIVE SLEEP APNEA. 1 Each 0 013 Active cholecalciferol (VITAMIN D3) 1,000 unit tablet Take 5 tablets by mouth 2 times daily. 180 tablet 3 016 Active pen needle, diabetic 31 gauge x 01/08Indications:Type 2 diabetes mellitus with hyperglycemia, with long-term current use of insulin (HC) For administering insulin at home. 100 Each 1 017 Active blood-glucose meterIndications:Uncont rolled type 2 diabetes mellitus with complication, with long-term current use of insulin Test fasting and postprandial 4x's a day. Reason: uncontrolled DM, newly started insulin 1 Device 017 Active lancetsIndications:Unco ntrolled type 2 diabetes mellitus with complication, with long-term current use of insulin Test 4 times daily 400 Each 2 017 Active WalkerIndications:S/P lumbar spinal fusion Rolling Walker for home use. 1 Device 017 Active gabapentin (NEURONTIN) 300 mg capsuleIndications:S/P lumbar spinal fusion,Lumbar disc herniation,Lumbar facet arthropathy,Leg pain, bilateral Take 2 capsules by mouth 3 times daily. 270 capsule 1 018 Active pantoprazole (PROTONIX) 40 mg delayed-release tabletIndications:Gastr oesophageal reflux disease without esophagitis TAKE 1 TABLET BY MOUTH ONCE A DAY 90 tablet 2 018 Active lisinopril (PRINIVIL; ZESTRIL) 20 mg tabletIndications:HTN (hypertension) TAKE ONE TABLET BY MOUTH ONCE DAILY 90 tablet 2 018 Active tiZANidine (ZANAFLEX) 4 mg tabletIndications:Other chronic pain TAKE 1 TABLET BY MOUTH EVERY 8 HOURS IF NEEDED FOR MUSCLE SPASM 90 tablet 1 018 Active blood-glucose meterIndications:Type 2 diabetes mellitus without complication, with long-term current use of insulin (HC) Dispense meter, test strips, lancets covered by pt ins. E11.65 NIDDM type II, uncontrolled - Test 4 times/day. Reason: High A1C on insulin 1 Device 018 Active flash glucose sensor (FREESTYLE ENA SENSOR) kitIndications:Poorly controlled diabetes mellitus (HC) As directed. 3 Each 11 018 Active flash glucose scanning reader (FREESTYLE ENA READER) miscIndications:Poorly controlled diabetes mellitus (HC) As directed. Freestyle Ena CGM or may substitute with GCM covered by insurance. 1 reader 1 Device 1 018 Active glipiZIDE (GLUCOTROL) 10 mg tabletIndications:Type 2 diabetes mellitus with stage 1 chronic kidney disease, without long-term current use of insulin (HC),Poorly controlled diabetes mellitus (HC) Take 1 tablet by mouth 2 times daily before meals. To lower blood sugar 60 tablet 4 018 Active insulin degludec (TRESIBA FLEXTOUCH U-100) 100 unit/mL (3 mL) inpn subcutaneous penIndications:Type 2 diabetes mellitus with stage 1 chronic kidney disease, without long-term current use of insulin (HC) Inject 10 Units subcutaneous. 5 pen 3 018 Active tiZANidine (ZANAFLEX) 2 mg tablet TAKE ONE TABLET BY MOUTH EVERY 8 HOURS NEEDED, IN ADDITION TO 4MG DOSE NOT TO EXCEED 3 DOSES IN 24 HOURS 0 018 Active metFORMIN (GLUCOPHAGE) 1,000 mg tabletIndications:Type 2 diabetes mellitus with hyperglycemia, without long-term current use of insulin (HC) TAKE ONE TABLET BY MOUTH EVERY MORNING WITH BREAKFAST, 1/2 TAB WITH LUNCH, AND 1 TABLET WITH DINNER 75 tablet 018 Active oxyCODONE (ROXICODONE) 5 mg immediate release tablet Take 5 mg by mouth 2 times daily 0 018 Active blood sugar diagnostic (ACCU-CHEK TATE) stripIndications:Uncont rolled type 2 diabetes mellitus with complication, with long-term current use of insulin To match monitor. Test fasting and postprandial 4x's a day. Reason: uncontrolled DM, newly started insulin 1 box 3 018 Active blood sugar diagnostic (FREESTYLE TEST) stripIndications:Type 2 diabetes mellitus with stage 1 chronic kidney disease, without long-term current use of insulin (HC) Top match Freestyle Ena monitor. E11.65 IDDM type II, uncontrolled - Test 4 times/day. Reason: High A1C 200 Each 2 018 Active atorvastatin (LIPITOR) 40 mg tabletIndications:Pure hypercholesterolemia Take 1 tablet by mouth once daily. 90 tablet 1 018 Active Diaper,Brief, Adult,DisposableIndicat ions:Mixed stress and urge urinary incontinence For home use. 1 box 018 Active venlafaxine (EFFEXOR XR) 150 mg Extended-Release capsuleIndications:Depr ession, recurrent Combine with 75mg capsule to = 225mg daily 90 capsule 018 Active venlafaxine (EFFEXOR XR) 75 mg cp24 Extended-Release capsuleIndications:Depr ession, recurrent Combine with 150mg capsule to = 225mg daily 90 capsule 018 Active diazePAM (VALIUM) 5 mg tabletIndications:Mid back pain Take 1 Tablet (5 mg) by mouth 2 times daily. 10 Tablet 021 Active Active Problems Problem Noted Date Diagnosed Date History of abnormal cervical Pap smear 8 Overview (12/12/2017): 6511-8314 cryotherapy. 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 Not on file Not on f ile 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 Not on file Not on file Not on f ile Obstetrics History Para Term AB IAB SAB Ectopic Multiple Livin g Live Births 1 1 1 0 0 0 0 0 0 0 Date Outcome GA Total Labor Labor/2nd/3rd Weight Sex Type Anes PTL Sparkle A1 A5 Name Clin Term Last Filed Vital Signs Vital Sign Reading Time Taken Comments Blood Pressure 114/61 07/17/2023 6:00 PM ARMATURE REPAIRER Pulse 77 07/17/2023 6:00 PM ARMATURE REPAIRER Temperature 36.7 C (98 F) 07/17/2023 5:02 PM ARMATURE REPAIRER Respiratory Rate 22 07/17/2023 5:02 PM ARMATURE REPAIRER Oxygen Saturation 95% 07/17/2023 6:00 PM ARMATURE REPAIRER Inhaled Oxygen Concentration - - Weight 90.2 kg (198 lb 12.8 oz) 07/17/2023 5:02 PM ARMATURE REPAIRER Height 167.6 cm (5' 6) 07/17/2023 5:02 PM ARMATURE REPAIRER Body Mass Index 32.09 07/17/2023 5:02 PM ARMATURE REPAIRER Plan of Treatment Health Maintenance Due Date [...] 07/12/2019 07/12/2018, 02/03/2018, 10/05/2017, Additional history exists Pneumococcal series for age 50+ (2 of 2 - PCV) 08/13/2019 08/13/2018 Pap test for age 21-65 10/15/2020 8, 10/15/2017, 03/21/2011 Lipids for age 45-75 11/07/2022 11/07/2017, 01/22/2017, 09/20/2016, Additional history exists COVID-19 vaccine series (2 - 2024- season) 2025 03/14/2021 Influenza Vaccine (#1) 2025 8, 05/20/2017, 06/14/2016, Additional history exists Tetanus booster 08/10/2025 08/10/2015, 05/11/2009 RSV vaccine for adults or (1 - 1-dose 75+ series) 12/10/2039 Hepatitis C screening for age 18-79 Completed 05/12/2013 Hepatitis B series for 19+ Aged Out N o longer eligible based on patient's age to complete this topic Medical Devices Implanted Type Area Shredded Filler Cigar Maker Machine Device Identifier Shelf Expiration Date Model / Serial / Lot [id number] 1-4mm 30cc Medtronic Chips Canclls Freeze Dried Implanted:Qty: 1 on 03/26/2017 by José Miguel Souza MD at [facility] Explanted:at [facility] (Quantity not on file) N/A: Spine Medtronic Spine/Ortho 11/29/2021 [id number] / [id number] / Screw Lmbr Post 5x50mm Matrix Degen Va Titnm - [id number] Implanted:Qty: 1 on 03/26/2017 by José Miguel Souza MD at [facility] N/A: Spine Depuy [employer] 04.632.550 # / / Screw Lmbr Post 7x50mm Matrix Degen Va Titnm - [id number] Implanted:Qty: 3 on 03/26/2017 by José Miguel Souza MD at [facility] N/A: Spine Depuy [employer] [id number] # / / Lee Lmbr 45mmx5.5 Matrix Degen Cvd - [id number] Implanted:Qty: 1 on 03/26/2017 by José Miguel Souza MD at [facility] N/A: Spine Depuy Synthes Kash 04.636.045 # / / Lee Lmbr 70mmx5.5 Matrix Degen Cvd - [id number] Implanted:Qty: 1 on 03/26/2017 by José Miguel Souza MD at [facility] N/A: Spine Depuy [employer] 04.636.070 # / / Set Screw Lmbr Matrix Degen W/O Saddle - [id number] Implanted:Qty: 4 on 03/26/2017 by José Miguel Souza MD at [facility] N/A: Spine J And J Depuy Spine .632.099 # / / Spacer Lmbr [id number] Opalrevolve Tlif - [id number] Implanted:Qty: 1 on 03/26/2017 by José Miguel Souza MD at [facility] N/A: Spine Depuy [employer] 08.803.133 # / / Procedures Procedure Name Priority Date/Time Associated Diagnosis Comments LDL CHOLESTEROL,DIRE CT Add On 11/07/2017 3:50 PM CDT Type 2 diabetes mellitus with hyperglycemia, with long-term current use of insulin (HC) Pure hypercholesterolemia TITLE I COORDINATOR THIN PREP PAP SCREEN IMAGED Routine 10/15/2017 8:21 AM ARMATURE REPAIRER Cervical cancer screening OCCULT BLOOD IFOBT STOOL Routine 05/02/2015 3:16 PM CDT Screening for colorectal cancer ANTI HCV Routine 05/12/2013 9:58 AM CDT Myalgia XR MAMMO BILAT SCREEN FFDM (IA) Routine 02/10/2013 9:59 AM CDT Other screening mammogram from Last 3 Months or Most Recently Relevant to Health Maintenance Results * LDL CHOLESTEROL,DIRECT (11/07/2017 3:50 PM CDT) LDL CHOLESTEROL,DI RECT 89 mg/dL 11/08/2017 2:01 PM CDT [facility] PROVIDER ORDERED STATUS RANDOM 11/08/2017 2:01 PM CDT [facility] Blood BLOOD SPECIMEN / Unknown Venipuncture / Unknown 11/07/2017 3:50 PM CDT 11/07/2017 3:50 PM CDT Narrative [facility] - 11/08/2017 2:01 PM CDT RISK CATEGORY LDL GOAL (mg/dL) Vascular disease and/or diabetes (<100) Multiple (2+) risk factors (<130) 0-1 risk factor (<160) Lizabeth Goetz DO CHEMISTRY Final Resu lt [facility] [address] [place] [address], [facility] [address] [place] [address], * TITLE I COORDINATOR THIN PREP PAP SCREEN IMAGED (10/15/2017 8:21 AM ARMATURE REPAIRER) Case Report Gynecologic Cytology Report Case: [id number] Authorizing Provider: Lizabeth Goetz DO Collected: 10/15/2017 0821 Ordering Location: [facility] Received: 10/15/2017 0827 Clinic First Screen: Alana Davis Specimen: TITLE I COORDINATOR ThinPrep Vial Screening, Cervical 10/21/2017 12:02 PM ARMATURE REPAIRER [facility] INTERPRETATION/ RESULT NEGATIVE FOR INTRAEPITHELIAL LESION OR MALIGNANCY (NIL) (none) 10/21/2017 12:02 PM ARMATURE REPAIRER [facility] at 1202 ARMATURE REPAIRER ORGANISM(S) Shift in lo suggestive of bacterial vaginosis 10/21/2017 12:02 PM ARMATURE REPAIRER [facility] SPECIMEN ADEQUACY Satisfactory for evaluation No endocervical component seen 10/21/2017 12:02 PM ARMATURE REPAIRER [facility] HPV REQUEST HPV if ASCUS 10/21/2017 12:02 PM ARMATURE REPAIRER [facility] Date of LMP Unsure 10/21/2017 12:02 PM ARMATURE REPAIRER [facility] Last Pap Date 03/21/11 10/21/2017 12:02 PM ARMATURE REPAIRER [facility] Last Pap Result NIL 12:02 PM ARMATURE REPAIRER [facility] Abnormal Pap or [place] Bx in last 5 years No 10/21/2017 12:02 PM ARMATURE REPAIRER [facility] Menstrual Status Postmenopausal 10/21/2017 12:02 PM ARMATURE REPAIRER [facility] [place] Bx Done Today No 10/21/2017 12:02 PM ARMATURE REPAIRER [facility] Additional Information None given 10/21/2017 12:02 PM ARMATURE REPAIRER [facility] Automated Review Successful 10/21/2017 12:02 PM ARMATURE REPAIRER [facility] Comment:Specimen processed s uccessfully by automated senior publications specialist device, ThinPrep Imaging System, [employer] Note The pap test is a screening technique, not a diagnostic procedure. It is used primarily to screen for squamous cancers and precursor lesions. Published studies have shown that it is subject to both false negative and false positive results. The pap test should not be used as the sole means to diagnose or exclude pre-malignant and malignant lesions. Interpreted at [facility] ([facility], [facility], [facility], [facility], [facility], [facility] [place][Note 2], [facility]ly [facility]) 10/21/2017 12:02 PM [facility] Other (Cervical) Non-Blood / Unknown 10/15/2017 8:21 AM ARMATURE REPAIRER 10/15/2017 8:27 AM ARMATURE REPAIRER Lizabeth Goetz DO PATHOLOGY/CYTOLOGY Final R esult [facility] [address] [place] [address], [place] * OCCULT BLOOD IFOBT STOOL (05/02/2015 3:16 PM CDT) STOOL BLOOD ,IFOBT Negative Negative, Invalid 05/10/2015 4:19 PM CDT [facility] Stool specimen (specimen) STOOL SPECIMEN / Unknown Non-Blood / Unknown 05/02/2015 3:16 PM CDT 05/10/2015 3:16 PM CDT Lizbaeth Goetz DO LABORATORY Final Resu lt [facility] [address] [place] [address], [place] [phone] * ANTI HCV (05/12/2013 9:58 AM CDT) ANTI HCV Non-reacti ve [facility] Blood specimen (specimen) BLOOD SPECIMEN / Unknown 05/12/2013 9:58 AM CDT 05/12/2013 9:51 AM CDT Randi Sanches MD SEND OUTS Final Result Performing Organization Address City/[facility]/ZIP Co de Phone Number [facility] INTERNAL ZIP [address] [place] [address] * XR MAMMO BILAT SCREEN FFDM (02/10/2013 9:59 AM CDT) Anatomical Region Laterality Modality BREASTS, Breast Left, Breast Right Bilateral Mammography Impressions 02/10/2013 12:30 PM CDT There is no radiographic evidence for malignancy. Recommend annual mammograms. A lay language report of this examination will be provided to the patient. MAMMOGRAM ASSESSMENT: ACR 2 Benign Narrative 02/10/2013 12:30 PM CDT XR MAMMO BILAT SCREEN FFDM [G0202.0] CLINICAL HISTORY: This is an asymptomatic 47 y.o. patient. INDICATION FOR EXAM: Mammogram Screening. TECHNIQUE: CC & MLO views were obtained. This digital study was evaluated with the assistance of Computer-Aided Detection. COMPARISON FILMS: Yes 07/24/11 [facility] FINDINGS: Mammographically, the breast tissue is heterogeneously dense, which could obscure detection of small masses (approximately 51% - 75% glandular). No suspicious masses or microcalcifications. Benign appearing calcifications within both breasts and Benign appearing asymmetry within both breasts. Procedure Note Mauro Comer, - 02/10/2013 XR MAMMO BILAT SCREEN FFDM [G0202.0] CLINICAL HISTORY: This is an asymptomatic 47 y.o. patient. INDICATION FOR EXAM: Mammogram Screening. TECHNIQUE: CC & MLO views were obtained. This digital study was evaluatedwith the assistance of Computer-Aided Detection. COMPARISON FILMS: Yes 07/24/11 [facility] FINDINGS: Mammographically, the breast tissue is heterogeneously [...] ACR 2 Benign Sarika Aguero MD MAMMO Final Result from Last 3 Months or Most Recently Relevant to Health Maintenance Insurance MEDICARE PART B HB ONLY MEDICARE PART A HB ONLY [employer] CHOICE PPO MR * Guarantor: [facility] Account Type Relation to Patient Date of Phone Billing Address Contract 2007 [address] [place] [address] Advance Directives * Full Code (Latest Code Status on File) Date Activated Date Inactivated Comments 03/26/2017 6:32 PM 03/30/2017 7:51 PM * Full Code Date Activated Date Inactivated Comments 03/26/2017 6:08 AM 03/26/2017 6:02 PM Care Teams Senior Clinical Research Associate Relationship Specialty Start Date End Date Pcp, No . PCP - General 09/28/18 Gosia Day CNS Clinical Nurse Specialist 07/30/12 Randi Sanches MD Rheumatology Rheumatology 02/10/13
--- OUTSIDE RECORDS SUMMARY | 2025-06-07 19:29 | XMS_ITS | CCD ---
Author Organization Unknown Care Team Providers Care Automobile Service Station Mechanic Name Role Phone Cupola Liner Helper, [place] Primary Care Provider Unava ilable Unavailable Chronic Care Management Unavaila ble Summary Purpose DataExchange Insurance Providers Payer name Policy type / Coverage type Covered democrat ID Effective Begin Date Effective End Date [place] Medicare Part B [id number] Unknown Unknown [employer] Medicare Part B [id number] Unknown Unknown Family History Family History data not found Medication Administered No Medication Administered data Medical Equipment No Medical Equipment data Assessments No Assessment data Reason For Visit No Reason For Visit data Review of Systems No Review of Systems data Physical Exam No Physical Exam data History of Present Illness No History of Present Illness data Advance Directives No Advance Directive data
--- OUTSIDE RECORDS SUMMARY | 2025-06-07 19:29 | XMS_ITS | CCD ---
Author Organization Unknown Care Team Providers Care Case Loader Operator Name Role Phone Travel Accommodation Inspector, [place] Primary Care Provider Unava ilable Unavailable Chronic Care Management Unavaila ble Summary Purpose DataExchange Insurance Providers Payer name Policy type / Coverage type Covered green party ID Effective Begin Date Effective End Date Medicare [place] Medicare Part B [id number] Unknown Unknown [employer] Medicare Part B [id number] Unknown Unknown Family History Family History data [...]
== END 2025-06-07 20:11 | disposition home or self-care (01) ==
PROVIDERS: Emergency Provider Emergency Medicine Emergency Medical Services
DX: M25.552 Pain in left hip (principal)
CPT/HCPCS: 73502; 99283; 99284